=== PATIENT | female | born 1955 | race Caucasian/White ===

== ENCOUNTER 2018-11-18 23:10 | Inpatient (IN) | payer BC, MEDICAID ==
[~2018-11-18] VITALS: Ht 152.4 cm; Wt 92.0 kg
[~2018-11-18 23:10] MED LIST: ACET500C5 PO; AMIT100T2 PO; ASC500 PO; BIOT10TA2 PO; BUTA1CAP35 GTB; CHOL100062 PO; CITRACAL PO; CYAN500T46 PO; DICL100G33 TP; DICL2SOL TP; DOCU50LI11 GTB; ENOX40DI2 SC; ESTRD1 TRANSDERM; FAMO20TA18 PO; FLOV220 INHALATION; HYDR-3609 PO; IBUP-1541 PO; IPRA3AMP29 HHN; LACT1CAP28 PO; MAGN400T27 GTB; MECL12.574 PO; OXYC1TAB6 PO; TRAM50TA2 PO
--- NOTE | 2018-11-19 02:01 | ERD ---
ER Documentation Chief Complaint Chief Complaint [id number],from [facility],low O2 sat on vent at [facility] HPI This is a 27 brought in from [facility] for low O2 sat on maintenance neb. Patient's history is obviously limited given that she is a vent dependent patient. Upon arrival she is satting on her percent. Speaking with the staff, it seems that there having issues with her back to did not try changing the vent settings and was called 911 for the patient. ROS All systems reviewed and are negative except as per history of present illness. Allergies Allergies: Coded Allergies: Penicillins (Verified Allergy, Unknown, 11/18/18) codeine (Verified Allergy, Unknown, 11/18/18) famotidine (Verified Allergy, Unknown, 11/18/18) minocycline (Verified Allergy, Unknown, 11/18/18) morphine (Verified Allergy, Unknown, 11/18/18) PMhx/Soc History of Surgery: Yes (GASTRIC BYPASS) Hx Cardiac Disorders: Yes (HLD) Hx Miscellaneous Medical Probl: Yes (GASTIRITIS,CMP WITH BILATERAL FOOT DROP,PNEUMONIA) Hx Alcohol Use: No Smoking Status: Never smoker Physical Exam Vitals Vital Signs Date Temp Pulse Resp B/P (MAP) Pulse Ox O2 O2 Flow FiO2 Time Delivery Rate 11/18/18 98.9 108 18 155/100 98 23:15 (118) Physical Exam Const: No acute distress Head: Atraumatic Eyes: Normal Conjunctiva ENT: Normal External Ears, Nose and Mouth. Neck: Full range of motion. No meningismus. Resp: Clear to auscultation bilaterally Cardio: Regular rate and rhythm, no murmurs Abd: Soft, non tender, non distended. Normal bowel sounds Skin: No petechiae or rashes Back: No midline or flank tenderness Ext: No cyanosis, or edema Neur: Awake and alert Psych: Normal Mood and Affect Result Diagram: 11/19/18 0027 11/18/18 2326 Results 24 hrs Laboratory Tests Test 11/18/18 23:26 11/19/18 00:01 11/19/18 00:27 11/19/18 00:35 Blood Gas Blood arterial Specimen Source Arterial Blood 11/19/2018 12:30: Date Drawn 28 AM Arterial Blood 7.442 pH (Temp corrected) Arterial Blood 56.0 mmhg pCO2 (Temp correct) Arterial Blood 81.4 mmHG pO2 (Temp corrected) Arterial Blood 37.4 mmol/L HCO3 Arterial Blood 11.5 mmol/L Base Excess Arterial Blood 95.6 mmHG Oxygen Saturatio n Jose D Test ACCEPTAB Arterial Blood Right Radial Gas Puncture Site Arterial 0.3 % Blood Carboxyhem oglobin Arterial Blood 0.4 % Methemoglobin Blood Gas A-a O2 139.4 mmHg Differential Oxyhemoglobin 94.9 % Percent Blood Gas 37.0 C Temperature Blood Gas 16.0 Respiration Rate Blood Gas Actual 19 Respiration Rate Blood Gas VENT - AC Modality FiO2 40.0 % Blood Gas Tidal 500.0 mL Volume Blood Gas Low 5.0 cmH2O PEEP Setting Blood Gas Notified Whom Blood Gas 11/19/2018 12:37: Notified Time 22 AM Sodium Level 141 mmol/L Potassium Level 3.7 mmol/L Chloride Level 95 mmol/L Carbon Dioxide 39 mmol/L Level Anion Gap 7 Blood Urea 14 mg/dl Nitrogen Creatinine 0.49 mg/dl Est Glomerular > 60 mL/min Filtrat Rate mL/min Glucose Level 134 mg/dl Calcium Level 9.4 mg/dl Total Bilirubin 0.3 mg/dl Direct Bilirubin 0.00 mg/dl Indirect 0.3 mg/dl Bilirubin Aspartate Amino 35 IU/L Transf (AST/SGOT ) Alanine 48 IU/L Aminotransferase (ALT/SGPT) Alkaline 88 IU/L Phosphatase Troponin I 0.017 ng/ml B-Type 596 PG/ML Natriuretic Peptide Total Protein 7.4 g/dl Albumin 3.7 g/dl Globulin 3.70 g/dl Albumin/Globulin 1.00 Ratio Prothrombin Time 12.8 Sec Prothrombin Time 1.0 Ratio INR 0.95 International Normalized Ratio Activated 26.3 Sec Partial Thrombop last Time White Blood 13.7 10^3/ul Count Red Blood Count 3.34 10^6/ul Hemoglobin 9.6 g/dl Hematocrit 31.7 % Mean Corpuscular 94.9 fl Volume Mean Corpuscular 28.7 pg Hemoglobin Mean Corpuscular 30.3 g/dl Hemoglobin Kristin nt Red Cell 15.1 % Distribution Width Platelet Count 481 10^3/UL Mean Platelet 9.5 fl Volume Immature 1.000 % Granulocytes % Neutrophils % 77.4 % Lymphocytes % 9.8 % Monocytes % 5.8 % Eosinophils % 5.3 % Basophils % 0.7 % Nucleated Red 0.0 /100WBC Blood Cells % Immature 0.140 10^3/ul Granulocytes # Neutrophils # 10.6 10^3/ul Lymphocytes # 1.4 10^3/ul Monocytes # 0.8 10^3/ul Eosinophils # 0.7 10^3/ul Basophils # 0.1 10^3/ul Nucleated Red 0.0 10^3/ul Blood Cells # POC Venous 0.8 mmol/L Lactate Procedures/MDM EKG: Rate/Rhythm: [Normal Sinus Rhythm] QRS, ST, T-waves: [No changes consistent w/ acute ischemia] Impression: [No evidence of ischemia or arrhythmia] Chest X-ray 1V Interpreted by me: Soft Tissue: No acute abnormalities Bones: No acute abnormalities Mediastinum/Cardiac Silhouette/Lungs: [No acute abnormalities] Medical decision makin-year-old female with vent dependent shortness of breath. Work-up is essentially negative. Satting well here. Will be discha rged back to care home facility with instructions for vent settings. Departure Diagnosis: Primary Impression: Shortness of breath Condition: Stable Patient Instructions: Coping with Shortness of Breath: Controlling Stress ANA LILIA SILVA Nov 19, 2018 02:01
[2018-11-19] MEDS ORDERED: OXYCODONE/ACETAMINOPHEN (5/325) TAB GTB ONE (08:30)
[2018-11-19] MEDS ORDERED: FENTAnyl 50 MCG/ML VIAL ONE (15:38)
[2018-11-19] MEDS ORDERED: FENTAnyl 50 MCG/ML VIAL IV ONE (16:00)
[2018-11-19] MEDS ORDERED: ACETAMINOPHEN 325 MG TAB PO PRN (18:30)
[2018-11-19] MEDS ORDERED: ONDANSETRON 4 MG INJ IV PRN (18:30)
--- NOTE | 2018-11-19 18:44 | HP ---
Date/Time of Note Date/Time of Note DATE: 11/19/18 TIME: 18:32 Assessment/Plan VTE Prophylaxis Pharmacological prophylaxis: LMWH Lines/Catheters IV Catheter Type (from [facility]): Mid Line Assessment/Plan Hospital Course 1. Acute on chronic respiratory failure secondary to history of aspiration pneumonitis with ARDS Patient was recently transferred to a subacute facility but did not tolerate the ventilator at the facility Patient currently saturating well with FiO2 40% Chest x-ray with findings of bilateral pulmonary interstitial disease as well as acute versus chronic left upper lobe opacity Patient with leukocytosis and tachycardia, will treat for HCAP for now Pulmonology consultation Plan has been for continuation of vent support over the next several weeks with plans to gradually wean off the vent 2. Sepsis Patient with leukocytosis and tachycardia, etiology may be secondary to HCAP Vancomycin and Zosyn 3. Recent history of small bowel obstruction status post exploratory laparoscopy with likely lysis of adhesions Patient reportedly had an aspiration event after surgery which resulted in the aspiration pneumonitis Etiology of small bowel obstruction is secondary to history of gastric bypass surgery and revision 4. History of gastric bypass surgery and revision No acute issues 5. History of muscular dystrophy (CMT) No acute issues 6. Normocytic anemia likely secondary to chronic disease Monitor Prophylaxis: Lovenox Result Diagram: 11/19/18 0027 11/18/18 2326 Results 24hrs Laboratory Tests Test 11/18/18 23:26 11/19/18 00:01 11/19/18 00:27 11/19/18 00:35 Blood Gas Blood arterial Specimen Source Arterial Blood 11/19/2018 12:30: Date Drawn 28 AM Arterial Blood pH 7.442 (Temp corrected) Arterial Blood 56.0 H pCO2 (Temp correct) Arterial Blood 81.4 pO2 (Temp corrected) Arterial Blood 37.4 H HCO3 Arterial Blood 11.5 H Base Excess Arterial Blood 95.6 Oxygen Saturation Jose D Test ACCEPTAB Arterial Blood Right Radial Gas Puncture Site Arterial 0.3 Blood Carboxyhemo globin Arterial Blood 0.4 Methemoglobin Blood Gas A-a O2 139.4 H Differential Oxyhemoglobin 94.9 Percent Blood Gas 37.0 Temperature Blood Gas 16.0 Respiration Rate Blood Gas Actual 19 Respiration Rate Blood Gas VENT - AC Modality FiO2 40.0 Blood Gas Tidal 500.0 Volume Blood Gas Low 5.0 PEEP Setting Blood Gas Notified Whom Blood Gas 11/19/2018 12:37: Notified Time 22 AM Sodium Level 141 Potassium Level 3.7 Chloride Level 95 L Carbon Dioxide 39 H Level Anion Gap 7 Blood Urea 14 Nitrogen Creatinine 0.49 Est Glomerular > 60 Filtrat Rate mL/min Glucose Level 134 Calcium Level 9.4 Total Bilirubin 0.3 Direct Bilirubin 0.00 Indirect 0.3 Bilirubin Aspartate Amino 35 Transf (AST/SGOT) Alanine 48 Aminotransferase (ALT/SGPT) Alkaline 88 Phosphatase Troponin I 0.017 B-Type 596 H Natriuretic Peptide Total Protein 7.4 Albumin 3.7 Globulin 3.70 H Albumin/Globulin 1.00 Ratio Prothrombin Time 12.8 Prothrombin Time 1.0 Ratio INR International 0.95 Normalized Ratio Activated 26.3 Partial Thrombopl ast Time White Blood Count 13.7 H Red Blood Count 3.34 L Hemoglobin 9.6 L Hematocrit 31.7 L Mean Corpuscular 94.9 Volume Mean Corpuscular 28.7 L Hemoglobin Mean Corpuscular 30.3 L Hemoglobin Concen t Red Cell 15.1 H Distribution Width Platelet Count 481 H Mean Platelet 9.5 Volume Immature 1.000 H Granulocytes % Neutrophils % 77.4 H Lymphocytes % 9.8 L Monocytes % 5.8 Eosinophils % 5.3 Basophils % 0.7 Nucleated Red 0.0 Blood Cells % Immature 0.140 H Granulocytes # Neutrophils # 10.6 H Lymphocytes # 1.4 Monocytes # 0.8 Eosinophils # 0.7 H Basophils # 0.1 Nucleated Red 0.0 Blood Cells # POC Venous 0.8 Lactate HPI/ROS Admit Date/Time Admit Date/Time November 19, 2018 Hx of Present Illness Patient is a 63-year-old female with a history of muscular dystrophy (CMT), gastric bypass surgery 10 years ago with revision several years ago as well as recent admission for small bowel obstruction with exploratory laparoscopy which detected adhesions, patient subsequently had an episode of aspiration pn eumonitis which resulted in ARDS and respiratory failure, patient was unable to be weaned off the vent and required a tracheostomy and PEG tube placement. Patient was a transfer to [facility] rehab subacute yesterday and apparently the patient did not tolerate the ventilator at the facility and paramedics were called and patient was brought to the ER. In the ER today attempts were made to transition patient back to ventilator at subacute but patient continued to not tolerate the subacute facilities ventilator. Patient is currently saturating well on the hospital ventilator with an FiO2 of 40%, chest x-ray in the ER shows bilateral pulmonary interstitial disease and likely chronic airspace disease in the left upper lobe. Plan according to patient's who is bedside was for approximately 4 weeks of ventilator support with plans to wean off vent. History is obtained from who is bedside. ROS Subjective hx not possible: pt non-verbal PMH/Family/Social Past Medical History As per HPI Medications Current Medications Ondansetron HCl (Zofran Inj) 4 mg ER BRIDGE PRN IV NAUSEA/VOMITING; Start 11/19/18 at 18:30; Stop 11/20/18 at 18:29 Acetaminophen (Tylenol Tab) 650 mg ER BRIDGE PRN PO .MILD PAIN 1-3 OR TEMP; Start 11/19/18 at 18:30; Stop 11/20/18 at 18:29 Coded Allergies: Penicillins (Verified Allergy, Unknown, 11/18/18) codeine (Verified Allergy, Unknown, 11/18/18) famotidine (Verified Allergy, Unknown, 11/18/18) minocycline (Verified Allergy, Unknown, 11/18/18) morphine (Verified Allergy, Unknown, 11/18/18) Past Surgical History History of gastric bypass 10 years ago with revision several years ago, recent exploratory laparoscopy for SBO, hysterectomy Family History Significant Family History: other (Brother with retinitis pigmentosa) Social History Alcohol Use: none Smoking Status: Former smoker Drug Use: none Exam/Review of Systems Vital Signs Vitals Vital Signs Date Temp Pulse Resp B/P (MAP) Pulse Ox O2 O2 Flow FiO2 Time Delivery Rate 11/19/18 101 18 100 40 17:03 11/19/18 97.9 148/78 Mechanical 16:59 (101) Ventilator Exam Constitutional: alert Respiratory: clear to auscultation Cardiovascular: regular rate and rhythm Gastrointestinal: soft; No distended Musculoskeletal: nl extremities to inspection KAI ALBERTO Nov 19, 2018 18:43
[2018-11-19] MEDS ORDERED: morphine 2 MG INJ IV PRN (19:00)
[2018-11-19] MEDS ORDERED: VANCOMYCIN IV PER PHARMACY XX SCH (19:00)
[2018-11-19] MEDS ORDERED: NACL 0.9% 3 ML SYG IV SCH (19:00)
[2018-11-19] MEDS: PIPER-TAZO 3.375 GM IV (PMX) 100 ML IVPB SCH ×2 (19:31→23:55)
[2018-11-19] MEDS ORDERED: VANCOMYCIN HCL 1.75 GM in SOD CHLORIDE 0.9% 500 ML IVPB SCH (20:30)
[2018-11-19 21:01] VITALS: Ht 152.4 cm; Wt 92.0 kg
[2018-11-19 21:03] VITALS: RESP 19
[2018-11-19 21:07] VITALS: BP 135/64; PULSE 101; RESP 22
[2018-11-19] MEDS ORDERED: OXYCODONE/ACETAMINOPHEN (5/325) TAB GTB PRN (22:30)
[2018-11-19] MEDS: OXYCODONE/ACETAMINOPHEN (5/325) TAB GTB PRN (22:38)
[2018-11-19 23:17] VITALS: RESP 24
[2018-11-20] VITALS (18 sets, daily range): BP systolic 128–158; BP diastolic 60–78; PULSE 99–112; RESP 17–25
[2018-11-20] MEDS ORDERED: ZOLPIDEM 5 MG TAB PO ONE (03:30)
[2018-11-20] MEDS: OXYCODONE/ACETAMINOPHEN (5/325) TAB GTB PRN ×3 (04:42→22:35)
[2018-11-20] MEDS: PIPER-TAZO 3.375 GM IV (PMX) 100 ML IVPB SCH ×3 (06:04→18:13)
[2018-11-20] MEDS ORDERED: VANCOMYCIN 1.5 GM/NS 250 ML 250 ML IVPB SCH ×2 (08:00→22:00)
[2018-11-20] MEDS ORDERED: DILTIAZEM 25 MG INJ IV ONE (08:30)
[2018-11-20] MEDS: DILTIAZEM-D5W 125MG/125ML DRIP 125 ML IV SCH (08:50)
[2018-11-20] MEDS: ENOXAPARIN 40 MG/0.4 ML SYG SC SCH (09:55)
[2018-11-20] MEDS ORDERED: MAGNESIUM SULFATE 2 GM/50 ML 50 ML IVPB ONE (10:30)
[2018-11-20] MEDS ORDERED: POTASSIUM CHLORIDE 20 MEQ POWDER FOR ORAL SOLN GTB ONE (10:30)
--- NOTE | 2018-11-20 14:45 | PN ---
Date/Time of Note Date/Time of Note DATE: 11/20/18 TIME: 14:40 Assessment/Plan VTE Prophylaxis Pharmacological prophylaxis: LMWH Lines/Catheters IV Catheter Type (from [facility]): Peripheral IV Urinary Cath still in place: No Assessment/Plan Hospital Course 1. Acute on chronic respiratory failure secondary to history of aspiration p neumonitis with ARDS Patient was recently transferred to a subacute facility but did not tolerate the ventilator at the facility Patient currently saturating well with FiO2 40% Chest x-ray with findings of bilateral pulmonary interstitial disease as well as acute versus chronic left upper lobe opacity Patient with leukocytosis and tachycardia, will treat for HCAP for now Pulmonology consultation obtained Plan has been for continuation of vent support over the next several weeks with plans to gradually wean off the vent 2. Sepsis Patient with leukocytosis and tachycardia, etiology may be secondary to HCAP Vancomycin and Zosyn 3. Recent history of small bowel obstruction status post exploratory laparoscopy with likely lysis of adhesions Patient reportedly had an aspiration event after surgery which resulted in the aspiration pneumonitis Etiology of small bowel obstruction is secondary to history of gastric bypass surgery and revision 4. History of gastric bypass surgery and revision No acute issues 5. History of muscular dystrophy (CMT) Patient with chronic pain issues, start oxycodone continued release 6. Normocytic anemia likely secondary to chronic disease Monitor Prophylaxis: Lovenox DC planning: Follow-up with pulmonology recommendations Result Diagram: 11/20/18 0557 11/20/18 0557 Results 24hrs Laboratory Tests Test 11/20/18 05:57 White Blood Count 12.6 H Red Blood Count 3.35 L Hemoglobin 9.6 L Hematocrit 31.2 L Mean Corpuscular Volume 93.1 Mean Corpuscular Hemoglobin 28.7 L Mean Corpuscular Hemoglobin Concent 30.8 L Red Cell Distribution Width 14.7 H Platelet Count 405 Mean Platelet Volume 9.2 Immature Granulocytes % 1.000 H Neutrophils % 66.0 Lymphocytes % 18.0 Monocytes % 8.0 Eosinophils % 6.4 Basophils % 0.6 Nucleated Red Blood Cells % 0.0 Immature Granulocytes # 0.120 H Neutrophils # 8.3 H Lymphocytes # 2.3 Monocytes # 1.0 H Eosinophils # 0.8 H Basophils # 0.1 Nucleated Red Blood Cells # 0.0 Sodium Level 141 Potassium Level 3.1 L Chloride Level 94 L Carbon Dioxide Level 35 H Anion Gap 12 Blood Urea Nitrogen 14 Creatinine 0.46 Est Glomerular Filtrat Rate mL/min > 60 Glucose Level 82 # Hemoglobin A1c 5.3 Calcium Level 9.0 Phosphorus Level 4.3 Magnesium Level 1.6 L Subjective 24 Hr Interval Summary Musculoskeletal: bone/joint pain Exam/Review of Systems Exam Vitals Vital Signs Date Temp Pulse Resp B/P (MAP) Pulse Ox O2 O2 Flow FiO2 Time Delivery Rate 11/20/18 105 25 96 30 13:45 11/20/18 98.2 158/78 Mechanical 11:22 (104) Ventilator Intake and Output 11/19/18 11/19/18 11/20/18 1515:00 23:00 07:00 IntakeIntake Total 600 ml BalanceBalance 600 ml Constitutional: alert, oriented Respiratory: clear to auscultation Cardiovascular: regular rate and rhythm Gastrointestinal: soft; No distended Musculoskeletal: nl extremities to inspection Results Results 24hrs Laboratory Tests Test 11/20/18 05:57 White Blood Count 12.6 H Red Blood Count 3.35 L Hemoglobin 9.6 L Hematocrit 31.2 L Mean Corpuscular Volume 93.1 Mean Corpuscular Hemoglobin 28.7 L Mean Corpuscular Hemoglobin Concent 30.8 L Red Cell Distribution Width 14.7 H Platelet Count 405 Mean Platelet Volume 9.2 Immature Granulocytes % 1.000 H Neutrophils % 66.0 Lymphocytes % 18.0 Monocytes % 8.0 Eosinophils % 6.4 Basophils % 0.6 Nucleated Red Blood Cells % 0.0 Immature Granulocytes # 0.120 H Neutrophils # 8.3 H Lymphocytes # 2.3 Monocytes # 1.0 H Eosinophils # 0.8 H Basophils # 0.1 Nucleated Red Blood Cells # 0.0 Sodium Level 141 Potassium Level 3.1 L Chloride Level 94 L Carbon Dioxide Level 35 H Anion Gap 12 Blood Urea Nitrogen 14 Creatinine 0.46 Est Glomerular Filtrat Rate mL/min > 60 Glucose Level 82 # Hemoglobin A1c 5.3 Calcium Level 9.0 Phosphorus Level 4.3 Magnesium Level 1.6 L Medications Medication Current Medications IV Flush (NS 3 ml) 3 ml PER PROTOCOL IV ; Start 11/19/18 at 19:00 Ondansetron HCl (Zofran Inj) 4 mg Q6H PRN IV NAUSEA/VOMITING; Start 11/19/18 at 19:00 Morphine Sulfate (morphine) 2 mg Q2 PRN IV SEVERE PAIN LEVEL 7-10; Start 11/19/18 at 19:00 Enoxaparin Sodium (Lovenox) 40 mg DAILY SC Last administered on 11/20/18 09:55; Admin Dose 40 MG; Start 11/20/18 at 09:00 Vancomycin HCl (Vanco Iv Per Pharmacy) VANCOMYCIN PER PHARMACY PER PROTOCOL XX ; Start 11/19/18 at 19:00 Piperacillin Sod/ Tazobactam Sod 100 ml @ 200 mls/hr Q6 IVPB Last administered on 11/20/18 11:31; Admin Dose 200 MLS/HR; Start 11/19/18 at 19:30 Oxycodone/ Acetaminophen (Percocet (5/ 325)) 1 tab Q6 PRN GTB PAIN LEVEL 1-5 Last administered on 11/20/18 08:11; Admin Dose 1 TAB; Start 11/19/18 at 22:30 Oxycodone/ Acetaminophen (Percocet (5/ 325)) 2 tab Q6 PRN GTB PAIN LEVEL 6-10 Last administered on 11/20/18 14:35; Admin Dose 2 TAB; Start 11/19/18 at 22:30 Vancomycin/Sodium Chloride 250 ml @ 83.333 mls/ hr Q24H IVPB Last administered on 11/20/18 10:23; Admin Dose 83.333 MLS/HR; Start 11/20/18 at 08:00 Diltiazem HCl 125 ml @ 5 mls/hr Q24H IV Last administered on 11/20/18 08:50; Admin Dose 5 MLS/HR; Start 11/20/18 at 08:30 KAI ALBERTO Nov 20, 2018 14:45
[2018-11-20] MEDS ORDERED: ESTRADIOL 0.1 MG/24 HR PATCH TRANSDERM SCH (20:00)
--- NOTE | 2018-11-20 20:40 | CONS ---
DATE OF ADMISSION: 11/19/2018 DATE OF CONSULTATION: 11/20/2018 TYPE OF CONSULTATION: Pulmonary REASON FOR CONSULTATION: ____ management and pneumonia. HISTORY OF PRESENT ILLNESS: This is a 63-year-old lady with chronic respiratory failure, secondary t o ARDS, who was admitted from longterm facility for increasing respiratory distress, shortness of breath, found to have a new left upper lobe infiltrate with leukocytosis. The patient also has h istory of muscular dystrophy, dysphagia with G-tube, prior history of gastric bypass surgery and revi jenaro. PAST MEDICAL HISTORY: As above. MEDICATIONS: Per chart. ALLERGIES 1. PENICILLIN. 2. CODEINE. 3. FAMOTIDINE. 4. MINOCYCLINE. 3. MORPHINE. SOCIAL HISTORY: She is a current nonsmoker, no alcohol, no history of drug use. FAMILY HISTORY: Noncontributory. SYSTEMS REVIEW: A 12-point review of systems was negative other than that mentioned above. PHYSICAL EXAMINATION: GENERAL: Elderly-appearing lady, appears comfortable at rest, no acute distress. VITAL SIGNS: Currently afebrile, pulse is 100, blood pressure 134/65, O2 saturation 96% on FIO2 30%. NECK: Trach site clean and intact. CARDIAC: CHEST: Diminished air entry bilaterally. ABDOMEN: Soft, nontender. No guarding or rebound. EXTREMITIES: No cyanosis, clubbing. NEUROLOGIC: Generalized weakness. LABORATORY DATA: White count 12.6, hemoglobin 9.6, platelets 405. Chemistry within normal limits ex cept for low potassium and magnesium. Arterial blood gas: pH 7.42, pCO2 of 56, PaO2 of 81. DIAGNOSTIC DATA: Chest x-ray was reviewed, showed left upper lobe infiltrate, underlying chronic fib rosis. IMPRESSION AND PLAN: 1. Acute on chronic hypoxemic respiratory failure. 2. Possible healthcare-associated pneumonia. 3. History of muscular dystrophy. 4. Dysphagia with G-tube. PLAN: 1. Continue antibiotics. 2. Supplemental O2. 3. Tube feeding. 4. Heredia evaluation. 5. DVT and GI prophylaxis. Dictated By: DILAN DOWNS MD SV/DEV Conf#: [id number] DID#: [id number] CC: KAI ALBERTO MD;*EndCC*
[2018-11-20] MEDS ORDERED: METOPROLOL 25 MG TAB GTB SCH (21:00)
[2018-11-20] MEDS ORDERED: oxyCODONE (CR) 10 MG TAB [oxyCONTIN] PO SCH (21:00)
[2018-11-21] VITALS (18 sets, daily range): BP systolic 125–177; BP diastolic 70–98; PULSE 86–113; RESP 17–24
[2018-11-21] MEDS: PIPER-TAZO 3.375 GM IV (PMX) 100 ML IVPB SCH ×4 (00:43→17:58)
[2018-11-21] MEDS: LEVALBUTEROL (HFA) 15 GM INHALER INH PRN ×2 (04:05→21:23)
[2018-11-21] MEDS: ZOLPIDEM 5 MG TAB PO PRN (05:30)
[2018-11-21] MEDS: METOPROLOL 25 MG TAB GTB SCH ×2 (06:25→21:01)
[2018-11-21] MEDS: DILTIAZEM-D5W 125MG/125ML DRIP 125 ML IV SCH (06:26)
[2018-11-21] MEDS ORDERED: METOPROLOL 25 MG TAB GTB SCH (09:00)
[2018-11-21] MEDS: ENOXAPARIN 40 MG/0.4 ML SYG SC SCH (09:12)
[2018-11-21] MEDS: OXYCODONE/ACETAMINOPHEN (5/325) TAB GTB PRN ×2 (10:34→18:53)
--- NOTE | 2018-11-21 11:48 | CONS ---
Consult Date/Type/Reason Admit Date/Time Nov 19, 2018 at 18:05 Initial Consult Date Type of Consult Pulmonary Date/Time of Note DATE: 11/21/18 TIME: 11:47 Subjective Patient awake alert this morning states her breathing is still somewhat labored. Objective Vital Signs Date Temp Pulse Resp B/P (MAP) Pulse Ox O2 O2 Flow FiO2 Time Delivery Rate 11/21/18 87 18 94 30 11:07 11/21/18 140/72 10:33 (94) 11/21/18 98.0 07:31 11/20/18 Mechanical 15:02 Ventilator Nasal Cannula Intake and Output 11/20/18 11/20/18 11/21/18 1515:00 23:00 07:00 IntakeIntake Total 400 ml 145 ml 1230 ml BalanceBalance 400 ml 145 ml 1230 ml Exam PHYSICAL EXAMINATION: GENERAL: Elderly-appearing lady, appears comfortable at rest, no acute distress. VITAL SIGNS: NECK: Trach site clean and intact. CARDIAC: CHEST: Diminished air entry bilaterally. ABDOMEN: Soft, nontender. No guarding or rebound. EXTREMITIES: No cyanosis, clubbing. NEUROLOGIC: Generalized weakness. Vent Setting Ventilator Support Mode: AC Fraction of Inspired Oxygen pe: 30 Positive End Expiratory Pressu: 5.0 Results/Medications Result Diagram: 11/21/18 0937 11/21/18 0937 Results 24 hrs Laboratory Tests Test 11/21/18 09:37 White Blood Count 14.7 H Red Blood Count 3.47 L Hemoglobin 10.0 L Hematocrit 31.6 L Mean Corpuscular Volume 91.1 Mean Corpuscular Hemoglobin 28.8 L Mean Corpuscular Hemoglobin Concent 31.6 L Red Cell Distribution Width 14.7 H Platelet Count 425 H Mean Platelet Volume 9.2 Immature Granulocytes % 0.700 H Neutrophils % 67.5 Lymphocytes % 18.8 Monocytes % 7.1 Eosinophils % 5.3 Basophils % 0.6 Nucleated Red Blood Cells % 0.0 Immature Granulocytes # 0.110 H Neutrophils # 9.9 H Lymphocytes # 2.8 Monocytes # 1.0 H Eosinophils # 0.8 H Basophils # 0.1 Nucleated Red Blood Cells # 0.0 Sodium Level 138 Potassium Level 3.5 Chloride Level 93 L Carbon Dioxide Level 38 H Anion Gap 7 Blood Urea Nitrogen 12 Creatinine 0.45 Est Glomerular Filtrat Rate mL/min > 60 Glucose Level 133 # Calcium Level 9.2 Magnesium Level 1.9 Vancomycin Level Trough 21.0 *H Medications Current Medications IV Flush (NS 3 ml) 3 ml PER PROTOCOL IV ; Start 11/19/18 at 19:00 Ondansetron HCl (Zofran Inj) 4 mg Q6H PRN IV NAUSEA/VOMITING; Start 11/19/18 at 19:00 Enoxaparin Sodium (Lovenox) 40 mg DAILY SC Last administered on 11/21/18at 09:12; Admin Dose 40 MG; Start 11/20/18 at 09:00 Vancomycin HCl (Vanco Iv Per Pharmacy) VANCOMYCIN PER PHARMACY PER PROTOCOL XX ; Start 11/19/18 at 19:00 Piperacillin Sod/ Tazobactam Sod 100 ml @ 200 mls/hr Q6 IVPB Last administered on 11/21/18 05:31; Admin Dose 200 MLS/HR; Start 11/19/18 at 19:30 Diltiazem HCl 125 ml @ 5 mls/hr Q24H IV Last administered on 11/21/18 06:26; Admin Dose 5 MLS/HR; Start 11/20/18 at 08:30 Oxycodone/ Acetaminophen (Percocet (5/ 325)) 2 tab Q4H PRN GTB PAIN LEVEL 6-10 Last administered on 11/21/18at 10:34; Admin Dose 2 TAB; Start 11/20/18 at 17:30 Estradiol (Estraderm 0.1 Mg/24 Hr Patch) 0.1 patch MoFr@2000 TRANSDERM Last administered on 11/20/18at 21:27; Admin Dose 0.1 PATCH; Start 11/20/18 at 20:00 Levalbuterol (Xopenex Hfa) 4 puff Q3H RESP THERAPY PRN INH SHORTNESS OF BREATH Last administered on 11/21/18 04:05; Admin Dose 4 PUFF; Start 11/21/18 at 03:30 Ipratropium [place] (Atrovent Hfa) 4 puff Q3H RESP THERAPY PRN INH SHORTNESS OF BREATH; Start 11/21/18 at 03:30 Zolpidem Tartrate (Ambien) 5 mg HS MAY REPEAT X 1 PRN PO INSOMNIA Last administered on 11/21/18at 05:30; Admin Dose 5 MG; Start 11/21/18 at 05:30 Metoprolol Tartrate (Lopressor) 50 mg BID GTB Last administered on 11/21/18at 06:25; Admin Dose 50 MG; Start 11/21/18 at 06:20 Oxycodone HCl (Roxicodone) 5 mg QID GTB ; Start 11/21/18 at 13:00 Assessment/Plan Hospital Course (Demo Recall) IMPRESSION AND PLAN: 1. Acute on chronic hypoxemic respiratory failure. 2. Possible healthcare-associated pneumonia. 3. History of muscular dystrophy. 4. Dysphagia with G-tube. PLAN: 1. Continue antibiotics. Continue mechanical ventilation in-line PMV trials. 2. Supplemental O2. 3. Tube feeding. 4. Heredia evaluation. 5. DVT and GI prophylaxis. DILAN DOWNS MD, [facility] Nov 21, 2018 11:48
[2018-11-21] MEDS: oxyCODONE 5 MG TAB GTB SCH ×3 (12:53→20:58)
[2018-11-21] MEDS ORDERED: oxyCODONE (CR) 10 MG TAB [oxyCONTIN] PO SCH (13:00)
--- NOTE | 2018-11-21 13:13 | PN ---
Date/Time of Note Date/Time of Note DATE: 11/21/18 TIME: 13:11 Assessment/Plan VTE Prophylaxis Risk score (from Nsg)>0 risk: 3 Pharmacological prophylaxis: LMWH Lines/Catheters IV Catheter Type (from Nrsg): Peripheral IV Urinary Cath still in place: No Assessment/Plan Hospital Course 1. Acute on chronic respiratory failure secondary to history of aspiration pneumonitis with ARDS Patient was recently transferred to a subacute facility but did not tolerate the ventilator at the facility Patient currently saturating well with FiO2 40% Chest x-ray with findings of bilateral pulmonary interstitial disease as well as acute versus chronic left upper lobe opacity Patient with leukocytosis and tachycardia, will treat for HCAP for now Pulmonology consultation appreciated Plan has been for continuation of vent support over the next several weeks with plans to gradually wean off the vent 2. Sepsis Patient with leukocytosis and tachycardia, etiology may be secondary to HCAP Vancomycin and Zosyn Patient reportedly does have chronic tachycardia according to , started metoprolol 3. Recent history of small bowel obstruction status post exploratory laparoscopy with likely lysis of adhesions Patient reportedly had an aspiration event after surgery which resulted in the aspiration pneumonitis Etiology of small bowel obstruction is secondary to history of gastric bypass surgery and revision 4. History of gastric bypass surgery and revision No acute issues 5. History of muscular dystrophy (CMT) Patient with chronic pain issues, continue oxycodone Patient does have pain in lower extremities which is chronic, venous ultrasound is negative for DVT 6. Normocytic anemia likely secondary to chronic disease Monitor Prophylaxis: Lovenox DC planning: Follow-up with pulmonology recommendations, attempting discharge to [facility] Result Diagram: 11/21/18 0937 11/21/18 0937 Results 24hrs Laboratory Tests Test 11/21/18 09:37 White Blood Count 14.7 H Red Blood Count 3.47 L Hemoglobin 10.0 L Hematocrit 31.6 L Mean Corpuscular Volume 91.1 Mean Corpuscular Hemoglobin 28.8 L Mean Corpuscular Hemoglobin Concent 31.6 L Red Cell Distribution Width 14.7 H Platelet Count 425 H Mean Platelet Volume 9.2 Immature Granulocytes % 0.700 H Neutrophils % 67.5 Lymphocytes % 18.8 Monocytes % 7.1 Eosinophils % 5.3 Basophils % 0.6 Nucleated Red Blood Cells % 0.0 Immature Granulocytes # 0.110 H Neutrophils # 9.9 H Lymphocytes # 2.8 Monocytes # 1.0 H Eosinophils # 0.8 H Basophils # 0.1 Nucleated Red Blood Cells # 0.0 Sodium Level 138 Potassium Level 3.5 Chloride Level 93 L Carbon Dioxide Level 38 H Anion Gap 7 Blood Urea Nitrogen 12 Creatinine 0.45 Est Glomerular Filtrat Rate mL/min > 60 Glucose Level 133 # Calcium Level 9.2 Magnesium Level 1.9 Vancomycin Level Trough 21.0 *H Subjective 24 Hr Interval Summary Constitutional: no complaints Exam/Review of Systems Exam Vitals Vital Signs Date Temp Pulse Resp B/P (MAP) Pulse Ox O2 O2 Flow FiO2 Time Delivery Rate 11/21/18 87 18 94 30 11:07 11/21/18 140/72 10:33 (94) 11/21/18 98.0 07:31 11/20/18 Mechanical 15:02 Ventilator Nasal Cannula Intake and Output 11/20/18 11/20/18 11/21/18 1515:00 23:00 07:00 IntakeIntake Total 400 ml 145 ml 1230 ml BalanceBalance 400 ml 145 ml 1230 ml Constitutional: alert Respiratory: clear to auscultation Cardiovascular: regular rate and rhythm Gastrointestinal: soft; No distended Musculoskeletal: nl extremities to inspection Results Results 24hrs Laboratory Tests Test 11/21/18 09:37 White Blood Count 14.7 H Red Blood Count 3.47 L Hemoglobin 10.0 L Hematocrit 31.6 L Mean Corpuscular Volume 91.1 Mean Corpuscular Hemoglobin 28.8 L Mean Corpuscular Hemoglobin Concent 31.6 L Red Cell Distribution Width 14.7 H Platelet Count 425 H Mean Platelet Volume 9.2 Immature Granulocytes % 0.700 H Neutrophils % 67.5 Lymphocytes % 18.8 Monocytes % 7.1 Eosinophils % 5.3 Basophils % 0.6 Nucleated Red Blood Cells % 0.0 Immature Granulocytes # 0.110 H Neutrophils # 9.9 H Lymphocytes # 2.8 Monocytes # 1.0 H Eosinophils # 0.8 H Basophils # 0.1 Nucleated Red Blood Cells # 0.0 Sodium Level 138 Potassium Level 3.5 Chloride Level 93 L Carbon Dioxide Level 38 H Anion Gap 7 Blood Urea Nitrogen 12 Creatinine 0.45 Est Glomerular Filtrat Rate mL/min > 60 Glucose Level 133 # Calcium Level 9.2 Magnesium Level 1.9 Vancomycin Level Trough 21.0 *H Medications Medication Current Medications IV Flush (NS 3 ml) 3 ml PER PROTOCOL IV ; Start 11/19/18 at 19:00 Ondansetron HCl (Zofran Inj) 4 mg Q6H PRN IV NAUSEA/VOMITING; Start 11/19/18 at 19:00 Enoxaparin Sodium (Lovenox) 40 mg DAILY SC Last administered on 11/21/18 09:12; Admin Dose 40 MG; Start 11/20/18 at 09:00 Vancomycin HCl (Vanco Iv Per Pharmacy) VANCOMYCIN PER PHARMACY PER PROTOCOL XX ; Start 11/19/18 at 19:00 Piperacillin Sod/ Tazobactam Sod 100 ml @ 200 mls/hr Q6 IVPB Last administered on 11/21/18 12:53; Admin Dose 200 MLS/HR; Start 11/19/18 at 19:30 Diltiazem HCl 125 ml @ 5 mls/hr Q24H IV Last administered on 11/21/18 06:26; Admin Dose 5 MLS/HR; Start 11/20/18 at 08:30 Oxycodone/ Acetaminophen (Percocet (5/ 325)) 2 tab Q4H PRN GTB PAIN LEVEL 6-10 Last administered on 11/21/18 10:34; Admin Dose 2 TAB; Start 11/20/18 at 17:30 Estradiol (Estraderm 0.1 Mg/24 Hr Patch) 0.1 patch MoFr@2000 TRANSDERM Last administered on 11/20/18 21:27; Admin Dose 0.1 PATCH; Start 11/20/18 at 20:00 Levalbuterol (Xopenex Hfa) 4 puff Q3H RESP THERAPY PRN INH SHORTNESS OF BREATH Last administered on 11/21/18 04:05; Admin Dose 4 PUFF; Start 11/21/18 at 03:30 Ipratropium [place] (Atrovent Hfa) 4 puff Q3H RESP THERAPY PRN INH SHORTNESS OF BREATH; Start 11/21/18 at 03:30 Zolpidem Tartrate (Ambien) 5 mg HS MAY REPEAT X 1 PRN PO INSOMNIA Last administered on 11/21/18 05:30; Admin Dose 5 MG; Start 11/21/18 at 05:30 Metoprolol Tartrate (Lopressor) 50 mg BID GTB Last administered on 11/21/18 06:25; Admin Dose 50 MG; Start 11/21/18 at 06:20 Oxycodone HCl (Roxicodone) 5 mg QID GTB Last administered on 11/21/18at 12:53; Admin Dose 5 MG; Start 11/21/18 at 13:00 Vancomycin HCl 250 ml @ 125 mls/hr Q12H IVPB ; Start 11/21/18 at 16:00 Miscellaneous Information (*Rx Drug Level Order Reminder*) VANCO TROUGH @ 0,300 ON... 0300 ONCE XX ; Start 11/23/18 at 03:00; Stop 11/23/18 at 03:01 KAI ALBERTO Nov 21, 2018 13:13
[2018-11-21] MEDS: VANCOMYCIN 1 GM 250 ML IVPB SCH (15:53)
[2018-11-21] MEDS: PANTOPRAZOLE 40 MG INJ IV SCH (15:54)
[2018-11-21] MEDS: LORAZEPAM 2 MG INJ IV PRN (15:57)
--- NOTE | 2018-11-21 15:59 | RADRPT ---
Vent Rate: 168 bpm RR Interval: 356 msec OH Interval: 120 msec QRS Duration: 65 msec QT Interval: 296 msec QTC Interval: 496 msec P-R-T Tiro: 254 - 53 - -54 degrees Supraventricular tachycardia...V-rate>(220-age), QRSd<120 Repolarization abnormality, prob rate related...ST dep, T neg, tachycardia Electronically Signed By: Roberto Lindsay
[2018-11-21] MEDS ORDERED: FAMOTIDINE 20 MG INJ IV SCH (21:00)
[2018-11-21] MEDS: IPRATROPIUM (HFA) 12.9 GM INHALER INH PRN (21:22)
[2018-11-22] VITALS (19 sets, daily range): BP systolic 121–149; BP diastolic 53–75; PULSE 75–96; RESP 16–29
[2018-11-22] MEDS: PIPER-TAZO 3.375 GM IV (PMX) 100 ML IVPB SCH ×4 (00:38→18:07)
[2018-11-22] MEDS: ZOLPIDEM 5 MG TAB PO PRN ×2 (00:42→21:20)
[2018-11-22] MEDS: VANCOMYCIN 1 GM 250 ML IVPB SCH ×2 (03:25→16:19)
[2018-11-22] MEDS: PANTOPRAZOLE 40 MG INJ IV SCH (05:40)
[2018-11-22] MEDS: DILTIAZEM-D5W 125MG/125ML DRIP 125 ML IV SCH (05:40)
[2018-11-22] MEDS: LORAZEPAM 2 MG INJ IV PRN (06:23)
[2018-11-22] MEDS: LEVALBUTEROL (HFA) 15 GM INHALER INH PRN (07:59)
[2018-11-22] MEDS: IPRATROPIUM (HFA) 12.9 GM INHALER INH PRN (07:59)
[2018-11-22] MEDS: oxyCODONE 5 MG TAB GTB SCH ×4 (09:09→20:05)
[2018-11-22] MEDS: METOPROLOL 25 MG TAB GTB SCH ×2 (09:09→20:05)
[2018-11-22] MEDS: ENOXAPARIN 40 MG/0.4 ML SYG SC SCH (09:53)
--- NOTE | 2018-11-22 11:58 | CONS ---
Consult Date/Type/Reason Admit Date/Time Nov 19, 2018 at 18:05 Initial Consult Date Type of Consult Pulmonary Date/Time of Note DATE: 11/22/18 TIME: 11:51 Subjective PHYSICAL EXAMINATION: GENERAL: Elderly-appearing lady, appears comfortable at rest, no acute distress. VITAL SIGNS: NECK: Trach site clean and intact. CARDIAC: CHEST: Diminished air entry bilaterally. ABDOMEN: Soft, nontender. No guarding or rebound. EXTREMITIES: No cyanosis, clubbing. NEUROLOGIC: Generalized weakness Objective Vital Signs Date Temp Pulse Resp B/P (MAP) Pulse Ox O2 O2 Flow FiO2 Time Delivery Rate 11/22/18 105 22 97 30 11:24 11/22/18 98.6 133/70 07:51 (91) 11/22/18 Mechanical 03:39 Ventilator Intake and Output 11/21/18 11/21/18 11/22/18 1515:00 23:00 07:00 IntakeIntake Total 100 ml 425 ml 775 ml BalanceBalance 100 ml 425 ml 775 ml Vent Setting Ventilator Support Mode: AC, VC plus Fraction of Inspired Oxygen pe: 30 Positive End Expiratory Pressu: 5.0 Results/Medications Result Diagram: 11/22/18 0850 11/22/18 0850 Results 24 hrs Laboratory Tests Test 11/22/18 08:50 White Blood Count 14.7 H Red Blood Count 3.42 L Hemoglobin 9.7 L Hematocrit 31.2 L Mean Corpuscular Volume 91.2 Mean Corpuscular Hemoglobin 28.4 L Mean Corpuscular Hemoglobin Concent 31.1 L Red Cell Distribution Width 14.6 H Platelet Count 350 Mean Platelet Volume 9.0 Immature Granulocytes % 0.600 H Neutrophils % 69.3 Lymphocytes % 17.8 Monocytes % 6.7 Eosinophils % 5.1 Basophils % 0.5 Nucleated Red Blood Cells % 0.0 Immature Granulocytes # 0.090 H Neutrophils # 10.2 H Lymphocytes # 2.6 Monocytes # 1.0 H Eosinophils # 0.8 H Basophils # 0.1 Nucleated Red Blood Cells # 0.0 Sodium Level 138 Potassium Level 3.2 L Chloride Level 96 L Carbon Dioxide Level 36 H Anion Gap 6 Blood Urea Nitrogen 14 Creatinine 0.44 Est Glomerular Filtrat Rate mL/min > 60 Glucose Level 125 Calcium Level 9.1 Procalcitonin 0.17 H Medications Current Medications IV Flush (NS 3 ml) 3 ml PER PROTOCOL IV ; Start 11/19/18 at 19:00 Ondansetron HCl (Zofran Inj) 4 mg Q6H PRN IV NAUSEA/VOMITING; Start 11/19/18 at 19:00 Enoxaparin Sodium (Lovenox) 40 mg DAILY SC Last administered on 11/22/18 09:53; Admin Dose 40 MG; Start 11/20/18 at 09:00 Vancomycin HCl (Vanco Iv Per Pharmacy) VANCOMYCIN PER PHARMACY PER PROTOCOL XX ; Start 11/19/18 at 19:00 Piperacillin Sod/ Tazobactam Sod 100 ml @ 200 mls/hr Q6 IVPB Last administered on 11/22/18 05:39; Admin Dose 200 MLS/HR; Start 11/19/18 at 19:30 Diltiazem HCl 125 ml @ 5 mls/hr Q24H IV Last administered on 11/22/18 05:40; Admin Dose 5 MLS/HR; Start 11/20/18 at 08:30 Oxycodone/ Acetaminophen (Percocet (5/ 325)) 2 tab Q4H PRN GTB PAIN LEVEL 6-10 Last administered on 11/21/18 18:53; Admin Dose 2 TAB; Start 11/20/18 at 17:30 Estradiol (Estraderm 0.1 Mg/24 Hr Patch) 0.1 patch [id number]@2000 TRANSDERM Last administered on 11/20/18 21:27; Admin Dose 0.1 PATCH; Start 11/20/18 at 20:00 Levalbuterol (Xopenex Hfa) 4 puff Q3H RESP THERAPY PRN INH SHORTNESS OF BREATH Last administered on 11/22/18 07:59; Admin Dose 4 PUFF; Start 11/21/18 at 03:30 Ipratropium [place] (Atrovent Hfa) 4 puff Q3H RESP THERAPY PRN INH SHORTNESS OF BREATH Last administered on 11/22/18 07:59; Admin Dose 4 PUFF; Start 11/21/18 at 03:30 Zolpidem Tartrate (Ambien) 5 mg HS MAY REPEAT X 1 PRN PO INSOMNIA Last administered on 11/22/18 00:42; Admin Dose 5 MG; Start 11/21/18 at 05:30 Metoprolol Tartrate (Lopressor) 50 mg BID GTB Last administered on 11/22/18 09:09; Admin Dose 50 MG; Start 11/21/18 at 06:20 Oxycodone HCl (Roxicodone) 5 mg QID GTB Last administered on 11/22/18at 09:09; Admin Dose 5 MG; Start 11/21/18 at 13:00 Vancomycin HCl 250 ml @ 125 mls/hr Q12H IVPB Last administered on 11/22/18 03:25; Admin Dose 125 MLS/HR; Start 11/21/18 at 16:00 Miscellaneous Information (*Rx Drug Level Order Reminder*) VANCO TROUGH @ 0,300 ON... 0300 ONCE XX ; Start 11/23/18 at 03:00; Stop 11/23/18 at 03:01 Pantoprazole (Protonix Iv) 40 mg DAILY@06 IV Last administered on 11/22/18at 05:40; Admin Dose 40 MG; Start 11/21/18 at 15:30 Lorazepam (Ativan) 0.5 mg Q8H PRN IV AGITATION Last administered on 11/22/18at 06:23; Admin Dose 0.5 MG; Start 11/21/18 at 16:00 Assessment/Plan Hospital Course (Demo Recall) IMPRESSION AND PLAN: 1. Acute on chronic hypoxemic respiratory failure. 2. Possible healthcare-associated pneumonia. 3. History of muscular dystrophy. 4. Dysphagia with G-tube. PLAN: 1. Continue antibiotics. Continue mechanical ventilation in-line PMV trials. 2. Supplemental O2. 3. Tube feeding. 4. [place] evaluation. 5. DVT and GI prophylaxis. DILAN DOWNS MD, [facility] Nov 22, 2018 11:58
[2018-11-22] MEDS: OXYCODONE/ACETAMINOPHEN (5/325) TAB GTB PRN (12:11)
--- NOTE | 2018-11-22 19:12 | PN ---
Date/Time of Note Date/Time of Note DATE: 11/22/18 TIME: 19:11 Assessment/Plan VTE Prophylaxis Risk score (from Ns)>0 risk: 11 SCD applied (from Nsg): Yes Pharmacological prophylaxis: LMWH Lines/Catheters IV Catheter Type (from Nrsg): Peripheral IV Urinary Cath still in place: No Assessment/Plan Hospital Course 1. Acute on chronic respiratory failure secondary to history of aspiration pneumonitis with ARDS Patient was recently transferred to a subacute facility but did not tolerate the ventilator at the facility Patient currently saturating well with FiO2 40% Chest x-ray with findings of bilateral pulmonary interstitial disease as well as acute versus chronic left upper lobe opacity Patient with leukocytosis and tachycardia, will treat for HCAP for now Pulmonology consultation appreciated Plan has been for continuation of vent support over the next several weeks with plans to gradually wean off the vent Phenergan as needed for cough 2. Sepsis Patient with leukocytosis and tachycardia, etiology may be secondary to HCAP Vancomycin and Zosyn Patient reportedly does have chronic tachycardia according to , started metoprolol 3. Recent history of small bowel obstruction status post exploratory laparoscopy with likely lysis of adhesions Patient reportedly had an aspiration event after surgery which resulted in the aspiration pneumonitis Etiology of small bowel obstruction is secondary to history of gastric bypass surgery and revision 4. History of gastric bypass surgery and revision No acute issues 5. History of muscular dystrophy (CMT) Patient with chronic pain issues, continue oxycodone Patient does have pain in lower extremities which is chronic, venous ultrasound is negative for DVT 6. Normocytic anemia likely secondary to chronic disease Monitor Prophylaxis: Lovenox DC planning: Follow-up with pulmonology recommendations, attempting discharge to [facility] Result Diagram: 11/22/18 0850 11/22/18 0850 Results 24hrs Laboratory Tests Test 11/22/18 08:50 White Blood Count 14.7 H Red Blood Count 3.42 L Hemoglobin 9.7 L Hematocrit 31.2 L Mean Corpuscular Volume 91.2 Mean Corpuscular Hemoglobin 28.4 L Mean Corpuscular Hemoglobin Concent 31.1 L Red Cell Distribution Width 14.6 H Platelet Count 350 Mean Platelet Volume 9.0 Immature Granulocytes % 0.600 H Neutrophils % 69.3 Lymphocytes % 17.8 Monocytes % 6.7 Eosinophils % 5.1 Basophils % 0.5 Nucleated Red Blood Cells % 0.0 Immature Granulocytes # 0.090 H Neutrophils # 10.2 H Lymphocytes # 2.6 Monocytes # 1.0 H Eosinophils # 0.8 H Basophils # 0.1 Nucleated Red Blood Cells # 0.0 Sodium Level 138 Potassium Level 3.2 L Chloride Level 96 L Carbon Dioxide Level 36 H Anion Gap 6 Blood Urea Nitrogen 14 Creatinine 0.44 Est Glomerular Filtrat Rate mL/min > 60 Glucose Level 125 Calcium Level 9.1 Procalcitonin 0.17 H Subjective 24 Hr Interval Summary Subjective hx not possible: pt non-verbal Constitutional: no complaints Exam/Review of Systems Exam Vitals Vital Signs Date Temp Pulse Resp B/P (MAP) Pulse Ox O2 O2 Flow FiO2 Time Delivery Rate 11/22/18 78 17 98 30 16:42 11/22/18 98.0 135/73 16:07 (93) 11/22/18 Mechanical 03:39 Ventilator Intake and Output 11/21/18 11/21/18 11/22/18 1515:00 23:00 07:00 IntakeIntake Total 100 ml 425 ml 775 ml BalanceBalance 100 ml 425 ml 775 ml Constitutional: alert Respiratory: clear to auscultation Cardiovascular: regular rate and rhythm Gastrointestinal: soft; No distended Musculoskeletal: nl extremities to inspection Results Results 24hrs Laboratory Tests Test 11/22/18 08:50 White Blood Count 14.7 H Red Blood Count 3.42 L Hemoglobin 9.7 L Hematocrit 31.2 L Mean Corpuscular Volume 91.2 Mean Corpuscular Hemoglobin 28.4 L Mean Corpuscular Hemoglobin Concent 31.1 L Red Cell Distribution Width 14.6 H Platelet Count 350 Mean Platelet Volume 9.0 Immature Granulocytes % 0.600 H Neutrophils % 69.3 Lymphocytes % 17.8 Monocytes % 6.7 Eosinophils % 5.1 Basophils % 0.5 Nucleated Red Blood Cells % 0.0 Immature Granulocytes # 0.090 H Neutrophils # 10.2 H Lymphocytes # 2.6 Monocytes # 1.0 H Eosinophils # 0.8 H Basophils # 0.1 Nucleated Red Blood Cells # 0.0 Sodium Level 138 Potassium Level 3.2 L Chloride Level 96 L Carbon Dioxide Level 36 H Anion Gap 6 Blood Urea Nitrogen 14 Creatinine 0.44 Est Glomerular Filtrat Rate mL/min > 60 Glucose Level 125 Calcium Level 9.1 Procalcitonin 0.17 H Medications Medication Current Medications IV Flush (NS 3 ml) 3 ml PER PROTOCOL IV ; Start 11/19/18 at 19:00 Ondansetron HCl (Zofran Inj) 4 mg Q6H PRN IV NAUSEA/VOMITING; Start 11/19/18 at 19:00 Enoxaparin Sodium (Lovenox) 40 mg DAILY SC Last administered on 11/22/18 09:53; Admin Dose 40 MG; Start 11/20/18 at 09:00 Vancomycin HCl (Vanco Iv Per Pharmacy) VANCOMYCIN PER PHARMACY PER PROTOCOL XX ; Start 11/19/18 at 19:00 Piperacillin Sod/ Tazobactam Sod 100 ml @ 200 mls/hr Q6 IVPB Last administered on 11/22/18 18:07; Admin Dose 200 MLS/HR; Start 11/19/18 at 19:30 Diltiazem HCl 125 ml @ 5 mls/hr Q24H IV Last administered on 11/22/18 05:40; Admin Dose 5 MLS/HR; Start 11/20/18 at 08:30 Oxycodone/ Acetaminophen (Percocet (5/ 325)) 2 tab Q4H PRN GTB PAIN LEVEL 6-10 Last administered on 11/22/18 12:11; Admin Dose 2 TAB; Start 11/20/18 at 17:30 Estradiol (Estraderm 0.1 Mg/24 Hr Patch) 0.1 patch [id number]@2000 TRANSDERM Last administered on 11/20/18 21:27; Admin Dose 0.1 PATCH; Start 11/20/18 at 20:00 Levalbuterol (Xopenex Hfa) 4 puff Q3H RESP THERAPY PRN INH SHORTNESS OF BREATH Last administered on 11/22/18 07:59; Admin Dose 4 PUFF; Start 11/21/18 at 03:30 Ipratropium [place] (Atrovent Hfa) 4 puff Q3H RESP THERAPY PRN INH SHORTNESS OF BREATH Last administered on 11/22/18 07:59; Admin Dose 4 PUFF; Start 11/21/18 at 03:30 Zolpidem Tartrate (Ambien) 5 mg HS MAY REPEAT X 1 PRN PO INSOMNIA Last administered on 11/22/18 00:42; Admin Dose 5 MG; Start 11/21/18 at 05:30 Metoprolol Tartrate (Lopressor) 50 mg BID GTB Last administered on 11/22/18 09:09; Admin Dose 50 MG; Start 11/21/18 at 06:20 Oxycodone HCl (Roxicodone) 5 mg QID GTB Last administered on 11/22/18at 18:06; Admin Dose 5 MG; Start 11/21/18 at 13:00 Vancomycin HCl 250 ml @ 125 mls/hr Q12H IVPB Last administered on 11/22/18at 16:19; Admin Dose 125 MLS/HR; Start 11/21/18 at 16:00 Miscellaneous Information (*Rx Drug Level Order Reminder*) VANCO TROUGH @ 0,300 ON... 0300 ONCE XX ; Start 11/23/18 at 03:00; Stop 11/23/18 at 03:01 Pantoprazole (Protonix Iv) 40 mg DAILY@06 IV Last administered on 11/22/18at 05:40; Admin Dose 40 MG; Start 11/21/18 at 15:30 Lorazepam (Ativan) 0.5 mg Q8H PRN IV AGITATION Last administered on 11/22/18at 06:23; Admin Dose 0.5 MG; Start 11/21/18 at 16:00 KAI ALBERTO Nov 22, 2018 19:12
[2018-11-22] MEDS ORDERED: POTASSIUM CHLORIDE 20 MEQ POWDER FOR ORAL SOLN GTB ONE (19:30)
[2018-11-22] MEDS: ONDANSETRON 4 MG INJ IV PRN (20:27)
[2018-11-23] VITALS (18 sets, daily range): BP systolic 124–140; BP diastolic 60–67; PULSE 83–102; RESP 17–24
[2018-11-23] MEDS: PIPER-TAZO 3.375 GM IV (PMX) 100 ML IVPB SCH ×5 (00:16→22:58)
[2018-11-23] MEDS: VANCOMYCIN 1 GM 250 ML IVPB SCH (04:22)
[2018-11-23] MEDS: DILTIAZEM-D5W 125MG/125ML DRIP 125 ML IV SCH (04:35)
[2018-11-23] MEDS: OXYCODONE/ACETAMINOPHEN (5/325) TAB GTB PRN ×3 (05:53→17:02)
[2018-11-23] MEDS: PANTOPRAZOLE 40 MG INJ IV SCH (05:53)
[2018-11-23] MEDS: IPRATROPIUM (HFA) 12.9 GM INHALER INH PRN (08:13)
[2018-11-23] MEDS: LEVALBUTEROL (HFA) 15 GM INHALER INH PRN (08:13)
[2018-11-23] MEDS: METOPROLOL 25 MG TAB GTB SCH ×2 (08:40→20:38)
[2018-11-23] MEDS: oxyCODONE 5 MG TAB GTB SCH ×4 (08:41→18:56)
[2018-11-23] MEDS: ENOXAPARIN 40 MG/0.4 ML SYG SC SCH (09:57)
[2018-11-23] MEDS ORDERED: IOHEXOL 14.3 MG(I)/ML (ADULT) BTL PO ONE (11:30)
--- NOTE | 2018-11-23 12:10 | PN ---
Date/Time of Note Date/Time of Note DATE: 11/23/18 TIME: 11:58 Assessment/Plan VTE Prophylaxis Risk score (from Ns)>0 risk: 6 SCD applied (from Nsg): Yes Pharmacological prophylaxis: heparin Lines/Catheters IV Catheter Type (from Nrsg): Peripheral IV Urinary Cath still in place: No Assessment/Plan Hospital Course 1. Acute on chronic respiratory failure secondary to history of aspiration pneumonitis with ARDS Patient was recently transferred to a subacute facility but did not tolerate the ventilator at the facility Patient currently saturating well with FiO2 40% Chest x-ray with findings of bilateral pulmonary interstitial disease as well as acute versus chronic left upper lobe opacity Patient with leukocytosis and tachycardia, will treat for HCAP for now Pulmonology consultation appreciated Plan has been for continuation of vent support over the next several weeks with plans to gradually wean off the vent Phenergan as needed for cough 2. Sepsis Patient with leukocytosis and tachycardia, etiology may be secondary to HCAP Vancomycin and Zosyn Patient reportedly does have chronic tachycardia according to , started metoprolol 3. Recent history of small bowel obstruction status post exploratory laparoscopy with likely lysis of adhesions Patient reportedly had an aspiration event after surgery which resulted in the aspiration pneumonitis Etiology of small bowel obstruction is secondary to history of gastric bypass surgery and revision 4. History of gastric bypass surgery and revision No acute issues 5. History of muscular dystrophy (CMT) Patient with chronic pain issues, continue oxycodone Patient does have pain in lower extremities which is chronic, venous ultrasound is negative for DVT 6. Normocytic anemia likely secondary to chronic disease Monitor Prophylaxis: Lovenox DC planning: Follow-up with pulmonology recommendations, attempting discharge to [facility] Result Diagram: 11/23/18 0259 11/23/18 0259 Results 24hrs Laboratory Tests Test 11/23/18 02:59 White Blood Count 12.7 H Red Blood Count 3.25 L Hemoglobin 9.2 L Hematocrit 30.5 L Mean Corpuscular Volume 93.8 Mean Corpuscular Hemoglobin 28.3 L Mean Corpuscular Hemoglobin Concent 30.2 L Red Cell Distribution Width 14.9 H Platelet Count 340 Mean Platelet Volume 10.3 Immature Granulocytes % 0.500 H Neutrophils % 60.8 Lymphocytes % 22.3 Monocytes % 8.3 Eosinophils % 7.5 H Basophils % 0.6 Nucleated Red Blood Cells % 0.0 Immature Granulocytes # 0.070 H Neutrophils # 7.7 H Lymphocytes # 2.8 Monocytes # 1.1 H Eosinophils # 1.0 H Basophils # 0.1 Nucleated Red Blood Cells # 0.0 Sodium Level 137 Potassium Level 3.7 Chloride Level 96 L Carbon Dioxide Level 37 H Anion Gap 4 L Blood Urea Nitrogen 17 Creatinine 0.44 Est Glomerular Filtrat Rate mL/min > 60 Glucose Level 146 Calcium Level 9.0 Vancomycin Level Trough 20.0 Subjective 24 Hr Interval Summary Free Text/Dictation Complians of lower abdominal pain Exam/Review of Systems Exam Vitals Vital Signs Date Temp Pulse Resp B/P (MAP) Pulse Ox O2 O2 Flow FiO2 Time Delivery Rate 11/23/18 82 22 100 30 11:09 11/23/18 98.0 124/61 07:29 (82) 11/23/18 Mechanical 04:00 Ventilator Intake and Output 11/22/18 11/22/18 11/23/18 1414:59 22:59 06:59 IntakeIntake Total 100 ml 793 ml 1080 ml BalanceBalance 100 ml 793 ml 1080 ml Constitutional: alert, oriented, well developed Psych: no complaints, nl mood/affect Head: normocephalic, atraumatic Eyes: nl conjunctiva, EOMI, nl lids, nl sclera, PERRL ENMT: nl external ears & nose, nl lips & teeth, nl nasal mucosa & septum Neck: supple, non-tender Respiratory: clear to auscultation, normal air movement Cardiovascular: regular rate and rhythm, nl pulses Gastrointestinal: soft, nl liver, spleen, non-tender Musculoskeletal: nl extremities to inspection, nl gait and stance Extremities: normal pulses 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, nl mental status, nl speech, nl strength Skin: nl turgor; No rash or lesions Lymph: nl lymph nodes Results Results 24hrs Laboratory Tests Test 11/23/18 02:59 White Blood Count 12.7 H Red Blood Count 3.25 L Hemoglobin 9.2 L Hematocrit 30.5 L Mean Corpuscular Volume 93.8 Mean Corpuscular Hemoglobin 28.3 L Mean Corpuscular Hemoglobin Concent 30.2 L Red Cell Distribution Width 14.9 H Platelet Count 340 Mean Platelet Volume 10.3 Immature Granulocytes % 0.500 H Neutrophils % 60.8 Lymphocytes % 22.3 Monocytes % 8.3 Eosinophils % 7.5 H Basophils % 0.6 Nucleated Red Blood Cells % 0.0 Immature Granulocytes # 0.070 H Neutrophils # 7.7 H Lymphocytes # 2.8 Monocytes # 1.1 H Eosinophils # 1.0 H Basophils # 0.1 Nucleated Red Blood Cells # 0.0 Sodium Level 137 Potassium Level 3.7 Chloride Level 96 L Carbon Dioxide Level 37 H Anion Gap 4 L Blood Urea Nitrogen 17 Creatinine 0.44 Est Glomerular Filtrat Rate mL/min > 60 Glucose Level 146 Calcium Level 9.0 Vancomycin Level Trough 20.0 Medications Medication Current Medications IV Flush (NS 3 ml) 3 ml PER PROTOCOL IV ; Start 11/19/18 at 19:00 Ondansetron HCl (Zofran Inj) 4 mg Q6H PRN IV NAUSEA/VOMITING Last administered on 11/22/18 20:27; Admin Dose 4 MG; Start 11/19/18 at 19:00 Enoxaparin Sodium (Lovenox) 40 mg DAILY SC Last administered on 11/23/18 09:57; Admin Dose 40 MG; Start 11/20/18 at 09:00 Vancomycin HCl (Vanco Iv Per Pharmacy) VANCOMYCIN PER PHARMACY PER PROTOCOL XX ; Start 11/19/18 at 19:00 Piperacillin Sod/ Tazobactam Sod 100 ml @ 200 mls/hr Q6 IVPB Last administered on 11/23/18 06:47; Admin Dose 200 MLS/HR; Start 11/19/18 at 19:30 Diltiazem HCl 125 ml @ 5 mls/hr Q24H IV Last administered on 11/22/18 05:40; Admin Dose 5 MLS/HR; Start 11/20/18 at 08:30 Oxycodone/ Acetaminophen (Percocet (5/ 325)) 2 tab Q4H PRN GTB PAIN LEVEL 6-10 Last administered on 11/23/18 10:13; Admin Dose 2 TAB; Start 11/20/18 at 17:30 Estradiol (Estraderm 0.1 Mg/24 Hr Patch) 0.1 patch [id number]@2000 TRANSDERM Last ad ministered on 11/20/18 21:27; Admin Dose 0.1 PATCH; Start 11/20/18 at 20:00 Levalbuterol (Xopenex Hfa) 4 puff Q3H RESP THERAPY PRN INH SHORTNESS OF BREATH Last administered on 11/23/18 08:13; Admin Dose 4 PUFF; Start 11/21/18 at 03:30 Ipratropium [place] (Atrovent Hfa) 4 puff Q3H RESP THERAPY PRN INH SHORTNESS OF BREATH Last administered on 11/23/18 08:13; Admin Dose 4 PUFF; Start 11/21/18 at 03:30 Zolpidem Tartrate (Ambien) 5 mg HS MAY REPEAT X 1 PRN PO INSOMNIA Last administered on 11/22/18 21:20; Admin Dose 5 MG; Start 11/21/18 at 05:30 Metoprolol Tartrate (Lopressor) 50 mg BID GTB Last administered on 11/23/18 08:40; Admin Dose 50 MG; Start 11/21/18 at 06:20 Oxycodone HCl (Roxicodone) 5 mg QID GTB Last administered on 11/23/18 08:41; Admin Dose 5 MG; Start 11/21/18 at 13:00 Pantoprazole (Protonix Iv) 40 mg DAILY@06 IV Last administered on 11/23/18 05:53; Admin Dose 40 MG; Start 11/21/18 at 15:30 Lorazepam (Ativan) 0.5 mg Q8H PRN IV AGITATION Last administered on 11/22/18 06:23; Admin Dose 0.5 MG; Start 11/21/18 at 16:00 Vancomycin/Sodium Chloride 250 ml @ 125 mls/hr Q12H IVPB ; Start 11/23/18 at 21:00 LC ENAMORADO MD Nov 23, 2018 12:08
[2018-11-23] MEDS: LORAZEPAM 2 MG INJ IV PRN (12:56)
--- NOTE | 2018-11-23 13:51 | CONS ---
Consult Date/Type/Reason Admit Date/Time Nov 19, 2018 at 18:05 Initial Consult Date Type of Consult Pulmonary Date/Time of Note DATE: 11/23/18 TIME: 13:51 Subjective No significant changes. Patient remains stable Objective Vital Signs Date Temp Pulse Resp B/P (MAP) Pulse Ox O2 O2 Flow FiO2 Time Delivery Rate 11/23/18 82 22 100 30 11:09 11/23/18 98.0 124/61 07:29 (82) 11/23/18 Mechanical 04:00 Ventilator Intake and Output 11/22/18 11/22/18 11/23/18 1515:00 23:00 07:00 IntakeIntake Total 100 ml 793 ml 1080 ml BalanceBalance 100 ml 793 ml 1080 ml Exam PHYSICAL EXAMINATION: GENERAL: Elderly-appearing lady, appears comfortable at rest, no acute distress. VITAL SIGNS: NECK: Trach site clean and intact. CARDIAC: CHEST: Diminished air entry bilaterally. ABDOMEN: Soft, nontender. No guarding or rebound. EXTREMITIES: No cyanosis, clubbing. NEUROLOGIC: Generalized weakness Vent Setting Ventilator Support Mode: AC, VC plus Fraction of Inspired Oxygen pe: 30 Positive End Expiratory Pressu: 5.0 Results/Medications Result Diagram: 11/23/18 0259 11/23/18 0259 Results 24 hrs Laboratory Tests Test 11/23/18 02:59 White Blood Count 12.7 H Red Blood Count 3.25 L Hemoglobin 9.2 L Hematocrit 30.5 L Mean Corpuscular Volume 93.8 Mean Corpuscular Hemoglobin 28.3 L Mean Corpuscular Hemoglobin Concent 30.2 L Red Cell Distribution Width 14.9 H Platelet Count 340 Mean Platelet Volume 10.3 Immature Granulocytes % 0.500 H Neutrophils % 60.8 Lymphocytes % 22.3 Monocytes % 8.3 Eosinophils % 7.5 H Basophils % 0.6 Nucleated Red Blood Cells % 0.0 Immature Granulocytes # 0.070 H Neutrophils # 7.7 H Lymphocytes # 2.8 Monocytes # 1.1 H Eosinophils # 1.0 H Basophils # 0.1 Nucleated Red Blood Cells # 0.0 Sodium Level 137 Potassium Level 3.7 Chloride Level 96 L Carbon Dioxide Level 37 H Anion Gap 4 L Blood Urea Nitrogen 17 Creatinine 0.44 Est Glomerular Filtrat Rate mL/min > 60 Glucose Level 146 Calcium Level 9.0 Vancomycin Level Trough 20.0 Medications Current Medications IV Flush (NS 3 ml) 3 ml PER PROTOCOL IV ; Start 11/19/18 at 19:00 Ondansetron HCl (Zofran Inj) 4 mg Q6H PRN IV NAUSEA/VOMITING Last administered on 11/22/18 20:27; Admin Dose 4 MG; Start 11/19/18 at 19:00 Enoxaparin Sodium (Lovenox) 40 mg DAILY SC Last administered on 11/23/18 09:57; Admin Dose 40 MG; Start 11/20/18 at 09:00 Piperacillin Sod/ Tazobactam Sod 100 ml @ 200 mls/hr Q6 IVPB Last administered on 11/23/18 12:51; Admin Dose 200 MLS/HR; Start 11/19/18 at 19:30 Oxycodone/ Acetaminophen (Percocet (5/ 325)) 2 tab Q4H PRN GTB PAIN LEVEL 6-10 Last administered on 11/23/18 10:13; Admin Dose 2 TAB; Start 11/20/18 at 17:30 Levalbuterol (Xopenex Hfa) 4 puff Q3H RESP THERAPY PRN INH SHORTNESS OF BREATH Last administered on 11/23/18 08:13; Admin Dose 4 PUFF; Start 11/21/18 at 03:30 Ipratropium [place] (Atrovent Hfa) 4 puff Q3H RESP THERAPY PRN INH SHORTNESS OF BREATH Last administered on 11/23/18 08:13; Admin Dose 4 PUFF; Start 11/21/18 at 03:30 Zolpidem Tartrate (Ambien) 5 mg HS MAY REPEAT X 1 PRN PO INSOMNIA Last administered on 11/22/18 21:20; Admin Dose 5 MG; Start 11/21/18 at 05:30 Metoprolol Tartrate (Lopressor) 50 mg BID GTB Last administered on 11/23/18 08:40; Admin Dose 50 MG; Start 11/21/18 at 06:20 Oxycodone HCl (Roxicodone) 5 mg QID GTB Last administered on 11/23/18 08:41; Admin Dose 5 MG; Start 11/21/18 at 13:00 Pantoprazole (Protonix Iv) 40 mg DAILY@06 IV Last administered on 11/23/18 05:53; Admin Dose 40 MG; Start 11/21/18 at 15:30 Lorazepam (Ativan) 0.5 mg Q8H PRN IV AGITATION Last administered on 11/23/18at 12:56; Admin Dose 0.5 MG; Start 11/21/18 at 16:00 Assessment/Plan Hospital Course (Demo Recall) IMPRESSION AND PLAN: 1. Acute on chronic hypoxemic respiratory failure. 2. Possible healthcare-associated pneumonia. 3. History of muscular dystrophy. 4. Dysphagia with G-tube. PLAN: 1. Continue antibiotics. Continue mechanical ventilation in-line PMV trials. 2. Supplemental O2. 3. Tube feeding. 4. [place] evaluation. 5. DVT and GI prophylaxis. DC to shelter facility if patient not candidate for follow-up. DILAN DOWNS MD, [facility] Nov 23, 2018 13:51
[2018-11-23] MEDS: ZOLPIDEM 5 MG TAB PO PRN (20:41)
[2018-11-23] MEDS ORDERED: VANCOMYCIN 750 MG (PMX) 250 ML IVPB SCH (21:00)
[2018-11-23] MEDS ORDERED: ESTRADIOL 0.1 MG/24 HR PATCH TRANSDERM ONE (22:00)
[2018-11-24] VITALS (18 sets, daily range): BP systolic 115–163; BP diastolic 55–92; PULSE 92–110; RESP 18–35
[2018-11-24] MEDS: ONDANSETRON 4 MG INJ IV PRN ×3 (02:33→09:27)
[2018-11-24] MEDS: OXYCODONE/ACETAMINOPHEN (5/325) TAB GTB PRN ×2 (03:41→21:33)
[2018-11-24] MEDS: PIPER-TAZO 3.375 GM IV (PMX) 100 ML IVPB SCH (05:50)
[2018-11-24] MEDS: LANSOPRAZOLE 30 MG CAP GTB SCH (05:50)
[2018-11-24] MEDS: IPRATROPIUM (HFA) 12.9 GM INHALER INH PRN ×3 (09:22→18:30)
[2018-11-24] MEDS: LEVALBUTEROL (HFA) 15 GM INHALER INH PRN ×3 (09:22→18:30)
[2018-11-24] MEDS: METOPROLOL 25 MG TAB GTB SCH (09:27)
[2018-11-24] MEDS: ENOXAPARIN 40 MG/0.4 ML SYG SC SCH (09:28)
[2018-11-24] MEDS: oxyCODONE 5 MG TAB GTB SCH (09:39)
[2018-11-24] MEDS: LACTULOSE 30ML CUP PO SCH ×3 (10:22→21:21)
--- NOTE | 2018-11-24 11:51 | PN ---
Date/Time of Note Date/Time of Note DATE: 11/24/18 TIME: 11:48 Assessment/Plan VTE Prophylaxis Risk score (from Ns)>0 risk: 10 SCD applied (from Nsg): Yes Pharmacological prophylaxis: heparin Lines/Catheters IV Catheter Type (from Nrsg): Saline Lock Urinary Cath still in place: No Assessment/Plan Hospital Course 1. Acute on chronic respiratory failure secondary to history of aspiration pneumonitis with ARDS Patient was recently transferred to a subacute facility but did not tolerate the ventilator at the facility Patient currently saturating well with FiO2 40% Chest x-ray with findings of bilateral pulmonary interstitial disease as well as acute versus chronic left upper lobe opacity Patient with leukocytosis and tachycardia, will treat for HCAP for noPulmonology consultation appreciated Plan has been for continuation of vent support over the next several weeks with plans to gradually wean off the vent Phenergan as needed for cough Recent history of small bowel obstruction status post exploratory laparoscopy with likely lysis of adhesions - Patient reportedly had an aspiration event after surgery which resulted in the aspiration pneumonitis - Etiology of small bowel obstruction is secondary to history of gastric bypass surgery and revision Consiptation: - Limit opiates. Start bowel regimen History of gastric bypass surgery and revision No acute issues 5. History of muscular dystrophy (CMT) Patient with chronic pain issues, continue oxycodone Patient does have pain in lower extremities which is chronic, venous ultrasound is negative for DVT 6. Normocytic anemia likely secondary to chronic disease Monitor Prophylaxis: Lovenox DC planning: Follow-up with pulmonology recommendations, attempting discharge to [place] Result Diagram: 11/23/18 0259 11/23/18 0259 Subjective 24 Hr Interval Summary Free Text/Dictation CT abdomen and pelvis was performed showing constipation. No other acute abdominal pathology. Discussed with her the constipation is probably causing her symptoms we agreed to limit pain medications and make them as needed only and add laxatives. Still waiting [place] evaluation Exam/Review of Systems Exam Vitals Vital Signs Date Temp Pulse Resp B/P (MAP) Pulse Ox O2 O2 Flow FiO2 Time Delivery Rate 11/24/18 98.0 104 20 128/58 97 07:31 (81) 11/24/18 30 05:22 11/23/18 Mechanical 04:00 Ventilator Intake and Output 11/23/18 11/23/18 11/24/18 1515:00 23:00 07:00 IntakeIntake Total 989 ml 900 ml BalanceBalance 989 ml 900 ml Medications Medication Current Medications IV Flush (NS 3 ml) 3 ml PER PROTOCOL IV ; Start 11/19/18 at 19:00 Enoxaparin Sodium (Lovenox) 40 mg DAILY SC Last administered on 11/24/18 09:28; Admin Dose 40 MG; Start 11/20/18 at 09:00 Oxycodone/ Acetaminophen (Percocet (5/ 325)) 2 tab Q4H PRN GTB PAIN LEVEL 6-10 Last administered on 11/24/18 03:41; Admin Dose 2 TAB; Start 11/20/18 at 17:30 Levalbuterol (Xopenex Hfa) 4 puff Q3H RESP THERAPY PRN INH SHORTNESS OF BREATH Last administered on 11/24/18 09:22; Admin Dose 4 PUFF; Start 11/21/18 at 03:30 Ipratropium [place] (Atrovent Hfa) 4 puff Q3H RESP THERAPY PRN INH SHORTNESS OF BREATH Last administered on 11/24/18 09:22; Admin Dose 4 PUFF; Start 11/21/18 at 03:30 Zolpidem Tartrate (Ambien) 5 mg HS MAY REPEAT X 1 PRN PO INSOMNIA Last administered on 11/23/18 20:41; Admin Dose 5 MG; Start 11/21/18 at 05:30 Metoprolol Tartrate (Lopressor) 50 mg BID GTB Last administered on 11/24/18 09:27; Admin Dose 50 MG; Start 11/21/18 at 06:20 Oxycodone HCl (Roxicodone) 5 mg QID GTB Last administered on 11/24/18 09:39; Admin Dose 5 MG; Start 11/21/18 at 13:00 Lorazepam (Ativan) 0.5 mg Q8H PRN IV AGITATION Last administered on 11/23/18 12:56; Admin Dose 0.5 MG; Start 11/21/18 at 16:00 Lansoprazole (Prevacid) 30 mg DAILY@06 GTB Last administered on 11/24/18 05:50; Admin Dose 30 MG; Start 11/24/18 at 06:00 Ondansetron HCl (Zofran Inj) 4 mg Q4 PRN IV NAUSEA/VOMITING Last administered on 7/23/19at 09:27; Admin Dose 4 MG; Start 11/24/18 at 06:00 Lactulose (Enulose) 20 gm Q8 PO Last administered on 11/24/18at 10:22; Admin Dose 20 GM; Start 11/24/18 at 10:00 LC ENAMORADO MD Nov 24, 2018 11:51
--- NOTE | 2018-11-24 14:16 | CONS ---
Consult Date/Type/Reason Admit Date/Time Nov 19, 2018 at 18:05 Initial Consult Date Type of Consult Pulmonary Date/Time of Note DATE: 11/24/18 TIME: 14:15 Subjective Patient comfortable no respiratory distress continues mechanical ventilation. Objective Vital Signs Date Temp Pulse Resp B/P (MAP) Pulse Ox O2 O2 Flow FiO2 Time Delivery Rate 11/24/18 86 19 98 30 13:38 11/24/18 98.4 115/57 12:01 (76) 11/23/18 Mechanical 04:00 Ventilator Intake and Output 11/23/18 11/23/18 11/24/18 1515:00 23:00 07:00 IntakeIntake Total 989 ml 900 ml BalanceBalance 989 ml 900 ml Exam PHYSICAL EXAMINATION: GENERAL: Elderly-appearing lady, appears comfortable at rest, no acute distress. VITAL SIGNS: NECK: Trach site clean and intact. CARDIAC: CHEST: Diminished air entry bilaterally. ABDOMEN: Soft, nontender. No guarding or rebound. EXTREMITIES: No cyanosis, clubbing. NEUROLOGIC: Generalized weakness Vent Setting Ventilator Support Mode: AC, VC plus Fraction of Inspired Oxygen pe: 30 Positive End Expiratory Pressu: 5.0 Results/Medications Result Diagram: 11/23/18 0259 11/23/18 0259 Medications Current Medications IV Flush (NS 3 ml) 3 ml PER PROTOCOL IV ; Start 11/19/18 at 19:00 Enoxaparin Sodium (Lovenox) 40 mg DAILY SC Last administered on 11/24/18at 09:28; Admin Dose 40 MG; Start 11/20/18 at 09:00 Oxycodone/ Acetaminophen (Percocet (5/ 325)) 2 tab Q4H PRN GTB PAIN LEVEL 6-10 Last administered on 11/24/18at 03:41; Admin Dose 2 TAB; Start 11/20/18 at 17:30 Levalbuterol (Xopenex Hfa) 4 puff Q3H RESP THERAPY PRN INH SHORTNESS OF BREATH Last administered on 11/24/18at 13:37; Admin Dose 4 PUFF; Start 11/21/18 at 03:30 Ipratropium [place] (Atrovent Hfa) 4 puff Q3H RESP THERAPY PRN INH SHORTNESS OF BREATH Last administered on 11/24/18at 13:37; Admin Dose 4 PUFF; Start 11/21/18 at 03:30 Zolpidem Tartrate (Ambien) 5 mg HS MAY REPEAT X 1 PRN PO INSOMNIA Last administered on 11/23/18at 20:41; Admin Dose 5 MG; Start 11/21/18 at 05:30 Lorazepam (Ativan) 0.5 mg Q8H PRN IV AGITATION Last administered on 11/23/18at 12:56; Admin Dose 0.5 MG; Start 11/21/18 at 16:00 Lansoprazole (Prevacid) 30 mg DAILY@06 GTB Last administered on 11/24/18 05:50; Admin Dose 30 MG; Start 11/24/18 at 06:00 Ondansetron HCl (Zofran Inj) 4 mg Q4 PRN IV NAUSEA/VOMITING Last administered on 11/24/18at 09:27; Admin Dose 4 MG; Start 11/24/18 at 06:00 Lactulose (Enulose) 20 gm Q8 PO Last administered on 11/24/18at 10:22; Admin Dose 20 GM; Start 11/24/18 at 10:00 Assessment/Plan Hospital Course (Demo Recall) IMPRESSION AND PLAN: 1. Acute on chronic hypoxemic respiratory failure. 2. Possible healthcare-associated pneumonia. 3. History of muscular dystrophy. 4. Dysphagia with G-tube. PLAN: 1. Continue antibiotics. Continue mechanical ventilation in-line PMV trials. 2. Supplemental O2. 3. Tube feeding. 4. [place] evaluation. 5. DVT and GI prophylaxis. DC to custodial facility if patient not candidate for [place] DILAN DOWNS MD, [facility] Nov 24, 2018 14:16
[2018-11-24] MEDS: LORAZEPAM 2 MG INJ IV PRN (15:35)
[2018-11-24] MEDS: ZOLPIDEM 5 MG TAB PO PRN (23:46)
[2018-11-25] VITALS (18 sets, daily range): BP systolic 134–176; BP diastolic 71–86; PULSE 101–111; RESP 17–27
[2018-11-25] MEDS: OXYCODONE/ACETAMINOPHEN (5/325) TAB GTB PRN (04:49)
[2018-11-25] MEDS: LACTULOSE 30ML CUP PO SCH (05:04)
[2018-11-25] MEDS: LANSOPRAZOLE 30 MG CAP GTB SCH (05:04)
[2018-11-25] MEDS: ENOXAPARIN 40 MG/0.4 ML SYG SC SCH (08:39)
[2018-11-25] MEDS: LORAZEPAM 2 MG INJ IV PRN ×2 (08:43→15:56)
[2018-11-25] MEDS: HYDROmorphONE 0.5 MG/0.5 ML SYG IV PRN ×3 (11:42→22:13)
--- NOTE | 2018-11-25 13:38 | PN ---
Date/Time of Note Date/Time of Note DATE: 11/25/18 TIME: 13:37 Assessment/Plan VTE Prophylaxis Risk score (from Nsg)>0 risk: 9 SCD applied (from Nsg): Yes Pharmacological prophylaxis: heparin Lines/Catheters IV Catheter Type (from Nrsg): Saline Lock Urinary Cath still in place: No Assessment/Plan Hospital Course 1. Acute on chronic respiratory failure secondary to history of aspiration pneumonitis with ARDS - Add sedation for comfort Patient was recently transferred to a subacute facility but did not tolerate the ventilator at the facility Patient currently saturating well with FiO2 40% Chest x-ray with findings of bilateral pulmonary interstitial disease as well as acute versus chronic left upper lobe opacity Patient with leukocytosis and tachycardia, will treat for HCAP for noPulmonology consultation appreciated Plan has been for continuation of vent support over the next several weeks with plans to gradually wean off the vent Phenergan as needed for cough Recent history of small bowel obstruction status post exploratory laparoscopy with likely lysis of adhesions - Patient reportedly had an aspiration event after surgery which resulted in the aspiration pneumonitis - Etiology of small bowel obstruction is secondary to history of gastric bypass surgery and revision Consiptation: - Limit opiates. Started on bowel regimen History of gastric bypass surgery and revision No acute issues 5. History of muscular dystrophy (CMT) Patient with chronic pain issues, continue oxycodone Patient does have pain in lower extremities which is chronic, venous ultrasound is negative for DVT 6. Normocytic anemia likely secondary to chronic disease Monitor Prophylaxis: Lovenox DC planning: Follow-up with pulmonology recommendations, attempting discharge to [facility] Result Diagram: 11/23/18 0259 11/23/18 0259 Subjective 24 Hr Interval Summary Free Text/Dictation Very frequent coughing fits on ventilator, uncomfortable Exam/Review of Systems Exam Vitals Vital Signs Date Temp Pulse Resp B/P (MAP) Pulse Ox O2 O2 Flow FiO2 Time Delivery Rate 11/25/18 98.7 101 19 136/78 96 Trach 11:27 (97) Collar 11/25/18 30 05:28 Medications Medication Current Medications IV Flush (NS 3 ml) 3 ml PER PROTOCOL IV ; Start 11/19/18 at 19:00 Enoxaparin Sodium (Lovenox) 40 mg DAILY SC Last administered on 11/25/18at 08:39; Admin Dose 40 MG; Start 11/20/18 at 09:00 Oxycodone/ Acetaminophen (Percocet (5/ 325)) 2 tab Q4H PRN GTB PAIN LEVEL 6-10 Last administered on 11/25/18 04:49; Admin Dose 2 TAB; Start 11/20/18 at 17:30 Levalbuterol (Xopenex Hfa) 4 puff Q3H RESP THERAPY PRN INH SHORTNESS OF BREATH Last administered on 11/24/18 18:30; Admin Dose 4 PUFF; Start 11/21/18 at 03:30 Ipratropium [place] (Atrovent Hfa) 4 puff Q3H RESP THERAPY PRN INH SHORTNESS OF BREATH Last administered on 11/24/18 18:30; Admin Dose 4 PUFF; Start 11/21/18 at 03:30 Zolpidem Tartrate (Ambien) 5 mg HS MAY REPEAT X 1 PRN PO INSOMNIA Last administered on 11/24/18 23:46; Admin Dose 5 MG; Start 11/21/18 at 05:30 Lorazepam (Ativan) 0.5 mg Q8H PRN IV AGITATION Last administered on 11/25/18 08:43; Admin Dose 0.5 MG; Start 11/21/18 at 16:00 Lansoprazole (Prevacid) 30 mg DAILY@06 GTB Last administered on 11/25/18 05:04; Admin Dose 30 MG; Start 11/24/18 at 06:00 Ondansetron HCl (Zofran Inj) 4 mg Q4 PRN IV NAUSEA/VOMITING Last administered on 11/24/18 09:27; Admin Dose 4 MG; Start 11/24/18 at 06:00 Hydromorphone HCl (Dilaudid) 0.5 mg Q4H PRN IV SEVERE PAIN LEVEL 7-10 Last administered on 11/25/18 11:42; Admin Dose 0.5 MG; Start 11/25/18 at 12:00 Lactulose (Enulose) 20 gm DAILY PO ; Start 11/26/18 at 09:00 LC ENAMORADO MD Nov 25, 2018 13:38
[2018-11-25] MEDS: LEVALBUTEROL (HFA) 15 GM INHALER INH PRN (15:32)
[2018-11-25] MEDS: IPRATROPIUM (HFA) 12.9 GM INHALER INH PRN (15:32)
[2018-11-25] MEDS: ZOLPIDEM 5 MG TAB PO PRN (21:16)
[2018-11-26] VITALS (20 sets, daily range): BP systolic 123–171; BP diastolic 62–89; PULSE 89–111; RESP 16–22
[2018-11-26] MEDS: LORAZEPAM 2 MG INJ IV PRN ×3 (01:14→20:27)
[2018-11-26] MEDS: GUAIFENESIN/DM 5ML CUP PO PRN ×3 (02:04→19:10)
[2018-11-26] MEDS: HYDROmorphONE 0.5 MG/0.5 ML SYG IV PRN ×3 (04:45→16:15)
[2018-11-26] MEDS: LANSOPRAZOLE 30 MG CAP GTB SCH (05:54)
[2018-11-26] MEDS ORDERED: LACTULOSE 30ML CUP PO SCH (09:00)
[2018-11-26] MEDS: ENOXAPARIN 40 MG/0.4 ML SYG SC SCH (09:35)
--- NOTE | 2018-11-26 09:50 | CONS ---
Consult Date/Type/Reason Admit Date/Time Nov 19, 2018 at 18:05 Initial Consult Date Type of Consult Pulmonary Date/Time of Note DATE: 11/26/18 TIME: 09:50 Subjective No significant changes. Continues mechanical ventilation. Objective Vital Signs Date Temp Pulse Resp B/P (MAP) Pulse Ox O2 O2 Flow FiO2 Time Delivery Rate 11/26/18 98.4 105 18 139/62 96 07:34 (87) 11/26/18 30 07:26 11/25/18 Trach 15:03 Collar Intake and Output 11/25/18 11/25/18 11/26/18 1414:59 22:59 06:59 IntakeIntake Total 860 ml BalanceBalance 860 ml Exam PHYSICAL EXAMINATION: GENERAL: Elderly-appearing lady, appears comfortable at rest, no acute distress. VITAL SIGNS: NECK: Trach site clean and intact. CARDIAC: CHEST: Diminished air entry bilaterally. ABDOMEN: Soft, nontender. No guarding or rebound. EXTREMITIES: No cyanosis, clubbing. NEUROLOGIC: Generalized weakness Vent Setting Ventilator Support Mode: AC, VC plus Fraction of Inspired Oxygen pe: 30 Positive End Expiratory Pressu: 5.0 Results/Medications Result Diagram: 11/26/1861211/26/1813 Results 24 hrs Laboratory Tests Test 11/26/18 06:13 White Blood Count 12.8 H Red Blood Count 3.12 L Hemoglobin 8.8 L Hematocrit 28.8 L Mean Corpuscular Volume 92.3 Mean Corpuscular Hemoglobin 28.2 L Mean Corpuscular Hemoglobin Concent 30.6 L Red Cell Distribution Width 14.8 H Platelet Count 245 # Mean Platelet Volume 10.4 Immature Granulocytes % 0.500 H Neutrophils % 67.5 Lymphocytes % 19.5 Monocytes % 8.0 Eosinophils % 3.9 Basophils % 0.6 Nucleated Red Blood Cells % 0.0 Immature Granulocytes # 0.070 H Neutrophils # 8.6 H Lymphocytes # 2.5 Monocytes # 1.0 H Eosinophils # 0.5 Basophils # 0.1 Nucleated Red Blood Cells # 0.0 Sodium Level 136 Potassium Level 3.2 L Chloride Level 95 L Carbon Dioxide Level 37 H Anion Gap 4 L Blood Urea Nitrogen 14 Creatinine 0.41 L Est Glomerular Filtrat Rate mL/min > 60 Glucose Level 144 Calcium Level 9.3 Medications Current Medications IV Flush (NS 3 ml) 3 ml PER PROTOCOL IV ; Start 11/19/18 at 19:00 Enoxaparin Sodium (Lovenox) 40 mg DAILY SC Last administered on 11/26/18 09:35; Admin Dose 40 MG; Start 11/20/18 at 09:00 Oxycodone/ Acetaminophen (Percocet (5/ 325)) 2 tab Q4H PRN GTB PAIN LEVEL 6-10 Last administered on 11/25/18 04:49; Admin Dose 2 TAB; Start 11/20/18 at 17:30 Levalbuterol (Xopenex Hfa) 4 puff Q3H RESP THERAPY PRN INH SHORTNESS OF BREATH Last administered on 11/25/18 15:32; Admin Dose 4 PUFF; Start 11/21/18 at 03:30 Ipratropium [place] (Atrovent Hfa) 4 puff Q3H RESP THERAPY PRN INH SHORTNESS OF BREATH Last administered on 11/25/18 15:32; Admin Dose 4 PUFF; Start 11/21/18 at 03:30 Zolpidem Tartrate (Ambien) 5 mg HS MAY REPEAT X 1 PRN PO INSOMNIA Last administered on 11/25/18 21:16; Admin Dose 5 MG; Start 11/21/18 at 05:30 Lansoprazole (Prevacid) 30 mg DAILY@06 GTB Last administered on 11/26/18 05:54; Admin Dose 30 MG; Start 11/24/18 at 06:00 Ondansetron HCl (Zofran Inj) 4 mg Q4 PRN IV NAUSEA/VOMITING Last administered on 11/24/18 09:27; Admin Dose 4 MG; Start 11/24/18 at 06:00 Hydromorphone HCl (Dilaudid) 0.5 mg Q4H PRN IV SEVERE PAIN LEVEL 7-10 Last administered on 11/26/18 08:51; Admin Dose 0.5 MG; Start 11/25/18 at 12:00 Lactulose (Enulose) 20 gm DAILY PO ; Start 11/26/18 at 09:00 Lorazepam (Ativan) 1 mg Q8H PRN IV AGITATION Last administered on 11/26/18 01:14; Admin Dose 1 MG; Start 11/25/18 at 16:00 Guaifenesin/ Dextromethorphan (Robitussin Dm Liquid Cup) 5 ml Q4H PRN PO COUGH Last administered on 11/26/18at 02:04; Admin Dose 5 ML; Start 11/26/18 at 02:00 Assessment/Plan Hospital Course (Demo Recall) IMPRESSION AND PLAN: 1. Acute on chronic hypoxemic respiratory failure. 2. Possible healthcare-associated pneumonia. 3. History of muscular dystrophy. 4. Dysphagia with G-tube. PLAN: 1. Continue antibiotics. Continue mechanical ventilation in-line PMV trials. 2. Supplemental O2. 3. Tube feeding. 4. [place] evaluation. 5. DVT and GI prophylaxis. [facility] if patient not candidate for [facility] DILAN DOWNS MD, [facility] Nov 26, 2018 09:50
[2018-11-26] MEDS: OXYCODONE/ACETAMINOPHEN (5/325) TAB GTB PRN ×2 (12:26→17:46)
--- NOTE | 2018-11-26 12:43 | PN ---
Date/Time of Note Date/Time of Note DATE: 11/26/18 TIME: 12:40 Assessment/Plan VTE Prophylaxis Risk score (from Nsg)>0 risk: 8 SCD applied (from Nsg): Yes Pharmacological prophylaxis: heparin Lines/Catheters IV Catheter Type (from Nrsg): Saline Lock Urinary Cath still in place: No Assessment/Plan Hospital Course Alert oriented Intubated via tracheostomy Regular rate and rhythm Clear bilaterally Soft nontender Extremities weak throughout 4 out of 5 Assessment and plan: This is a 63-year-old female with a history of CMT, she underwent a bariatric surgery and subsequently developed pneumonia and ARDS leading to respiratory failure requiring tracheostomy and mechanical ventilation. She was discharged very briefly to nursing facility were found to be hypoxic and immediately [facility] sferred here. Now awaiting placement Dysuria: - Check UA/UC. Will hold abx for now until results given her clinical stability Acute on chronic respiratory failure secondary to history of aspiration pneumonitis with ARDS - Add sedation for comfort Patient was recently transferred to a subacute facility but did not tolerate the ventilator at the facility Patient currently saturating well with FiO2 40% Chest x-ray with findings of bilateral pulmonary interstitial disease as well as acute versus chronic left upper lobe opacity Patient with leukocytosis and tachycardia, will treat for HCAP for noPulmonology consultation appreciated Plan has been for continuation of vent support over the next several weeks with plans to gradually wean off the vent Phenergan as needed for cough Recent history of small bowel obstruction status post exploratory laparoscopy with likely lysis of adhesions - Patient reportedly had an aspiration event after surgery which resulted in the aspiration pneumonitis - Etiology of small bowel obstruction is secondary to history of gastric bypass surgery and revision Consiptation: - Limit opiates. Started on bowel regimen History of gastric bypass surgery and revision No acute issues 5. History of muscular dystrophy (CMT) Patient with chronic pain issues, continue oxycodone Patient does have pain in lower extremities which is chronic, venous ultrasound is negative for DVT 6. Normocytic anemia likely secondary to chronic disease Monitor Prophylaxis: Lovenox DC planning: Follow-up with pulmonology recommendations, attempting discharge to [place] Result Diagram: 11/26/18 0613 11/26/18 0613 Results 24hrs Laboratory Tests Test 11/26/18 06:13 11/26/18 10:30 White Blood Count 12.8 H Red Blood Count 3.12 L Hemoglobin 8.8 L Hematocrit 28.8 L Mean Corpuscular Volume 92.3 Mean Corpuscular Hemoglobin 28.2 L Mean Corpuscular Hemoglobin Concent 30.6 L Red Cell Distribution Width 14.8 H Platelet Count 245 # Mean Platelet Volume 10.4 Immature Granulocytes % 0.500 H Neutrophils % 67.5 Lymphocytes % 19.5 Monocytes % 8.0 Eosinophils % 3.9 Basophils % 0.6 Nucleated Red Blood Cells % 0.0 Immature Granulocytes # 0.070 H Neutrophils # 8.6 H Lymphocytes # 2.5 Monocytes # 1.0 H Eosinophils # 0.5 Basophils # 0.1 Nucleated Red Blood Cells # 0.0 Sodium Level 136 Potassium Level 3.2 L Chloride Level 95 L Carbon Dioxide Level 37 H Anion Gap 4 L Blood Urea Nitrogen 14 Creatinine 0.41 L Est Glomerular Filtrat Rate mL/min > 60 Glucose Level 144 Calcium Level 9.3 Urine Color YELLOW Urine Clarity SLIGHTLY CLOUDY A Urine pH 9.0 Urine Specific [place] 1.011 Urine Ketones NEGATIVE Urine Nitrite NEGATIVE Urine Bilirubin NEGATIVE Urine Urobilinogen NEGATIVE Urine Leukocyte Esterase 3+ H Urine Microscopic RBC 2 Urine Microscopic WBC 28 H Urine Squamous Epithelial Cells FEW Urine Bacteria FEW A Urine Hemoglobin NEGATIVE Urine Glucose NEGATIVE Urine Total Protein NEGATIVE Subjective 24 Hr Interval Summary Free Text/Dictation Patient more comfortable on the ventilator today. Continues to complain of pain in her bladder feels she may have a UTI Exam/Review of Systems Exam Vitals Vital Signs Date Temp Pulse Resp B/P (MAP) Pulse Ox O2 O2 Flow FiO2 Time Delivery Rate 11/26/18 98.0 105 19 139/68 98 11:27 (91) 11/26/18 30 07:26 11/25/18 Trach 15:03 Collar Intake and Output 11/25/18 11/25/18 11/26/18 1515:00 23:00 07:00 IntakeIntake Total 860 ml BalanceBalance 860 ml Results Results 24hrs Laboratory Tests Test 11/26/18 06:13 11/26/18 10:30 White Blood Count 12.8 H Red Blood Count 3.12 L Hemoglobin 8.8 L Hematocrit 28.8 L Mean Corpuscular Volume 92.3 Mean Corpuscular Hemoglobin 28.2 L Mean Corpuscular Hemoglobin Concent 30.6 L Red Cell Distribution Width 14.8 H Platelet Count 245 # Mean Platelet Volume 10.4 Immature Granulocytes % 0.500 H Neutrophils % 67.5 Lymphocytes % 19.5 Monocytes % 8.0 Eosinophils % 3.9 Basophils % 0.6 Nucleated Red Blood Cells % 0.0 Immature Granulocytes # 0.070 H Neutrophils # 8.6 H Lymphocytes # 2.5 Monocytes # 1.0 H Eosinophils # 0.5 Basophils # 0.1 Nucleated Red Blood Cells # 0.0 Sodium Level 136 Potassium Level 3.2 L Chloride Level 95 L Carbon Dioxide Level 37 H Anion Gap 4 L Blood Urea Nitrogen 14 Creatinine 0.41 L Est Glomerular Filtrat Rate mL/min > 60 Glucose Level 144 Calcium Level 9.3 Urine Color YELLOW Urine Clarity SLIGHTLY CLOUDY A Urine pH 9.0 Urine Specific [place] 1.011 Urine Ketones NEGATIVE Urine Nitrite NEGATIVE Urine Bilirubin NEGATIVE Urine Urobilinogen NEGATIVE Urine Leukocyte Esterase 3+ H Urine Microscopic RBC 2 Urine Microscopic WBC 28 H Urine Squamous Epithelial Cells FEW Urine Bacteria FEW A Urine Hemoglobin NEGATIVE Urine Glucose NEGATIVE Urine Total Protein NEGATIVE Medications Medication Current Medications IV Flush (NS 3 ml) 3 ml PER PROTOCOL IV ; Start 11/19/18 at 19:00 Enoxaparin Sodium (Lovenox) 40 mg DAILY SC Last administered on 11/26/18at 09:35; Admin Dose 40 MG; Start 11/20/18 at 09:00 Oxycodone/ Acetaminophen (Percocet (5/ 325)) 2 tab Q4H PRN GTB PAIN LEVEL 6-10 Last administered on 11/26/18at 12:26; Admin Dose 2 TAB; Start 11/20/18 at 17:30 Levalbuterol (Xopenex Hfa) 4 puff Q3H RESP THERAPY PRN INH SHORTNESS OF BREATH Last administered on 11/25/18at 15:32; Admin Dose 4 PUFF; Start 11/21/18 at 03:30 Ipratropium [place] (Atrovent Hfa) 4 puff Q3H RESP THERAPY PRN INH SHORTNESS OF BREATH Last administered on 11/25/18at 15:32; Admin Dose 4 PUFF; Start 11/21/18 a t 03:30 Zolpidem Tartrate (Ambien) 5 mg HS MAY REPEAT X 1 PRN PO INSOMNIA Last administered on 11/25/18at 21:16; Admin Dose 5 MG; Start 11/21/18 at 05:30 Lansoprazole (Prevacid) 30 mg DAILY@06 GTB Last administered on 11/26/18 05:54; Admin Dose 30 MG; Start 11/24/18 at 06:00 Ondansetron HCl (Zofran Inj) 4 mg Q4 PRN IV NAUSEA/VOMITING Last administered on 11/24/18 09:27; Admin Dose 4 MG; Start 11/24/18 at 06:00 Hydromorphone HCl (Dilaudid) 0.5 mg Q4H PRN IV SEVERE PAIN LEVEL 7-10 Last administered on 11/26/18 08:51; Admin Dose 0.5 MG; Start 11/25/18 at 12:00 Lactulose (Enulose) 20 gm DAILY PO ; Start 11/26/18 at 09:00 Lorazepam (Ativan) 1 mg Q8H PRN IV AGITATION Last administered on 11/26/18 11:30; Admin Dose 1 MG; Start 11/25/18 at 16:00 Guaifenesin/ Dextromethorphan (Robitussin Dm Liquid Cup) 5 ml Q4H PRN PO COUGH Last administered on 11/26/18 10:15; Admin Dose 5 ML; Start 11/26/18 at 02:00 LC ENAMORADO MD Nov 26, 2018 12:43
[2018-11-27] VITALS (17 sets, daily range): BP systolic 126–141; BP diastolic 60–94; PULSE 108–115; RESP 18–26
[2018-11-27] MEDS: GUAIFENESIN/DM 5ML CUP PO PRN ×4 (01:47→17:05)
[2018-11-27] MEDS: LORAZEPAM 2 MG INJ IV PRN ×2 (04:51→14:02)
[2018-11-27] MEDS: LANSOPRAZOLE 30 MG CAP GTB SCH (04:52)
[2018-11-27] MEDS: DOCUSATE SODIUM 10 MG/ML (10ML CUP) GTB PRN ×2 (04:52→17:06)
[2018-11-27] MEDS: HYDROmorphONE 0.5 MG/0.5 ML SYG IV PRN ×4 (08:32→23:49)
[2018-11-27] MEDS: ENOXAPARIN 40 MG/0.4 ML SYG SC SCH (08:42)
[2018-11-27] MEDS: OXYCODONE/ACETAMINOPHEN (5/325) TAB GTB PRN ×2 (09:44→18:54)
--- NOTE | 2018-11-27 11:10 | CONS ---
Consult Date/Type/Reason Admit Date/Time Nov 19, 2018 at 18:05 Initial Consult Date Type of Consult Pulmonary Date/Time of Note DATE: 11/27/18 TIME: 11:09 Subjective Patient comfortable no new events Objective Vital Signs Date Temp Pulse Resp B/P (MAP) Pulse Ox O2 O2 Flow FiO2 Time Delivery Rate 11/27/18 98.1 109 20 128/60 96 Mechanical 08:06 (82) Ventilator Trach Collar 11/27/18 30 05:18 Intake and Output 11/26/18 11/26/18 11/27/18 1515:00 23:00 07:00 IntakeIntake Total 860 ml BalanceBalance 860 ml Exam PHYSICAL EXAMINATION: GENERAL: Elderly-appearing lady, appears comfortable at rest, no acute distress. VITAL SIGNS: NECK: Trach site clean and intact. CARDIAC: CHEST: Diminished air entry bilaterally. ABDOMEN: Soft, nontender. No guarding or rebound. EXTREMITIES: No cyanosis, clubbing. NEUROLOGIC: Generalized weakness Vent Setting Ventilator Support Mode: AC, VC plus Fraction of Inspired Oxygen pe: 30 Positive End Expiratory Pressu: 5.0 Results/Medications Result Diagram: 11/26/1813 11/26/18612 Results 24 hrs Laboratory Tests Test 11/27/18 07:22 Lab Scanned Report REFERENCE LAB Medications Current Medications IV Flush (NS 3 ml) 3 ml PER PROTOCOL IV ; Start 11/19/18 at 19:00 Enoxaparin Sodium (Lovenox) 40 mg DAILY SC Last administered on 11/27/18at 08:42; Admin Dose 40 MG; Start 11/20/18 at 09:00 Oxycodone/ Acetaminophen (Percocet (5/ 325)) 2 tab Q4H PRN GTB PAIN LEVEL 6-10 Last administered on 11/27/18at 09:44; Admin Dose 2 TAB; Start 11/20/18 at 17:30 Levalbuterol (Xopenex Hfa) 4 puff Q3H RESP THERAPY PRN INH SHORTNESS OF BREATH Last administered on 11/25/18at 15:32; Admin Dose 4 PUFF; Start 11/21/18 at 03:30 Ipratropium [place] (Atrovent Hfa) 4 puff Q3H RESP THERAPY PRN INH SHORTNESS OF BREATH Last administered on 11/25/18at 15:32; Admin Dose 4 PUFF; Start 11/21/18 at 03:30 Zolpidem Tartrate (Ambien) 5 mg HS MAY REPEAT X 1 PRN PO INSOMNIA Last administered on 11/25/18 21:16; Admin Dose 5 MG; Start 11/21/18 at 05:30 Lansoprazole (Prevacid) 30 mg DAILY@06 GTB Last administered on 11/27/18 04:52; Admin Dose 30 MG; Start 11/24/18 at 06:00 Ondansetron HCl (Zofran Inj) 4 mg Q4 PRN IV NAUSEA/VOMITING Last administered on 11/24/18 09:27; Admin Dose 4 MG; Start 11/24/18 at 06:00 Hydromorphone HCl (Dilaudid) 0.5 mg Q4H PRN IV SEVERE PAIN LEVEL 7-10 Last administered on 11/27/18 08:32; Admin Dose 0.5 MG; Start 11/25/18 at 12:00 Lorazepam (Ativan) 1 mg Q8H PRN IV AGITATION Last administered on 11/27/18 04:51; Admin Dose 1 MG; Start 11/25/18 at 16:00 Guaifenesin/ Dextromethorphan (Robitussin Dm Liquid Cup) 5 ml Q4H PRN PO COUGH Last administered on 11/27/18 06:59; Admin Dose 5 ML; Start 11/26/18 at 02:00 Docusate Sodium (Colace Liquid Cup) 100 mg BID PRN GTB CONSTIPATION Last administered on 11/27/18 04:52; Admin Dose 100 MG; Start 11/26/18 at 20:30 Assessment/Plan Hospital Course (Demo Recall) IMPRESSION AND PLAN: 1. Acute on chronic hypoxemic respiratory failure. 2. Possible healthcare-associated pneumonia. 3. History of muscular dystrophy. 4. Dysphagia with G-tube. PLAN: 1. Continue antibiotics. Continue mechanical ventilation in-line PMV trials. 2. Supplemental O2. 3. Tube feeding. 4. [place] evaluation. 5. DVT and GI prophylaxis. Long discussion with physician advisor for insurance. Patient will not be transferred to [facility] they requested her to be transferred to subacute close by to be followed by my group. DILAN DOWNS MD, [facility] Nov 27, 2018 11:10
[2018-11-27] MEDS: ONDANSETRON 4 MG INJ IV PRN (12:35)
--- NOTE | 2018-11-27 17:42 | PN ---
Date/Time of Note Date/Time of Note DATE: 11/27/18 TIME: 17:37 Assessment/Plan VTE Prophylaxis Risk score (from Nsg)>0 risk: 8 SCD applied (from Nsg): Yes SCD contraindicated: low risk/ambulating Pharmacological prophylaxis: LMWH Lines/Catheters IV Catheter Type (from Nrsg): Saline Lock Urinary Cath still in place: No Assessment/Plan Hospital Course Assessment and plan 1. Acute on chronic respiratory failure, stable continue vent 3. VDRF, transfer to subacute when bed available and tolerating vent 3. Recent bowel obstruction sp ex lap surgery [place] of adhesions, follow-up with surgeon 4. Morbid obesity sp surgery twice 5. Malnutrition cont PEG tube feeds 6. Debility, continue restorative PT OT 7. Sinus tachycardia 8. Leukocytosis/Sirs, no fever observe, watch for BAP 9. Anemia 10. Past tobacco 11. COPD? 12. Recent bowel obstruction associated aspiration pneumonia/ARDS, appears to be resolving 13. Chronic muscular dystrophy/CMT, continue supportive care Subjective: Tolerating feeds no fever. Left leg tender Objective: Vital signs stable sinus tach sinus rhythm PE No pallor JVD trach clear Regular no mrg Diminished mechanical Bowel sounds positive nontender nondistended no rrg; PEG CDI No edema. Left thigh without any erythema cellulitis. Result Diagram: 11/26/1861211/26/1813 Results 24hrs Laboratory Tests Test 11/27/18 07:22 Lab Scanned Report REFERENCE LAB Exam/Review of Systems Exam Vitals Vital Signs Date Temp Pulse Resp B/P (MAP) Pulse Ox O2 O2 Flow FiO2 Time Delivery Rate 11/27/18 98.7 115 20 141/82 99 Mechanical 15:40 (101) Ventilator Trach Collar 11/27/18 30 13:38 Intake and Output 11/26/18 11/26/18 11/27/18 1515:00 23:00 07:00 IntakeIntake Total 860 ml BalanceBalance 860 ml Results Results 24hrs Laboratory Tests Test 11/27/18 07:22 Lab Scanned Report REFERENCE LAB Medications Medication Current Medications IV Flush (NS 3 ml) 3 ml PER PROTOCOL IV ; Start 11/19/18 at 19:00 Enoxaparin Sodium (Lovenox) 40 mg DAILY SC Last administered on 11/27/18at 08:42; Admin Dose 40 MG; Start 11/20/18 at 09:00 Oxycodone/ Acetaminophen (Percocet (5/ 325)) 2 tab Q4H PRN GTB PAIN LEVEL 6-10 Last administered on 11/27/18 09:44; Admin Dose 2 TAB; Start 11/20/18 at 17:30 Levalbuterol (Xopenex Hfa) 4 puff Q3H RESP THERAPY PRN INH SHORTNESS OF BREATH Last administered on 11/25/18 15:32; Admin Dose 4 PUFF; Start 11/21/18 at 03:30 Ipratropium [place] (Atrovent Hfa) 4 puff Q3H RESP THERAPY PRN INH SHORTNESS OF BREATH Last administered on 11/25/18 15:32; Admin Dose 4 PUFF; Start 11/21/18 at 03:30 Zolpidem Tartrate (Ambien) 5 mg HS MAY REPEAT X 1 PRN PO INSOMNIA Last administered on 11/25/18 21:16; Admin Dose 5 MG; Start 11/21/18 at 05:30 Lansoprazole (Prevacid) 30 mg DAILY@06 GTB Last administered on 11/27/18 04:52; Admin Dose 30 MG; Start 11/24/18 at 06:00 Ondansetron HCl (Zofran Inj) 4 mg Q4 PRN IV NAUSEA/VOMITING Last administered on 11/27/18 12:35; Admin Dose 4 MG; Start 11/24/18 at 06:00 Hydromorphone HCl (Dilaudid) 0.5 mg Q4H PRN IV SEVERE PAIN LEVEL 7-10 Last administered on 11/27/18 17:06; Admin Dose 0.5 MG; Start 11/25/18 at 12:00 Lorazepam (Ativan) 1 mg Q8H PRN IV AGITATION Last administered on 11/27/18 14:02; Admin Dose 1 MG; Start 11/25/18 at 16:00 Guaifenesin/ Dextromethorphan (Robitussin Dm Liquid Cup) 5 ml Q4H PRN PO COUGH Last administered on 11/27/18 17:05; Admin Dose 5 ML; Start 11/26/18 at 02:00 Docusate Sodium (Colace Liquid Cup) 100 mg BID PRN GTB CONSTIPATION Last a dministered on 11/27/18 17:06; Admin Dose 100 MG; Start 11/26/18 at 20:30 LLOYD VELAQSUEZ MD Nov 27, 2018 17:42
[2018-11-27] MEDS ORDERED: BISACODYL 10 MG SUPP PR PRN (18:00)
[2018-11-27] MEDS: IBUPROFEN LIQUID (PED) 20 MG/ML CUP GTB PRN (18:54)
[2018-11-27] MEDS: ZOLPIDEM 5 MG TAB PO PRN (21:07)
[2018-11-27] MEDS: ESTRADIOL 0.1 MG/24 HR PATCH TRANSDERM SCH (21:17)
[2018-11-28] VITALS (18 sets, daily range): BP systolic 122–156; BP diastolic 63–78; PULSE 99–113; RESP 18–28
[2018-11-28] MEDS: LORAZEPAM 2 MG INJ IV PRN ×3 (00:39→18:02)
[2018-11-28] MEDS: LEVALBUTEROL (HFA) 15 GM INHALER INH PRN ×2 (00:51→13:57)
[2018-11-28] MEDS: IPRATROPIUM (HFA) 12.9 GM INHALER INH PRN ×2 (00:51→13:58)
[2018-11-28] MEDS: IBUPROFEN LIQUID (PED) 20 MG/ML CUP GTB PRN (06:04)
[2018-11-28] MEDS: LANSOPRAZOLE 30 MG CAP GTB SCH (06:04)
[2018-11-28] MEDS: IPRATROPIUM (NEB) 0.5 MG/2.5 ML AMP HHN SCH ×3 (08:45→16:53)
[2018-11-28] MEDS: DOCUSATE SODIUM 10 MG/ML (10ML CUP) GTB SCH (09:00)
[2018-11-28] MEDS: POTASSIUM CHLORIDE 20 MEQ POWDER FOR ORAL SOLN GTB SCH (09:00)
[2018-11-28] MEDS: ENOXAPARIN 40 MG/0.4 ML SYG SC SCH (09:26)
[2018-11-28] MEDS: HYDROmorphONE 0.5 MG/0.5 ML SYG IV PRN (12:17)
[2018-11-28] MEDS: ONDANSETRON 4 MG INJ IV PRN (12:39)
[2018-11-28] MEDS: HYDROmorphONE 1 MG/ML SYG IV PRN (14:33)
[2018-11-28] MEDS: METOCLOPRAMIDE 10 MG INJ IV PRN (14:47)
[2018-11-28] MEDS ORDERED: IOHEXOL 300MG/ML 30 ML BTL ONE (16:36)
--- NOTE | 2018-11-28 16:59 | PN ---
Date/Time of Note Date/Time of Note DATE: 11/28/18 TIME: 16:57 Assessment/Plan VTE Prophylaxis Risk score (from Ns)>0 risk: 9 SCD applied (from Ns): Yes SCD contraindicated: low risk/ambulating Pharmacological prophylaxis: LMWH Lines/Catheters IV Catheter Type (from Nrs): [place] Urinary Cath still in place: No Assessment/Plan Hospital Course Assessment and plan 1. Acute on chronic respiratory failure, stable continue vent 3. VDRF, transfer to subacute when bed available and tolerating vent 3. Recent bowel obstruction sp ex lap surgery, [place] of adhesions. follow-up with surgeon 4. Morbid obesity sp surgery twice 5. Malnutrition cont PEG tube feeds 6. Debility, continue restorative PT OT 7. Sinus tachycardia 8. Leukocytosis/Sirs, no fever observe, watch for HCAP 9. Anemia 10. Past tobacco 11. COPD? 12. Recent bowel obstruction associated aspiration pneumonia/ARDS, appears to be resolving 13. Chr muscular dystrophy/CMT, continue supportive care 14. PEG malfunction? check kub, consult GI 15. Ac cystitis; change rizoz Subjective: 11/27 Tolerating feeds no fever. Left leg tender 11/28 peg clogged? tolerating vent O: Vss; sinus rhythm PE No pallor/ JVD trach clear Regular no mrg Diminished mechanical Bs+ nt nd no rrg; PEG CDI No edema. Lt thigh without any erythema cellulitis. Result Diagram: 11/28/1862011/28/1821 Results 24hrs Laboratory Tests Test 11/28/18 06:21 White Blood Count 13.8 H Red Blood Count 3.17 L Hemoglobin 9.2 L Hematocrit 28.7 L Mean Corpuscular Volume 90.5 Mean Corpuscular Hemoglobin 29.0 Mean Corpuscular Hemoglobin Concent 32.1 Red Cell Distribution Width 14.5 Platelet Count 270 Mean Platelet Volume 9.8 Immature Granulocytes % 0.900 H Neutrophils % 64.3 Lymphocytes % 19.8 Monocytes % 8.6 Eosinophils % 5.7 Basophils % 0.7 Nucleated Red Blood Cells % 0.0 Immature Granulocytes # 0.120 H Neutrophils # 8.9 H Lymphocytes # 2.7 Monocytes # 1.2 H Eosinophils # 0.8 H Basophils # 0.1 Nucleated Red Blood Cells # 0.0 Sodium Level 140 Potassium Level 3.8 Chloride Level 95 L Carbon Dioxide Level 38 H Anion Gap 7 Blood Urea Nitrogen 15 Creatinine 0.43 L Est Glomerular Filtrat Rate mL/min > 60 Glucose Level 136 Calcium Level 9.5 Phosphorus Level 5.2 H Magnesium Level 1.7 Total Bilirubin 0.3 Direct Bilirubin 0.00 Indirect Bilirubin 0.3 Aspartate Amino Transf (AST/SGOT) 25 Alanine Aminotransferase (ALT/SGPT) 22 Alkaline Phosphatase 94 Total Protein 7.1 Albumin 3.5 Globulin 3.60 H Albumin/Globulin Ratio 0.97 Thyroid Stimulating Hormone (TSH) 2.870 Exam/Review of Systems Exam Vitals Vital Signs Date Temp Pulse Resp B/P (MAP) Pulse Ox O2 O2 Flow FiO2 Time Delivery Rate 11/28/18 98.0 106 20 137/63 99 Mechanical 15:42 (87) Ventilator Trach Collar 11/28/18 30 15:20 Results Results 24hrs Laboratory Tests Test 11/28/18 06:21 White Blood Count 13.8 H Red Blood Count 3.17 L Hemoglobin 9.2 L Hematocrit 28.7 L Mean Corpuscular Volume 90.5 Mean Corpuscular Hemoglobin 29.0 Mean Corpuscular Hemoglobin Concent 32.1 Red Cell Distribution Width 14.5 Platelet Count 270 Mean Platelet Volume 9.8 Immature Granulocytes % 0.900 H Neutrophils % 64.3 Lymphocytes % 19.8 Monocytes % 8.6 Eosinophils % 5.7 Basophils % 0.7 Nucleated Red Blood Cells % 0.0 Immature Granulocytes # 0.120 H Neutrophils # 8.9 H Lymphocytes # 2.7 Monocytes # 1.2 H Eosinophils # 0.8 H Basophils # 0.1 Nucleated Red Blood Cells # 0.0 Sodium Level 140 Potassium Level 3.8 Chloride Level 95 L Carbon Dioxide Level 38 H Anion Gap 7 Blood Urea Nitrogen 15 Creatinine 0.43 L Est Glomerular Filtrat Rate mL/min > 60 Glucose Level 136 Calcium Level 9.5 Phosphorus Level 5.2 H Magnesium Level 1.7 Total Bilirubin 0.3 Direct Bilirubin 0.00 Indirect Bilirubin 0.3 Aspartate Amino Transf (AST/SGOT) 25 Alanine Aminotransferase (ALT/SGPT) 22 Alkaline Phosphatase 94 Total Protein 7.1 Albumin 3.5 Globulin 3.60 H Albumin/Globulin Ratio 0.97 Thyroid Stimulating Hormone (TSH) 2.870 Medications Medication Current Medications IV Flush (NS 3 ml) 3 ml PER PROTOCOL IV ; Start 11/19/18 at 19:00 Enoxaparin Sodium (Lovenox) 40 mg DAILY SC Last administered on 11/28/18 09:26; Admin Dose 40 MG; Start 11/20/18 at 09:00 Oxycodone/ Acetaminophen (Percocet (5/ 325)) 2 tab Q4H PRN GTB PAIN LEVEL 6-10 Last administered on 11/27/18 18:54; Admin Dose 2 TAB; Start 11/20/18 at 17:30 Levalbuterol (Xopenex Hfa) 4 puff Q3H RESP THERAPY PRN INH SHORTNESS OF BREATH Last administered on 11/28/18 13:57; Admin Dose 4 PUFF; Start 11/21/18 at 03:30 Ipratropium [place] (Atrovent Hfa) 4 puff Q3H RESP THERAPY PRN INH SHORTNESS OF BREATH Last administered on 11/28/18 13:58; Admin Dose 4 PUFF; Start 11/21/18 at 03:30 Zolpidem Tartrate (Ambien) 5 mg HS MAY REPEAT X 1 PRN PO INSOMNIA Last administered on 11/27/18 21:07; Admin Dose 5 MG; Start 11/21/18 at 05:30 Lansoprazole (Prevacid) 30 mg DAILY@06 GTB Last administered on 11/28/18 06:04; Admin Dose 30 MG; Start 11/24/18 at 06:00 Ondansetron HCl (Zofran Inj) 4 mg Q4 PRN IV NAUSEA/VOMITING Last administered on 11/28/18 12:39; Admin Dose 4 MG; Start 11/24/18 at 06:00 Lorazepam (Ativan) 1 mg Q8H PRN IV AGITATION Last administered on 11/28/18 08:51; Admin Dose 1 MG; Start 11/25/18 at 16:00 Guaifenesin/ Dextromethorphan (Robitussin Dm Liquid Cup) 5 ml Q4H PRN PO COUGH Last administered on 11/27/18 17:05; Admin Dose 5 ML; Start 11/26/18 at 02:00 Estradiol (Estraderm 0.1 Mg/24 Hr Patch) 1 patch MoFr@2000 TRANSDERM Last administered on 11/27/18 21:17; Admin Dose 1 PATCH; Start 11/27/18 at 20:00 Docusate Sodium (Colace Liquid Cup) 200 mg DAILY GTB ; Start 11/28/18 at 09:00 Ibuprofen (Motrin Liquid (Ped)) 200 mg Q6 PRN GTB MILD PAIN LEVEL 1-3 Last administered on 11/28/18at 06:04; Admin Dose 200 MG; Start 11/27/18 at 18:00 Bisacodyl (Dulcolax Supp) 10 mg Q48H PRN [place] CONSTIPATION; Start 11/27/18 at 18:00 Potassium Chloride (Potassium Chloride Pwd/Soln) 40 meq DAILY GTB ; Start 11/28/18 at 09:00 Ipratropium [place] (Atrovent 0.02% (Neb)) 0.5 mg Q8H RESP THERAPY HHN Last administered on 11/28/18at 16:53; Admin Dose 0.5 MG; Start 11/28/18 at 00:00 Hydromorphone HCl (Dilaudid) 1 mg Q3H PRN IV SEVERE PAIN LEVEL 7-10 Last administered on 11/28/18at 14:33; Admin Dose 1 MG; Start 11/28/18 at 14:30 Metoclopramide HCl (Reglan) 5 mg Q6H PRN IV nausea and vomitting Last adm inistered on 11/28/18at 14:47; Admin Dose 5 MG; Start 11/28/18 at 15:00 LLOYD VELASQUEZ MD Nov 28, 2018 16:59
--- NOTE | 2018-11-28 17:47 | CONS ---
Consult Date/Type/Reason Admit Date/Time Nov 19, 2018 at 18:05 Initial Consult Date Type of Consultation: Pulm Date/Time of Note DATE: 11/28/18 TIME: 17:46 Subjective No events overnight. On MV Objective Vitals Vital Signs Date Temp Pulse Resp B/P (MAP) Pulse Ox O2 O2 Flow FiO2 Time Delivery Rate 11/28/18 101 20 99 30 17:24 11/28/18 98.0 137/63 Mechanical 15:42 (87) Ventilator Trach Collar Exam GENERAL: Elderly-appearing lady, appears comfortable at rest, no acute distre ss. VITAL SIGNS: NECK: Trach site clean and intact. CARDIAC: CHEST: Diminished air entry bilaterally. ABDOMEN: Soft, nontender. No guarding or rebound. EXTREMITIES: No cyanosis, clubbing. NEUROLOGIC: Generalized weakness Results/Medications Result Diagram: 11/28/1862011/28/1821 Results 24 hrs Laboratory Tests Test 11/28/18 06:21 White Blood Count 13.8 H Red Blood Count 3.17 L Hemoglobin 9.2 L Hematocrit 28.7 L Mean Corpuscular Volume 90.5 Mean Corpuscular Hemoglobin 29.0 Mean Corpuscular Hemoglobin Concent 32.1 Red Cell Distribution Width 14.5 Platelet Count 270 Mean Platelet Volume 9.8 Immature Granulocytes % 0.900 H Neutrophils % 64.3 Lymphocytes % 19.8 Monocytes % 8.6 Eosinophils % 5.7 Basophils % 0.7 Nucleated Red Blood Cells % 0.0 Immature Granulocytes # 0.120 H Neutrophils # 8.9 H Lymphocytes # 2.7 Monocytes # 1.2 H Eosinophils # 0.8 H Basophils # 0.1 Nucleated Red Blood Cells # 0.0 Sodium Level 140 Potassium Level 3.8 Chloride Level 95 L Carbon Dioxide Level 38 H Anion Gap 7 Blood Urea Nitrogen 15 Creatinine 0.43 L Est Glomerular Filtrat Rate mL/min > 60 Glucose Level 136 Calcium Level 9.5 Phosphorus Level 5.2 H Magnesium Level 1.7 Total Bilirubin 0.3 Direct Bilirubin 0.00 Indirect Bilirubin 0.3 Aspartate Amino Transf (AST/SGOT) 25 Alanine Aminotransferase (ALT/SGPT) 22 Alkaline Phosphatase 94 Total Protein 7.1 Albumin 3.5 Globulin 3.60 H Albumin/Globulin Ratio 0.97 Thyroid Stimulating Hormone (TSH) 2.870 Home Meds Reported Medications Acetaminophen* (Tylophen*) 500 Mg Capsule, 500 MG PO Q6H PRN for MILD PAIN LEVEL 1-3, TAB 11/20/18 Tramadol HCl (Tramadol HCl) 50 Mg Tablet, 50 MG PO Q6H PRN for PAIN, #120 TAB 11/20/18 Diclofenac Sodium ([place]) 2 Gm Soln.pk.g., 2 GM TP TID 11/20/18 Oxycodone Hcl-Acetaminophen* (Oxycodone Hcl-Acetaminophen*) 2.5-325 Mg Tablet, 1 TAB PO Q6, TAB 11/20/18 Fluticasone Propionate* (Flovent* HFA 220) 12 Gm Inha, 2 PUFF INHALATION BID, #1 INHALER 11/20/18 Cyanocobalamin* (Vitamin B12*) 500 Mcg Tab, 5000 MCG PO DAILY, TAB 11/20/18 Cholecalciferol* (Vitamin D3*) 1,000 Unit Tablet, 1000 UNIT PO DAILY, TAB 11/20/18 Calcium Citrate* (Citracal*) 950 Mg Tab, 250 MG PO DAILY, TAB 11/20/18 Biotin (Biotin) 10 Mg Tablet, 10 MG PO DAILY, TAB 11/20/18 Ascorbic Acid (Vitamin C) 500 Mg Tab, 500 MG PO BID, TAB 11/20/18 Amitriptyline Hcl* (Amitriptyline Hcl*) 100 Mg Tablet, 100 MG PO QHS, #30 TAB 11/20/18 Medications Current Medications IV Flush (NS 3 ml) 3 ml PER PROTOCOL IV ; Start 11/19/18 at 19:00 Enoxaparin Sodium (Lovenox) 40 mg DAILY SC Last administered on 11/28/18at 09:26; Admin Dose 40 MG; Start 11/20/18 at 09:00 Oxycodone/ Acetaminophen (Percocet (5/ 325)) 2 tab Q4H PRN GTB PAIN LEVEL 6-10 Last administered on 11/27/18at 18:54; Admin Dose 2 TAB; Start 11/20/18 at 17:30 Levalbuterol (Xopenex Hfa) 4 puff Q3H RESP THERAPY PRN INH SHORTNESS OF BREATH Last administered on 11/28/18at 13:57; Admin Dose 4 PUFF; Start 11/21/18 at 03:30 Ipratropium [place] (Atrovent Hfa) 4 puff Q3H RESP THERAPY PRN INH SHORTNESS OF BREATH Last administered on 11/28/18 13:58; Admin Dose 4 PUFF; Start 11/21/18 at 03:30 Zolpidem Tartrate (Ambien) 5 mg HS MAY REPEAT X 1 PRN PO INSOMNIA Last administered on 11/27/18 21:07; Admin Dose 5 MG; Start 11/21/18 at 05:30 Lansoprazole (Prevacid) 30 mg DAILY@06 GTB Last administered on 11/28/18 06:04; Admin Dose 30 MG; Start 11/24/18 at 06:00 Ondansetron HCl (Zofran Inj) 4 mg Q4 PRN IV NAUSEA/VOMITING Last administered on 11/28/18 12:39; Admin Dose 4 MG; Start 11/24/18 at 06:00 Lorazepam (Ativan) 1 mg Q8H PRN IV AGITATION Last administered on 11/28/18 08:51; Admin Dose 1 MG; Start 11/25/18 at 16:00 Guaifenesin/ Dextromethorphan (Robitussin Dm Liquid Cup) 5 ml Q4H PRN PO COUGH Last administered on 11/27/18 17:05; Admin Dose 5 ML; Start 11/26/18 at 02:00 Estradiol (Estraderm 0.1 Mg/24 Hr Patch) 1 patch MoFr@2000 TRANSDERM Last administered on 11/27/18 21:17; Admin Dose 1 PATCH; Start 11/27/18 at 20:00 Docusate Sodium (Colace Liquid Cup) 200 mg DAILY GTB ; Start 11/28/18 at 09:00 Ibuprofen (Motrin Liquid (Ped)) 200 mg Q6 PRN GTB MILD PAIN LEVEL 1-3 Last administered on 11/28/18 06:04; Admin Dose 200 MG; Start 11/27/18 at 18:00 Bisacodyl (Dulcolax Supp) 10 mg Q48H PRN [place] CONSTIPATION; Start 11/27/18 at 18:00 Potassium Chloride (Potassium Chloride Pwd/Soln) 40 meq DAILY GTB ; Start 11/28/18 at 09:00 Ipratropium [place] (Atrovent 0.02% (Neb)) 0.5 mg Q8H RESP THERAPY HHN Last administered on 7/27/19at 16:53; Admin Dose 0.5 MG; Start 11/28/18 at 00:00 Hydromorphone HCl (Dilaudid) 1 mg Q3H PRN IV SEVERE PAIN LEVEL 7-10 Last administered on 11/28/18at 14:33; Admin Dose 1 MG; Start 11/28/18 at 14:30 Metoclopramide HCl (Reglan) 5 mg Q6H PRN IV nausea and vomitting Last administered on 11/28/18at 14:47; Admin Dose 5 MG; Start 11/28/18 at 15:00 Assessment/Plan Assessment/Plan (Daily) IMP 1. Acute on chronic hypoxemic/hypercapnic respiratory failure 2. Possible healthcare-associated pneumonia. 3. History of muscular dystrophy. 4. Dysphagia with G-tube. RECS: 1. Continue antibiotics. Continue mechanical ventilation in-line PMV trials. 2. TF/Free H20 3. Am labs CHANDRIKA SANTANA MD Nov 28, 2018 17:47
[2018-11-28] MEDS: DEXTROSE 5%-0.45% NACL 1,000 ML IV SCH (20:38)
[2018-11-29] VITALS (18 sets, daily range): BP systolic 114–137; BP diastolic 58–64; PULSE 88–111; RESP 16–27
[2018-11-29] MEDS: HYDROmorphONE 1 MG/ML SYG IV PRN ×7 (00:10→23:50)
[2018-11-29] MEDS: IPRATROPIUM (NEB) 0.5 MG/2.5 ML AMP HHN SCH (00:41)
[2018-11-29] MEDS: IPRATROPIUM (HFA) 12.9 GM INHALER INH PRN (00:55)
[2018-11-29] MEDS: LORAZEPAM 2 MG INJ IV PRN ×3 (02:24→19:25)
[2018-11-29] MEDS: LANSOPRAZOLE 30 MG CAP GTB SCH (05:31)
[2018-11-29] MEDS: ONDANSETRON 4 MG INJ IV PRN ×3 (06:41→20:36)
[2018-11-29] MEDS: LEVALBUTEROL (HFA) 15 GM INHALER INH PRN (08:50)
[2018-11-29] MEDS: IPRATROPIUM (HFA) 12.9 GM INHALER INH SCH ×2 (08:50→16:50)
[2018-11-29] MEDS: POTASSIUM CHLORIDE 20 MEQ POWDER FOR ORAL SOLN GTB SCH (09:00)
[2018-11-29] MEDS: DOCUSATE SODIUM 10 MG/ML (10ML CUP) GTB SCH (09:00)
[2018-11-29] MEDS: DEXTROSE 5%-0.45% NACL 1,000 ML IV SCH (09:52)
[2018-11-29] MEDS: CIPROFLOXACIN 400MG/D5W 200 ML IVPB SCH ×2 (09:52→20:36)
[2018-11-29] MEDS: ENOXAPARIN 40 MG/0.4 ML SYG SC SCH (10:02)
--- NOTE | 2018-11-29 13:52 | PN ---
Date/Time of Note Date/Time of Note DATE: 11/29/18 TIME: 13:48 Assessment/Plan VTE Prophylaxis Risk score (from Nsg)>0 risk: 3 SCD applied (from Ns): Yes SCD contraindicated: low risk/ambulating Pharmacological prophylaxis: LMWH Lines/Catheters IV Catheter Type (from Nrsg): Mid Line Urinary Cath still in place: No Assessment/Plan Hospital Course Assessment and plan 1. Acute on chr respiratory failure, stable cont vent 3. VDRF, transfer to subacute when bed available and tolerating vent 3. Recent bowel obstruction sp ex lap surgery, [place] of adhesions. follow-up with surgeon 4. Morbid obesity sp surgery twice 5. Malnutrition cont PEG tube feeds 6. Debility, continue restorative PT/ OT 7. Sinus tachycardia 8. Leukocytosis/Sirs, no fever observe, watch for HCAP. Now treating UTI for 3 days. consider line infection prn 9. Anemia 10. Past tobacco 11. COPD? 12. Recent bowel obstruction associated aspiration pneumonia/ARDS, appears to be resolving 13. Chr muscular dystrophy/CMT, continue supportive care 14. PEG malfunction? check kub, consult GI 15. Ac cystitis; 3-day treatment. Avoid [place]. 16. Enterobacter c sputum, colonized? Subjective: 11/27 Tolerating feeds no fever. Left leg tender 11/28 peg clogged? tolerating vent 11/29: Positive flatus no dyspnea fever. Recommended she try to avoid [place] and spouse agrees; Discomfort with turning. O: Vss; sinus rhythm PE No pallor/ JVD trach intact Regular no mrg Diminished mechanical Bs+ nt nd no rrg; PEG c/d/i No edema. rt picc c/d/i Result Diagram: 11/28/1862011/28/18620 Exam/Review of Systems Exam Vitals Vital Signs Date Temp Pulse Resp B/P (MAP) Pulse Ox O2 O2 Flow FiO2 Time Delivery Rate 11/29/18 108 25 98 30 13:11 11/29/18 98.0 129/63 11:55 (85) 11/28/18 Mechanical 15:42 Ventilator Trach Collar Intake and Output 11/28/18 11/28/18 11/29/18 1515:00 23:00 07:00 IntakeIntake Total 630 ml BalanceBalance 630 ml Medications Medication Current Medications IV Flush (NS 3 ml) 3 ml PER PROTOCOL IV ; Start 11/19/18 at 19:00 Enoxaparin Sodium (Lovenox) 40 mg DAILY SC Last administered on 11/29/18 10:02; Admin Dose 40 MG; Start 11/20/18 at 09:00 Oxycodone/ Acetaminophen (Percocet (5/ 325)) 2 tab Q4H PRN GTB PAIN LEVEL 6-10 Last administered on 11/27/18 18:54; Admin Dose 2 TAB; Start 11/20/18 at 17:30 Levalbuterol (Xopenex Hfa) 4 puff Q3H RESP THERAPY PRN INH SHORTNESS OF BREATH Last administered on 11/29/18 08:50; Admin Dose 4 PUFF; Start 11/21/18 at 03:30 Ipratropium [place] (Atrovent Hfa) 4 puff Q3H RESP THERAPY PRN INH SHORTNESS OF BREATH Last administered on 11/29/18 00:55; Admin Dose 4 PUFF; Start 11/21/18 at 03:30 Zolpidem Tartrate (Ambien) 5 mg HS MAY REPEAT X 1 PRN PO INSOMNIA Last administered on 11/27/18 21:07; Admin Dose 5 MG; Start 11/21/18 at 05:30 Lansoprazole (Prevacid) 30 mg DAILY@06 GTB Last administered on 11/28/18 06 :04; Admin Dose 30 MG; Start 11/24/18 at 06:00 Ondansetron HCl (Zofran Inj) 4 mg Q4 PRN IV NAUSEA/VOMITING Last administered on 11/29/18 12:34; Admin Dose 4 MG; Start 11/24/18 at 06:00 Lorazepam (Ativan) 1 mg Q8H PRN IV AGITATION Last administered on 11/29/18 09:52; Admin Dose 1 MG; Start 11/25/18 at 16:00 Guaifenesin/ Dextromethorphan (Robitussin Dm Liquid Cup) 5 ml Q4H PRN PO COUGH Last administered on 11/27/18 17:05; Admin Dose 5 ML; Start 11/26/18 at 02:00 Estradiol (Estraderm 0.1 Mg/24 Hr Patch) 1 patch MoFr@2000 TRANSDERM Last administered on 11/27/18 21:17; Admin Dose 1 PATCH; Start 11/27/18 at 20:00 Docusate Sodium (Colace Liquid Cup) 200 mg DAILY GTB ; Start 11/28/18 at 09:00 Ibuprofen (Motrin Liquid (Ped)) 200 mg Q6 PRN GTB MILD PAIN LEVEL 1-3 Last administered on 11/28/18 06:04; Admin Dose 200 MG; Start 11/27/18 at 18:00 Bisacodyl (Dulcolax Supp) 10 mg Q48H PRN [place] CONSTIPATION; Start 11/27/18 at 18:00 Potassium Chloride (Potassium Chloride Pwd/Soln) 40 meq DAILY GTB ; Start 11/28/18 at 09:00 Hydromorphone HCl (Dilaudid) 1 mg Q3H PRN IV SEVERE PAIN LEVEL 7-10 Last administered on 11/29/18 13:10; Admin Dose 1 MG; Start 11/28/18 at 14:30 Metoclopramide HCl (Reglan) 5 mg Q6H PRN IV nausea and vomitting Last administered on 11/28/18 14:47; Admin Dose 5 MG; Start 11/28/18 at 15:00 Dextrose/Sodium Chloride 1,000 ml @ 70 mls/hr [id number] IV Last administered on 11/29/18 09:52; Admin Dose 70 MLS/HR; Start 11/28/18 at 20:30 Ipratropium [place] (Atrovent Hfa) 4 puff Q8H RESP THERAPY INH Last administered on 11/29/18 08:50; Admin Dose 4 PUFF; Start 11/29/18 at 08:00 Ciprofloxacin/ Dextrose 200 ml @ 200 mls/hr Q12 IVPB Last administered on 11/29/18 09:52; Admin Dose 200 MLS/HR; Start 11/29/18 at 09:00 LLOYD VELASQUEZ MD Nov 29, 2018 13:52
--- NOTE | 2018-11-29 13:52 | CONS ---
Assessment/Plan Assessment/Plan Assessment/Plan (Daily) Assessment: Malfunctioning G-tube History of gastric bypass status post revision Status post small bowel obstruction status post lysis of adhesions Chronic respiratory failure -status post tracheostomy Normocytic anemia Obesity Muscle dystrophy Plan: G-tube replacement on Friday Patient is currently n.p.o. Mineral oil enema for constipation Check INR with a.m. labs Patient seen in collaboration with Dr. Norton Consultation Date/Type/Reason Admit Date/Time Nov 19, 2018 at 18:05 Date of Consultation: Nov 29, 2018 Type of Consult GI Reason for Consultation Malfunctioning G-tube Date/Time of Note DATE: 11/29/18 TIME: 13:31 Hx of Present Illness This is a 63-year-old female with a history of gastric bypass status post revision, chronic respiratory failure and status G-tube. GI was consulted for malfunctioning(clogged) G-tube. Patient originally had gastric bypass done 12 years ago with a recent small bowel obstruction status post revision of gastric bypass and lysis of adhesions. Shortly after the surgery patient aspirated and developed aspiration pneumonia requiring intubation and consequent tracheostomy. Patient had tracheostomy and G-tube placement done 3 weeks ago. Patient had Randle placed in gastrostomy site with sutures in place. Patient is currently n.p.o. there is no evidence of nausea, vomiting, hematemesis or hematochezia. Patient reports history of colonoscopy 3 or 5 years ago. Patient is complaining of constipation with no bowel movement in the past 5 days. Discussed the plan for endoscopic G-tube replacement. Risks and benefits have been reviewed. Patient is agreeable to the procedure. Gastrointestinal: no complaints (See HPI) Past Medical History Home Meds Reported Medications Acetaminophen* (Tylophen*) 500 Mg Capsule, 500 MG PO Q6H PRN for MILD PAIN LEVEL 1-3, TAB 11/20/18 Tramadol HCl (Tramadol HCl) 50 Mg Tablet, 50 MG PO Q6H PRN for PAIN, #120 TAB 11/20/18 Diclofenac Sodium (Pennsaid) 2 Gm Soln.pk.g., 2 GM TP TID 11/20/18 Oxycodone Hcl-Acetaminophen* (Oxycodone Hcl-Acetaminophen*) 2.5-325 Mg Tablet, 1 TAB PO Q6, TAB 11/20/18 Fluticasone Propionate* (Flovent* HFA 220) 12 Gm Inha, 2 PUFF INHALATION BID, #1 INHALER 11/20/18 Cyanocobalamin* (Vitamin B12*) 500 Mcg Tab, 5000 MCG PO DAILY, TAB 11/20/18 Cholecalciferol* (Vitamin D3*) 1,000 Unit Tablet, 1000 UNIT PO DAILY, TAB 11/20/18 Calcium Citrate* (Citracal*) 950 Mg Tab, 250 MG PO DAILY, TAB 11/20/18 Biotin (Biotin) 10 Mg Tablet, 10 MG PO DAILY, TAB 11/20/18 Ascorbic Acid (Vitamin C) 500 Mg Tab, 500 MG PO BID, TAB 11/20/18 Amitriptyline Hcl* (Amitriptyline Hcl*) 100 Mg Tablet, 100 MG PO QHS, #30 TAB 11/20/18 Medications Current Medications IV Flush (NS 3 ml) 3 ml PER PROTOCOL IV ; Start 11/19/18 at 19:00 Enoxaparin Sodium (Lovenox) 40 mg DAILY SC Last administered on 11/29/18at 10:02; Admin Dose 40 MG; Start 11/20/18 at 09:00 Oxycodone/ Acetaminophen (Percocet (5/ 325)) 2 tab Q4H PRN GTB PAIN LEVEL 6-10 Last administered on 11/27/18at 18:54; Admin Dose 2 TAB; Start 11/20/18 at 17:30 Levalbuterol (Xopenex Hfa) 4 puff Q3H RESP THERAPY PRN INH SHORTNESS OF BREATH Last administered on 11/29/18at 08:50; Admin Dose 4 PUFF; Start 11/21/18 at 03:30 Ipratropium [place] (Atrovent Hfa) 4 puff Q3H RESP THERAPY PRN INH SHORTNESS OF BREATH Last administered on 11/29/18at 00:55; Admin Dose 4 PUFF; Start 11/21/18 at 03:30 Zolpidem Tartrate (Ambien) 5 mg HS MAY REPEAT X 1 PRN PO INSOMNIA Last administered on 11/27/18at 21:07; Admin Dose 5 MG; Start 11/21/18 at 05:30 Lansoprazole (Prevacid) 30 mg DAILY@06 GTB Last administered on 11/28/18at 06:04; Admin Dose 30 MG; Start 11/24/18 at 06:00 Ondansetron HCl (Zofran Inj) 4 mg Q4 PRN IV NAUSEA/VOMITING Last administered on 11/29/18 12:34; Admin Dose 4 MG; Start 11/24/18 at 06:00 Lorazepam (Ativan) 1 mg Q8H PRN IV AGITATION Last administered on 11/29/18 09:52; Admin Dose 1 MG; Start 11/25/18 at 16:00 Guaifenesin/ Dextromethorphan (Robitussin Dm Liquid Cup) 5 ml Q4H PRN PO COUGH Last administered on 11/27/18 17:05; Admin Dose 5 ML; Start 11/26/18 at 02:00 Estradiol (Estraderm 0.1 Mg/24 Hr Patch) 1 patch MoFr@2000 TRANSDERM Last administered on 11/27/18 21:17; Admin Dose 1 PATCH; Start 11/27/18 at 20:00 Docusate Sodium (Colace Liquid Cup) 200 mg DAILY GTB ; Start 11/28/18 at 09:00 Ibuprofen (Motrin Liquid (Ped)) 200 mg Q6 PRN GTB MILD PAIN LEVEL 1-3 Last administered on 11/28/18 06:04; Admin Dose 200 MG; Start 11/27/18 at 18:00 Bisacodyl (Dulcolax Supp) 10 mg Q48H PRN [place] CONSTIPATION; Start 11/27/18 at 18:00 Potassium Chloride (Potassium Chloride Pwd/Soln) 40 meq DAILY GTB ; Start 11/28/18 at 09:00 Hydromorphone HCl (Dilaudid) 1 mg Q3H PRN IV SEVERE PAIN LEVEL 7-10 Last administered on 11/29/18 13:10; Admin Dose 1 MG; Start 11/28/18 at 14:30 Metoclopramide HCl (Reglan) 5 mg Q6H PRN IV nausea and vomitting Last administered on 11/28/18 14:47; Admin Dose 5 MG; Start 11/28/18 at 15:00 Dextrose/Sodium Chloride 1,000 ml @ 70 mls/hr [id number] IV Last administered on 11/29/18 09:52; Admin Dose 70 MLS/HR; Start 11/28/18 at 20:30 Ipratropium [place] (Atrovent Hfa) 4 puff Q8H RESP THERAPY INH Last administered on 11/29/18at 08:50; Admin Dose 4 PUFF; Start 11/29/18 at 08:00 Ciprofloxacin/ Dextrose 200 ml @ 200 mls/hr Q12 IVPB Last administered on at 09:52; Admin Dose 200 MLS/HR; Start 11/29/18 at 09:00 Allergies: Coded Allergies: codeine (Verified Allergy, Unknown, 11/18/18) famotidine (Verified Allergy, Unknown, 11/18/18) minocycline (Verified Allergy, Unknown, 11/18/18) morphine (Verified Allergy, Unknown, 11/18/18) Social History Alcohol Use: none Smoking Status: Former smoker Drug Use: none Exam/Review of Systems Exam Vitals Vital Signs Date Temp Pulse Resp B/P (MAP) Pulse Ox O2 O2 Flow FiO2 Time Delivery Rate 11/29/18 108 25 98 30 13:11 11/29/18 98.0 129/63 11:55 (85) 11/28/18 Mechanical 15:42 Ventilator Trach Collar Intake and Output 11/28/18 11/28/18 11/29/18 1515:00 23:00 07:00 IntakeIntake Total 630 ml BalanceBalance 630 ml Exam PHYSICAL EXAMINATION: GENERAL: Well developed, obese, well nourished, alert & oriented, nonverbal, in no acute distress SKIN: No lesions, no stigmata chronic liver disease, no evidence of bleeding diathesis LYMPHATIC: No palpable lymphadenopathy. HEAD: Normocephalic, atraumatic, no tenderness. EYES: Pupils equal reactive to light and accommodation, full extraocular movements, sclera clear, non-icteric, no discharge. EARS/NOSE AND THROAT: Ears normal, nose normal, oropharynx normal, oral membranes well hydrated without lesions. Tracheostomy in place NECK: Supple, no masses, thyroid normal, JVP within normal limits, carotids normal without bruits. CHEST: Inspection within normal limits. CARDIOVASCULAR: Heart: Regular rate and rhythm, no murmurs, gallops or rubs. Peripheral pulses present within normal limits, no cyanosis, clubbing or edemas. No pulsatile abdominal mass RESPIRATORY: Lungs clear to auscultation and percussion, no wheezing, no rubs GASTROINTESTINAL AND LIVER: Abdomen: Soft, non tenderness, Randle catheter and gastrostomy site, non-distended, no hernias, no masses, no organomegaly, no ascites, no guarding, no rebound tenderness, normoactive bowel sounds. Rectal: Deferred. GENITOURINARY: Female genitalia within normal limits. EXTREMITIES: No cyanosis, clubbing or edema. Results Result Diagram: 11/28/1862011/28/18620 Medications Medication Current Medications IV Flush (NS 3 ml) 3 ml PER PROTOCOL IV ; Start 11/19/18 at 19:00 Enoxaparin Sodium (Lovenox) 40 mg DAILY SC Last administered on 11/29/18 10:02; Admin Dose 40 MG; Start 11/20/18 at 09:00 Oxycodone/ Acetaminophen (Percocet (5/ 325)) 2 tab Q4H PRN GTB PAIN LEVEL 6-10 Last administered on 11/27/18 18:54; Admin Dose 2 TAB; Start 11/20/18 at 17:30 Levalbuterol (Xopenex Hfa) 4 puff Q3H RESP THERAPY PRN INH SHORTNESS OF BREATH Last administered on 11/29/18 08:50; Admin Dose 4 PUFF; Start 11/21/18 at 03:30 Ipratropium [place] (Atrovent Hfa) 4 puff Q3H RESP THERAPY PRN INH SHORTNESS OF BREATH Last administered on 11/29/18 00:55; Admin Dose 4 PUFF; Start 11/21/18 at 03:30 Zolpidem Tartrate (Ambien) 5 mg HS MAY REPEAT X 1 PRN PO INSOMNIA Last administered on 11/27/18 21:07; Admin Dose 5 MG; Start 11/21/18 at 05:30 Lansoprazole (Prevacid) 30 mg DAILY@06 GTB Last administered on 11/28/18 06:04; Admin Dose 30 MG; Start 11/24/18 at 06:00 Ondansetron HCl (Zofran Inj) 4 mg Q4 PRN IV NAUSEA/VOMITING Last administered on 11/29/18 12:34; Admin Dose 4 MG; Start 11/24/18 at 06:00 Lorazepam (Ativan) 1 mg Q8H PRN IV AGITATION Last administered on 11/29/18 09:52; Admin Dose 1 MG; Start 11/25/18 at 16:00 Guaifenesin/ Dextromethorphan (Robitussin Dm Liquid Cup) 5 ml Q4H PRN PO COUGH Last administered on 11/27/18 17:05; Admin Dose 5 ML; Start 11/26/18 at 02:00 Estradiol (Estraderm 0.1 Mg/24 Hr Patch) 1 patch MoFr@2000 TRANSDERM Last administered on 11/27/18 21:17; Admin Dose 1 PATCH; Start 11/27/18 at 20:00 Docusate Sodium (Colace Liquid Cup) 200 mg DAILY GTB ; Start 11/28/18 at 09:00 Ibuprofen (Motrin Liquid (Ped)) 200 mg Q6 PRN GTB MILD PAIN LEVEL 1-3 Last administered on 11/28/18 06:04; Admin Dose 200 MG; Start 11/27/18 at 18:00 Bisacodyl (Dulcolax Supp) 10 mg Q48H PRN [place] CONSTIPATION; Start 11/27/18 at 18:00 Potassium Chloride (Potassium Chloride Pwd/Soln) 40 meq DAILY GTB ; Start 11/28/18 at 09:00 Hydromorphone HCl (Dilaudid) 1 mg Q3H PRN IV SEVERE PAIN LEVEL 7-10 Last administered on 11/29/18 13:10; Admin Dose 1 MG; Start 11/28/18 at 14:30 Metoclopramide HCl (Reglan) 5 mg Q6H PRN IV nausea and vomitting Last administered on 11/28/18 14:47; Admin Dose 5 MG; Start 11/28/18 at 15:00 Dextrose/Sodium Chloride 1,000 ml @ 70 mls/hr [id number] IV Last administered on 11/29/18 09:52; Admin Dose 70 MLS/HR; Start 11/28/18 at 20:30 Ipratropium [place] (Atrovent Hfa) 4 puff Q8H RESP THERAPY INH Last administe red on 11/29/18 08:50; Admin Dose 4 PUFF; Start 11/29/18 at 08:00 Ciprofloxacin/ Dextrose 200 ml @ 200 mls/hr Q12 IVPB Last administered on 11/29/18 09:52; Admin Dose 200 MLS/HR; Start 11/29/18 at 09:00 THIAGO DIANA NP Nov 29, 2018 13:42
[2018-11-29] MEDS ORDERED: MINERAL OIL 133 ML ENEMA PR ONE (14:00)
--- NOTE | 2018-11-29 16:32 | CONS ---
Consult Date/Type/Reason Admit Date/Time Nov 19, 2018 at 18:05 Initial Consult Date Type of Consultation: Pulm Date/Time of Note DATE: 11/29/18 TIME: 16:31 Subjective Stable on the vent. No events. Objective Vitals Vital Signs Date Temp Pulse Resp B/P (MAP) Pulse Ox O2 O2 Flow FiO2 Time Delivery Rate 11/29/18 98.0 95 18 126/58 98 16:20 (80) 11/29/18 30 13:11 11/28/18 Mechanical 15:42 Ventilator Trach Collar Intake and Output 11/28/18 11/28/18 11/29/18 1515:00 23:00 07:00 IntakeIntake Total 630 ml BalanceBalance 630 ml Exam NECK: Trach site clean and intact. CARDIAC: CHEST: Diminished air entry bilaterally. ABDOMEN: Soft, nontender. No guarding or rebound. EXTREMITIES: No cyanosis, clubbing. NEUROLOGIC: Generalized weakness Results/Medications Result Diagram: 11/28/1862011/28/18620 Home Meds Reported Medications Acetaminophen* (Tylophen*) 500 Mg Capsule, 500 MG PO Q6H PRN for MILD PAIN LEVEL 1-3, TAB 11/20/18 Tramadol HCl (Tramadol HCl) 50 Mg Tablet, 50 MG PO Q6H PRN for PAIN, #120 TAB 11/20/18 Diclofenac Sodium (Pennsaid) 2 Gm Soln.pk.g., 2 GM TP TID 11/20/18 Oxycodone Hcl-Acetaminophen* (Oxycodone Hcl-Acetaminophen*) 2.5-325 Mg Tablet, 1 TAB PO Q6, TAB 11/20/18 Fluticasone Propionate* (Flovent* HFA 220) 12 Gm Inha, 2 PUFF INHALATION BID, #1 INHALER 11/20/18 Cyanocobalamin* (Vitamin B12*) 500 Mcg Tab, 5000 MCG PO DAILY, TAB 11/20/18 Cholecalciferol* (Vitamin D3*) 1,000 Unit Tablet, 1000 UNIT PO DAILY, TAB 11/20/18 Calcium Citrate* (Citracal*) 950 Mg Tab, 250 MG PO DAILY, TAB 11/20/18 Biotin (Biotin) 10 Mg Tablet, 10 MG PO DAILY, TAB 11/20/18 Ascorbic Acid (Vitamin C) 500 Mg Tab, 500 MG PO BID, TAB 11/20/18 Amitriptyline Hcl* (Amitriptyline Hcl*) 100 Mg Tablet, 100 MG PO QHS, #30 TAB 11/20/18 Medications Current Medications IV Flush (NS 3 ml) 3 ml PER PROTOCOL IV ; Start 11/19/18 at 19:00 Enoxaparin Sodium (Lovenox) 40 mg DAILY SC Last administered on 11/29/18 10:02; Admin Dose 40 MG; Start 11/20/18 at 09:00 Levalbuterol (Xopenex Hfa) 4 puff Q3H RESP THERAPY PRN INH SHORTNESS OF BREATH Last administered on 11/29/18 08:50; Admin Dose 4 PUFF; Start 11/21/18 at 03:30 Ipratropium [place] (Atrovent Hfa) 4 puff Q3H RESP THERAPY PRN INH SHORTNESS OF BREATH Last administered on 11/29/18 00:55; Admin Dose 4 PUFF; Start 11/21/18 at 03:30 Zolpidem Tartrate (Ambien) 5 mg HS MAY REPEAT X 1 PRN PO INSOMNIA Last administered on 11/27/18 21:07; Admin Dose 5 MG; Start 11/21/18 at 05:30 Lansoprazole (Prevacid) 30 mg DAILY@06 GTB Last administered on 11/28/18 06:04; Admin Dose 30 MG; Start 11/24/18 at 06:00 Ondansetron HCl (Zofran Inj) 4 mg Q4 PRN IV NAUSEA/VOMITING Last administered on 11/29/18 12:34; Admin Dose 4 MG; Start 11/24/18 at 06:00 Lorazepam (Ativan) 1 mg Q8H PRN IV AGITATION Last administered on 11/29/18 09:52; Admin Dose 1 MG; Start 11/25/18 at 16:00 Guaifenesin/ Dextromethorphan (Robitussin Dm Liquid Cup) 5 ml Q4H PRN PO COUGH Last administered on 11/27/18 17:05; Admin Dose 5 ML; Start 11/26/18 at 02:00 Estradiol (Estraderm 0.1 Mg/24 Hr Patch) 1 patch MoFr@2000 TRANSDERM Last administered on 11/27/18 21:17; Admin Dose 1 PATCH; Start 11/27/18 at 20:00 Docusate Sodium (Colace Liquid Cup) 200 mg DAILY GTB ; Start 11/28/18 at 09:00 Ibuprofen (Motrin Liquid (Ped)) 200 mg Q6 PRN GTB MILD PAIN LEVEL 1-3 Last administered on 11/28/18 06:04; Admin Dose 200 MG; Start 11/27/18 at 18:00 Bisacodyl (Dulcolax Supp) 10 mg Q48H PRN [place] CONSTIPATION; Start 11/27/18 at 18:00 Hydromorphone HCl (Dilaudid) 1 mg Q3H PRN IV SEVERE PAIN LEVEL 7-10 Last administered on 11/29/18 13:10; Admin Dose 1 MG; Start 11/28/18 at 14:30 Metoclopramide HCl (Reglan) 5 mg Q6H PRN IV nausea and vomitting Last administered on 11/28/18 14:47; Admin Dose 5 MG; Start 11/28/18 at 15:00 Dextrose/Sodium Chloride 1,000 ml @ 100 mls/hr Q10H IV Last administered on 11/29/18 09:52; Admin Dose 70 MLS/HR; Start 11/28/18 at 20:30 Ipratropium [place] (Atrovent Hfa) 4 puff Q8H RESP THERAPY INH Last administered on 11/29/18 08:50; Admin Dose 4 PUFF; Start 11/29/18 at 08:00 Ciprofloxacin/ Dextrose 200 ml @ 200 mls/hr Q12 IVPB Last administered on 11/29/18 09:52; Admin Dose 200 MLS/HR; Start 11/29/18 at 09:00 Oxycodone/ Acetaminophen (Endocet (10/ 325)) 1 tab Q4H PRN PO MODERATE PAIN LEVEL 4-6; Start 12/02/18 at 09:00 Assessment/Plan Assessment/Plan (Daily) IMP 1. Acute on chronic hypoxemic/hypercapnic respiratory failure 2. Possible healthcare-associated pneumonia 3. History of muscular dystrophy 4. Dysphagia with G-tube RECS: 1. Continue antibiotics. Continue mechanical ventilation in-line PMV trials. 2. TF/Free H20 3. Am labs CHANDRIKA SANTANA MD Nov 29, 2018 16:32
[2018-11-30] VITALS (19 sets, daily range): BP systolic 127–145; BP diastolic 60–69; PULSE 90–104; RESP 15–30
[2018-11-30] MEDS: IPRATROPIUM (HFA) 12.9 GM INHALER INH SCH ×3 (00:05→16:00)
[2018-11-30] MEDS: DEXTROSE 5%-0.45% NACL 1,000 ML IV SCH ×3 (00:41→17:44)
[2018-11-30] MEDS: LANSOPRAZOLE 30 MG CAP GTB SCH (06:00)
[2018-11-30] MEDS: HYDROmorphONE 1 MG/ML SYG IV PRN ×5 (06:34→20:56)
[2018-11-30] MEDS: CIPROFLOXACIN 400MG/D5W 200 ML IVPB SCH ×2 (08:08→20:56)
[2018-11-30] MEDS: ONDANSETRON 4 MG INJ IV PRN (08:08)
[2018-11-30] MEDS: DOCUSATE SODIUM 10 MG/ML (10ML CUP) GTB SCH (09:00)
[2018-11-30] MEDS: METOCLOPRAMIDE 10 MG INJ IV PRN (11:22)
--- NOTE | 2018-11-30 11:58 | PREAC ---
Date/Time of Note Date/Time of Note DATE: 11/30/18 TIME: 11:53 Anesthesia Eval and Record Evaluation Time Pre-Procedure Interview DATE: 11/30/18 TIME: 11:53 Age 63 Sex female NPO: 8 hrs Preoperative diagnosis malfunctioning Peg tube Planned procedure gastrostomy tube replacement Past Medical History Past Medical History: Includes (aspiration w/ ARDS post exLap surgery for SBO) Pulm: Other (acute respiratory failure on Vent/Trach in place) Neuro: Other (Muscular dystrophy) GI: Obesity Heme: Anemia Surgery & Anesthesia Issues No known issue (Explor Lap for SBO; gastric bypass) Meds Anticoagulation: No Beta Abhinav within 24 hr: No Reason Beta Abhinav not given: Pt. not on B-Abhinav Reported Medications Acetaminophen* (Tylophen*) 500 Mg Capsule, 500 MG PO Q6H PRN for MILD PAIN LEVEL 1-3, TAB 11/20/18 Tramadol HCl (Tramadol HCl) 50 Mg Tablet, 50 MG PO Q6H PRN for PAIN, #120 TAB 11/20/18 Diclofenac Sodium (Pennsaid) 2 Gm Soln.pk.g., 2 GM TP TID 11/20/18 Oxycodone Hcl-Acetaminophen* (Oxycodone Hcl-Acetaminophen*) 2.5-325 Mg Tablet, 1 TAB PO Q6, TAB 11/20/18 Fluticasone Propionate* (Flovent* HFA 220) 12 Gm Inha, 2 PUFF INHALATION BID, #1 INHALER 11/20/18 Cyanocobalamin* (Vitamin B12*) 500 Mcg Tab, 5000 MCG PO DAILY, TAB 11/20/18 Cholecalciferol* (Vitamin D3*) 1,000 Unit Tablet, 1000 UNIT PO DAILY, TAB 11/20/18 Calcium Citrate* (Citracal*) 950 Mg Tab, 250 MG PO DAILY, TAB 11/20/18 Biotin (Biotin) 10 Mg Tablet, 10 MG PO DAILY, TAB 11/20/18 Ascorbic Acid (Vitamin C) 500 Mg Tab, 500 MG PO BID, TAB 11/20/18 Amitriptyline Hcl* (Amitriptyline Hcl*) 100 Mg Tablet, 100 MG PO QHS, #30 TAB 11/20/18 Current Medications IV Flush (NS 3 ml) 3 ml PER PROTOCOL IV ; Start 11/19/18 at 19:00 Enoxaparin Sodium (Lovenox) 40 mg DAILY SC Last administered on 11/29/18 10:02; Admin Dose 40 MG; Start 11/20/18 at 09:00 Levalbuterol (Xopenex Hfa) 4 puff Q3H RESP THERAPY PRN INH SHORTNESS OF BREATH Last administered on 11/29/18 08:50; Admin Dose 4 PUFF; Start 11/21/18 at 03:30 Ipratropium [place] (Atrovent Hfa) 4 puff Q3H RESP THERAPY PRN INH SHORTNESS OF BREATH Last administered on 11/29/18 00:55; Admin Dose 4 PUFF; Start 11/21/18 at 03:30 Zolpidem Tartrate (Ambien) 5 mg HS MAY REPEAT X 1 PRN PO INSOMNIA Last administered on 11/27/18 21:07; Admin Dose 5 MG; Start 11/21/18 at 05:30 Lansoprazole (Prevacid) 30 mg DAILY@06 GTB Last administered on 11/28/18 06:04; Admin Dose 30 MG; Start 11/24/18 at 06:00 Ondansetron HCl (Zofran Inj) 4 mg Q4 PRN IV NAUSEA/VOMITING Last administered on 11/30/18 08:08; Admin Dose 4 MG; Start 11/24/18 at 06:00 Lorazepam (Ativan) 1 mg Q8H PRN IV AGITATION Last administered on 11/29/18 19 :25; Admin Dose 1 MG; Start 11/25/18 at 16:00 Guaifenesin/ Dextromethorphan (Robitussin Dm Liquid Cup) 5 ml Q4H PRN PO COUGH Last administered on 11/27/18 17:05; Admin Dose 5 ML; Start 11/26/18 at 02:00 Estradiol (Estraderm 0.1 Mg/24 Hr Patch) 1 patch [id number]@2000 TRANSDERM Last administered on 11/27/18 21:17; Admin Dose 1 PATCH; Start 11/27/18 at 20:00 Docusate Sodium (Colace Liquid Cup) 200 mg DAILY GTB ; Start 11/28/18 at 09:00 Ibuprofen (Motrin Liquid (Ped)) 200 mg Q6 PRN GTB MILD PAIN LEVEL 1-3 Last administered on 11/28/18 06:04; Admin Dose 200 MG; Start 11/27/18 at 18:00 Bisacodyl (Dulcolax Supp) 10 mg Q48H PRN [place] CONSTIPATION; Start 11/27/18 at 18:00 Hydromorphone HCl (Dilaudid) 1 mg Q3H PRN IV SEVERE PAIN LEVEL 7-10 Last administered on 11/30/18at 11:19; Admin Dose 1 MG; Start 11/28/18 at 14:30 Metoclopramide HCl (Reglan) 5 mg Q6H PRN IV nausea and vomitting Last administered on 11/30/18at 11:22; Admin Dose 5 MG; Start 11/28/18 at 15:00 Dextrose/Sodium Chloride 1,000 ml @ 100 mls/hr Q10H IV Last administered on 11/30/18at 00:41; Admin Dose 100 MLS/HR; Start 11/28/18 at 20:30 Ipratropium [place] (Atrovent Hfa) 4 puff Q8H RESP THERAPY INH Last administered on 11/30/18at 08:06; Admin Dose 4 PUFF; Start 11/29/18 at 08:00 Ciprofloxacin/ Dextrose 200 ml @ 200 mls/hr Q12 IVPB Last administered on 11/30/18at 08:08; Admin Dose 200 MLS/HR; Start 11/29/18 at 09:00 Oxycodone/ Acetaminophen (Endocet (10/ 325)) 1 tab Q4H PRN PO MODERATE PAIN LEVEL 4-6; Start 12/02/18 at 09:00 Meds reviewed: Yes Allergies Coded Allergies: codeine (Verified Allergy, Unknown, 11/18/18) famotidine (Verified Allergy, Unknown, 11/18/18) minocycline (Verified Allergy, Unknown, 11/18/18) morphine (Verified Allergy, Unknown, 11/18/18) Allergies Reviewed: Yes Labs/Studies Labs Reviewed: Reviewed by anesthesiologist Result Diagram: 11/30/1818 11/30/1818 Laboratory Tests 11/30/18 06:18 test: N/A Studies: ECG, CXR (1. Low lung volumes and bilateral pulmonary interstitial disease consistent with probable chronic pulmonary fibrosis. Clinical correlation advised;Air space disease in the left upper lobe medially which may be acute or chronic.; Cardiomegaly and atherosclerosis.;Right arm PICC line tip in the right axillary region. ) Pre-procedure Exam Last vitals Vital Signs Date Temp Pulse Resp B/P (MAP) Pulse Ox O2 O2 Flow FiO2 Time Delivery Rate 11/30/18 99.3 100 134/60 100 11:11 (84) 11/30/18 18 07:23 11/30/18 30 05:10 11/28/18 Mechanical 15:42 Ventilator Trach Collar Airway: Adequate mouth opening, Adequate thyromental dist Mallampati: Mallampati II Teeth: Normal Lung: Normal Heart: Normal ASA Physical Status ASA physical status: 3 Emergency: E Planned Anesthetic General/MAC: MAC Pre-operative Attestations Prior to commencing anesthesia and surgery, the patient was re-evaluated, there was verification of: *The patient's identity *The results of appropriate recent lab work and preoperative vital signs *The above evaluation not changing prior to induction *Anesthetic plan, risk benefits, alternative and complications discussed with patient/family; questions answered; patient/family understands, accepts and wishes to proceed. MATT PARNELL Nov 30, 2018 11:58
--- NOTE | 2018-11-30 12:28 | PN ---
Date/Time of Note Date/Time of Note DATE: 11/30/18 TIME: 12:23 Assessment/Plan VTE Prophylaxis Risk score (from Ns)>0 risk: 3 SCD applied (from Ns): No SCD contraindicated: other Pharmacological prophylaxis: LMWH Lines/Catheters [facility]from [facility] Mid Line Urinary Cath still in place: No Assessment/Plan Hospital Course Subjective: Patient had no acute events overnight, awaiting PEG procedure for later today. O: Vs - see below PE: No pallor/ JVD trach intact Regular no mrg Diminished mechanical Bs+ nt nd no rrg; PEG c/d/i No edema. rt picc c/d/i Assessment and plan: 63-year-old female who presented with: 1. Acute on chr respiratory failure: Patient oxygen levels are stable -Monitor, follow-up pulmonary recommendations, cont vent -Plan for possible transfer to subacute when bed available 2. Recent bowel obstruction- sp ex lap surgery, [place] of adhesions. -Monitor, follow-up with surgeon 4. Morbid obesity: sp surgery twice -Monitor, counseled on weight cessation 5. Malnutrition: cont PEG tube feeds when PEG revised by GI team, which is scheduled for later today 6. Debility -Monitor, continue restorative PT/ OT 8. Leukocytosis/Sirs-likely secondary to both Enterobacter upper respiratory infection and Enterobacter urine infection, both slowly improving; no fever -Continue ciprofloxacin based on sensitivities, follow CBC daily 9. Anemia: Hemoglobin stable, monitor 10. Past tobacco: Counseled on cessation 11. COPD?: Monitor, duo nebs as needed 13. Chr muscular dystrophy/CMT: Patient is apparently bedbound for this - Monitor, continue supportive care 14. PEG malfunction? Again, follow-up GI recommendations as they are likely going to perform likely PEG revision or replacement later today Result Diagram: 11/30/18 0618 11/30/18 0618 Results 24hrs Laboratory Tests Test 11/30/18 06:18 White Blood Count 13.7 H Red Blood Count 3.24 L Hemoglobin 9.1 L Hematocrit 29.1 L Mean Corpuscular Volume 89.8 Mean Corpuscular Hemoglobin 28.1 L Mean Corpuscular Hemoglobin Concent 31.3 L Red Cell Distribution Width 14.2 Platelet Count 346 # Mean Platelet Volume 10.1 Immature Granulocytes % 1.000 H Neutrophils % 64.3 Lymphocytes % 20.0 Monocytes % 8.6 Eosinophils % 5.4 Basophils % 0.7 Nucleated Red Blood Cells % 0.0 Immature Granulocytes # 0.130 H Neutrophils # 8.8 H Lymphocytes # 2.7 Monocytes # 1.2 H Eosinophils # 0.7 H Basophils # 0.1 Nucleated Red Blood Cells # 0.0 Sodium Level 138 Potassium Level 3.4 L Chloride Level 99 Carbon Dioxide Level 32 H Anion Gap 7 Blood Urea Nitrogen 7 Creatinine 0.45 Est Glomerular Filtrat Rate mL/min > 60 Glucose Level 132 Calcium Level 9.6 Phosphorus Level 4.9 Total Bilirubin 0.4 Direct Bilirubin 0.00 Indirect Bilirubin 0.4 Aspartate Amino Transf (AST/SGOT) 27 Alanine Aminotransferase (ALT/SGPT) 23 Alkaline Phosphatase 78 Total Protein 7.0 Albumin 3.5 Globulin 3.50 H Albumin/Globulin Ratio 1.00 Exam/Review of Systems Exam Vitals Vital Signs Date Temp Pulse Resp B/P (MAP) Pulse Ox O2 O2 Flow FiO2 Time Delivery Rate 11/30/18 99.3 100 134/60 100 11:11 (84) 11/30/18 18 07:23 11/30/18 30 05:10 11/28/18 Mechanical 15:42 Ventilator Trach Collar Intake and Output 11/29/18 11/29/18 11/30/18 1515:00 23:00 07:00 IntakeIntake Total 900 ml BalanceBalance 900 ml Results Results 24hrs Laboratory Tests Test 11/30/18 06:18 White Blood Count 13.7 H Red Blood Count 3.24 L Hemoglobin 9.1 L Hematocrit 29.1 L Mean Corpuscular Volume 89.8 Mean Corpuscular Hemoglobin 28.1 L Mean Corpuscular Hemoglobin Concent 31.3 L Red Cell Distribution Width 14.2 Platelet Count 346 # Mean Platelet Volume 10.1 Immature Granulocytes % 1.000 H Neutrophils % 64.3 Lymphocytes % 20.0 Monocytes % 8.6 Eosinophils % 5.4 Basophils % 0.7 Nucleated Red Blood Cells % 0.0 Immature Granulocytes # 0.130 H Neutrophils # 8.8 H Lymphocytes # 2.7 Monocytes # 1.2 H Eosinophils # 0.7 H Basophils # 0.1 Nucleated Red Blood Cells # 0.0 Sodium Level 138 Potassium Level 3.4 L Chloride Level 99 Carbon Dioxide Level 32 H Anion Gap 7 Blood Urea Nitrogen 7 Creatinine 0.45 Est Glomerular Filtrat Rate mL/min > 60 Glucose Level 132 Calcium Level 9.6 Phosphorus Level 4.9 Total Bilirubin 0.4 Direct Bilirubin 0.00 Indirect Bilirubin 0.4 Aspartate Amino Transf (AST/SGOT) 27 Alanine Aminotransferase (ALT/SGPT) 23 Alkaline Phosphatase 78 Total Protein 7.0 Albumin 3.5 Globulin 3.50 H Albumin/Globulin Ratio 1.00 Medications Medication Current Medications IV Flush (NS 3 ml) 3 ml PER PROTOCOL IV ; Start 11/19/18 at 19:00 Enoxaparin Sodium (Lovenox) 40 mg DAILY SC Last administered on 11/29/18 10:02; Admin Dose 40 MG; Start 11/20/18 at 09:00 Levalbuterol (Xopenex Hfa) 4 puff Q3H RESP THERAPY PRN INH SHORTNESS OF BREATH Last administered on 11/29/18 08:50; Admin Dose 4 PUFF; Start 11/21/18 at 03:30 Ipratropium [place] (Atrovent Hfa) 4 puff Q3H RESP THERAPY PRN INH SHORTNESS OF BREATH Last administered on 11/29/18 00:55; Admin Dose 4 PUFF; Start 11/21/18 at 03:30 Zolpidem Tartrate (Ambien) 5 mg HS MAY REPEAT X 1 PRN PO INSOMNIA Last administered on 11/27/18 21:07; Admin Dose 5 MG; Start 11/21/18 at 05:30 Lansoprazole (Prevacid) 30 mg DAILY@06 GTB Last administered on 11/28/18 06:04; Admin Dose 30 MG; Start 11/24/18 at 06:00 Ondansetron HCl (Zofran Inj) 4 mg Q4 PRN IV NAUSEA/VOMITING Last administered on 11/30/18 08:08; Admin Dose 4 MG; Start 11/24/18 at 06:00 Lorazepam (Ativan) 1 mg Q8H PRN IV AGITATION Last administered on 11/29/18 19:25; Admin Dose 1 MG; Start 11/25/18 at 16:00 Guaifenesin/ Dextromethorphan (Robitussin Dm Liquid Cup) 5 ml Q4H PRN PO COUGH Last administered on 11/27/18 17:05; Admin Dose 5 ML; Start 11/26/18 at 02:00 Estradiol (Estraderm 0.1 Mg/24 Hr Patch) 1 patch [id number]@2000 TRANSDERM Last administered on 11/27/18 21:17; Admin Dose 1 PATCH; Start 11/27/18 at 20:00 Docusate Sodium (Colace Liquid Cup) 200 mg DAILY GTB ; Start 11/28/18 at 09:00 Ibuprofen (Motrin Liquid (Ped)) 200 mg Q6 PRN GTB MILD PAIN LEVEL 1-3 Last a dministered on 11/28/18 06:04; Admin Dose 200 MG; Start 11/27/18 at 18:00 Bisacodyl (Dulcolax Supp) 10 mg Q48H PRN [place] CONSTIPATION; Start 11/27/18 at 18:00 Hydromorphone HCl (Dilaudid) 1 mg Q3H PRN IV SEVERE PAIN LEVEL 7-10 Last administered on 11/30/18 11:19; Admin Dose 1 MG; Start 11/28/18 at 14:30 Metoclopramide HCl (Reglan) 5 mg Q6H PRN IV nausea and vomitting Last administered on 11/30/18 11:22; Admin Dose 5 MG; Start 11/28/18 at 15:00 Dextrose/Sodium Chloride 1,000 ml @ 100 mls/hr Q10H IV Last administered on 11/30/18 12:20; Admin Dose 100 MLS/HR; Start 11/28/18 at 20:30 Ipratropium [place] (Atrovent Hfa) 4 puff Q8H RESP THERAPY INH Last administered on 11/30/18 08:06; Admin Dose 4 PUFF; Start 11/29/18 at 08:00 Ciprofloxacin/ Dextrose 200 ml @ 200 mls/hr Q12 IVPB Last administered on 11/30/18 08:08; Admin Dose 200 MLS/HR; Start 11/29/18 at 09:00 Oxycodone/ Acetaminophen (Endocet (10/ 325)) 1 tab Q4H PRN PO MODERATE PAIN LEVEL 4-6; Start 12/02/18 at 09:00 FARTUN CHIU Nov 30, 2018 12:28
[2018-11-30] MEDS ORDERED: POTASSIUM CHLORIDE 100 ML IVPB ONE (12:30)
--- NOTE | 2018-11-30 12:45 | CONS ---
Consult Date/Type/Reason Admit Date/Time Nov 19, 2018 at 18:05 Initial Consult Date Type of Consult Pulmonary Date/Time of Note DATE: 11/30/18 TIME: 12:43 Subjective Remains comfortable. Objective Vital Signs Date Temp Pulse Resp B/P (MAP) Pulse Ox O2 O2 Flow FiO2 Time Delivery Rate 11/30/18 99.3 100 134/60 100 11:11 (84) 11/30/18 18 07:23 11/30/18 30 05:10 11/28/18 Mechanical 15:42 Ventilator Trach Collar Intake and Output 11/29/18 11/29/18 11/30/18 1515:00 23:00 07:00 IntakeIntake Total 900 ml BalanceBalance 900 ml Exam GENERAL: Elderly appearing lady comfortable at rest no acute distress VITAL SIGNS: per chart NECK: Supple. No JVD or lymphadenopathy. CARDIAC EXAM: S1, S2. No added sounds or murmurs. CHEST: clear bilaterally, No added sounds, rales or wheezes ABDOMEN: Soft, nontender. No guarding or rebound. EXTREMITIES: No cyanosis, clubbing or edema. NEUROLOGIC: Generalized weakness. No focal deficits. Vent Setting Ventilator Support Mode: AC, VC plus Fraction of Inspired Oxygen pe: 30 Positive End Expiratory Pressu: 5.0 Results/Medications Result Diagram: 11/30/1818 11/30/1818 Results 24 hrs Laboratory Tests Test 11/30/18 06:18 White Blood Count 13.7 H Red Blood Count 3.24 L Hemoglobin 9.1 L Hematocrit 29.1 L Mean Corpuscular Volume 89.8 Mean Corpuscular Hemoglobin 28.1 L Mean Corpuscular Hemoglobin Concent 31.3 L Red Cell Distribution Width 14.2 Platelet Count 346 # Mean Platelet Volume 10.1 Immature Granulocytes % 1.000 H Neutrophils % 64.3 Lymphocytes % 20.0 Monocytes % 8.6 Eosinophils % 5.4 Basophils % 0.7 Nucleated Red Blood Cells % 0.0 Immature Granulocytes # 0.130 H Neutrophils # 8.8 H Lymphocytes # 2.7 Monocytes # 1.2 H Eosinophils # 0.7 H Basophils # 0.1 Nucleated Red Blood Cells # 0.0 Sodium Level 138 Potassium Level 3.4 L Chloride Level 99 Carbon Dioxide Level 32 H Anion Gap 7 Blood Urea Nitrogen 7 Creatinine 0.45 Est Glomerular Filtrat Rate mL/min > 60 Glucose Level 132 Calcium Level 9.6 Phosphorus Level 4.9 Total Bilirubin 0.4 Direct Bilirubin 0.00 Indirect Bilirubin 0.4 Aspartate Amino Transf (AST/SGOT) 27 Alanine Aminotransferase (ALT/SGPT) 23 Alkaline Phosphatase 78 Total Protein 7.0 Albumin 3.5 Globulin 3.50 H Albumin/Globulin Ratio 1.00 Medications Current Medications IV Flush (NS 3 ml) 3 ml PER PROTOCOL IV ; Start 11/19/18 at 19:00 Enoxaparin Sodium (Lovenox) 40 mg DAILY SC Last administered on 11/29/18 10 :02; Admin Dose 40 MG; Start 11/20/18 at 09:00 Levalbuterol (Xopenex Hfa) 4 puff Q3H RESP THERAPY PRN INH SHORTNESS OF BREATH Last administered on 11/29/18 08:50; Admin Dose 4 PUFF; Start 11/21/18 at 03:30 Ipratropium [place] (Atrovent Hfa) 4 puff Q3H RESP THERAPY PRN INH SHORTNESS OF BREATH Last administered on 11/29/18 00:55; Admin Dose 4 PUFF; Start 11/21/18 at 03:30 Zolpidem Tartrate (Ambien) 5 mg HS MAY REPEAT X 1 PRN PO INSOMNIA Last administered on 11/27/18 21:07; Admin Dose 5 MG; Start 11/21/18 at 05:30 Lansoprazole (Prevacid) 30 mg DAILY@06 GTB Last administered on 11/28/18 06 :04; Admin Dose 30 MG; Start 11/24/18 at 06:00 Ondansetron HCl (Zofran Inj) 4 mg Q4 PRN IV NAUSEA/VOMITING Last administered on 11/30/18 08:08; Admin Dose 4 MG; Start 11/24/18 at 06:00 Lorazepam (Ativan) 1 mg Q8H PRN IV AGITATION Last administered on 11/29/18 19:25; Admin Dose 1 MG; Start 11/25/18 at 16:00 Guaifenesin/ Dextromethorphan (Robitussin Dm Liquid Cup) 5 ml Q4H PRN PO COUGH Last administered on 11/27/18 17:05; Admin Dose 5 ML; Start 11/26/18 at 02:00 Estradiol (Estraderm 0.1 Mg/24 Hr Patch) 1 patch [id number] TRANSDERM Last administered on 11/27/18 21:17; Admin Dose 1 PATCH; Start 11/27/18 at 20:00 Docusate Sodium (Colace Liquid Cup) 200 mg DAILY GTB ; Start 11/28/18 at 09:00 Ibuprofen (Motrin Liquid (Ped)) 200 mg Q6 PRN GTB MILD PAIN LEVEL 1-3 Last administered on 11/28/18at 06:04; Admin Dose 200 MG; Start 11/27/18 at 18:00 Bisacodyl (Dulcolax Supp) 10 mg Q48H PRN [place] CONSTIPATION; Start 11/27/18 at 18:00 Hydromorphone HCl (Dilaudid) 1 mg Q3H PRN IV SEVERE PAIN LEVEL 7-10 Last administered on 11/30/18 11:19; Admin Dose 1 MG; Start 11/28/18 at 14:30 Metoclopramide HCl (Reglan) 5 mg Q6H PRN IV nausea and vomitting Last administered on 11/30/18at 11:22; Admin Dose 5 MG; Start 11/28/18 at 15:00 Dextrose/Sodium Chloride 1,000 ml @ 100 mls/hr Q10H IV Last administered on 11/30/18 12:20; Admin Dose 100 MLS/HR; Start 11/28/18 at 20:30 Ipratropium [place] (Atrovent Hfa) 4 puff Q8H RESP THERAPY INH Last administered on 11/30/18 08:06; Admin Dose 4 PUFF; Start 11/29/18 at 08:00 Ciprofloxacin/ Dextrose 200 ml @ 200 mls/hr Q12 IVPB Last administered on 11/30/18at 08:08; Admin Dose 200 MLS/HR; Start 11/29/18 at 09:00 Oxycodone/ Acetaminophen (Endocet (10/ 325)) 1 tab Q4H PRN PO MODERATE PAIN LEVEL 4-6; Start 12/02/18 at 09:00 Potassium Chloride 100 ml @ 50 mls/hr ONCE ONCE IVPB ; Start 11/30/18 at 12:30; Stop 11/30/18 at 14:29 Assessment/Plan Hospital Course (Demo Recall) IMP 1. Acute on chronic hypoxemic/hypercapnic respiratory failure 2. Possible healthcare-associated pneumonia 3. History of muscular dystrophy 4. Dysphagia with G-tube RECS: 1. Continue antibiotics. Continue mechanical ventilation in-line PMV trials. 2. TF/Free H20 3. Am labs 4. Percussion vest DILAN DOWNS MD, [facility] Nov 30, 2018 12:45
[2018-11-30] MEDS ORDERED: FENTAnyl 50 MCG/ML VIAL ONE (14:10)
[2018-11-30] MEDS ORDERED: MIDAZOLAM 1 MG/ML 2 ML INJ ONE (14:10)
[2018-11-30] MEDS ORDERED: LIDOCAINE 2% (SDV) 5 ML INJ ONE (14:10)
--- NOTE | 2018-11-30 14:39 | QN ---
Documentation Comment Case reviewed with patients who is knowledgeable about her care She had direct jejunostomy which has been exchanged once by interventional radiologist elsewhere Currently JT clogged Unfortunately NO endoscopic options to exchange mj Spoke to radiologist who is concerned regrading the fact that JT was placed 3 weeks ago and may not have a mature track Radiologist therefore not willing to attempt exchange until 6 weeks from insertion I recommend surgical evaluation and to explore options. BEATRIZ HUGHES MD Nov 30, 2018 14:39
[2018-11-30] MEDS: LORAZEPAM 2 MG INJ IV PRN ×2 (16:20→21:59)
[2018-11-30] MEDS: ENOXAPARIN 40 MG/0.4 ML SYG SC SCH (16:31)
[2018-11-30] MEDS: LEVALBUTEROL (HFA) 15 GM INHALER INH PRN ×2 (18:12→19:36)
[2018-11-30] MEDS: IPRATROPIUM (HFA) 12.9 GM INHALER INH PRN (19:36)
[2018-11-30] MEDS: ESTRADIOL 0.1 MG/24 HR PATCH TRANSDERM SCH (20:00)
[2018-12-01] VITALS (18 sets, daily range): BP systolic 114–138; BP diastolic 56–64; PULSE 84–100; RESP 15–24
[2018-12-01] MEDS: IPRATROPIUM (HFA) 12.9 GM INHALER INH SCH ×4 (01:01→23:28)
[2018-12-01] MEDS: LEVALBUTEROL (HFA) 15 GM INHALER INH PRN (01:01)
[2018-12-01] MEDS: DEXTROSE 5%-0.45% NACL 1,000 ML IV SCH ×3 (02:02→13:36)
[2018-12-01] MEDS: LANSOPRAZOLE 30 MG CAP GTB SCH (05:26)
[2018-12-01] MEDS: CIPROFLOXACIN 400MG/D5W 200 ML IVPB SCH ×2 (08:33→20:49)
[2018-12-01] MEDS: ENOXAPARIN 40 MG/0.4 ML SYG SC SCH (08:53)
[2018-12-01] MEDS: DOCUSATE SODIUM 10 MG/ML (10ML CUP) GTB SCH (09:00)
[2018-12-01] MEDS: HYDROmorphONE 1 MG/ML SYG IV PRN ×4 (09:18→21:16)
[2018-12-01] MEDS: LORAZEPAM 2 MG INJ IV PRN ×2 (11:50→19:30)
--- NOTE | 2018-12-01 12:42 | PN ---
Date/Time of Note Date/Time of Note DATE: 12/01/18 TIME: 12:32 Assessment/Plan VTE Prophylaxis Risk score (from Ns)>0 risk: 6 SCD applied (from Nsg): Yes Pharmacological prophylaxis: LMWH Lines/Catheters IV Catheter Type (from Nrsg): Mid Line Urinary Cath still in place: No Assessment/Plan Hospital Course Assessment: Malfunctioning J-tube? -Unfortunately NO endoscopic options to exchange tube -Dr. Norton spoke to radiologist who is concerned regrading the fact that JT was placed 3 weeks ago and may not have a mature track History of gastric bypass status post revision Status post small bowel obstruction status post lysis of adhesions Chronic respiratory failure -status post tracheostomy Normocytic anemia Obesity Muscle dystrophy Plan: Surgical consult pending Patient seen in collaboration with Dr. Norton Subjective: Course reviewed with nursing staff Patient interviewed and examined All labs, imaging and other results reviewed The patient resting in bed, no over night events family at bedside Exam PHYSICAL EXAMINATION: GENERAL: Alert & oriented, nonverbal, in no acute distress SKIN: No lesions HEAD: Normocephalic, atraumatic, no tenderness. EYES: Pupils equal reactive to light and accommodation, full extraocular movements, sclera clear, non-icteric, no discharge. EARS/NOSE AND THROAT: Ears normal, nose normal. Tracheostomy in place NECK: Supple, no masses, CHEST: Inspection within normal limits. CARDIOVASCULAR: Heart: Regular rate and rhythm RESPIRATORY: Lungs clear to auscultation GASTROINTESTINAL AND LIVER: Abdomen: Soft, non tenderness, Randle catheter and j- tube in place, non-distended, no hernias, no masses, no organomegaly, no ascites, no guarding, no rebound tenderness, normoactive bowel sounds. Rectal: Deferred. GENITOURINARY: Female genitalia within normal limits. EXTREMITIES: No cyanosis, clubbing or edema. Result Diagram: 12/01/18 0602 12/01/18 0602 Results 24hrs Laboratory Tests Test 12/01/18 06:02 White Blood Count 14.1 H Red Blood Count 3.29 L Hemoglobin 9.2 L Hematocrit 29.6 L Mean Corpuscular Volume 90.0 Mean Corpuscular Hemoglobin 28.0 L Mean Corpuscular Hemoglobin Concent 31.1 L Red Cell Distribution Width 14.3 Platelet Count 412 Mean Platelet Volume 10.5 H Immature Granulocytes % 1.100 H Neutrophils % 63.5 Lymphocytes % 21.3 Monocytes % 8.7 Eosinophils % 4.8 Basophils % 0.6 Nucleated Red Blood Cells % 0.0 Immature Granulocytes # 0.150 H Neutrophils # 8.9 H Lymphocytes # 3.0 H Monocytes # 1.2 H Eosinophils # 0.7 H Basophils # 0.1 Nucleated Red Blood Cells # 0.0 Prothrombin Time 14.2 Prothrombin Time Ratio 1.1 INR International Normalized Ratio 1.09 Activated Partial Thromboplast Time 29.1 Sodium Level 139 Potassium Level 3.6 Chloride Level 100 Carbon Dioxide Level 31 Anion Gap 8 Blood Urea Nitrogen 4 L Creatinine 0.41 L Est Glomerular Filtrat Rate mL/min > 60 Glucose Level 130 Calcium Level 9.8 Phosphorus Level 5.0 H Magnesium Level 1.4 L Exam/Review of Systems Exam Vitals Vital Signs Date Temp Pulse Resp B/P (MAP) Pulse Ox O2 O2 Flow FiO2 Time Delivery Rate 12/01/18 99.2 84 17 130/58 97 11:28 (82) 12/01/18 30 10:14 11/28/18 Mechanical 15:42 Ventilator Trach Collar Intake and Output 11/30/18 11/30/18 12/01/18 1515:00 23:00 07:00 IntakeIntake Total 900 ml 500 ml BalanceBalance 900 ml 500 ml Results Results 24hrs Laboratory Tests Test 12/01/18 06:02 White Blood Count 14.1 H Red Blood Count 3.29 L Hemoglobin 9.2 L Hematocrit 29.6 L Mean Corpuscular Volume 90.0 Mean Corpuscular Hemoglobin 28.0 L Mean Corpuscular Hemoglobin Concent 31.1 L Red Cell Distribution Width 14.3 Platelet Count 412 Mean Platelet Volume 10.5 H Immature Granulocytes % 1.100 H Neutrophils % 63.5 Lymphocytes % 21.3 Monocytes % 8.7 Eosinophils % 4.8 Basophils % 0.6 Nucleated Red Blood Cells % 0.0 Immature Granulocytes # 0.150 H Neutrophils # 8.9 H Lymphocytes # 3.0 H Monocytes # 1.2 H Eosinophils # 0.7 H Basophils # 0.1 Nucleated Red Blood Cells # 0.0 Prothrombin Time 14.2 Prothrombin Time Ratio 1.1 INR International Normalized Ratio 1.09 Activated Partial Thromboplast Time 29.1 Sodium Level 139 Potassium Level 3.6 Chloride Level 100 Carbon Dioxide Level 31 Anion Gap 8 Blood Urea Nitrogen 4 L Creatinine 0.41 L Est Glomerular Filtrat Rate mL/min > 60 Glucose Level 130 Calcium Level 9.8 Phosphorus Level 5.0 H Magnesium Level 1.4 L Medications Medication Current Medications IV Flush (NS 3 ml) 3 ml PER PROTOCOL IV ; Start 11/19/18 at 19:00 Enoxaparin Sodium (Lovenox) 40 mg DAILY SC Last administered on 12/01/18 08:53; Admin Dose 40 MG; Start 11/20/18 at 09:00 Levalbuterol (Xopenex Hfa) 4 puff Q3H RESP THERAPY PRN INH SHORTNESS OF BREATH Last administered on 12/01/18 01:01; Admin Dose 4 PUFF; Start 11/21/18 at 03:30 Ipratropium [place] (Atrovent Hfa) 4 puff Q3H RESP THERAPY PRN INH SHORTNESS OF BREATH Last administered on 11/30/18 19:36; Admin Dose 4 PUFF; Start 11/21/18 at 03:30 Zolpidem Tartrate (Ambien) 5 mg HS MAY REPEAT X 1 PRN PO INSOMNIA Last administered on 11/27/18 21:07; Admin Dose 5 MG; Start 11/21/18 at 05:30 Lansoprazole (Prevacid) 30 mg DAILY@06 GTB Last administered on 11/28/18 06:04; Admin Dose 30 MG; Start 11/24/18 at 06:00 Ondansetron HCl (Zofran Inj) 4 mg Q4 PRN IV NAUSEA/VOMITING Last administered on 11/30/18 08:08; Admin Dose 4 MG; Start 11/24/18 at 06:00 Guaifenesin/ Dextromethorphan (Robitussin Dm Liquid Cup) 5 ml Q4H PRN PO COUGH Last administered on 11/27/18 17:05; Admin Dose 5 ML; Start 11/26/18 at 02:00 Estradiol (Estraderm 0.1 Mg/24 Hr Patch) 1 patch [id number]@2000 TRANSDERM Last administered on 11/30/18 20:00; Admin Dose 1 PATCH; Start 11/27/18 at 20:00 Docusate Sodium (Colace Liquid Cup) 200 mg DAILY GTB ; Start 11/28/18 at 09:00 Ibuprofen (Motrin Liquid (Ped)) 200 mg Q6 PRN GTB MILD PAIN LEVEL 1-3 Last administered on 11/28/18 06:04; Admin Dose 200 MG; Start 11/27/18 at 18:00 Bisacodyl (Dulcolax Supp) 10 mg Q48H PRN [place] CONSTIPATION; Start 11/27/18 at 18:00 Hydromorphone HCl (Dilaudid) 1 mg Q3H PRN IV SEVERE PAIN LEVEL 7-10 Last admi nistered on 12/01/18 09:18; Admin Dose 1 MG; Start 11/28/18 at 14:30 Metoclopramide HCl (Reglan) 5 mg Q6H PRN IV nausea and vomitting Last administered on 11/30/18 11:22; Admin Dose 5 MG; Start 11/28/18 at 15:00 Dextrose/Sodium Chloride 1,000 ml @ 100 mls/hr Q10H IV Last administered on 12/01/18 12:04; Admin Dose 100 MLS/HR; Start 11/28/18 at 20:30 Ipratropium [place] (Atrovent Hfa) 4 puff Q8H RESP THERAPY INH Last administered on 12/01/18 08:00; Admin Dose 4 PUFF; Start 11/29/18 at 08:00 Ciprofloxacin/ Dextrose 200 ml @ 200 mls/hr Q12 IVPB Last administered on 12/01/18 08:33; Admin Dose 200 MLS/HR; Start 11/29/18 at 09:00 Oxycodone/ Acetaminophen (Endocet (10/ 325)) 1 tab Q4H PRN PO MODERATE PAIN LEVEL 4-6; Start 12/02/18 at 09:00 Lorazepam (Ativan) 1 mg Q6 PRN IV AGITATION Last administered on 12/01/18 11:50; Admin Dose 1 MG; Start 11/30/18 at 18:00 ADY ANGEL Dec 01, 2018 12:42
--- NOTE | 2018-12-01 12:55 | PN ---
Date/Time of Note Date/Time of Note DATE: 12/01/18 TIME: 12:53 Assessment/Plan VTE Prophylaxis Risk score (from Nsg)>0 risk: 6 SCD applied (from Ns): No SCD contraindicated: other Pharmacological prophylaxis: LMWH Lines/Catheters IV Catheter Type (from Nrs): Mid Line Urinary Cath still in place: No Assessment/Plan Hospital Course Subjective: Patient had an attempt at PEG exchange yesterday, however this was not able to be performed because in fact patient found with possible malfunctioning J-tube, and per GI team unfortunately there are at the present time NO endoscopic options to exchange tube. Otherwise no other acute events overnight. O: Vs - see below PE: No pallor/ JVD trach intact Regular no mrg Diminished mechanical Bs+ nt nd no rrg; PEG c/d/i No edema. rt picc c/d/i Assessment and plan: 63-year-old female who presented with: 1. Acute on chr respiratory failure: Patient oxygen levels are stable -Monitor, follow-up pulmonary recommendations, cont vent -Plan for possible transfer to subacute when bed available 2. Recent bowel obstruction- sp ex lap surgery, [place] of adhesions. -Monitor, follow-up with surgeon 4. Morbid obesity: sp surgery twice -Monitor, counseled on weight cessation 5. Malnutrition: cont PEG tube feeds when PEG revised by GI team, which is scheduled for later today 6. Debility -Monitor, continue restorative PT/ OT 7. PEG malfunction? this was not able to be performed yesterday because in fact patient found with possible malfunctioning J-tube, and per GI team unfortunately there are at the present time NO endoscopic options to exchange tube. -Per discussed with GI team, will obtain surgery consult to see if there are any options for exchange via that route. 8. Leukocytosis/Sirs-likely secondary to both Enterobacter upper respiratory infection and Enterobacter urine infection, both slowly improving; no fever -Continue ciprofloxacin based on sensitivities, follow CBC daily 9. Anemia: Hemoglobin stable, monitor 10. Past tobacco: Counseled on cessation 11. COPD?: Monitor, duo nebs as needed 12. 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 - Monitor, continue supportive care Result Diagram: 12/01/18 0602 12/01/18 0602 Results 24hrs Laboratory Tests Test 12/01/18 06:02 White Blood Count 14.1 H Red Blood Count 3.29 L Hemoglobin 9.2 L Hematocrit 29.6 L Mean Corpuscular Volume 90.0 Mean Corpuscular Hemoglobin 28.0 L Mean Corpuscular Hemoglobin Concent 31.1 L Red Cell Distribution Width 14.3 Platelet Count 412 Mean Platelet Volume 10.5 H Immature Granulocytes % 1.100 H Neutrophils % 63.5 Lymphocytes % 21.3 Monocytes % 8.7 Eosinophils % 4.8 Basophils % 0.6 Nucleated Red Blood Cells % 0.0 Immature Granulocytes # 0.150 H Neutrophils # 8.9 H Lymphocytes # 3.0 H Monocytes # 1.2 H Eosinophils # 0.7 H Basophils # 0.1 Nucleated Red Blood Cells # 0.0 Prothrombin Time 14.2 Prothrombin Time Ratio 1.1 INR International Normalized Ratio 1.09 Activated Partial Thromboplast Time 29.1 Sodium Level 139 Potassium Level 3.6 Chloride Level 100 Carbon Dioxide Level 31 Anion Gap 8 Blood Urea Nitrogen 4 L Creatinine 0.41 L Est Glomerular Filtrat Rate mL/min > 60 Glucose Level 130 Calcium Level 9.8 Phosphorus Level 5.0 H Magnesium Level 1.4 L Exam/Review of Systems Exam Vitals Vital Signs Date Temp Pulse Resp B/P (MAP) Pulse Ox O2 O2 Flow FiO2 Time Delivery Rate 12/01/18 99.2 84 17 130/58 97 11:28 (82) 12/01/18 30 10:14 11/28/18 Mechanical 15:42 Ventilator Trach Collar Intake and Output 11/30/18 11/30/18 12/01/18 1515:00 23:00 07:00 IntakeIntake Total 900 ml 500 ml BalanceBalance 900 ml 500 ml Results Results 24hrs Laboratory Tests Test 12/01/18 06:02 White Blood Count 14.1 H Red Blood Count 3.29 L Hemoglobin 9.2 L Hematocrit 29.6 L Mean Corpuscular Volume 90.0 Mean Corpuscular Hemoglobin 28.0 L Mean Corpuscular Hemoglobin Concent 31.1 L Red Cell Distribution Width 14.3 Platelet Count 412 Mean Platelet Volume 10.5 H Immature Granulocytes % 1.100 H Neutrophils % 63.5 Lymphocytes % 21.3 Monocytes % 8.7 Eosinophils % 4.8 Basophils % 0.6 Nucleated Red Blood Cells % 0.0 Immature Granulocytes # 0.150 H Neutrophils # 8.9 H Lymphocytes # 3.0 H Monocytes # 1.2 H Eosinophils # 0.7 H Basophils # 0.1 Nucleated Red Blood Cells # 0.0 Prothrombin Time 14.2 Prothrombin Time Ratio 1.1 INR International Normalized Ratio 1.09 Activated Partial Thromboplast Time 29.1 Sodium Level 139 Potassium Level 3.6 Chloride Level 100 Carbon Dioxide Level 31 Anion Gap 8 Blood Urea Nitrogen 4 L Creatinine 0.41 L Est Glomerular Filtrat Rate mL/min > 60 Glucose Level 130 Calcium Level 9.8 Phosphorus Level 5.0 H Magnesium Level 1.4 L Medications Medication Current Medications IV Flush (NS 3 ml) 3 ml PER PROTOCOL IV ; Start 11/19/18 at 19:00 Enoxaparin Sodium (Lovenox) 40 mg DAILY SC Last administered on 12/01/18 08:53; Admin Dose 40 MG; Start 11/20/18 at 09:00 Levalbuterol (Xopenex Hfa) 4 puff Q3H RESP THERAPY PRN INH SHORTNESS OF BREATH Last administered on 12/01/18 01:01; Admin Dose 4 PUFF; Start 11/21/18 at 03:30 Ipratropium [place] (Atrovent Hfa) 4 puff Q3H RESP THERAPY PRN INH SHORTNESS OF BREATH Last administered on 11/30/18 19:36; Admin Dose 4 PUFF; Start 11/21/18 at 03:30 Zolpidem Tartrate (Ambien) 5 mg HS MAY REPEAT X 1 PRN PO INSOMNIA Last administered on 11/27/18 21:07; Admin Dose 5 MG; Start 11/21/18 at 05:30 Lansoprazole (Prevacid) 30 mg DAILY@06 GTB Last administered on 11/28/18 06:04; Admin Dose 30 MG; Start 11/24/18 at 06:00 Ondansetron HCl (Zofran Inj) 4 mg Q4 PRN IV NAUSEA/VOMITING Last administered on 11/30/18 08:08; Admin Dose 4 MG; Start 11/24/18 at 06:00 Guaifenesin/ Dextromethorphan (Robitussin Dm Liquid Cup) 5 ml Q4H PRN PO COUGH Last administered on 11/27/18 17:05; Admin Dose 5 ML; Start 11/26/18 at 02:00 Estradiol (Estraderm 0.1 Mg/24 Hr Patch) 1 patch [id number] TRANSDERM Last administered on 11/30/18 20:00; Admin Dose 1 PATCH; Start 11/27/18 at 20:00 Docusate Sodium (Colace Liquid Cup) 200 mg DAILY GTB ; Start 11/28/18 at 09:00 Ibuprofen (Motrin Liquid (Ped)) 200 mg Q6 PRN GTB MILD PAIN LEVEL 1-3 Last administered on 11/28/18 06:04; Admin Dose 200 MG; Start 11/27/18 at 18:00 Bisacodyl (Dulcolax Supp) 10 mg Q48H PRN [place] CONSTIPATION; Start 11/27/18 at 18:00 Hydromorphone HCl (Dilaudid) 1 mg Q3H PRN IV SEVERE PAIN LEVEL 7-10 Last administered on 12/01/18 09:18; Admin Dose 1 MG; Start 11/28/18 at 14:30 Metoclopramide HCl (Reglan) 5 mg Q6H PRN IV nausea and vomitting Last administered on 11/30/18 11:22; Admin Dose 5 MG; Start 11/28/18 at 15:00 Ipratropium [place] (Atrovent Hfa) 4 puff Q8H RESP THERAPY INH Last adm inistered on 12/01/18 08:00; Admin Dose 4 PUFF; Start 11/29/18 at 08:00 Ciprofloxacin/ Dextrose 200 ml @ 200 mls/hr Q12 IVPB Last administered on 12/01/18 08:33; Admin Dose 200 MLS/HR; Start 11/29/18 at 09:00 Oxycodone/ Acetaminophen (Endocet (10/ 325)) 1 tab Q4H PRN PO MODERATE PAIN LEVEL 4-6; Start 12/02/18 at 09:00 Lorazepam (Ativan) 1 mg Q6 PRN IV AGITATION Last administered on 12/01/18 11:50; Admin Dose 1 MG; Start 11/30/18 at 18:00 Dextrose/Sodium Chloride 1,000 ml @ 60 mls/hr [id number] IV ; Start 12/01/18 at 13:00 FARTUN CHIU Dec 01, 2018 12:55
--- NOTE | 2018-12-01 13:03 | CONS ---
Consult Date/Type/Reason Admit Date/Time Nov 19, 2018 at 18:05 Initial Consult Date Type of Consult Pulmonary Date/Time of Note DATE: 12/01/18 TIME: 13:02 Subjective Patient comfortable no respiratory distress Objective Vital Signs Date Temp Pulse Resp B/P (MAP) Pulse Ox O2 O2 Flow FiO2 Time Delivery Rate 12/01/18 99.2 84 17 130/58 97 11:28 (82) 12/01/18 30 10:14 11/28/18 Mechanical 15:42 Ventilator Trach Collar Intake and Output 11/30/18 11/30/18 12/01/18 1515:00 23:00 07:00 IntakeIntake Total 900 ml 500 ml BalanceBalance 900 ml 500 ml Exam GENERAL: Elderly appearing lady comfortable at rest no acute distress VITAL SIGNS: per chart NECK: Supple. No JVD or lymphadenopathy. CARDIAC EXAM: S1, S2. No added sounds or murmurs. CHEST: clear bilaterally, No added sounds, rales or wheezes ABDOMEN: Soft, nontender. No guarding or rebound. EXTREMITIES: No cyanosis, clubbing or edema. NEUROLOGIC: Generalized weakness. No focal deficits. Vent Setting Ventilator Support Mode: AC Fraction of Inspired Oxygen pe: 30 Positive End Expiratory Pressu: 5.0 Results/Medications Result Diagram: 12/01/18 0602 12/01/18 0602 Results 24 hrs Laboratory Tests Test 12/01/18 06:02 White Blood Count 14.1 H Red Blood Count 3.29 L Hemoglobin 9.2 L Hematocrit 29.6 L Mean Corpuscular Volume 90.0 Mean Corpuscular Hemoglobin 28.0 L Mean Corpuscular Hemoglobin Concent 31.1 L Red Cell Distribution Width 14.3 Platelet Count 412 Mean Platelet Volume 10.5 H Immature Granulocytes % 1.100 H Neutrophils % 63.5 Lymphocytes % 21.3 Monocytes % 8.7 Eosinophils % 4.8 Basophils % 0.6 Nucleated Red Blood Cells % 0.0 Immature Granulocytes # 0.150 H Neutrophils # 8.9 H Lymphocytes # 3.0 H Monocytes # 1.2 H Eosinophils # 0.7 H Basophils # 0.1 Nucleated Red Blood Cells # 0.0 Prothrombin Time 14.2 Prothrombin Time Ratio 1.1 INR International Normalized Ratio 1.09 Activated Partial Thromboplast Time 29.1 Sodium Level 139 Potassium Level 3.6 Chloride Level 100 Carbon Dioxide Level 31 Anion Gap 8 Blood Urea Nitrogen 4 L Creatinine 0.41 L Est Glomerular Filtrat Rate mL/min > 60 Glucose Level 130 Calcium Level 9.8 Phosphorus Level 5.0 H Magnesium Level 1.4 L Medications Current Medications IV Flush (NS 3 ml) 3 ml PER PROTOCOL IV ; Start 11/19/18 at 19:00 Enoxaparin Sodium (Lovenox) 40 mg DAILY SC Last administered on 12/01/18 08:53; Admin Dose 40 MG; Start 11/20/18 at 09:00 Levalbuterol (Xopenex Hfa) 4 puff Q3H RESP THERAPY PRN INH SHORTNESS OF BREATH Last administered on 12/01/18 01:01; Admin Dose 4 PUFF; Start 11/21/18 at 03:30 Ipratropium [place] (Atrovent Hfa) 4 puff Q3H RESP THERAPY PRN INH SHORTNESS OF BREATH Last administered on 11/30/18 19:36; Admin Dose 4 PUFF; Start 11/21/18 at 03:30 Zolpidem Tartrate (Ambien) 5 mg HS MAY REPEAT X 1 PRN PO INSOMNIA Last administered on 11/27/18 21:07; Admin Dose 5 MG; Start 11/21/18 at 05:30 Lansoprazole (Prevacid) 30 mg DAILY@06 GTB Last administered on 11/28/18 06:04; Admin Dose 30 MG; Start 11/24/18 at 06:00 Ondansetron HCl (Zofran Inj) 4 mg Q4 PRN IV NAUSEA/VOMITING Last administered on 11/30/18 08:08; Admin Dose 4 MG; Start 11/24/18 at 06:00 Guaifenesin/ Dextromethorphan (Robitussin Dm Liquid Cup) 5 ml Q4H PRN PO COUGH Last administered on 11/27/18 17:05; Admin Dose 5 ML; Start 11/26/18 at 02:00 Estradiol (Estraderm 0.1 Mg/24 Hr Patch) 1 patch [id number]@2000 TRANSDERM Last administered on 11/30/18 20:00; Admin Dose 1 PATCH; Start 11/27/18 at 20:00 Docusate Sodium (Colace Liquid Cup) 200 mg DAILY GTB ; Start 11/28/18 at 09:00 Ibuprofen (Motrin Liquid (Ped)) 200 mg Q6 PRN GTB MILD PAIN LEVEL 1-3 Last administered on 11/28/18 06:04; Admin Dose 200 MG; Start 11/27/18 at 18:00 Bisacodyl (Dulcolax Supp) 10 mg Q48H PRN [place] CONSTIPATION; Start 11/27/18 at 18:00 Hydromorphone HCl (Dilaudid) 1 mg Q3H PRN IV SEVERE PAIN LEVEL 7-10 Last administered on 12/01/18at 09:18; Admin Dose 1 MG; Start 11/28/18 at 14:30 Metoclopramide HCl (Reglan) 5 mg Q6H PRN IV nausea and vomitting Last administered on 11/30/18 11:22; Admin Dose 5 MG; Start 11/28/18 at 15:00 Ipratropium [place] (Atrovent Hfa) 4 puff Q8H RESP THERAPY INH Last administered on 12/01/18 08:00; Admin Dose 4 PUFF; Start 11/29/18 at 08:00 Ciprofloxacin/ Dextrose 200 ml @ 200 mls/hr Q12 IVPB Last administered on 12/01/18at 08:33; Admin Dose 200 MLS/HR; Start 11/29/18 at 09:00 Oxycodone/ Acetaminophen (Endocet (10/ 325)) 1 tab Q4H PRN PO MODERATE PAIN LEVEL 4-6; Start 12/02/18 at 09:00 Lorazepam (Ativan) 1 mg Q6 PRN IV AGITATION Last administered on 12/01/18at 11:50; Admin Dose 1 MG; Start 11/30/18 at 18:00 Dextrose/Sodium Chloride 1,000 ml @ 60 mls/hr [id number] IV ; Start 12/01/18 at 13:00 Assessment/Plan Hospital Course (Demo Recall) IMP 1. Acute on chronic hypoxemic/hypercapnic respiratory failure 2. Possible healthcare-associated pneumonia 3. History of muscular dystrophy 4. Dysphagia with G-tube RECS: 1. Continue antibiotics. Continue mechanical ventilation in-line PMV trials. 2. TF/Free H20 3. Am labs 4. Percussion vest DC planning. DILAN DOWNS MD, [facility] Dec 01, 2018 13:03
[2018-12-01] MEDS: ONDANSETRON 4 MG INJ IV PRN ×2 (15:01→20:45)
[2018-12-02] VITALS (17 sets, daily range): BP systolic 111–139; BP diastolic 56–89; PULSE 86–102; RESP 15–38
[2018-12-02] MEDS: DEXTROSE 5%-0.45% NACL 1,000 ML IV SCH ×2 (05:04→22:20)
[2018-12-02] MEDS: LANSOPRAZOLE 30 MG CAP GTB SCH (05:12)
[2018-12-02] MEDS: LEVALBUTEROL (HFA) 15 GM INHALER INH PRN ×4 (06:42→23:14)
[2018-12-02] MEDS: LORAZEPAM 2 MG INJ IV PRN ×3 (06:55→20:19)
[2018-12-02] MEDS: IPRATROPIUM (HFA) 12.9 GM INHALER INH SCH ×3 (07:49→23:14)
[2018-12-02] MEDS: CIPROFLOXACIN 400MG/D5W 200 ML IVPB SCH ×2 (08:40→20:30)
[2018-12-02] MEDS: ENOXAPARIN 40 MG/0.4 ML SYG SC SCH (08:58)
[2018-12-02] MEDS: DOCUSATE SODIUM 10 MG/ML (10ML CUP) GTB SCH (09:00)
[2018-12-02] MEDS: HYDROmorphONE 1 MG/ML SYG IV PRN ×4 (10:55→22:12)
--- NOTE | 2018-12-02 12:21 | CONS ---
Consult Date/Type/Reason Admit Date/Time Nov 19, 2018 at 18:05 Initial Consult Date Type of Consult Pulmonary Date/Time of Note DATE: 12/02/18 TIME: 12:16 Subjective Patient stable no respiratory distress Objective Vital Signs Date Temp Pulse Resp B/P (MAP) Pulse Ox O2 O2 Flow FiO2 Time Delivery Rate 12/02/18 98.6 94 15 111/56 98 11:13 (74) 12/02/18 30 06:11 11/28/18 Mechanical 15:42 Ventilator Trach Collar Exam GENERAL: Elderly appearing lady comfortable at rest no acute distress VITAL SIGNS: per chart NECK: Supple. No JVD or lymphadenopathy. CARDIAC EXAM: S1, S2. No added sounds or murmurs. CHEST: clear bilaterally, No added sounds, rales or wheezes ABDOMEN: Soft, nontender. No guarding or rebound. EXTREMITIES: No cyanosis, clubbing or edema. NEUROLOGIC: Generalized weakness. No focal deficits. Vent Setting Ventilator Support Mode: AC Fraction of Inspired Oxygen pe: 30 Positive End Expiratory Pressu: 5.0 Results/Medications Result Diagram: 12/02/18 0706 12/02/18 0706 Results 24 hrs Laboratory Tests Test 12/02/18 07:06 White Blood Count 11.6 H Red Blood Count 3.08 L Hemoglobin 8.7 L Hematocrit 27.4 L Mean Corpuscular Volume 89.0 Mean Corpuscular Hemoglobin 28.2 L Mean Corpuscular Hemoglobin Concent 31.8 L Red Cell Distribution Width 14.2 Platelet Count 390 Mean Platelet Volume 10.1 Immature Granulocytes % 1.000 H Neutrophils % 59.2 Lymphocytes % 24.7 Monocytes % 9.3 Eosinophils % 4.9 Basophils % 0.9 Nucleated Red Blood Cells % 0.0 Immature Granulocytes # 0.110 H Neutrophils # 6.8 Lymphocytes # 2.9 Monocytes # 1.1 H Eosinophils # 0.6 H Basophils # 0.1 Nucleated Red Blood Cells # 0.0 Sodium Level 140 Potassium Level 3.0 L Chloride Level 102 Carbon Dioxide Level 29 Anion Gap 9 Blood Urea Nitrogen 3 L Creatinine 0.47 Est Glomerular Filtrat Rate mL/min > 60 Glucose Level 116 Calcium Level 9.6 Phosphorus Level 4.7 Magnesium Level 1.4 L Medications Current Medications IV Flush (NS 3 ml) 3 ml PER PROTOCOL IV ; Start 11/19/18 at 19:00 Enoxaparin Sodium (Lovenox) 40 mg DAILY SC Last administered on 12/02/18 08:58; Admin Dose 40 MG; Start 11/20/18 at 09:00 Levalbuterol (Xopenex Hfa) 4 puff Q3H RESP THERAPY PRN INH SHORTNESS OF BREATH Last administered on 12/02/18 07:49; Admin Dose 4 PUFF; Start 11/21/18 at 03:30 Ipratropium [place] (Atrovent Hfa) 4 puff Q3H RESP THERAPY PRN INH SHORTNESS OF BREATH Last administered on 11/30/18 19:36; Admin Dose 4 PUFF; Start 11/21/18 at 03:30 Zolpidem Tartrate (Ambien) 5 mg HS MAY REPEAT X 1 PRN PO INSOMNIA Last administered on 11/27/18 21:07; Admin Dose 5 MG; Start 11/21/18 at 05:30 Lansoprazole (Prevacid) 30 mg DAILY@06 GTB Last administered on 11/28/18 06:04; Admin Dose 30 MG; Start 11/24/18 at 06:00 Ondansetron HCl (Zofran Inj) 4 mg Q4 PRN IV NAUSEA/VOMITING Last administered on 12/01/18 20:45; Admin Dose 4 MG; Start 11/24/18 at 06:00 Guaifenesin/ Dextromethorphan (Robitussin Dm Liquid Cup) 5 ml Q4H PRN PO COUGH Last administered on 11/27/18 17:05; Admin Dose 5 ML; Start 11/26/18 at 02:00 Estradiol (Estraderm 0.1 Mg/24 Hr Patch) 1 patch [id number]@2000 TRANSDERM Last administered on 11/30/18 20:00; Admin Dose 1 PATCH; Start 11/27/18 at 20:00 Docusate Sodium (Colace Liquid Cup) 200 mg DAILY GTB ; Start 11/28/18 at 09:00 Ibuprofen (Motrin Liquid (Ped)) 200 mg Q6 PRN GTB MILD PAIN LEVEL 1-3 Last administered on 11/28/18 06:04; Admin Dose 200 MG; Start 11/27/18 at 18:00 Bisacodyl (Dulcolax Supp) 10 mg Q48H PRN [place] CONSTIPATION; Start 11/27/18 at 18:00 Hydromorphone HCl (Dilaudid) 1 mg Q3H PRN IV SEVERE PAIN LEVEL 7-10 Last administered on 12/02/18 10:55; Admin Dose 1 MG; Start 11/28/18 at 14:30 Metoclopramide HCl (Reglan) 5 mg Q6H PRN IV nausea and vomitting Last administered on 11/30/18 11:22; Admin Dose 5 MG; Start 11/28/18 at 15:00 Ipratropium [place] (Atrovent Hfa) 4 puff Q8H RESP THERAPY INH Last administered on 12/02/18 07:49; Admin Dose 4 PUFF; Start 11/29/18 at 08:00 Ciprofloxacin/ Dextrose 200 ml @ 200 mls/hr Q12 IVPB Last administered on 12/02/18 08:40; Admin Dose 200 MLS/HR; Start 11/29/18 at 09:00 Oxycodone/ Acetaminophen (Endocet (10/ 325)) 1 tab Q4H PRN PO MODERATE PAIN LEVEL 4-6; Start 12/02/18 at 09:00 Lorazepam (Ativan) 1 mg Q6 PRN IV AGITATION Last administered on 12/02/18 06:55; Admin Dose 1 MG; Start 11/30/18 at 18:00 Dextrose/Sodium Chloride 1,000 ml @ 60 mls/hr [id number] IV Last administered on 12/02/18at 05:04; Admin Dose 60 MLS/HR; Start 12/01/18 at 13:00 Assessment/Plan Hospital Course (Demo Recall) IMP 1. Acute on chronic hypoxemic/hypercapnic respiratory failure 2. Possible healthcare-associated pneumonia 3. History of muscular dystrophy 4. Dysphagia with G-tube RECS: 1. Continue antibiotics. Continue mechanical ventilation in-line PMV trials. Trial of SIMV. 2. TF/Free H20 3. Am labs 4. Percussion vest DC planning once feeding tube issues resolved. Long discussion with patient's at bedside today.. DIALN DOWNS MD, [facility] Dec 02, 2018 12:21
--- NOTE | 2018-12-02 14:35 | PN ---
Date/Time of Note Date/Time of Note DATE: 12/02/18 TIME: 14:27 Assessment/Plan VTE Prophylaxis Risk score (from Nsg)>0 risk: 5 SCD applied (from Ns): No SCD contraindicated: other Pharmacological prophylaxis: LMWH Lines/Catheters IV Catheter Type (from Nrs): Mid Line Urinary Cath still in place: No Assessment/Plan Hospital Course Subjective: Patient had no acute events overnight. O: Vs - see below PE: No pallor/ JVD trach intact Regular no mrg Diminished mechanical Bs+ nt nd no rrg; PEG c/d/i No edema. rt picc c/d/i Assessment and plan: 63-year-old female who presented with: 1. Acute on chr respiratory failure: Patient oxygen levels are stable -Monitor, follow-up pulmonary recommendations, cont vent -Plan for possible transfer to subacute when bed available, and when the GI tube issues have been taking care of first. 2. Recent bowel obstruction- sp ex lap surgery, [place] of adhesions prior to this admission. -Monitor, follow-up with surgeon 4. Morbid obesity: sp surgery twice -Monitor, counseled on weight cessation 5. Malnutrition: cont PEG tube feeds when PEG revised by GI team, which is scheduled for later today 6. Debility -Monitor, continue restorative PT/ OT 7. PEG malfunction? this was not able to be performed yesterday because in fact patient found with possible malfunctioning J-tube, and per GI team unfortunately there are at the present time NO endoscopic options to exchange tube. -Per discussed with GI team, will obtain surgery consult to see if there are any options for exchange via that route. 8. Leukocytosis/Sirs-likely secondary to both Enterobacter upper respiratory infection and Enterobacter urine infection, both slowly improving; no fever -Continue ciprofloxacin based on sensitivities, follow CBC daily 9. Anemia: Hemoglobin stable, monitor 10. Past tobacco: Counseled on cessation 11. COPD?: Monitor, duo nebs as needed 12. 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 - Monitor, continue supportive care Result Diagram: 12/02/18 0706 12/02/18 0706 Results 24hrs Laboratory Tests Test 12/02/18 07:06 White Blood Count 11.6 H Red Blood Count 3.08 L Hemoglobin 8.7 L Hematocrit 27.4 L Mean Corpuscular Volume 89.0 Mean Corpuscular Hemoglobin 28.2 L Mean Corpuscular Hemoglobin Concent 31.8 L Red Cell Distribution Width 14.2 Platelet Count 390 Mean Platelet Volume 10.1 Immature Granulocytes % 1.000 H Neutrophils % 59.2 Lymphocytes % 24.7 Monocytes % 9.3 Eosinophils % 4.9 Basophils % 0.9 Nucleated Red Blood Cells % 0.0 Immature Granulocytes # 0.110 H Neutrophils # 6.8 Lymphocytes # 2.9 Monocytes # 1.1 H Eosinophils # 0.6 H Basophils # 0.1 Nucleated Red Blood Cells # 0.0 Sodium Level 140 Potassium Level 3.0 L Chloride Level 102 Carbon Dioxide Level 29 Anion Gap 9 Blood Urea Nitrogen 3 L Creatinine 0.47 Est Glomerular Filtrat Rate mL/min > 60 Glucose Level 116 Calcium Level 9.6 Phosphorus Level 4.7 Magnesium Level 1.4 L Exam/Review of Systems Exam Vitals Vital Signs Date Temp Pulse Resp B/P (MAP) Pulse Ox O2 O2 Flow FiO2 Time Delivery Rate 12/02/18 92 25 100 30 12:50 12/02/18 98.6 111/56 11:13 (74) 11/28/18 Mechanical 15:42 Ventilator Trach Collar Results Results 24hrs Laboratory Tests Test 12/02/18 07:06 White Blood Count 11.6 H Red Blood Count 3.08 L Hemoglobin 8.7 L Hematocrit 27.4 L Mean Corpuscular Volume 89.0 Mean Corpuscular Hemoglobin 28.2 L Mean Corpuscular Hemoglobin Concent 31.8 L Red Cell Distribution Width 14.2 Platelet Count 390 Mean Platelet Volume 10.1 Immature Granulocytes % 1.000 H Neutrophils % 59.2 Lymphocytes % 24.7 Monocytes % 9.3 Eosinophils % 4.9 Basophils % 0.9 Nucleated Red Blood Cells % 0.0 Immature Granulocytes # 0.110 H Neutrophils # 6.8 Lymphocytes # 2.9 Monocytes # 1.1 H Eosinophils # 0.6 H Basophils # 0.1 Nucleated Red Blood Cells # 0.0 Sodium Level 140 Potassium Level 3.0 L Chloride Level 102 Carbon Dioxide Level 29 Anion Gap 9 Blood Urea Nitrogen 3 L Creatinine 0.47 Est Glomerular Filtrat Rate mL/min > 60 Glucose Level 116 Calcium Level 9.6 Phosphorus Level 4.7 Magnesium Level 1.4 L Medications Medication Current Medications IV Flush (NS 3 ml) 3 ml PER PROTOCOL IV ; Start 11/19/18 at 19:00 Enoxaparin Sodium (Lovenox) 40 mg DAILY SC Last administered on 12/02/18 08:58; Admin Dose 40 MG; Start 11/20/18 at 09:00 Levalbuterol (Xopenex Hfa) 4 puff Q3H RESP THERAPY PRN INH SHORTNESS OF BREATH Last administered on 12/02/18 07:49; Admin Dose 4 PUFF; Start 11/21/18 at 03:30 Ipratropium [place] (Atrovent Hfa) 4 puff Q3H RESP THERAPY PRN INH SHORTNESS OF BREATH Last administered on 11/30/18 19:36; Admin Dose 4 PUFF; Start 11/21/18 at 03:30 Zolpidem Tartrate (Ambien) 5 mg HS MAY REPEAT X 1 PRN PO INSOMNIA Last administered on 11/27/18 21:07; Admin Dose 5 MG; Start 11/21/18 at 05:30 Lansoprazole (Prevacid) 30 mg DAILY@06 GTB Last administered on 11/28/18 06:04; Admin Dose 30 MG; Start 11/24/18 at 06:00 Ondansetron HCl (Zofran Inj) 4 mg Q4 PRN IV NAUSEA/VOMITING Last administered on 12/01/18 20:45; Admin Dose 4 MG; Start 11/24/18 at 06:00 Guaifenesin/ Dextromethorphan (Robitussin Dm Liquid Cup) 5 ml Q4H PRN PO COUGH Last administered on 11/27/18 17:05; Admin Dose 5 ML; Start 11/26/18 at 02:00 Estradiol (Estraderm 0.1 Mg/24 Hr Patch) 1 patch [id number]@2000 TRANSDERM Last administered on 11/30/18 20:00; Admin Dose 1 PATCH; Start 11/27/18 at 20:00 Docusate Sodium (Colace Liquid Cup) 200 mg DAILY GTB ; Start 11/28/18 at 09:00 Ibuprofen (Motrin Liquid (Ped)) 200 mg Q6 PRN GTB MILD PAIN LEVEL 1-3 Last administered on 11/28/18 06:04; Admin Dose 200 MG; Start 11/27/18 at 18:00 Bisacodyl (Dulcolax Supp) 10 mg Q48H PRN [place] CONSTIPATION; Start 11/27/18 at 18:00 Hydromorphone HCl (Dilaudid) 1 mg Q3H PRN IV SEVERE PAIN LEVEL 7-10 Last administered on 12/02/18 10:55; Admin Dose 1 MG; Start 11/28/18 at 14:30 Metoclopramide HCl (Reglan) 5 mg Q6H PRN IV nausea and vomitting Last administered on 11/30/18 11:22; Admin Dose 5 MG; Start 11/28/18 at 15:00 Ipratropium [place] (Atrovent Hfa) 4 puff Q8H RESP THERAPY INH Last administered on 12/02/18 07:49; Admin Dose 4 PUFF; Start 11/29/18 at 08:00 Ciprofloxacin/ Dextrose 200 ml @ 200 mls/hr Q12 IVPB Last administered on 12/02/18 08:40; Admin Dose 200 MLS/HR; Start 11/29/18 at 09:00 Oxycodone/ Acetaminophen (Endocet (10/ 325)) 1 tab Q4H PRN PO MODERATE PAIN LEVEL 4-6; Start 12/02/18 at 09:00 Lorazepam (Ativan) 1 mg Q6 PRN IV AGITATION Last administered on 12/02/18at 13:02; Admin Dose 1 MG; Start 11/30/18 at 18:00 Dextrose/Sodium Chloride 1,000 ml @ 60 mls/hr [id number] IV Last administered on 12/02/18at 05:04; Admin Dose 60 MLS/HR; Start 12/01/18 at 13:00 Magnesium Sulfate 3 gm/Dextrose 106 ml @ 35.333 mls/ hr ONCE ONCE IVPB ; Start 12/02/18 at 15:30; Stop 12/02/18 at 18:29 FARTUN CHIU Dec 02, 2018 14:35
[2018-12-02] MEDS ORDERED: MAGNESIUM SULFATE 3 GM in DEXTROSE 5% 100 ML IVPB ONE (15:30)
--- NOTE | 2018-12-02 17:22 | PN ---
Date/Time of Note Date/Time of Note DATE: 12/02/18 TIME: 17:16 Assessment/Plan VTE Prophylaxis Risk score (from Ns)>0 risk: 5 SCD applied (from Nsg): Yes Pharmacological prophylaxis: LMWH Lines/Catheters IV Catheter Type (from Nrsg): Mid Line Urinary Cath still in place: No Assessment/Plan Hospital Course Assessment: Malfunctioning J-tube? -Unfortunately NO endoscopic options to exchange tube -Dr. Norton spoke to radiologist who is concerned regrading the fact that JT was placed 3 weeks ago and may not have a mature track History of gastric bypass status post revision Status post small bowel obstruction status post lysis of adhesions Chronic respiratory failure -status post tracheostomy Normocytic anemia Obesity Muscle dystrophy Plan: S/p de-clogging - now flushing Will start TF with plan to flush with 30 ml every 3-4 hours recommend to have tube re-evaluated at 6 weeks to assess need to change Patient seen in collaboration with Dr. Norton Subjective: Course reviewed with nursing staff Patient interviewed and examined All labs, imaging and other results reviewed The patient resting in bed, no over night events I was able to flush enteral feeding tube with coca-cola - and then free water flushes Currently no c/o nausea/vomiting or abdominal pain. Exam PHYSICAL EXAMINATION: GENERAL: Alert & oriented, nonverbal, in no acute distress SKIN: No lesions HEAD: Normocephalic, atraumatic, no tenderness. EYES: Pupils equal reactive to light and accommodation, full extraocular movements, sclera clear, non-icteric, no discharge. EARS/NOSE AND THROAT: Ears normal, nose normal. Tracheostomy in place NECK: Supple, no masses, CHEST: Inspection within normal limits. CARDIOVASCULAR: Heart: Regular rate and rhythm RESPIRATORY: Lungs clear to auscultation GASTROINTESTINAL AND LIVER: Abdomen: Soft, non tenderness, Randle catheter and j- tube in place, non-distended, no hernias, no masses, no organomegaly, no ascites, no guarding, no rebound tenderness, normoactive bowel sounds. Rectal: Deferred. GENITOURINARY: Female genitalia within normal limits. EXTREMITIES: No cyanosis, clubbing or edema. Result Diagram: 12/02/18 0706 12/02/18 0706 Results 24hrs Laboratory Tests Test 12/02/18 07:06 White Blood Count 11.6 H Red Blood Count 3.08 L Hemoglobin 8.7 L Hematocrit 27.4 L Mean Corpuscular Volume 89.0 Mean Corpuscular Hemoglobin 28.2 L Mean Corpuscular Hemoglobin Concent 31.8 L Red Cell Distribution Width 14.2 Platelet Count 390 Mean Platelet Volume 10.1 Immature Granulocytes % 1.000 H Neutrophils % 59.2 Lymphocytes % 24.7 Monocytes % 9.3 Eosinophils % 4.9 Basophils % 0.9 Nucleated Red Blood Cells % 0.0 Immature Granulocytes # 0.110 H Neutrophils # 6.8 Lymphocytes # 2.9 Monocytes # 1.1 H Eosinophils # 0.6 H Basophils # 0.1 Nucleated Red Blood Cells # 0.0 Sodium Level 140 Potassium Level 3.0 L Chloride Level 102 Carbon Dioxide Level 29 Anion Gap 9 Blood Urea Nitrogen 3 L Creatinine 0.47 Est Glomerular Filtrat Rate mL/min > 60 Glucose Level 116 Calcium Level 9.6 Phosphorus Level 4.7 Magnesium Level 1.4 L Exam/Review of Systems Exam Vitals Vital Signs Date Temp Pulse Resp B/P (MAP) Pulse Ox O2 O2 Flow FiO2 Time Delivery Rate 12/02/18 98.3 102 16 132/62 95 15:10 (85) 12/02/18 30 12:50 11/28/18 Mechanical 15:42 Ventilator Trach Collar Results Results 24hrs Laboratory Tests Test 12/02/18 07:06 White Blood Count 11.6 H Red Blood Count 3.08 L Hemoglobin 8.7 L Hematocrit 27.4 L Mean Corpuscular Volume 89.0 Mean Corpuscular Hemoglobin 28.2 L Mean Corpuscular Hemoglobin Concent 31.8 L Red Cell Distribution Width 14.2 Platelet Count 390 Mean Platelet Volume 10.1 Immature Granulocytes % 1.000 H Neutrophils % 59.2 Lymphocytes % 24.7 Monocytes % 9.3 Eosinophils % 4.9 Basophils % 0.9 Nucleated Red Blood Cells % 0.0 Immature Granulocytes # 0.110 H Neutrophils # 6.8 Lymphocytes # 2.9 Monocytes # 1.1 H Eosinophils # 0.6 H Basophils # 0.1 Nucleated Red Blood Cells # 0.0 Sodium Level 140 Potassium Level 3.0 L Chloride Level 102 Carbon Dioxide Level 29 Anion Gap 9 Blood Urea Nitrogen 3 L Creatinine 0.47 Est Glomerular Filtrat Rate mL/min > 60 Glucose Level 116 Calcium Level 9.6 Phosphorus Level 4.7 Magnesium Level 1.4 L Medications Medication Current Medications IV Flush (NS 3 ml) 3 ml PER PROTOCOL IV ; Start 11/19/18 at 19:00 Enoxaparin Sodium (Lovenox) 40 mg DAILY SC Last administered on 12/02/18 08:58; Admin Dose 40 MG; Start 11/20/18 at 09:00 Levalbuterol (Xopenex Hfa) 4 puff Q3H RESP THERAPY PRN INH SHORTNESS OF BREATH Last administered on 12/02/18 07:49; Admin Dose 4 PUFF; Start 11/21/18 at 03:30 Ipratropium [place] (Atrovent Hfa) 4 puff Q3H RESP THERAPY PRN INH SHORTNESS OF BREATH Last administered on 11/30/18 19:36; Admin Dose 4 PUFF; Start 11/21/18 at 03:30 Zolpidem Tartrate (Ambien) 5 mg HS MAY REPEAT X 1 PRN PO INSOMNIA Last administered on 11/27/18 21:07; Admin Dose 5 MG; Start 11/21/18 at 05:30 Lansoprazole (Prevacid) 30 mg DAILY@06 GTB Last administered on 11/28/18 06:04; Admin Dose 30 MG; Start 11/24/18 at 06:00 Ondansetron HCl (Zofran Inj) 4 mg Q4 PRN IV NAUSEA/VOMITING Last administered on 12/01/18 20:45; Admin Dose 4 MG; Start 11/24/18 at 06:00 Guaifenesin/ Dextromethorphan (Robitussin Dm Liquid Cup) 5 ml Q4H PRN PO COUGH Last administered on 11/27/18 17:05; Admin Dose 5 ML; Start 11/26/18 at 02:00 Estradiol (Estraderm 0.1 Mg/24 Hr Patch) 1 patch MoFr@2000 TRANSDERM Last administered on 11/30/18 20:00; Admin Dose 1 PATCH; Start 11/27/18 at 20:00 Docusate Sodium (Colace Liquid Cup) 200 mg DAILY GTB ; Start 11/28/18 at 09:00 Ibuprofen (Motrin Liquid (Ped)) 200 mg Q6 PRN GTB MILD PAIN LEVEL 1-3 Last administered on 11/28/18 06:04; Admin Dose 200 MG; Start 11/27/18 at 18:00 Bisacodyl (Dulcolax Supp) 10 mg Q48H PRN [place] CONSTIPATION; Start 11/27/18 at 18:00 Hydromorphone HCl (Dilaudid) 1 mg Q3H PRN IV SEVERE PAIN LEVEL 7-10 Last admi nistered on 12/02/18 15:22; Admin Dose 1 MG; Start 11/28/18 at 14:30 Metoclopramide HCl (Reglan) 5 mg Q6H PRN IV nausea and vomitting Last administered on 11/30/18 11:22; Admin Dose 5 MG; Start 11/28/18 at 15:00 Ipratropium [place] (Atrovent Hfa) 4 puff Q8H RESP THERAPY INH Last administered on 12/02/18 07:49; Admin Dose 4 PUFF; Start 11/29/18 at 08:00 Ciprofloxacin/ Dextrose 200 ml @ 200 mls/hr Q12 IVPB Last administered on 12/02/18 08:40; Admin Dose 200 MLS/HR; Start 11/29/18 at 09:00 Oxycodone/ Acetaminophen (Endocet (10/ 325)) 1 tab Q4H PRN PO MODERATE PAIN LEVEL 4-6; Start 12/02/18 at 09:00 Lorazepam (Ativan) 1 mg Q6 PRN IV AGITATION Last administered on 12/02/18 13:02; Admin Dose 1 MG; Start 11/30/18 at 18:00 Dextrose/Sodium Chloride 1,000 ml @ 60 mls/hr [id number] IV Last administered on 12/02/18 05:04; Admin Dose 60 MLS/HR; Start 12/01/18 at 13:00 Magnesium Sulfate 3 gm/Dextrose 106 ml @ 35.333 mls/ hr ONCE ONCE IVPB Last administered on 12/02/18 15:39; Admin Dose 35.333 MLS/HR; Start 12/02/18 at 15:30; Stop 12/02/18 at 18:29 ADY ANGEL Dec 02, 2018 17:22
[2018-12-03] VITALS (18 sets, daily range): BP systolic 122–138; BP diastolic 60–87; PULSE 98–103; RESP 17–30
[2018-12-03] MEDS: LANSOPRAZOLE 30 MG CAP GTB SCH (05:42)
[2018-12-03] MEDS: HYDROmorphONE 1 MG/ML SYG IV PRN ×2 (06:13→09:35)
[2018-12-03] MEDS: IPRATROPIUM (HFA) 12.9 GM INHALER INH SCH ×3 (07:57→23:20)
[2018-12-03] MEDS: DOCUSATE SODIUM 10 MG/ML (10ML CUP) GTB SCH (09:00)
[2018-12-03] MEDS ORDERED: POTASSIUM CHLORIDE 20 MEQ POWDER FOR ORAL SOLN GTB ONE ×2 (09:00→12:30)
[2018-12-03] MEDS: BALSAM PERU/CASTOR OIL 60 GM TUBE TOP SCH (09:34)
[2018-12-03] MEDS: CIPROFLOXACIN 400MG/D5W 200 ML IVPB SCH ×2 (09:38→20:58)
[2018-12-03] MEDS: ENOXAPARIN 40 MG/0.4 ML SYG SC SCH (09:57)
--- NOTE | 2018-12-03 11:35 | PN ---
Date/Time of Note Date/Time of Note DATE: 12/03/18 TIME: 11:30 Assessment/Plan VTE Prophylaxis Risk score (from Ns)>0 risk: 2 SCD applied (from Ns): No SCD contraindicated: other Pharmacological prophylaxis: LMWH Lines/Catheters IV Catheter Type (from Nrs): Mid Line Urinary Cath still in place: No Assessment/Plan Hospital Course Subjective: Per discussed with GI team, patient had the J-tube partially declogged yesterday. Patient restarted on J-tube feeds yesterday, but stopped secondary to anxiety, now restarted this morning. O: Vs - see below PE: No pallor/ JVD trach intact Regular no mrg Diminished mechanical Bs+ nt nd no rrg; jtube c/d/i No edema. rt picc c/d/i Assessment and plan: 63-year-old female who presented with: 1. Acute on chr respiratory failure: Patient oxygen levels are stable -Monitor, follow-up pulmonary recommendations, cont vent -Plan for possible transfer to subacute when bed available, and when the GI tube issues have been taking care of first. 2. Recent bowel obstruction- sp ex lap surgery, [place] of adhesions prior to this admission. -Monitor, follow-up with surgeon 4. Morbid obesity: sp surgery twice -Monitor, counseled on weight cessation 5. Malnutrition: cont J tube feeds for now through partially declogged tube, monitor for residuals 6. Debility -Monitor, continue restorative PT/ OT 7. PEG malfunction? this was not able to be performed because in fact patient found with possible malfunctioning J-tube, and per GI team unfortunately there are at the present time NO endoscopic options to exchange tube. However stated above it was partially declogged yesterday. -Per discussed with GI team, cautiously continue feeding via partially declog J-tube now, monitor for residuals 8. Leukocytosis/Sirs-likely secondary to both Enterobacter upper respiratory infection and Enterobacter urine infection, both slowly improving; no fever -Continue ciprofloxacin based on sensitivities, follow CBC daily 9. Anemia: Hemoglobin stable, monitor 10. Past tobacco: Counseled on cessation 11. COPD?: Monitor, duo nebs as needed 12. 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 - Monitor, continue supportive care Result Diagram: 12/03/18 0628 12/03/18 0628 Results 24hrs Laboratory Tests Test 12/03/18 06:28 White Blood Count 13.7 H Red Blood Count 3.44 L Hemoglobin 9.7 L Hematocrit 30.6 L Mean Corpuscular Volume 89.0 Mean Corpuscular Hemoglobin 28.2 L Mean Corpuscular Hemoglobin Concent 31.7 L Red Cell Distribution Width 14.2 Platelet Count 443 H Mean Platelet Volume 9.7 Immature Granulocytes % 0.800 H Neutrophils % 64.7 Lymphocytes % 21.6 Monocytes % 8.4 Eosinophils % 3.8 Basophils % 0.7 Nucleated Red Blood Cells % 0.0 Immature Granulocytes # 0.110 H Neutrophils # 8.9 H Lymphocytes # 3.0 H Monocytes # 1.2 H Eosinophils # 0.5 Basophils # 0.1 Nucleated Red Blood Cells # 0.0 Sodium Level 137 Potassium Level 2.9 *L Chloride Level 100 Carbon Dioxide Level 31 Anion Gap 6 Blood Urea Nitrogen 4 L Creatinine 0.45 Est Glomerular Filtrat Rate mL/min > 60 Glucose Level 131 Calcium Level 9.4 Phosphorus Level 4.5 Magnesium Level 1.9 Exam/Review of Systems Exam Vitals Vital Signs Date Temp Pulse Resp B/P (MAP) Pulse Ox O2 O2 Flow FiO2 Time Delivery Rate 12/03/18 98.0 102 20 135/66 99 Mechanical 07:39 (89) Ventilator 12/03/18 30 04:55 Intake and Output 12/02/18 12/02/18 12/03/18 1515:00 23:00 07:00 IntakeIntake Total 40 ml BalanceBalance 40 ml Results Results 24hrs Laboratory Tests Test 12/03/18 06:28 White Blood Count 13.7 H Red Blood Count 3.44 L Hemoglobin 9.7 L Hematocrit 30.6 L Mean Corpuscular Volume 89.0 Mean Corpuscular Hemoglobin 28.2 L Mean Corpuscular Hemoglobin Concent 31.7 L Red Cell Distribution Width 14.2 Platelet Count 443 H Mean Platelet Volume 9.7 Immature Granulocytes % 0.800 H Neutrophils % 64.7 Lymphocytes % 21.6 Monocytes % 8.4 Eosinophils % 3.8 Basophils % 0.7 Nucleated Red Blood Cells % 0.0 Immature Granulocytes # 0.110 H Neutrophils # 8.9 H Lymphocytes # 3.0 H Monocytes # 1.2 H Eosinophils # 0.5 Basophils # 0.1 Nucleated Red Blood Cells # 0.0 Sodium Level 137 Potassium Level 2.9 *L Chloride Level 100 Carbon Dioxide Level 31 Anion Gap 6 Blood Urea Nitrogen 4 L Creatinine 0.45 Est Glomerular Filtrat Rate mL/min > 60 Glucose Level 131 Calcium Level 9.4 Phosphorus Level 4.5 Magnesium Level 1.9 Medications Medication Current Medications IV Flush (NS 3 ml) 3 ml PER PROTOCOL IV ; Start 11/19/18 at 19:00 Enoxaparin Sodium (Lovenox) 40 mg DAILY SC Last administered on 12/03/18 09:57; Admin Dose 40 MG; Start 11/20/18 at 09:00 Levalbuterol (Xopenex Hfa) 4 puff Q3H RESP THERAPY PRN INH SHORTNESS OF BREATH Last administered on 12/02/18 23:14; Admin Dose 4 PUFF; Start 11/21/18 at 03:30 Ipratropium [place] (Atrovent Hfa) 4 puff Q3H RESP THERAPY PRN INH SHORTNESS OF BREATH Last administered on 11/30/18 19:36; Admin Dose 4 PUFF; Start 11/21/18 at 03:30 Zolpidem Tartrate (Ambien) 5 mg HS MAY REPEAT X 1 PRN PO INSOMNIA Last administered on 11/27/18 21:07; Admin Dose 5 MG; Start 11/21/18 at 05:30 Lansoprazole (Prevacid) 30 mg DAILY@06 GTB Last administered on 12/03/18 05:42; Admin Dose 30 MG; Start 11/24/18 at 06:00 Ondansetron HCl (Zofran Inj) 4 mg Q4 PRN IV NAUSEA/VOMITING Last administered on 12/01/18 20:45; Admin Dose 4 MG; Start 11/24/18 at 06:00 Guaifenesin/ Dextromethorphan (Robitussin Dm Liquid Cup) 5 ml Q4H PRN PO COUGH Last administered on 11/27/18 17:05; Admin Dose 5 ML; Start 11/26/18 at 02:00 Estradiol (Estraderm 0.1 Mg/24 Hr Patch) 1 patch MoFr@2000 TRANSDERM Last administered on 11/30/18 20:00; Admin Dose 1 PATCH; Start 11/27/18 at 20:00 Docusate Sodium (Colace Liquid Cup) 200 mg DAILY GTB ; Start 11/28/18 at 09:00 Ibuprofen (Motrin Liquid (Ped)) 200 mg Q6 PRN GTB MILD PAIN LEVEL 1-3 Last administered on 11/28/18 06:04; Admin Dose 200 MG; Start 11/27/18 at 18:00 Bisacodyl (Dulcolax Supp) 10 mg Q48H PRN [place] CONSTIPATION; Start 11/27/18 at 18:00 Hydromorphone HCl (Dilaudid) 1 mg Q3H PRN IV SEVERE PAIN LEVEL 7-10 Last administered on 12/03/18 09:35; Admin Dose 1 MG; Start 11/28/18 at 14:30 Metoclopramide HCl (Reglan) 5 mg Q6H PRN IV nausea and vomitting Last admin istered on 11/30/18 11:22; Admin Dose 5 MG; Start 11/28/18 at 15:00 Ipratropium [place] (Atrovent Hfa) 4 puff Q8H RESP THERAPY INH Last administered on 12/03/18 07:57; Admin Dose 4 PUFF; Start 11/29/18 at 08:00 Ciprofloxacin/ Dextrose 200 ml @ 200 mls/hr Q12 IVPB Last administered on 12/03/18 09:38; Admin Dose 200 MLS/HR; Start 11/29/18 at 09:00 Oxycodone/ Acetaminophen (Endocet (10/ 325)) 1 tab Q4H PRN PO MODERATE PAIN LEVEL 4-6; Start 12/02/18 at 09:00 Lorazepam (Ativan) 1 mg Q6 PRN IV AGITATION Last administered on 12/02/18 20:19; Admin Dose 1 MG; Start 11/30/18 at 18:00 Dextrose/Sodium Chloride 1,000 ml @ 60 mls/hr [id number] IV Last administered on 12/02/18 22:20; Admin Dose 60 MLS/HR; Start 12/01/18 at 13:00 FARTUN CHIU Dec 03, 2018 11:35
--- NOTE | 2018-12-03 11:55 | CONS ---
Consult Date/Type/Reason Admit Date/Time Nov 19, 2018 at 18:05 Initial Consult Date Type of Consult Pulmonary Date/Time of Note DATE: 12/03/18 TIME: 11:54 Subjective Appreciate GI recommendations Worsening shortness of breath today on SIMV Objective Vital Signs Date Temp Pulse Resp B/P (MAP) Pulse Ox O2 O2 Flow FiO2 Time Delivery Rate 12/03/18 98.0 102 20 135/66 99 Mechanical 07:39 (89) Ventilator 12/03/18 30 04:55 Intake and Output 12/02/18 12/02/18 12/03/18 1515:00 23:00 07:00 IntakeIntake Total 40 ml BalanceBalance 40 ml Exam GENERAL: Elderly appearing lady comfortable at rest no acute distress VITAL SIGNS: per chart NECK: Supple. No JVD or lymphadenopathy. CARDIAC EXAM: S1, S2. No added sounds or murmurs. CHEST: clear bilaterally, No added sounds, rales or wheezes ABDOMEN: Soft, nontender. No guarding or rebound. EXTREMITIES: No cyanosis, clubbing or edema. NEUROLOGIC: Generalized weakness. No focal deficits. Vent Setting Ventilator Support Mode: SIMV Fraction of Inspired Oxygen pe: 30 Positive End Expiratory Pressu: 5.0 Results/Medications Result Diagram: 12/03/1828 12/03/1828 Results 24 hrs Laboratory Tests Test 12/03/18 06:28 White Blood Count 13.7 H Red Blood Count 3.44 L Hemoglobin 9.7 L Hematocrit 30.6 L Mean Corpuscular Volume 89.0 Mean Corpuscular Hemoglobin 28.2 L Mean Corpuscular Hemoglobin Concent 31.7 L Red Cell Distribution Width 14.2 Platelet Count 443 H Mean Platelet Volume 9.7 Immature Granulocytes % 0.800 H Neutrophils % 64.7 Lymphocytes % 21.6 Monocytes % 8.4 Eosinophils % 3.8 Basophils % 0.7 Nucleated Red Blood Cells % 0.0 Immature Granulocytes # 0.110 H Neutrophils # 8.9 H Lymphocytes # 3.0 H Monocytes # 1.2 H Eosinophils # 0.5 Basophils # 0.1 Nucleated Red Blood Cells # 0.0 Sodium Level 137 Potassium Level 2.9 *L Chloride Level 100 Carbon Dioxide Level 31 Anion Gap 6 Blood Urea Nitrogen 4 L Creatinine 0.45 Est Glomerular Filtrat Rate mL/min > 60 Glucose Level 131 Calcium Level 9.4 Phosphorus Level 4.5 Magnesium Level 1.9 Medications Current Medications IV Flush (NS 3 ml) 3 ml PER PROTOCOL IV ; Start 11/19/18 at 19:00 Enoxaparin Sodium (Lovenox) 40 mg DAILY SC Last administered on 12/03/18 09:57; Admin Dose 40 MG; Start 11/20/18 at 09:00 Levalbuterol (Xopenex Hfa) 4 puff Q3H RESP THERAPY PRN INH SHORTNESS OF BREATH Last administered on 12/02/18 23:14; Admin Dose 4 PUFF; Start 11/21/18 at 03:30 Ipratropium [place] (Atrovent Hfa) 4 puff Q3H RESP THERAPY PRN INH SHORTNESS OF BREATH Last administered on 11/30/18 19:36; Admin Dose 4 PUFF; Start 11/21/18 at 03:30 Zolpidem Tartrate (Ambien) 5 mg HS MAY REPEAT X 1 PRN PO INSOMNIA Last administered on 11/27/18 21:07; Admin Dose 5 MG; Start 11/21/18 at 05:30 Lansoprazole (Prevacid) 30 mg DAILY@06 GTB Last administered on 12/03/18 05:42; Admin Dose 30 MG; Start 11/24/18 at 06:00 Ondansetron HCl (Zofran Inj) 4 mg Q4 PRN IV NAUSEA/VOMITING Last administered on 12/01/18 20:45; Admin Dose 4 MG; Start 11/24/18 at 06:00 Guaifenesin/ Dextromethorphan (Robitussin Dm Liquid Cup) 5 ml Q4H PRN PO COUGH Last administered on 11/27/18 17:05; Admin Dose 5 ML; Start 11/26/18 at 02:00 Estradiol (Estraderm 0.1 Mg/24 Hr Patch) 1 patch [id number]@2000 TRANSDERM Last administered on 11/30/18 20:00; Admin Dose 1 PATCH; Start 11/27/18 at 20:00 Docusate Sodium (Colace Liquid Cup) 200 mg DAILY GTB ; Start 11/28/18 at 09:00 Ibuprofen (Motrin Liquid (Ped)) 200 mg Q6 PRN GTB MILD PAIN LEVEL 1-3 Last administered on 11/28/18 06:04; Admin Dose 200 MG; Start 11/27/18 at 18:00 Bisacodyl (Dulcolax Supp) 10 mg Q48H PRN [place] CONSTIPATION; Start 11/27/18 at 18:00 Hydromorphone HCl (Dilaudid) 1 mg Q3H PRN IV SEVERE PAIN LEVEL 7-10 Last admin istered on 12/03/18 09:35; Admin Dose 1 MG; Start 11/28/18 at 14:30 Metoclopramide HCl (Reglan) 5 mg Q6H PRN IV nausea and vomitting Last administered on 11/30/18at 11:22; Admin Dose 5 MG; Start 11/28/18 at 15:00 Ipratropium [place] (Atrovent Hfa) 4 puff Q8H RESP THERAPY INH Last administered on 12/03/18 07:57; Admin Dose 4 PUFF; Start 11/29/18 at 08:00 Ciprofloxacin/ Dextrose 200 ml @ 200 mls/hr Q12 IVPB Last administered on 12/03/18 09:38; Admin Dose 200 MLS/HR; Start 11/29/18 at 09:00 Oxycodone/ Acetaminophen (Endocet (10/ 325)) 1 tab Q4H PRN PO MODERATE PAIN LEVEL 4-6; Start 12/02/18 at 09:00 Lorazepam (Ativan) 1 mg Q6 PRN IV AGITATION Last administered on 12/02/18at 20:19; Admin Dose 1 MG; Start 11/30/18 at 18:00 Dextrose/Sodium Chloride 1,000 ml @ 60 mls/hr [id number] IV Last administered on 12/02/18at 22:20; Admin Dose 60 MLS/HR; Start 12/01/18 at 13:00 Lactulose (Enulose) 20 gm BID PO ; Start 12/03/18 at 12:00; Status UNV Assessment/Plan Hospital Course (Demo Recall) IMP 1. Acute on chronic hypoxemic/hypercapnic respiratory failure 2. Possible healthcare-associated pneumonia 3. History of muscular dystrophy 4. Dysphagia with G-tube occluded feeding tube RECS: 1. Continue antibiotics. 2. TF/Free H20 3. Not tolerating SIMV will place back on AC ventilation 4. Percussion vest 5. GI recommendations regarding occluded feeding tube Long discussion with patient's at bedside today.. DILAN DOWNS MD, [facility] Dec 03, 2018 11:55
--- NOTE | 2018-12-03 11:56 | PN ---
Date/Time of Note Date/Time of Note DATE: 12/03/18 TIME: 11:53 Assessment/Plan VTE Prophylaxis Risk score (from Nsg)>0 risk: 7 SCD applied (from Nsg): Yes Pharmacological prophylaxis: other (scds) Lines/Catheters IV Catheter Type (from Nrsg): Mid Line Central line still needed: Yes (meds) Urinary Cath still in place: No Assessment/Plan Hospital Course Assessment: Malfunctioning J-tube? -Unfortunately NO endoscopic options to exchange tube -Dr. Norton spoke to radiologist who is concerned regrading the fact that JT was placed 3 weeks ago and may not have a mature track History of gastric bypass status post revision Status post small bowel obstruction status post lysis of adhesions Chronic respiratory failure -status post tracheostomy Normocytic anemia Obesity Muscle dystrophy Plan: TF with plan to flush with warm water flush q3-4 hr Start lactulose 20 gram via tube BID- until patient has a BM- then change to PRN Recommend to have tube re-evaluated at 6 weeks to assess need to change Patient seen in collaboration with Dr. Norton Subjective: Course reviewed with nursing staff Patient interviewed and examined All labs, imaging and other results reviewed TF appears to be working at this time. Patient had a nursing and stopped sleeping last night for anxiety. Have her tube feeding was restarted no apparent plans. Patient has not had a bowel movement for 4 days will start lactulose twice daily until bowel movement is achieved and will change medication to PRN. No complaints of nausea vomiting or abdominal pain Exam PHYSICAL EXAMINATION: GENERAL: Alert & oriented, in no acute distress SKIN: No lesions HEAD: Normocephalic, atraumatic, no tenderness. EYES: Pupils equal reactive to light and accommodation, full extraocular movements, sclera clear, non-icteric, no discharge. EARS/NOSE AND THROAT: Ears normal, nose normal. Tracheostomy in place NECK: Supple, no masses, CHEST: Inspection within normal limits. CARDIOVASCULAR: Heart: Regular rate and rhythm RESPIRATORY: Lungs clear to auscultation GASTROINTESTINAL AND LIVER: Abdomen: Soft, non tenderness, Randle catheter and j- tube in place, non-distended, no hernias, no masses, no organomegaly, no ascites, no guarding, no rebound tenderness, normoactive bowel sounds. Rectal: Deferred. GENITOURINARY: Female genitalia within normal limits. EXTREMITIES: No cyanosis, clubbing or edema. Result Diagram: 12/03/18 0628 12/03/1828 Results 24hrs Laboratory Tests Test 12/03/18 06:28 White Blood Count 13.7 H Red Blood Count 3.44 L Hemoglobin 9.7 L Hematocrit 30.6 L Mean Corpuscular Volume 89.0 Mean Corpuscular Hemoglobin 28.2 L Mean Corpuscular Hemoglobin Concent 31.7 L Red Cell Distribution Width 14.2 Platelet Count 443 H Mean Platelet Volume 9.7 Immature Granulocytes % 0.800 H Neutrophils % 64.7 Lymphocytes % 21.6 Monocytes % 8.4 Eosinophils % 3.8 Basophils % 0.7 Nucleated Red Blood Cells % 0.0 Immature Granulocytes # 0.110 H Neutrophils # 8.9 H Lymphocytes # 3.0 H Monocytes # 1.2 H Eosinophils # 0.5 Basophils # 0.1 Nucleated Red Blood Cells # 0.0 Sodium Level 137 Potassium Level 2.9 *L Chloride Level 100 Carbon Dioxide Level 31 Anion Gap 6 Blood Urea Nitrogen 4 L Creatinine 0.45 Est Glomerular Filtrat Rate mL/min > 60 Glucose Level 131 Calcium Level 9.4 Phosphorus Level 4.5 Magnesium Level 1.9 Exam/Review of Systems Exam Vitals Vital Signs Date Temp Pulse Resp B/P (MAP) Pulse Ox O2 O2 Flow FiO2 Time Delivery Rate 12/03/18 98.0 102 20 135/66 99 Mechanical 07:39 (89) Ventilator 12/03/18 30 04:55 Intake and Output 12/02/18 12/02/18 12/03/18 1515:00 23:00 07:00 IntakeIntake Total 40 ml BalanceBalance 40 ml Results Results 24hrs Laboratory Tests Test 12/03/18 06:28 White Blood Count 13.7 H Red Blood Count 3.44 L Hemoglobin 9.7 L Hematocrit 30.6 L Mean Corpuscular Volume 89.0 Mean Corpuscular Hemoglobin 28.2 L Mean Corpuscular Hemoglobin Concent 31.7 L Red Cell Distribution Width 14.2 Platelet Count 443 H Mean Platelet Volume 9.7 Immature Granulocytes % 0.800 H Neutrophils % 64.7 Lymphocytes % 21.6 Monocytes % 8.4 Eosinophils % 3.8 Basophils % 0.7 Nucleated Red Blood Cells % 0.0 Immature Granulocytes # 0.110 H Neutrophils # 8.9 H Lymphocytes # 3.0 H Monocytes # 1.2 H Eosinophils # 0.5 Basophils # 0.1 Nucleated Red Blood Cells # 0.0 Sodium Level 137 Potassium Level 2.9 *L Chloride Level 100 Carbon Dioxide Level 31 Anion Gap 6 Blood Urea Nitrogen 4 L Creatinine 0.45 Est Glomerular Filtrat Rate mL/min > 60 Glucose Level 131 Calcium Level 9.4 Phosphorus Level 4.5 Magnesium Level 1.9 Medications Medication Current Medications IV Flush (NS 3 ml) 3 ml PER PROTOCOL IV ; Start 11/19/18 at 19:00 Enoxaparin Sodium (Lovenox) 40 mg DAILY SC Last administered on 12/03/18 09:57; Admin Dose 40 MG; Start 11/20/18 at 09:00 Levalbuterol (Xopenex Hfa) 4 puff Q3H RESP THERAPY PRN INH SHORTNESS OF BREATH Last administered on 12/02/18 23:14; Admin Dose 4 PUFF; Start 11/21/18 at 03:30 Ipratropium [place] (Atrovent Hfa) 4 puff Q3H RESP THERAPY PRN INH SHORTNESS OF BREATH Last administered on 11/30/18 19:36; Admin Dose 4 PUFF; Start 11/21/18 at 03:30 Zolpidem Tartrate (Ambien) 5 mg HS MAY REPEAT X 1 PRN PO INSOMNIA Last administered on 11/27/18 21:07; Admin Dose 5 MG; Start 11/21/18 at 05:30 Lansoprazole (Prevacid) 30 mg DAILY@06 GTB Last administered on 12/03/18 05:42; Admin Dose 30 MG; Start 11/24/18 at 06:00 Ondansetron HCl (Zofran Inj) 4 mg Q4 PRN IV NAUSEA/VOMITING Last administered o n 12/01/18 20:45; Admin Dose 4 MG; Start 11/24/18 at 06:00 Guaifenesin/ Dextromethorphan (Robitussin Dm Liquid Cup) 5 ml Q4H PRN PO COUGH Last administered on 11/27/18 17:05; Admin Dose 5 ML; Start 11/26/18 at 02:00 Estradiol (Estraderm 0.1 Mg/24 Hr Patch) 1 patch [id number]@2000 TRANSDERM Last administered on 11/30/18 20:00; Admin Dose 1 PATCH; Start 11/27/18 at 20:00 Docusate Sodium (Colace Liquid Cup) 200 mg DAILY GTB ; Start 11/28/18 at 09:00 Ibuprofen (Motrin Liquid (Ped)) 200 mg Q6 PRN GTB MILD PAIN LEVEL 1-3 Last administered on 11/28/18at 06:04; Admin Dose 200 MG; Start 11/27/18 at 18:00 Bisacodyl (Dulcolax Supp) 10 mg Q48H PRN [place] CONSTIPATION; Start 11/27/18 at 18:00 Hydromorphone HCl (Dilaudid) 1 mg Q3H PRN IV SEVERE PAIN LEVEL 7-10 Last administered on 12/03/18 09:35; Admin Dose 1 MG; Start 11/28/18 at 14:30 Metoclopramide HCl (Reglan) 5 mg Q6H PRN IV nausea and vomitting Last administered on 11/30/18 11:22; Admin Dose 5 MG; Start 11/28/18 at 15:00 Ipratropium [place] (Atrovent Hfa) 4 puff Q8H RESP THERAPY INH Last administered on 12/03/18 07:57; Admin Dose 4 PUFF; Start 11/29/18 at 08:00 Ciprofloxacin/ Dextrose 200 ml @ 200 mls/hr Q12 IVPB Last administered on 09:38; Admin Dose 200 MLS/HR; Start 11/29/18 at 09:00 Oxycodone/ Acetaminophen (Endocet (10/ 325)) 1 tab Q4H PRN PO MODERATE PAIN LEVEL 4-6; Start 12/02/18 at 09:00 Lorazepam (Ativan) 1 mg Q6 PRN IV AGITATION Last administered on 12/02/18 20:19; Admin Dose 1 MG; Start 11/30/18 at 18:00 Dextrose/Sodium Chloride 1,000 ml @ 60 mls/hr [id number] IV Last administered on 12/02/18 22:20; Admin Dose 60 MLS/HR; Start 12/01/18 at 13:00 ADY ANGEL Dec 03, 2018 11:55
[2018-12-03] MEDS ORDERED: LACTULOSE 30ML CUP PO SCH (12:00)
[2018-12-03] MEDS: IBUPROFEN LIQUID (PED) 20 MG/ML CUP GTB PRN (12:12)
[2018-12-03] MEDS: GUAIFENESIN/DM 5ML CUP PO PRN ×2 (12:12→20:58)
[2018-12-03] MEDS: LACTULOSE 30ML CUP JT SCH ×2 (12:13→20:59)
[2018-12-03] MEDS: LORAZEPAM 2 MG INJ IV PRN ×2 (12:47→18:51)
[2018-12-03] MEDS: DEXTROSE 5%-0.45% NACL 1,000 ML IV SCH (15:30)
[2018-12-03] MEDS: OXYCODONE/ACETAMINOPHEN (10/325) TAB PO PRN (18:03)
[2018-12-03] MEDS: AL HYDROX/MG HYDROX/SIMETH 30 ML CUP PO PRN (21:50)
[2018-12-04] VITALS (17 sets, daily range): BP systolic 115–161; BP diastolic 55–81; PULSE 91–120; RESP 16–27
[2018-12-04] MEDS: OXYCODONE/ACETAMINOPHEN (10/325) TAB PO PRN ×2 (04:12→13:02)
[2018-12-04] MEDS: GUAIFENESIN/DM 5ML CUP PO PRN (04:31)
[2018-12-04] MEDS: LANSOPRAZOLE 30 MG CAP GTB SCH ×2 (06:00→18:00)
[2018-12-04] MEDS: AL HYDROX/MG HYDROX/SIMETH 30 ML CUP PO PRN ×2 (06:54→16:47)
[2018-12-04] MEDS: IPRATROPIUM (HFA) 12.9 GM INHALER INH SCH ×3 (07:32→23:24)
[2018-12-04] MEDS: LACTULOSE 30ML CUP JT SCH (09:00)
[2018-12-04] MEDS: DOCUSATE SODIUM 10 MG/ML (10ML CUP) GTB SCH (09:00)
[2018-12-04] MEDS: BALSAM PERU/CASTOR OIL 60 GM TUBE TOP SCH (09:13)
[2018-12-04] MEDS: DEXTROSE 5%-0.45% NACL 1,000 ML IV SCH (09:13)
[2018-12-04] MEDS: CIPROFLOXACIN 400MG/D5W 200 ML IVPB SCH ×2 (09:13→20:08)
[2018-12-04] MEDS: ENOXAPARIN 40 MG/0.4 ML SYG SC SCH (09:33)
[2018-12-04] MEDS: LORAZEPAM 2 MG INJ IV PRN ×2 (09:55→17:14)
--- NOTE | 2018-12-04 12:07 | CONS ---
Consultation Date/Type/Reason Admit Date/Time Nov 19, 2018 at 18:05 Initial Consult Date 11/29/18 Type of Consult Pulmonary Patient's condition is stable. Remains completely awake and alert. Denies any chest pain, shortness of breath any coughing. General exam; elderly female, on ventilator via tracheostomy, awake and alert. Currently in no distress. Able to talk. HEENT exam; supple neck, no JVD. No lymphadenopathy. Midline trachea. No thyromegaly. Patient has good dentition. Tracheostomy in place. Chest exam; diminished but clear breath sounds. S1-S2 audible, no murmurs. Regular rhythm. Abdomen exam; soft, nontender. No organomegaly. G-tube in place. Bowel sounds are audible. Extremity exam; no peripheral edema clubbing. Pulses 2+. STOPPING BUILDER exam; patient is awake alert able to talk. Exhibiting generalized weakness. Ventilator setting; AC of 16, tidal volume 500, PEEP of 5, 30% FiO2. Assessment and recommendations; 1. Patient with history of muscular dystrophy and VDRF admitted for pneumonia. 2. Mild increase in leukocytosis. 3. Anemia and UTI. Continue current supportive care. Patient to undergo weaning trials from ventilator. Because of increasing leukocytosis chest x-ray has been ordered. Further recommendations after chest x-ray is performed. I did have a detailed discussion with the patient's at bedside and answered all his questions. Date/Time of Note DATE: 12/04/18 TIME: 12:05 Exam/Review of Systems Exam Vitals Vital Signs Date Temp Pulse Resp B/P (MAP) Pulse Ox O2 O2 Flow FiO2 Time Delivery Rate 12/04/18 98.3 102 16 140/73 98 Mechanical 11:24 (95) Ventilator 12/04/18 30 05:20 Intake and Output 12/03/18 12/03/18 12/04/18 1515:00 23:00 07:00 IntakeIntake Total 1080 ml 1510 ml BalanceBalance 1080 ml 1510 ml Results Result Diagram: 12/04/18 0625 12/04/18 0625 Results 24hrs Laboratory Tests Test 12/04/18 06:25 White Blood Count 16.3 H Red Blood Count 3.25 L Hemoglobin 9.0 L Hematocrit 29.6 L Mean Corpuscular Volume 91.1 Mean Corpuscular Hemoglobin 27.7 L Mean Corpuscular Hemoglobin Concent 30.4 L Red Cell Distribution Width 14.2 Platelet Count 454 H Mean Platelet Volume 10.2 Immature Granulocytes % 0.900 H Neutrophils % 68.7 Lymphocytes % 18.1 Monocytes % 7.5 Eosinophils % 4.2 Basophils % 0.6 Nucleated Red Blood Cells % 0.0 Immature Granulocytes # 0.150 H Neutrophils # 11.2 H Lymphocytes # 2.9 Monocytes # 1.2 H Eosinophils # 0.7 H Basophils # 0.1 Nucleated Red Blood Cells # 0.0 Sodium Level 137 Potassium Level 3.7 Chloride Level 100 Carbon Dioxide Level 31 Anion Gap 6 Blood Urea Nitrogen 5 L Creatinine 0.45 Est Glomerular Filtrat Rate mL/min > 60 Glucose Level 129 Calcium Level 9.2 Phosphorus Level 4.1 Magnesium Level 1.7 Medications Medication Current Medications IV Flush (NS 3 ml) 3 ml PER PROTOCOL IV ; Start 11/19/18 at 19:00 Enoxaparin Sodium (Lovenox) 40 mg DAILY SC Last administered on 12/04/18 09:33; Admin Dose 40 MG; Start 11/20/18 at 09:00 Levalbuterol (Xopenex Hfa) 4 puff Q3H RESP THERAPY PRN INH SHORTNESS OF BREATH Last administered on 12/02/18 23:14; Admin Dose 4 PUFF; Start 11/21/18 at 03:30 Ipratropium [place] (Atrovent Hfa) 4 puff Q3H RESP THERAPY PRN INH SHORTNESS OF BREATH Last administered on 11/30/18 19:36; Admin Dose 4 PUFF; Start 11/21/18 at 03:30 Zolpidem Tartrate (Ambien) 5 mg HS MAY REPEAT X 1 PRN PO INSOMNIA Last administered on 11/27/18at 21:07; Admin Dose 5 MG; Start 11/21/18 at 05:30 Lansoprazole (Prevacid) 30 mg DAILY@06 GTB Last administered on 12/03/18 05:42; Admin Dose 30 MG; Start 11/24/18 at 06:00 Ondansetron HCl (Zofran Inj) 4 mg Q4 PRN IV NAUSEA/VOMITING Last administered on 12/01/18at 20:45; Admin Dose 4 MG; Start 11/24/18 at 06:00 Guaifenesin/ Dextromethorphan (Robitussin Dm Liquid Cup) 5 ml Q4H PRN PO COUGH Last administered on 12/04/18 04:31; Admin Dose 5 ML; Start 11/26/18 at 02:00 Estradiol (Estraderm 0.1 Mg/24 Hr Patch) 1 patch [id number]@2000 TRANSDERM Last administered on 11/30/18 20:00; Admin Dose 1 PATCH; Start 11/27/18 at 20:00 Docusate Sodium (Colace Liquid Cup) 200 mg DAILY GTB ; Start 11/28/18 at 09:00 Ibuprofen (Motrin Liquid (Ped)) 200 mg Q6 PRN GTB MILD PAIN LEVEL 1-3 Last administered on 12/03/18 12:12; Admin Dose 200 MG; Start 11/27/18 at 18:00 Bisacodyl (Dulcolax Supp) 10 mg Q48H PRN [place] CONSTIPATION; Start 11/27/18 at 18:00 Hydromorphone HCl (Dilaudid) 1 mg Q3H PRN IV SEVERE PAIN LEVEL 7-10 Last administered on 12/03/18 09:35; Admin Dose 1 MG; Start 11/28/18 at 14:30 Metoclopramide HCl (Reglan) 5 mg Q6H PRN IV nausea and vomitting Last administered on 11/30/18 11:22; Admin Dose 5 MG; Start 11/28/18 at 15:00 Ipratropium [place] (Atrovent Hfa) 4 puff Q8H RESP THERAPY INH Last administered on 12/04/18 07:32; Admin Dose 4 PUFF; Start 11/29/18 at 08:00 Ciprofloxacin/ Dextrose 200 ml @ 200 mls/hr Q12 IVPB Last administered on 12/04/18 09:13; Admin Dose 200 MLS/HR; Start 11/29/18 at 09:00 Oxycodone/ Acetaminophen (Endocet (10/ 325)) 1 tab Q4H PRN PO MODERATE PAIN LEVEL 4-6 Last administered on 12/04/18 04:12; Admin Dose 1 TAB; Start 12/02/18 at 09:00 Lorazepam (Ativan) 1 mg Q6 PRN IV AGITATION Last administered on 12/04/18 09:55; Admin Dose 1 MG; Start 11/30/18 at 18:00 Dextrose/Sodium Chloride 1,000 ml @ 60 mls/hr [id number] IV Last administered on 12/04/18at 09:13; Admin Dose 60 MLS/HR; Start 12/01/18 at 13:00 Lactulose (Enulose) 20 gm BID JT Last administered on 12/03/18at 12:13; Admin Dose 20 GM; Start 12/03/18 at 12:00 Calcium Carbonate (Tums) 500 mg Q4 PRN PO HEARTBURN; Start 12/03/18 at 21:30 Al Hydrox/Mg Hydrox/Simethicone (Mag-Al Plus) 30 ml Q6H PRN PO GASTROINTESTINAL UPSET Last administered on 12/04/18at 06:54; Admin Dose 30 ML; Start 12/03/18 at 21:30 CONNOR NEVAREZ Dec 04, 2018 12:07
--- NOTE | 2018-12-04 12:26 | PN ---
Date/Time of Note Date/Time of Note DATE: 12/04/18 TIME: 12:23 Assessment/Plan VTE Prophylaxis Risk score (from Ns)>0 risk: 8 SCD applied (from Ns): No SCD contraindicated: other Pharmacological prophylaxis: LMWH Lines/Catheters IV Catheter Type (from Nrs): Mid Line Urinary Cath still in place: No Assessment/Plan Hospital Course Subjective: Per nursing staff, patient has been tolerating G-tube feeds at 20 to 30 cc an hour since yesterday. No fevers overnight. Seen by pulmonary speech therapy teams this morning. Patient having some mild abdominal pain. O: Vs - see below PE: No pallor/ JVD trach intact Regular no mrg Diminished mechanical Bs+ nt nd no rrg; jtube c/d/i No edema. rt picc c/d/i Assessment and plan: 63-year-old female who presented with: 1. Acute on chr respiratory failure: Patient oxygen levels are stable -Monitor, follow-up pulmonary recommendations, cont vent for now -Plan for possible transfer to subacute when bed available, and when the GI tube issues have been taking care of first. 2. Recent bowel obstruction- sp ex lap surgery, [place] of adhesions prior to this admission. -Monitor, follow-up with surgeon 4. Morbid obesity: sp surgery twice -Monitor, counseled on weight cessation 5. Malnutrition: cont J tube feeds for now through partially declogged tube, as it appears to be functioning fairly well for the last 24 hours. 6. Debility: -Monitor, continue restorative PT/ OT 7. PEG malfunction? this was not able to be performed because in fact patient found with possible malfunctioning J-tube, and per GI team unfortunately there are at the present time NO endoscopic options to exchange tube. However stated above it was partially declogged 2 days ago, and since that time patient has appeared to have been tolerating minimal feeding through it now -Per discussed with GI team, cautiously continue feeding via partially declog J-tube now, monitor for residuals 8. Leukocytosis/Sirs-likely secondary to both Enterobacter upper respiratory infection and Enterobacter urine infection, both slowly improving; no fever -Continue ciprofloxacin based on sensitivities, follow CBC daily 9. Anemia: Hemoglobin stable, monitor 10. Past tobacco: Counseled on cessation 11. COPD?: Monitor, duo nebs as needed 12. 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 - Monitor, continue supportive care Dispo: Likely to subacute facility or respiratory center when upper respiratory infection has improved, and the final decision on how to continue feeding through the J-tube has been made by the financial operations consultant teams. And when patient and 's questions have been answered about what kind of mechanical ventilation machine patient will be getting the ambulance and at the new facility, as the patient has had prior problems with hypoxia when placed on certain machines. Hopefully in 1 to 2 days. Result Diagram: 12/04/1825 12/04/1825 Results 24hrs Laboratory Tests Test 12/04/18 06:25 White Blood Count 16.3 H Red Blood Count 3.25 L Hemoglobin 9.0 L Hematocrit 29.6 L Mean Corpuscular Volume 91.1 Mean Corpuscular Hemoglobin 27.7 L Mean Corpuscular Hemoglobin Concent 30.4 L Red Cell Distribution Width 14.2 Platelet Count 454 H Mean Platelet Volume 10.2 Immature Granulocytes % 0.900 H Neutrophils % 68.7 Lymphocytes % 18.1 Monocytes % 7.5 Eosinophils % 4.2 Basophils % 0.6 Nucleated Red Blood Cells % 0.0 Immature Granulocytes # 0.150 H Neutrophils # 11.2 H Lymphocytes # 2.9 Monocytes # 1.2 H Eosinophils # 0.7 H Basophils # 0.1 Nucleated Red Blood Cells # 0.0 Sodium Level 137 Potassium Level 3.7 Chloride Level 100 Carbon Dioxide Level 31 Anion Gap 6 Blood Urea Nitrogen 5 L Creatinine 0.45 Est Glomerular Filtrat Rate mL/min > 60 Glucose Level 129 Calcium Level 9.2 Phosphorus Level 4.1 Magnesium Level 1.7 Exam/Review of Systems Exam Vitals Vital Signs Date Temp Pulse Resp B/P (MAP) Pulse Ox O2 O2 Flow FiO2 Time Delivery Rate 12/04/18 98.3 102 16 140/73 98 Mechanical 11:24 (95) Ventilator 12/04/18 30 05:20 Intake and Output 12/03/18 12/03/18 12/04/18 1515:00 23:00 07:00 IntakeIntake Total 1080 ml 1510 ml BalanceBalance 1080 ml 1510 ml Results Results 24hrs Laboratory Tests Test 12/04/18 06:25 White Blood Count 16.3 H Red Blood Count 3.25 L Hemoglobin 9.0 L Hematocrit 29.6 L Mean Corpuscular Volume 91.1 Mean Corpuscular Hemoglobin 27.7 L Mean Corpuscular Hemoglobin Concent 30.4 L Red Cell Distribution Width 14.2 Platelet Count 454 H Mean Platelet Volume 10.2 Immature Granulocytes % 0.900 H Neutrophils % 68.7 Lymphocytes % 18.1 Monocytes % 7.5 Eosinophils % 4.2 Basophils % 0.6 Nucleated Red Blood Cells % 0.0 Immature Granulocytes # 0.150 H Neutrophils # 11.2 H Lymphocytes # 2.9 Monocytes # 1.2 H Eosinophils # 0.7 H Basophils # 0.1 Nucleated Red Blood Cells # 0.0 Sodium Level 137 Potassium Level 3.7 Chloride Level 100 Carbon Dioxide Level 31 Anion Gap 6 Blood Urea Nitrogen 5 L Creatinine 0.45 Est Glomerular Filtrat Rate mL/min > 60 Glucose Level 129 Calcium Level 9.2 Phosphorus Level 4.1 Magnesium Level 1.7 Medications Medication Current Medications IV Flush (NS 3 ml) 3 ml PER PROTOCOL IV ; Start 11/19/18 at 19:00 Enoxaparin Sodium (Lovenox) 40 mg DAILY SC Last administered on 12/04/18 09:33; Admin Dose 40 MG; Start 11/20/18 at 09:00 Levalbuterol (Xopenex Hfa) 4 puff Q3H RESP THERAPY PRN INH SHORTNESS OF BREATH Last administered on 12/02/18 23:14; Admin Dose 4 PUFF; Start 11/21/18 at 03:30 Ipratropium [place] (Atrovent Hfa) 4 puff Q3H RESP THERAPY PRN INH SHORTNESS OF BREATH Last administered on 11/30/18 19:36; Admin Dose 4 PUFF; Start 11/21/18 at 03:30 Zolpidem Tartrate (Ambien) 5 mg HS MAY REPEAT X 1 PRN PO INSOMNIA Last administered on 11/27/18 21:07; Admin Dose 5 MG; Start 11/21/18 at 05:30 Lansoprazole (Prevacid) 30 mg DAILY@06 GTB Last administered on 12/03/18 05:42; Admin Dose 30 MG; Start 11/24/18 at 06:00 Ondansetron HCl (Zofran Inj) 4 mg Q4 PRN IV NAUSEA/VOMITING Last administered on 12/01/18 20:45; Admin Dose 4 MG; Start 11/24/18 at 06:00 Guaifenesin/ Dextromethorphan (Robitussin Dm Liquid Cup) 5 ml Q4H PRN PO COUGH Last administered on 12/04/18 04:31; Admin Dose 5 ML; Start 11/26/18 at 02:00 Estradiol (Estraderm 0.1 Mg/24 Hr Patch) 1 patch [id number]@2000 TRANSDERM Last administered on 11/30/18 20:00; Admin Dose 1 PATCH; Start 11/27/18 at 20:00 Docusate Sodium (Colace Liquid Cup) 200 mg DAILY GTB ; Start 11/28/18 at 09:00 Ibuprofen (Motrin Liquid (Ped)) 200 mg Q6 PRN GTB MILD PAIN LEVEL 1-3 Last administered on 12/03/18 12:12; Admin Dose 200 MG; Start 11/27/18 at 18:00 Bisacodyl (Dulcolax Supp) 10 mg Q48H PRN [place] CONSTIPATION; Start 11/27/18 at 18:00 Hydromorphone HCl (Dilaudid) 1 mg Q3H PRN IV SEVERE PAIN LEVEL 7-10 Last administered on 12/03/18 09:35; Admin Dose 1 MG; Start 11/28/18 at 14:30 Metoclopramide HCl (Reglan) 5 mg Q6H PRN IV nausea and vomitting Last administered on 11/30/18 11:22; Admin Dose 5 MG; Start 11/28/18 at 15:00 Ipratropium [place] (Atrovent Hfa) 4 puff Q8H RESP THERAPY INH Last administered on 12/04/18 07:32; Admin Dose 4 PUFF; Start 11/29/18 at 08:00 Ciprofloxacin/ Dextrose 200 ml @ 200 mls/hr Q12 IVPB Last administered on 12/04/18 09:13; Admin Dose 200 MLS/HR; Start 11/29/18 at 09:00 Oxycodone/ Acetaminophen (Endocet (10/ 325)) 1 tab Q4H PRN PO MODERATE PAIN LEVEL 4-6 Last administered on 12/04/18 04:12; Admin Dose 1 TAB; Start 12/02/18 at 09:00 Lorazepam (Ativan) 1 mg Q6 PRN IV AGITATION Last administered on 12/04/18 09:55; Admin Dose 1 MG; Start 11/30/18 at 18:00 Dextrose/Sodium Chloride 1,000 ml @ 60 mls/hr [id number] IV Last administered on 12/04/18at 09:13; Admin Dose 60 MLS/HR; Start 12/01/18 at 13:00 Lactulose (Enulose) 20 gm BID JT Last administered on 12/03/18at 12:13; Admin Dose 20 GM; Start 12/03/18 at 12:00 Calcium Carbonate (Tums) 500 mg Q4 PRN PO HEARTBURN; Start 12/03/18 at 21:30 Al Hydrox/Mg Hydrox/Simethicone (Mag-Al Plus) 30 ml Q6H PRN PO GASTROINTESTINAL UPSET Last administered on 12/04/18at 06:54; Admin Dose 30 ML; Start 12/03/18 at 21:30 FARTUN CHIU Dec 04, 2018 12:26
[2018-12-04] MEDS: IPRATROPIUM (HFA) 12.9 GM INHALER INH PRN (13:20)
[2018-12-04] MEDS: LEVALBUTEROL (HFA) 15 GM INHALER INH PRN ×2 (13:20→23:24)
[2018-12-04] MEDS: ONDANSETRON 4 MG INJ IV PRN ×2 (13:54→20:14)
[2018-12-04] MEDS ORDERED: LACTULOSE 30ML CUP JT PRN (15:00)
--- NOTE | 2018-12-04 15:00 | PN ---
Date/Time of Note Date/Time of Note DATE: 12/04/18 TIME: 14:54 Assessment/Plan VTE Prophylaxis Risk score (from Ns)>0 risk: 8 SCD applied (from Ns): Yes Pharmacological prophylaxis: heparin Lines/Catheters IV Catheter Type (from [facility]): Mid Line Urinary Cath still in place: No Assessment/Plan Assessment/Plan Assessment: Malfunctioning J-tube -declogged History of gastric bypass status post revision Status post small bowel obstruction status post lysis of adhesions Chronic respiratory failure -status post tracheostomy Normocytic anemia Obesity Muscle dystrophy Plan: Continue tube feeding TF with plan to flush with warm water flush q3-4 hr Change lactulose to PRN Recommend to have tube re-evaluated at 6 weeks to assess the need for replacement GI will sign off at this time and will be available to reconsult upon request Patient seen in collaboration with Dr. Norton Subjective: Course reviewed with nursing staff Patient interviewed and examined All labs, imaging and other results reviewed Patient is doing well. She is tolerating the tube feeding. G-tube is functioning well. Patient had 5 bowel movements on lactulose today. We will switch lactulose to as needed and with no further recommendations will sign off at this time. No complaints of nausea vomiting or abdominal pain Exam PHYSICAL EXAMINATION: GENERAL: Alert & oriented, in no acute distress SKIN: No lesions HEAD: Normocephalic, atraumatic, no tenderness. EYES: Pupils equal reactive to light and accommodation, full extraocular movements, sclera clear, non-icteric, no discharge. EARS/NOSE AND THROAT: Ears normal, nose normal. Tracheostomy in place NECK: Supple, no masses, CHEST: Inspection within normal limits. CARDIOVASCULAR: Heart: Regular rate and rhythm RESPIRATORY: Lungs clear to auscultation GASTROINTESTINAL AND LIVER: Abdomen: Soft, non tenderness, Randle catheter and j- tube in place, non-distended, no hernias, no masses, no organomegaly, no ascites, no guarding, no rebound tenderness, normoactive bowel sounds. Rectal: Deferred. GENITOURINARY: Female genitalia within normal limits. EXTREMITIES: No cyanosis, clubbing or edema. Result Diagram: 12/04/18 0625 12/04/18 0625 Results 24hrs Laboratory Tests Test 12/04/18 06:25 White Blood Count 16.3 H Red Blood Count 3.25 L Hemoglobin 9.0 L Hematocrit 29.6 L Mean Corpuscular Volume 91.1 Mean Corpuscular Hemoglobin 27.7 L Mean Corpuscular Hemoglobin Concent 30.4 L Red Cell Distribution Width 14.2 Platelet Count 454 H Mean Platelet Volume 10.2 Immature Granulocytes % 0.900 H Neutrophils % 68.7 Lymphocytes % 18.1 Monocytes % 7.5 Eosinophils % 4.2 Basophils % 0.6 Nucleated Red Blood Cells % 0.0 Immature Granulocytes # 0.150 H Neutrophils # 11.2 H Lymphocytes # 2.9 Monocytes # 1.2 H Eosinophils # 0.7 H Basophils # 0.1 Nucleated Red Blood Cells # 0.0 Sodium Level 137 Potassium Level 3.7 Chloride Level 100 Carbon Dioxide Level 31 Anion Gap 6 Blood Urea Nitrogen 5 L Creatinine 0.45 Est Glomerular Filtrat Rate mL/min > 60 Glucose Level 129 Calcium Level 9.2 Phosphorus Level 4.1 Magnesium Level 1.7 CC: BEATRIZ NORTON MD ; Exam/Review of Systems Exam Vitals Vital Signs Date Temp Pulse Resp B/P (MAP) Pulse Ox O2 O2 Flow FiO2 Time Delivery Rate 12/04/18 98.3 102 16 140/73 98 Mechanical 11:24 (95) Ventilator 12/04/18 30 05:20 Intake and Output 12/03/18 12/03/18 12/04/18 1515:00 23:00 07:00 IntakeIntake Total 1080 ml 1510 ml BalanceBalance 1080 ml 1510 ml Results Results 24hrs Laboratory Tests Test 12/04/18 06:25 White Blood Count 16.3 H Red Blood Count 3.25 L Hemoglobin 9.0 L Hematocrit 29.6 L Mean Corpuscular Volume 91.1 Mean Corpuscular Hemoglobin 27.7 L Mean Corpuscular Hemoglobin Concent 30.4 L Red Cell Distribution Width 14.2 Platelet Count 454 H Mean Platelet Volume 10.2 Immature Granulocytes % 0.900 H Neutrophils % 68.7 Lymphocytes % 18.1 Monocytes % 7.5 Eosinophils % 4.2 Basophils % 0.6 Nucleated Red Blood Cells % 0.0 Immature Granulocytes # 0.150 H Neutrophils # 11.2 H Lymphocytes # 2.9 Monocytes # 1.2 H Eosinophils # 0.7 H Basophils # 0.1 Nucleated Red Blood Cells # 0.0 Sodium Level 137 Potassium Level 3.7 Chloride Level 100 Carbon Dioxide Level 31 Anion Gap 6 Blood Urea Nitrogen 5 L Creatinine 0.45 Est Glomerular Filtrat Rate mL/min > 60 Glucose Level 129 Calcium Level 9.2 Phosphorus Level 4.1 Magnesium Level 1.7 Medications Medication Current Medications IV Flush (NS 3 ml) 3 ml PER PROTOCOL IV ; Start 11/19/18 at 19:00 Enoxaparin Sodium (Lovenox) 40 mg DAILY SC Last administered on 12/04/18 09:33; Admin Dose 40 MG; Start 11/20/18 at 09:00 Levalbuterol (Xopenex Hfa) 4 puff Q3H RESP THERAPY PRN INH SHORTNESS OF BREATH Last administered on 12/04/18 13:20; Admin Dose 4 PUFF; Start 11/21/18 at 03:30 Ipratropium [place] (Atrovent Hfa) 4 puff Q3H RESP THERAPY PRN INH SHORTNESS OF BREATH Last administered on 12/04/18 13:20; Admin Dose 4 PUFF; Start 11/21/18 at 03:30 Zolpidem Tartrate (Ambien) 5 mg HS MAY REPEAT X 1 PRN PO INSOMNIA Last administered on 11/27/18 21:07; Admin Dose 5 MG; Start 11/21/18 at 05:30 Lansoprazole (Prevacid) 30 mg DAILY@06 GTB Last administered on 12/03/18 05:42; Admin Dose 30 MG; Start 11/24/18 at 06:00 Ondansetron HCl (Zofran Inj) 4 mg Q4 PRN IV NAUSEA/VOMITING Last administered on 12/04/18 13:54; Admin Dose 4 MG; Start 11/24/18 at 06:00 Guaifenesin/ Dextromethorphan (Robitussin Dm Liquid Cup) 5 ml Q4H PRN PO COUGH Last administered on 12/04/18 04:31; Admin Dose 5 ML; Start 11/26/18 at 02:00 Estradiol (Estraderm 0.1 Mg/24 Hr Patch) 1 patch MoFr@2000 TRANSDERM Last administered on 11/30/18at 20:00; Admin Dose 1 PATCH; Start 11/27/18 at 20:00 Docusate Sodium (Colace Liquid Cup) 200 mg DAILY GTB ; Start 11/28/18 at 09:00 Ibuprofen (Motrin Liquid (Ped)) 200 mg Q6 PRN GTB MILD PAIN LEVEL 1-3 Last administered on 12/03/18 12:12; Admin Dose 200 MG; Start 11/27/18 at 18:00 Bisacodyl (Dulcolax Supp) 10 mg Q48H PRN [place] CONSTIPATION; Start 11/27/18 at 18:00 Hydromorphone HCl (Dilaudid) 1 mg Q3H PRN IV SEVERE PAIN LEVEL 7-10 Last administered on 12/03/18 09:35; Admin Dose 1 MG; Start 11/28/18 at 14:30 Metoclopramide HCl (Reglan) 5 mg Q6H PRN IV nausea and vomitting Last ad ministered on 11/30/18 11:22; Admin Dose 5 MG; Start 11/28/18 at 15:00 Ipratropium [place] (Atrovent Hfa) 4 puff Q8H RESP THERAPY INH Last administered on 12/04/18 07:32; Admin Dose 4 PUFF; Start 11/29/18 at 08:00 Ciprofloxacin/ Dextrose 200 ml @ 200 mls/hr Q12 IVPB Last administered on 12/04/18 09:13; Admin Dose 200 MLS/HR; Start 11/29/18 at 09:00 Oxycodone/ Acetaminophen (Endocet (10/ 325)) 1 tab Q4H PRN PO MODERATE PAIN LEVEL 4-6 Last administered on 12/04/18 13:02; Admin Dose 1 TAB; Start 12/02/18 at 09:00 Lorazepam (Ativan) 1 mg Q6 PRN IV AGITATION Last administered on 12/04/18 09: 55; Admin Dose 1 MG; Start 11/30/18 at 18:00 Lactulose (Enulose) 20 gm BID JT Last administered on 12/03/18 12:13; Admin Dose 20 GM; Start 12/03/18 at 12:00 Calcium Carbonate (Tums) 500 mg Q4 PRN PO HEARTBURN; Start 12/03/18 at 21:30 Al Hydrox/Mg Hydrox/Simethicone (Mag-Al Plus) 30 ml Q6H PRN PO GASTROINTESTINAL UPSET Last administered on 12/04/18 06:54; Admin Dose 30 ML; Start 12/03/18 at 21:30 THIAGO DIANA FREIGHT ELEVATOR OPERATOR Dec 04, 2018 15:00
[2018-12-04] MEDS ORDERED: LORAZEPAM 2 MG INJ IV ONE (16:30)
[2018-12-04] MEDS: ESTRADIOL 0.1 MG/24 HR PATCH TRANSDERM SCH (20:07)
[2018-12-04] MEDS: HYDROmorphONE 1 MG/ML SYG IV PRN (20:08)
[2018-12-04] MEDS: METOCLOPRAMIDE 10 MG INJ IV PRN (20:13)
[2018-12-05] VITALS (18 sets, daily range): BP systolic 122–146; BP diastolic 62–78; PULSE 98–114; RESP 16–34
[2018-12-05] MEDS: AL HYDROX/MG HYDROX/SIMETH 30 ML CUP PO PRN ×2 (03:28→19:43)
[2018-12-05] MEDS: OXYCODONE/ACETAMINOPHEN (10/325) TAB PO PRN ×3 (03:28→18:47)
[2018-12-05] MEDS: LANSOPRAZOLE 30 MG CAP GTB SCH ×2 (06:00→17:49)
[2018-12-05] MEDS: METOCLOPRAMIDE 10 MG INJ IV PRN (06:21)
[2018-12-05] MEDS: ONDANSETRON 4 MG INJ IV PRN (06:21)
[2018-12-05] MEDS: DOCUSATE SODIUM 10 MG/ML (10ML CUP) GTB SCH (08:07)
[2018-12-05] MEDS: CALCIUM CARBONATE 500 MG CHEW TAB PO PRN ×2 (08:07→17:48)
[2018-12-05] MEDS: ENOXAPARIN 40 MG/0.4 ML SYG SC SCH (08:22)
[2018-12-05] MEDS: IPRATROPIUM (HFA) 12.9 GM INHALER INH SCH ×3 (08:23→23:31)
[2018-12-05] MEDS: LORAZEPAM 2 MG INJ IV PRN ×2 (11:04→19:43)
[2018-12-05] MEDS: BALSAM PERU/CASTOR OIL 60 GM TUBE TOP SCH (11:04)
--- NOTE | 2018-12-05 11:07 | PN ---
Date/Time of Note Date/Time of Note DATE: 12/05/18 TIME: 11:04 Assessment/Plan VTE Prophylaxis Risk score (from Ns)>0 risk: 7 SCD applied (from Ns): No SCD contraindicated: other Pharmacological prophylaxis: LMWH Lines/Catheters [facility]from [facility] Mid Line Urinary Cath still in place: No Assessment/Plan Hospital Course Subjective: Patient still agitated at times, tolerating J-tube feeds at 40 cc an hour. O: Vs - see below PE: No pallor/ JVD trach intact Regular no mrg Diminished mechanical Bs+ nt nd no rrg; jtube c/d/i No edema. rt picc c/d/i Assessment and plan: 63-year-old female who presented with: 1. Acute on chr respiratory failure: Patient oxygen levels are stable -Monitor, follow-up pulmonary recommendations, cont vent for now -Plan for possible transfer to subacute when bed available, likely in the next 24 hours 2. Recent bowel obstruction- sp ex lap surgery, [place] of adhesions prior to this admission. -Monitor, follow-up with surgeon 4. Morbid obesity: sp surgery twice -Monitor, counseled on weight cessation 5. Malnutrition: cont J tube feeds for now through partially declogged tube, as it appears to be functioning fairly well for the last 2 to 3 days now 6. Debility: -Monitor, continue restorative PT/ OT 7. PEG malfunction? this was not able to be performed because in fact patient found with possible malfunctioning J-tube, and per GI team unfortunately there are at the present time NO endoscopic options to exchange tube. However stated above it was partially declogged 2 days ago, and since that time patient has appeared to have been tolerating minimal feeding through it now -Per discussed with GI team, cautiously continue feeding via partially declog J-tube now, monitor for residuals 8. Leukocytosis/Sirs-likely secondary to both Enterobacter upper respiratory infection and Enterobacter urine infection no fevers, white blood cell count still in the high range. -Continue ciprofloxacin based on sensitivities, follow CBC daily 9. Anemia: Hemoglobin stable, monitor 10. Past tobacco: Counseled on cessation 11. COPD?: Monitor, duo nebs as needed 12. 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 This will likely happen in 24 hours. Result Diagram: 12/05/1859 12/05/18 0559 Results 24hrs Laboratory Tests Test 12/05/18 05:59 White Blood Count 14.1 H Red Blood Count 3.16 L Hemoglobin 8.7 L Hematocrit 28.7 L Mean Corpuscular Volume 90.8 Mean Corpuscular Hemoglobin 27.5 L Mean Corpuscular Hemoglobin Concent 30.3 L Red Cell Distribution Width 14.1 Platelet Count 469 H Mean Platelet Volume 9.9 Immature Granulocytes % 0.800 H Neutrophils % 62.8 Lymphocytes % 23.3 Monocytes % 8.1 Eosinophils % 4.4 Basophils % 0.6 Nucleated Red Blood Cells % 0.0 Immature Granulocytes # 0.110 H Neutrophils # 8.8 H Lymphocytes # 3.3 H Monocytes # 1.1 H Eosinophils # 0.6 H Basophils # 0.1 Nucleated Red Blood Cells # 0.0 Sodium Level 138 Potassium Level 3.5 Chloride Level 99 Carbon Dioxide Level 32 H Anion Gap 7 Blood Urea Nitrogen 9 Creatinine 0.45 Est Glomerular Filtrat Rate mL/min > 60 Glucose Level 122 Calcium Level 9.3 Exam/Review of Systems Exam Vitals Vital Signs Date Temp Pulse Resp B/P (MAP) Pulse Ox O2 O2 Flow FiO2 Time Delivery Rate 12/05/18 86 18 100 30 08:23 12/05/18 97.8 122/78 Mechanical 07:52 (93) Ventilator Intake and Output 12/04/18 12/04/18 12/05/18 1515:00 23:00 07:00 IntakeIntake Total 780 ml BalanceBalance 780 ml Results Results 24hrs Laboratory Tests Test 12/05/18 05:59 White Blood Count 14.1 H Red Blood Count 3.16 L Hemoglobin 8.7 L Hematocrit 28.7 L Mean Corpuscular Volume 90.8 Mean Corpuscular Hemoglobin 27.5 L Mean Corpuscular Hemoglobin Concent 30.3 L Red Cell Distribution Width 14.1 Platelet Count 469 H Mean Platelet Volume 9.9 Immature Granulocytes % 0.800 H Neutrophils % 62.8 Lymphocytes % 23.3 Monocytes % 8.1 Eosinophils % 4.4 Basophils % 0.6 Nucleated Red Blood Cells % 0.0 Immature Granulocytes # 0.110 H Neutrophils # 8.8 H Lymphocytes # 3.3 H Monocytes # 1.1 H Eosinophils # 0.6 H Basophils # 0.1 Nucleated Red Blood Cells # 0.0 Sodium Level 138 Potassium Level 3.5 Chloride Level 99 Carbon Dioxide Level 32 H Anion Gap 7 Blood Urea Nitrogen 9 Creatinine 0.45 Est Glomerular Filtrat Rate mL/min > 60 Glucose Level 122 Calcium Level 9.3 Medications Medication Current Medications IV Flush (NS 3 ml) 3 ml PER PROTOCOL IV ; Start 11/19/18 at 19:00 Enoxaparin Sodium (Lovenox) 40 mg DAILY SC Last administered on 12/05/18 08:22; Admin Dose 40 MG; Start 11/20/18 at 09:00 Levalbuterol (Xopenex Hfa) 4 puff Q3H RESP THERAPY PRN INH SHORTNESS OF BREATH Last administered on 12/04/18 23:24; Admin Dose 4 PUFF; Start 11/21/18 at 03:30 Ipratropium [place] (Atrovent Hfa) 4 puff Q3H RESP THERAPY PRN INH SHORTNESS OF BREATH Last administered on 12/04/18 13:20; Admin Dose 4 PUFF; Start 11/21/18 at 03:30 Zolpidem Tartrate (Ambien) 5 mg HS MAY REPEAT X 1 PRN PO INSOMNIA Last administered on 11/27/18 21:07; Admin Dose 5 MG; Start 11/21/18 at 05:30 Ondansetron HCl (Zofran Inj) 4 mg Q4 PRN IV NAUSEA/VOMITING Last administered on 12/05/18 06:21; Admin Dose 4 MG; Start 11/24/18 at 06:00 Guaifenesin/ Dextromethorphan (Robitussin Dm Liquid Cup) 5 ml Q4H PRN PO COUGH Last administered on 12/04/18 04:31; Admin Dose 5 ML; Start 11/26/18 at 02:00 Estradiol (Estraderm 0.1 Mg/24 Hr Patch) 1 patch MoFr@2000 TRANSDERM Last administered on 12/04/18 20:07; Admin Dose 1 PATCH; Start 11/27/18 at 20:00 Docusate Sodium (Colace Liquid Cup) 200 mg DAILY GTB Last administered on 12/05/18 08:07; Admin Dose 200 MG; Start 11/28/18 at 09:00 Ibuprofen (Motrin Liquid (Ped)) 200 mg Q6 PRN GTB MILD PAIN LEVEL 1-3 Last administered on 12/03/18 12:12; Admin Dose 200 MG; Start 11/27/18 at 18:00 Bisacodyl (Dulcolax Supp) 10 mg Q48H PRN DE CONSTIPATION; Start 11/27/18 at 18:00 Hydromorphone HCl (Dilaudid) 1 mg Q3H PRN IV SEVERE PAIN LEVEL 7-10 Last administered on 12/04/18 20:08; Admin Dose 1 MG; Start 11/28/18 at 14:30 Metoclopramide HCl (Reglan) 5 mg Q6H PRN IV nausea and vomitting Last administered on 12/05/18 06:21; Admin Dose 5 MG; Start 11/28/18 at 15:00 Ipratropium [place] (Atrovent Hfa) 4 puff Q8H RESP THERAPY INH Last administered on 12/05/18 08:23; Admin Dose 4 PUFF; Start 11/29/18 at 08:00 Ciprofloxacin/ Dextrose 200 ml @ 200 mls/hr Q12 IVPB Last administered on 12/04/18 09:13; Admin Dose 200 MLS/HR; Start 11/29/18 at 09:00 Oxycodone/ Acetaminophen (Endocet (10/ 325)) 1 tab Q4H PRN PO MODERATE PAIN LEVEL 4-6 Last administered on 12/05/18 03:28; Admin Dose 1 TAB; Start 12/02/18 at 09:00 Lorazepam (Ativan) 1 mg Q6 PRN IV AGITATION Last administered on 12/04/18 17:14; Admin Dose 1 MG; Start 11/30/18 at 18:00 Calcium Carbonate (Tums) 500 mg Q4 PRN PO HEARTBURN Last administered on 12/05/18 08:07; Admin Dose 500 MG; Start 12/03/18 at 21:30 Al Hydrox/Mg Hydrox/Simethicone (Mag-Al Plus) 30 ml Q6H PRN PO GASTROINTESTINAL UPSET Last administered on 12/05/18 03:28; Admin Dose 30 ML; Start 12/03/18 at 21:30 Lactulose (Enulose) 20 gm BID PRN JT CONSTIPATION; Start 12/04/18 at 15:00 Lansoprazole (Prevacid) 30 mg BID@0600,1800 GTB ; Start 12/04/18 at 18:00 FARTUN CHIU Dec 05, 2018 11:07
--- NOTE | 2018-12-05 11:09 | CONS ---
Consultation Date/Type/Reason Admit Date/Time Nov 19, 2018 at 18:05 Initial Consult Date 11/29/18 Type of Consult Pulmonary Patient's condition is stable. Remains completely awake and alert. Denies any chest pain, shortness of breath any coughing. General exam; elderly female, on ventilator via tracheostomy, awake and alert. Currently in no distress. Able to talk. HEENT exam; supple neck, no JVD. No lymphadenopathy. Midline trachea. No thyromegaly. Patient has good dentition. Tracheostomy in place. Chest exam; diminished but clear breath sounds. S1-S2 audible, no murmurs. Regular rhythm. Abdomen exam; soft, nontender. No organomegaly. G-tube in place. Bowel sounds are audible. Extremity exam; no peripheral edema clubbing. Pulses 2+. MUTUAL FUND ACCOUNTANT exam; patient is awake alert able to talk. Exhibiting generalized weakness. Ventilator setting; AC of 16, tidal volume 500, PEEP of 5, 30% FiO2. Assessment and recommendations; 1. Patient with history of muscular dystrophy and VDRF admitted for pneumonia. 2. Mild increase in leukocytosis. 3. Anemia and UTI. Continue current supportive care. Patient to undergo weaning trials from ventilator. Because of increasing leukocytosis chest x-ray has been ordered. Further recommendations after chest x-ray is performed. I did have a detailed discussion with the patient's at bedside and answered all his questions. Date/Time of Note DATE: 12/05/18 TIME: 11:07 24 HR Interval Summary Free Text/Dictation Patient's condition is stable. Remains awake and alert. Has remained hemodynamically stable. General exam; elderly female, on ventilator via tracheostomy, currently no distress. H ENT exam; supple neck, no JVD. No lymphadenopathy. Midline trachea. No thyromegaly. Patient has good dentition. Chest exam; diminished but clear breath sounds. S1-S2 audible, no murmurs. Regular rhythm. Abdomen exam; soft, nondistended. No organomegaly. Bowel sounds audible. Extremity exam; no peripheral edema clubbing. MUTUAL FUND ACCOUNTANT exam; patient awake able to talk exhibiting generalized weakness. Chest x-ray was reviewed from yesterday which is showing patchy bilateral infiltrative changes. ventilator setting; Assist control of 16, tidal volume 500, PEEP of 5, 30% FiO2. Assessment and recommendations; 1. Patient with history of muscular dystrophy and VDRF admitted with bilateral pneumonia, currently on appropriate antimicrobial regimen. 2. Likely chronic interstitial changes on chest x-ray. Continue current supportive care. Continue current antimicrobial regimen. Exam/Review of Systems Exam Vitals Vital Signs Date Temp Pulse Resp B/P (MAP) Pulse Ox O2 O2 Flow FiO2 Time Delivery Rate 12/05/18 86 18 100 30 08:23 12/05/18 97.8 122/78 Mechanical 07:52 (93) Ventilator Intake and Output 12/04/18 12/04/18 12/05/18 1515:00 23:00 07:00 IntakeIntake Total 780 ml BalanceBalance 780 ml Results Result Diagram: 12/05/18 0559 12/05/18 0559 Results 24hrs Laboratory Tests Test 12/05/18 05:59 White Blood Count 14.1 H Red Blood Count 3.16 L Hemoglobin 8.7 L Hematocrit 28.7 L Mean Corpuscular Volume 90.8 Mean Corpuscular Hemoglobin 27.5 L Mean Corpuscular Hemoglobin Concent 30.3 L Red Cell Distribution Width 14.1 Platelet Count 469 H Mean Platelet Volume 9.9 Immature Granulocytes % 0.800 H Neutrophils % 62.8 Lymphocytes % 23.3 Monocytes % 8.1 Eosinophils % 4.4 Basophils % 0.6 Nucleated Red Blood Cells % 0.0 Immature Granulocytes # 0.110 H Neutrophils # 8.8 H Lymphocytes # 3.3 H Monocytes # 1.1 H Eosinophils # 0.6 H Basophils # 0.1 Nucleated Red Blood Cells # 0.0 Sodium Level 138 Potassium Level 3.5 Chloride Level 99 Carbon Dioxide Level 32 H Anion Gap 7 Blood Urea Nitrogen 9 Creatinine 0.45 Est Glomerular Filtrat Rate mL/min > 60 Glucose Level 122 Calcium Level 9.3 Medications Medication Current Medications IV Flush (NS 3 ml) 3 ml PER PROTOCOL IV ; Start 11/19/18 at 19:00 Enoxaparin Sodium (Lovenox) 40 mg DAILY SC Last administered on 12/05/18at 08:22; Admin Dose 40 MG; Start 11/20/18 at 09:00 Levalbuterol (Xopenex Hfa) 4 puff Q3H RESP THERAPY PRN INH SHORTNESS OF BREATH Last administered on 12/04/18at 23:24; Admin Dose 4 PUFF; Start 11/21/18 at 03:30 Ipratropium [place] (Atrovent Hfa) 4 puff Q3H RESP THERAPY PRN INH SHORTNESS OF BREATH Last administered on 12/04/18 13:20; Admin Dose 4 PUFF; Start 11/21/18 at 03:30 Zolpidem Tartrate (Ambien) 5 mg HS MAY REPEAT X 1 PRN PO INSOMNIA Last administered on 11/27/18 21:07; Admin Dose 5 MG; Start 11/21/18 at 05:30 Ondansetron HCl (Zofran Inj) 4 mg Q4 PRN IV NAUSEA/VOMITING Last administered on 12/05/18 06:21; Admin Dose 4 MG; Start 11/24/18 at 06:00 Guaifenesin/ Dextromethorphan (Robitussin Dm Liquid Cup) 5 ml Q4H PRN PO COUGH Last administered on 12/04/18 04:31; Admin Dose 5 ML; Start 11/26/18 at 02:00 Estradiol (Estraderm 0.1 Mg/24 Hr Patch) 1 patch MoFr@2000 TRANSDERM Last administered on 12/04/18 20:07; Admin Dose 1 PATCH; Start 11/27/18 at 20:00 Docusate Sodium (Colace Liquid Cup) 200 mg DAILY GTB Last administered on 12/05/18 08:07; Admin Dose 200 MG; Start 11/28/18 at 09:00 Ibuprofen (Motrin Liquid (Ped)) 200 mg Q6 PRN GTB MILD PAIN LEVEL 1-3 Last administered on 12/03/18 12:12; Admin Dose 200 MG; Start 11/27/18 at 18:00 Bisacodyl (Dulcolax Supp) 10 mg Q48H PRN [place] CONSTIPATION; Start 11/27/18 at 18:00 Hydromorphone HCl (Dilaudid) 1 mg Q3H PRN IV SEVERE PAIN LEVEL 7-10 Last administered on 12/04/18 20:08; Admin Dose 1 MG; Start 11/28/18 at 14:30 Metoclopramide HCl (Reglan) 5 mg Q6H PRN IV nausea and vomitting Last administered on 12/05/18 06:21; Admin Dose 5 MG; Start 11/28/18 at 15:00 Ipratropium [place] (Atrovent Hfa) 4 puff Q8H RESP THERAPY INH Last administered on 12/05/18 08:23; Admin Dose 4 PUFF; Start 11/29/18 at 08:00 Ciprofloxacin/ Dextrose 200 ml @ 200 mls/hr Q12 IVPB Last administered on 12/04/18 09:13; Admin Dose 200 MLS/HR; Start 11/29/18 at 09:00 Oxycodone/ Acetaminophen (Endocet (10/ 325)) 1 tab Q4H PRN PO MODERATE PAIN LEVEL 4-6 Last administered on 12/05/18 03:28; Admin Dose 1 TAB; Start 12/02/18 at 09:00 Lorazepam (Ativan) 1 mg Q6 PRN IV AGITATION Last administered on 12/04/18 17:14; Admin Dose 1 MG; Start 11/30/18 at 18:00 Calcium Carbonate (Tums) 500 mg Q4 PRN PO HEARTBURN Last administered on 12/05/18 08:07; Admin Dose 500 MG; Start 12/03/18 at 21:30 Al Hydrox/Mg Hydrox/Simethicone (Mag-Al Plus) 30 ml Q6H PRN PO GASTROINTESTINAL UPSET Last administered on 12/05/18 03:28; Admin Dose 30 ML; Start 12/03/18 at 21:30 Lactulose (Enulose) 20 gm BID PRN JT CONSTIPATION; Start 12/04/18 at 15:00 Lansoprazole (Prevacid) 30 mg BID@0600,1800 GTB ; Start 12/04/18 at 18:00 CONNOR NEVAREZ Dec 05, 2018 11:09
[2018-12-05] MEDS: CIPROFLOXACIN 400MG/D5W 200 ML IVPB SCH ×2 (11:12→20:37)
[2018-12-05] MEDS: HYDROmorphONE 1 MG/ML SYG IV PRN ×2 (16:17→20:39)
[2018-12-05] MEDS: LEVALBUTEROL (HFA) 15 GM INHALER INH PRN (23:30)
[2018-12-06] VITALS (17 sets, daily range): BP systolic 115–153; BP diastolic 44–70; PULSE 82–117; RESP 16–41
[2018-12-06] MEDS: AL HYDROX/MG HYDROX/SIMETH 30 ML CUP PO PRN ×2 (03:24→12:36)
[2018-12-06] MEDS: OXYCODONE/ACETAMINOPHEN (10/325) TAB PO PRN (03:29)
[2018-12-06] MEDS: LORAZEPAM 2 MG INJ IV PRN ×3 (05:08→18:04)
[2018-12-06] MEDS: LANSOPRAZOLE 30 MG CAP GTB SCH ×2 (05:27→18:00)
[2018-12-06] MEDS: IPRATROPIUM (HFA) 12.9 GM INHALER INH SCH ×3 (07:56→23:15)
[2018-12-06] MEDS: CIPROFLOXACIN 400MG/D5W 200 ML IVPB SCH ×2 (08:00→20:28)
[2018-12-06] MEDS: DOCUSATE SODIUM 10 MG/ML (10ML CUP) GTB SCH (08:00)
[2018-12-06] MEDS: BALSAM PERU/CASTOR OIL 60 GM TUBE TOP SCH (08:00)
[2018-12-06] MEDS: HYDROmorphONE 1 MG/ML SYG IV PRN ×3 (08:01→19:31)
[2018-12-06] MEDS: ONDANSETRON 4 MG INJ IV PRN ×2 (08:19→19:31)
[2018-12-06] MEDS: ENOXAPARIN 40 MG/0.4 ML SYG SC SCH (08:35)
--- NOTE | 2018-12-06 11:46 | PN ---
Date/Time of Note Date/Time of Note DATE: 12/06/18 TIME: 11:45 Assessment/Plan VTE Prophylaxis Risk score (from Ns)>0 risk: 4 SCD applied (from Ns): No SCD contraindicated: other Pharmacological prophylaxis: LMWH Lines/Catheters IV C[facility]ter Type (from [facility]): Mid Line Urinary Cath still in place: No Assessment/Plan Hospital Course Subjective: Patient still tolerating J-tube feeds at 40 cc an hour for the last 2 days. Seen by speech therapy and pulmonary teams yesterday. O: Vs - see below PE: No pallor/ JVD trach intact Regular no mrg Diminished mechanical Bs+ nt nd no rrg; jtube c/d/i No edema. rt picc c/d/i Assessment and plan: 63-year-old female who presented with: 1. Acute on chr respiratory failure: Patient oxygen levels are stable -Monitor, follow-up pulmonary recommendations, cont vent for now -Plan for possible transfer to subacute when bed available, likely in the next 24 hours when cleared by retail sales vitamin consultant teams. 2. Recent bowel obstruction- sp ex lap surgery, [place] of adhesions prior to this admission. -Monitor, follow-up with surgeon 4. Morbid obesity: sp surgery twice -Monitor, counseled on weight cessation 5. Malnutrition: cont J tube feeds for now through partially declogged tube, as it appears to be functioning fairly well for the last 3 days now 6. Debility: -Monitor, continue restorative PT/ OT 7. PEG malfunction? this was not able to be performed because in fact patient found with possible malfunctioning J-tube, and per GI team unfortunately there are at the present time NO endoscopic options to exchange tube. However stated above it was partially declogged 2 days ago, and since that time patient has appeared to have been tolerating minimal feeding through it now -Per discussed with GI team, cautiously continue feeding via partially declog J-tube now, monitor for residuals 8. Leukocytosis/Sirs-likely secondary to both Enterobacter upper respiratory infection and Enterobacter urine infection, but no fevers, white blood cell count still in the high range. -Continue ciprofloxacin based on sensitivities, follow CBC daily 9. Anemia: Hemoglobin stable, monitor 10. Past tobacco: Counseled on cessation 11. COPD?: Monitor, duo nebs as needed 12. 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 - Monitor, continue supportive care Dispo: Likely to subacute facility or respiratory center when upper respiratory infection has improved, and white blood cell count improves, and when cleared by retail sales vitamin consultant teams, hopefully in the next 24 hours. Result Diagram: 12/06/18 0534 12/06/18 0534 Results 24hrs Laboratory Tests Test 12/06/18 05:34 White Blood Count 15.6 H Red Blood Count 3.32 L Hemoglobin 9.2 L Hematocrit 30.1 L Mean Corpuscular Volume 90.7 Mean Corpuscular Hemoglobin 27.7 L Mean Corpuscular Hemoglobin Concent 30.6 L Red Cell Distribution Width 14.0 Platelet Count 503 H Mean Platelet Volume 9.6 Immature Granulocytes % 1.000 H Neutrophils % 66.0 Lymphocytes % 19.2 Monocytes % 8.5 Eosinophils % 4.7 Basophils % 0.6 Nucleated Red Blood Cells % 0.0 Immature Granulocytes # 0.150 H Neutrophils # 10.3 H Lymphocytes # 3.0 H Monocytes # 1.3 H Eosinophils # 0.7 H Basophils # 0.1 Nucleated Red Blood Cells # 0.0 Sodium Level 138 Potassium Level 3.6 Chloride Level 98 Carbon Dioxide Level 33 H Anion Gap 7 Blood Urea Nitrogen 10 Creatinine 0.48 Est Glomerular Filtrat Rate mL/min > 60 Glucose Level 122 Calcium Level 9.5 Phosphorus Level 4.4 Magnesium Level 1.9 Exam/Review of Systems Exam Vitals Vital Signs Date Temp Pulse Resp B/P (MAP) Pulse Ox O2 O2 Flow FiO2 Time Delivery Rate 12/06/18 86 22 100 30 11:11 12/06/18 98.4 128/63 11:09 (84) 12/06/18 Mechanical 00:14 Ventilator Intake and Output 12/05/18 12/05/18 12/06/18 1515:00 23:00 07:00 IntakeIntake Total 200 ml BalanceBalance 200 ml Results Results 24hrs Laboratory Tests Test 12/06/18 05:34 White Blood Count 15.6 H Red Blood Count 3.32 L Hemoglobin 9.2 L Hematocrit 30.1 L Mean Corpuscular Volume 90.7 Mean Corpuscular Hemoglobin 27.7 L Mean Corpuscular Hemoglobin Concent 30.6 L Red Cell Distribution Width 14.0 Platelet Count 503 H Mean Platelet Volume 9.6 Immature Granulocytes % 1.000 H Neutrophils % 66.0 Lymphocytes % 19.2 Monocytes % 8.5 Eosinophils % 4.7 Basophils % 0.6 Nucleated Red Blood Cells % 0.0 Immature Granulocytes # 0.150 H Neutrophils # 10.3 H Lymphocytes # 3.0 H Monocytes # 1.3 H Eosinophils # 0.7 H Basophils # 0.1 Nucleated Red Blood Cells # 0.0 Sodium Level 138 Potassium Level 3.6 Chloride Level 98 Carbon Dioxide Level 33 H Anion Gap 7 Blood Urea Nitrogen 10 Creatinine 0.48 Est Glomerular Filtrat Rate mL/min > 60 Glucose Level 122 Calcium Level 9.5 Phosphorus Level 4.4 Magnesium Level 1.9 Medications Medication Current Medications IV Flush (NS 3 ml) 3 ml PER PROTOCOL IV ; Start 11/19/18 at 19:00 Enoxaparin Sodium (Lovenox) 40 mg DAILY SC Last administered on 12/06/18 08:35; Admin Dose 40 MG; Start 11/20/18 at 09:00 Levalbuterol (Xopenex Hfa) 4 puff Q3H RESP THERAPY PRN INH SHORTNESS OF BREATH Last administered on 12/05/18 23:30; Admin Dose 4 PUFF; Start 11/21/18 at 03:30 Ipratropium [place] (Atrovent Hfa) 4 puff Q3H RESP THERAPY PRN INH SHORTNESS OF BREATH Last administered on 12/04/18 13:20; Admin Dose 4 PUFF; Start 11/21/18 at 03:30 Zolpidem Tartrate (Ambien) 5 mg HS MAY REPEAT X 1 PRN PO INSOMNIA Last administered on 11/27/18 21:07; Admin Dose 5 MG; Start 11/21/18 at 05:30 Ondansetron HCl (Zofran Inj) 4 mg Q4 PRN IV NAUSEA/VOMITING Last administered on 12/06/18 08:19; Admin Dose 4 MG; Start 11/24/18 at 06:00 Guaifenesin/ Dextromethorphan (Robitussin Dm Liquid Cup) 5 ml Q4H PRN PO COUGH Last administered on 12/04/18 04:31; Admin Dose 5 ML; Start 11/26/18 at 02:00 Estradiol (Estraderm 0.1 Mg/24 Hr Patch) 1 patch MoFr@2000 TRANSDERM Last administered on 12/04/18 20:07; Admin Dose 1 PATCH; Start 11/27/18 at 20:00 Docusate Sodium (Colace Liquid Cup) 200 mg DAILY GTB Last administered on 12/06/18 08:00; Admin Dose 200 MG; Start 11/28/18 at 09:00 Ibuprofen (Motrin Liquid (Ped)) 200 mg Q6 PRN GTB MILD PAIN LEVEL 1-3 Last administered on 12/03/18 12:12; Admin Dose 200 MG; Start 11/27/18 at 18:00 Bisacodyl (Dulcolax Supp) 10 mg Q48H PRN [place] CONSTIPATION; Start 11/27/18 at 18:00 Hydromorphone HCl (Dilaudid) 1 mg Q3H PRN IV SEVERE PAIN LEVEL 7-10 Last administered on 12/06/18 08:01; Admin Dose 1 MG; Start 11/28/18 at 14:30 Metoclopramide HCl (Reglan) 5 mg Q6H PRN IV nausea and vomitting Last administered on 12/05/18 06:21; Admin Dose 5 MG; Start 11/28/18 at 15:00 Ipratropium [place] (Atrovent Hfa) 4 puff Q8H RESP THERAPY INH Last administered on 12/06/18 07:56; Admin Dose 4 PUFF; Start 11/29/18 at 08:00 Ciprofloxacin/ Dextrose 200 ml @ 200 mls/hr Q12 IVPB Last administered on 12/06/18 08:00; Admin Dose 200 MLS/HR; Start 11/29/18 at 09:00 Oxycodone/ Acetaminophen (Endocet (10/ 325)) 1 tab Q4H PRN PO MODERATE PAIN LEVEL 4-6 Last administered on 12/06/18 03:29; Admin Dose 1 TAB; Start 12/02/18 at 09:00 Lorazepam (Ativan) 1 mg Q6 PRN IV AGITATION Last administered on 12/06/18 05:08; Admin Dose 1 MG; Start 11/30/18 at 18:00 Calcium Carbonate (Tums) 500 mg Q4 PRN PO HEARTBURN Last administered on 12/05/18 17:48; Admin Dose 500 MG; Start 12/03/18 at 21:30 Al Hydrox/Mg Hydrox/Simethicone (Mag-Al Plus) 30 ml Q6H PRN PO GASTROINTESTINAL UPSET Last administered on 8/4/19at 03:24; Admin Dose 30 ML; Start 12/03/18 at 21:30 Lactulose (Enulose) 20 gm BID PRN JT CONSTIPATION; Start 12/04/18 at 15:00 Lansoprazole (Prevacid) 30 mg BID@0600,1800 GTB ; Start 12/04/18 at 18:00 FARTUN CHIU Dec 06, 2018 11:46
--- NOTE | 2018-12-06 16:06 | CONS ---
Consult Date/Type/Reason Admit Date/Time Nov 19, 2018 at 18:05 Initial Consult Date Type of Consultation: Pulm Date/Time of Note DATE: 12/06/18 TIME: 16:03 Subjective No overnight events noted. Objective Vitals Vital Signs Date Temp Pulse Resp B/P (MAP) Pulse Ox O2 O2 Flow FiO2 Time Delivery Rate 12/06/18 98.8 110 18 124/44 100 15:52 (70) 12/06/18 30 15:13 12/06/18 Mechanical 00:14 Ventilator Intake and Output 12/05/18 12/05/18 12/06/18 1515:00 23:00 07:00 IntakeIntake Total 200 ml BalanceBalance 200 ml Exam NECK: Trach site clean and intact. CARDIAC: CHEST: Diminished air entry bilaterally. ABDOMEN: Soft, nontender. No guarding or rebound. EXTREMITIES: No cyanosis, clubbing. NEUROLOGIC: Generalized weakness Results/Medications Result Diagram: 12/06/18 0534 12/06/18 0534 Results 24 hrs Laboratory Tests Test 12/06/18 05:34 White Blood Count 15.6 H Red Blood Count 3.32 L Hemoglobin 9.2 L Hematocrit 30.1 L Mean Corpuscular Volume 90.7 Mean Corpuscular Hemoglobin 27.7 L Mean Corpuscular Hemoglobin Concent 30.6 L Red Cell Distribution Width 14.0 Platelet Count 503 H Mean Platelet Volume 9.6 Immature Granulocytes % 1.000 H Neutrophils % 66.0 Lymphocytes % 19.2 Monocytes % 8.5 Eosinophils % 4.7 Basophils % 0.6 Nucleated Red Blood Cells % 0.0 Immature Granulocytes # 0.150 H Neutrophils # 10.3 H Lymphocytes # 3.0 H Monocytes # 1.3 H Eosinophils # 0.7 H Basophils # 0.1 Nucleated Red Blood Cells # 0.0 Sodium Level 138 Potassium Level 3.6 Chloride Level 98 Carbon Dioxide Level 33 H Anion Gap 7 Blood Urea Nitrogen 10 Creatinine 0.48 Est Glomerular Filtrat Rate mL/min > 60 Glucose Level 122 Calcium Level 9.5 Phosphorus Level 4.4 Magnesium Level 1.9 Home Meds Reported Medications Acetaminophen* (Tylophen*) 500 Mg Capsule, 500 MG PO Q6H PRN for MILD PAIN LEVEL 1-3, TAB 11/20/18 Tramadol HCl (Tramadol HCl) 50 Mg Tablet, 50 MG PO Q6H PRN for PAIN, #120 TAB 11/20/18 Diclofenac Sodium (Pennsaid) 2 Gm Soln.pk.g., 2 GM TP TID 11/20/18 Oxycodone Hcl-Acetaminophen* (Oxycodone Hcl-Acetaminophen*) 2.5-325 Mg Tablet, 1 TAB PO Q6, TAB 11/20/18 Fluticasone Propionate* (Flovent* HFA 220) 12 Gm Inha, 2 PUFF INHALATION BID, #1 INHALER 11/20/18 Cyanocobalamin* (Vitamin B12*) 500 Mcg Tab, 5000 MCG PO DAILY, TAB 11/20/18 Cholecalciferol* (Vitamin D3*) 1,000 Unit Tablet, 1000 UNIT PO DAILY, TAB 11/20/18 Calcium Citrate* (Citracal*) 950 Mg Tab, 250 MG PO DAILY, TAB 11/20/18 Biotin (Biotin) 10 Mg Tablet, 10 MG PO DAILY, TAB 11/20/18 Ascorbic Acid (Vitamin C) 500 Mg Tab, 500 MG PO BID, TAB 11/20/18 Amitriptyline Hcl* (Amitriptyline Hcl*) 100 Mg Tablet, 100 MG PO QHS, #30 TAB 11/20/18 Medications Current Medications IV Flush (NS 3 ml) 3 ml PER PROTOCOL IV ; Start 11/19/18 at 19:00 Enoxaparin Sodium (Lovenox) 40 mg DAILY SC Last administered on 12/06/18 08:35; Admin Dose 40 MG; Start 11/20/18 at 09:00 Levalbuterol (Xopenex Hfa) 4 puff Q3H RESP THERAPY PRN INH SHORTNESS OF BREATH Last administered on 12/05/18 23:30; Admin Dose 4 PUFF; Start 11/21/18 at 03:30 Ipratropium [place] (Atrovent Hfa) 4 puff Q3H RESP THERAPY PRN INH SHORTNESS OF BREATH Last administered on 12/04/18 13:20; Admin Dose 4 PUFF; Start 11/21/18 at 03:30 Zolpidem Tartrate (Ambien) 5 mg HS MAY REPEAT X 1 PRN PO INSOMNIA Last administered on 11/27/18 21:07; Admin Dose 5 MG; Start 11/21/18 at 05:30 Ondansetron HCl (Zofran Inj) 4 mg Q4 PRN IV NAUSEA/VOMITING Last administered on 12/06/18 08:19; Admin Dose 4 MG; Start 11/24/18 at 06:00 Guaifenesin/ Dextromethorphan (Robitussin Dm Liquid Cup) 5 ml Q4H PRN PO COUGH Last administered on 12/04/18 04:31; Admin Dose 5 ML; Start 11/26/18 at 02:00 Estradiol (Estraderm 0.1 Mg/24 Hr Patch) 1 patch [id number]@2000 TRANSDERM Last administered on 12/04/18 20:07; Admin Dose 1 PATCH; Start 11/27/18 at 20:00 Docusate Sodium (Colace Liquid Cup) 200 mg DAILY GTB Last administered on 12/06/18 08:00; Admin Dose 200 MG; Start 11/28/18 at 09:00 Ibuprofen (Motrin Liquid (Ped)) 200 mg Q6 PRN GTB MILD PAIN LEVEL 1-3 Last administered on 12/03/18 12:12; Admin Dose 200 MG; Start 11/27/18 at 18:00 Bisacodyl (Dulcolax Supp) 10 mg Q48H PRN [place] CONSTIPATION; Start 11/27/18 at 18:00 Hydromorphone HCl (Dilaudid) 1 mg Q3H PRN IV SEVERE PAIN LEVEL 7-10 Last admin istered on 12/06/18 14:55; Admin Dose 1 MG; Start 11/28/18 at 14:30 Metoclopramide HCl (Reglan) 5 mg Q6H PRN IV nausea and vomitting Last administered on 12/05/18 06:21; Admin Dose 5 MG; Start 11/28/18 at 15:00 Ipratropium [place] (Atrovent Hfa) 4 puff Q8H RESP THERAPY INH Last administered on 12/06/18 07:56; Admin Dose 4 PUFF; Start 11/29/18 at 08:00 Ciprofloxacin/ Dextrose 200 ml @ 200 mls/hr Q12 IVPB Last administered on 12/06/18 08:00; Admin Dose 200 MLS/HR; Start 11/29/18 at 09:00 Oxycodone/ Acetaminophen (Endocet (10/ 325)) 1 tab Q4H PRN PO MODERATE PAIN LEVEL 4-6 Last administered on 8/4/19at 03:29; Admin Dose 1 TAB; Start 12/02/18 at 09:00 Lorazepam (Ativan) 1 mg Q6 PRN IV AGITATION Last administered on 12/06/18 12:30; Admin Dose 1 MG; Start 11/30/18 at 18:00 Calcium Carbonate (Tums) 500 mg Q4 PRN PO HEARTBURN Last administered on 12/05/18at 17:48; Admin Dose 500 MG; Start 12/03/18 at 21:30 Al Hydrox/Mg Hydrox/Simethicone (Mag-Al Plus) 30 ml Q6H PRN PO GASTROINTESTINAL UPSET Last administered on 12/06/18at 12:36; Admin Dose 30 ML; Start 12/03/18 at 21:30 Lactulose (Enulose) 20 gm BID PRN JT CONSTIPATION; Start 12/04/18 at 15:00 Lansoprazole (Prevacid) 30 mg BID@0600,1800 GTB ; Start 12/04/18 at 18:00 Assessment/Plan Assessment/Plan (Daily) IMP: 1. Acute on chronic hypoxemic/hypercapnic respiratory failure 2. Possible healthcare-associated pneumonia 3. History of muscular dystrophy 4. Dysphagia with G-tube RECS: 1. ST recs appreciated 2. BDs/CPT 3. Am labs CHANDRIKA SANTANA MD Dec 06, 2018 16:06
[2018-12-06] MEDS: ZOLPIDEM 5 MG TAB PO PRN (21:37)
[2018-12-06] MEDS: LEVALBUTEROL (HFA) 15 GM INHALER INH PRN (23:15)
[2018-12-07] VITALS (18 sets, daily range): BP systolic 131–151; BP diastolic 58–85; PULSE 102–109; RESP 16–27
[2018-12-07] MEDS: LORAZEPAM 2 MG INJ IV PRN ×3 (00:09→20:01)
[2018-12-07] MEDS: LANSOPRAZOLE 30 MG CAP GTB SCH (06:00)
[2018-12-07] MEDS: IPRATROPIUM (HFA) 12.9 GM INHALER INH SCH ×3 (08:35→23:18)
[2018-12-07] MEDS: LEVALBUTEROL (HFA) 15 GM INHALER INH PRN ×3 (08:35→19:58)
[2018-12-07] MEDS: DOCUSATE SODIUM 10 MG/ML (10ML CUP) GTB SCH (09:13)
[2018-12-07] MEDS: CIPROFLOXACIN 400MG/D5W 200 ML IVPB SCH ×2 (09:13→20:57)
[2018-12-07] MEDS: BALSAM PERU/CASTOR OIL 60 GM TUBE TOP SCH (09:13)
[2018-12-07] MEDS: HYDROmorphONE 1 MG/ML SYG IV PRN ×3 (09:14→16:55)
[2018-12-07] MEDS: ENOXAPARIN 40 MG/0.4 ML SYG SC SCH (09:50)
--- NOTE | 2018-12-07 11:44 | CONS ---
Consultation Date/Type/Reason Admit Date/Time Nov 19, 2018 at 18:05 Initial Consult Date 11/29/18 Type of Consult Pulmonary Patient's condition is stable. Remains completely awake and alert. Denies any chest pain, shortness of breath any coughing. General exam; elderly female, on ventilator via tracheostomy, awake and alert. Currently in no distress. Able to talk. HEENT exam; supple neck, no JVD. No lymphadenopathy. Midline trachea. No thyromegaly. Patient has good dentition. Tracheostomy in place. Chest exam; diminished but clear breath sounds. S1-S2 audible, no murmurs. Regular rhythm. Abdomen exam; soft, nontender. No organomegaly. G-tube in place. Bowel sounds are audible. Extremity exam; no peripheral edema clubbing. Pulses 2+. TONGER exam; patient is awake alert able to talk. Exhibiting generalized weakness. Ventilator setting; AC of 16, tidal volume 500, PEEP of 5, 30% FiO2. Assessment and recommendations; 1. Patient with history of muscular dystrophy and VDRF admitted for pneumonia. 2. Mild increase in leukocytosis. 3. Anemia and UTI. Continue current supportive care. Patient to undergo weaning trials from ventilator. Because of increasing leukocytosis chest x-ray has been ordered. Further recommendations after chest x-ray is performed. I did have a detailed discussion with the patient's at bedside and answered all his questions. Date/Time of Note DATE: 12/07/18 TIME: 11:43 24 HR Interval Summary Free Text/Dictation Patient's condition is stable. Remains awake and alert. Has remained hemodynamically stable. General exam; elderly woman, on ventilator via tracheostomy, currently in no distress. HEENT exam; supple neck, no JVD. No lymphadenopathy. Midline trachea. No thyromegaly. Tracheostomy in place. Patient has fair dentition. No neck masses. Chest exam; diminished but clear breath sounds. S1-S2 audible, no murmurs. Regular rhythm. Abdomen exam; soft, nontender. No organomegaly. Bowel sounds audible. Extremity exam; no peripheral edema clubbing. TONGER exam; no focal motor deficit. Patient exhibiting generalized weakness though. Ventilator setting; AC of 16, tidal volume 500, PEEP of 5, 30% FiO2. Assessment and recommendations; 1. Patient with history of muscular dystrophy and VDRF admitted with bilateral pneumonia with interval clinical improvement. 2. UTI. 3. Likely interstitial lung disease as well. 4. Mild anemia. Continue current supportive care. Patient responding well to current treatment regimen. Exam/Review of Systems Exam Vitals Vital Signs Date Temp Pulse Resp B/P (MAP) Pulse Ox O2 O2 Flow FiO2 Time Delivery Rate 12/07/18 94 18 96 30 09:30 12/07/18 97.5 134/60 Mechanical 07:51 (84) Ventilator Trach Collar Intake and Output 12/06/18 12/06/18 12/07/18 1515:00 23:00 07:00 IntakeIntake Total 200 ml BalanceBalance 200 ml Results Result Diagram: 12/07/18 1015 12/07/18 1015 Results 24hrs Laboratory Tests Test 12/07/18 10:15 White Blood Count 14.3 H Red Blood Count 3.33 L Hemoglobin 9.3 L Hematocrit 29.6 L Mean Corpuscular Volume 88.9 Mean Corpuscular Hemoglobin 27.9 L Mean Corpuscular Hemoglobin Concent 31.4 L Red Cell Distribution Width 13.7 Platelet Count 566 H Mean Platelet Volume 9.7 Immature Granulocytes % 0.800 H Neutrophils % 68.2 Lymphocytes % 20.5 Monocytes % 5.8 Eosinophils % 3.9 Basophils % 0.8 Nucleated Red Blood Cells % 0.0 Immature Granulocytes # 0.120 H Neutrophils # 9.7 H Lymphocytes # 2.9 Monocytes # 0.8 Eosinophils # 0.6 H Basophils # 0.1 Nucleated Red Blood Cells # 0.0 Sodium Level 136 Potassium Level 4.0 Chloride Level 97 Carbon Dioxide Level 34 H Anion Gap 5 Blood Urea Nitrogen 9 Creatinine 0.51 Est Glomerular Filtrat Rate mL/min > 60 Glucose Level 140 Calcium Level 9.8 Medications Medication Current Medications IV Flush (NS 3 ml) 3 ml PER PROTOCOL IV ; Start 11/19/18 at 19:00 Enoxaparin Sodium (Lovenox) 40 mg DAILY SC Last administered on 12/07/18at 09:50; Admin Dose 40 MG; Start 11/20/18 at 09:00 Levalbuterol (Xopenex Hfa) 4 puff Q3H RESP THERAPY PRN INH SHORTNESS OF BREATH Last administered on 12/07/18at 08:35; Admin Dose 4 PUFF; Start 11/21/18 at 03:30 Ipratropium [place] (Atrovent Hfa) 4 puff Q3H RESP THERAPY PRN INH SHORTNESS OF BREATH Last administered on 12/04/18 13:20; Admin Dose 4 PUFF; Start 11/21/18 at 03:30 Zolpidem Tartrate (Ambien) 5 mg HS MAY REPEAT X 1 PRN PO INSOMNIA Last administered on 12/06/18 21:37; Admin Dose 5 MG; Start 11/21/18 at 05:30 Ondansetron HCl (Zofran Inj) 4 mg Q4 PRN IV NAUSEA/VOMITING Last administered on 12/06/18 19:31; Admin Dose 4 MG; Start 11/24/18 at 06:00 Guaifenesin/ Dextromethorphan (Robitussin Dm Liquid Cup) 5 ml Q4H PRN PO COUGH Last administered on 12/04/18 04:31; Admin Dose 5 ML; Start 11/26/18 at 02:00 Estradiol (Estraderm 0.1 Mg/24 Hr Patch) 1 patch [id number]@2000 TRANSDERM Last administered on 12/04/18 20:07; Admin Dose 1 PATCH; Start 11/27/18 at 20:00 Docusate Sodium (Colace Liquid Cup) 200 mg DAILY GTB Last administered on 12/07/18 09:13; Admin Dose 200 MG; Start 11/28/18 at 09:00 Ibuprofen (Motrin Liquid (Ped)) 200 mg Q6 PRN GTB MILD PAIN LEVEL 1-3 Last administered on 12/03/18 12:12; Admin Dose 200 MG; Start 11/27/18 at 18:00 Bisacodyl (Dulcolax Supp) 10 mg Q48H PRN [place] CONSTIPATION; Start 11/27/18 at 18:00 Hydromorphone HCl (Dilaudid) 1 mg Q3H PRN IV SEVERE PAIN LEVEL 7-10 Last administered on 12/07/18 09:14; Admin Dose 1 MG; Start 11/28/18 at 14:30 Metoclopramide HCl (Reglan) 5 mg Q6H PRN IV nausea and vomitting Last administered on 12/05/18 06:21; Admin Dose 5 MG; Start 11/28/18 at 15:00 Ipratropium [place] (Atrovent Hfa) 4 puff Q8H RESP THERAPY INH Last administe red on 12/07/18 08:35; Admin Dose 4 PUFF; Start 11/29/18 at 08:00 Ciprofloxacin/ Dextrose 200 ml @ 200 mls/hr Q12 IVPB Last administered on 12/07/18 09:13; Admin Dose 200 MLS/HR; Start 11/29/18 at 09:00 Oxycodone/ Acetaminophen (Endocet (10/ 325)) 1 tab Q4H PRN PO MODERATE PAIN LEVEL 4-6 Last administered on 12/06/18 03:29; Admin Dose 1 TAB; Start 12/02/18 at 09:00 Lorazepam (Ativan) 1 mg Q6 PRN IV AGITATION Last administered on 12/07/18 00:09; Admin Dose 1 MG; Start 11/30/18 at 18:00 Calcium Carbonate (Tums) 500 mg Q4 PRN PO HEARTBURN Last administered on 12/05/18 17:48; Admin Dose 500 MG; Start 12/03/18 at 21:30 Al Hydrox/Mg Hydrox/Simethicone (Mag-Al Plus) 30 ml Q6H PRN PO GASTROINTESTINAL UPSET Last administered on 12/06/18at 12:36; Admin Dose 30 ML; Start 12/03/18 at 21:30 Lactulose (Enulose) 20 gm BID PRN JT CONSTIPATION; Start 12/04/18 at 15:00 Lansoprazole (Prevacid) 30 mg BID@0600,1800 GTB ; Start 12/04/18 at 18:00 CONNOR NEVAREZ Dec 07, 2018 11:44
[2018-12-07] MEDS: ONDANSETRON 4 MG INJ IV PRN (13:20)
--- NOTE | 2018-12-07 15:40 | PN ---
Date/Time of Note Date/Time of Note DATE: 12/07/18 TIME: 15:35 Assessment/Plan VTE Prophylaxis Risk score (from Ns)>0 risk: 6 SCD applied (from Ns): No SCD contraindicated: low risk/ambulating Pharmacological prophylaxis: LMWH Lines/Catheters IV Catheter Type (from Nrs): Mid Line Urinary Cath still in place: No Assessment/Plan Hospital Course A/P 1. Ac on chr respiratory failure, stable cont vent. started Weaning trials 3. VDRF, transfer to subacute when bed available 3. Recent bowel obstruction sp ex lap surgery, [place] of adhesions. follow-up with surgeon 4. Morbid obesity sp surgery twice 5. Malnutrition cont PEG tube feeds; reconsulted GI. 6. Debility, continue restorative PT/ OT 7. Sinus tachycardia 8. Leukocytosis/Sirs, no fever observe, watch for HCAP. Treated UTI for 3 days. consider line infection prn 9. Anemia 10. Past tobacco 11. COPD? 12. Recent bowel obstruction associated aspiration pneumonia/ARDS, appears to be resolving 13. Chr muscular dystrophy/CMT, continue supportive care 14. PEG malfunction? reconsulted GI; old records from [facility] requested. 15. Ac cystitis; sp 3-day treatment. avoiding Randle. 16. Enterobacter c sputum, colonized? 17. Dysphagia; Video when stable Subjective: 11/27 Tolerating feeds no fever. Left leg tender 11/28 peg clogged? tolerating vent 11/29: Positive flatus no dyspnea fever. Recommended she try to avoid Randle and spouse agrees; Discomfort with turning. 12/07: started weaning from vent. tolerated slow ng feeds for 3 days, now clogged again. O: Vss; sr PE No pallor/ JVD. trach cdi Regular no mrg Diminished mechanical Bs+ nt nd no rrg; PEG c/d/i No edema. rt picc c/d/i Result Diagram: 12/07/18 1015 12/07/18 1015 Results 24hrs Laboratory Tests Test 12/07/18 10:15 White Blood Count 14.3 H Red Blood Count 3.33 L Hemoglobin 9.3 L Hematocrit 29.6 L Mean Corpuscular Volume 88.9 Mean Corpuscular Hemoglobin 27.9 L Mean Corpuscular Hemoglobin Concent 31.4 L Red Cell Distribution Width 13.7 Platelet Count 566 H Mean Platelet Volume 9.7 Immature Granulocytes % 0.800 H Neutrophils % 68.2 Lymphocytes % 20.5 Monocytes % 5.8 Eosinophils % 3.9 Basophils % 0.8 Nucleated Red Blood Cells % 0.0 Immature Granulocytes # 0.120 H Neutrophils # 9.7 H Lymphocytes # 2.9 Monocytes # 0.8 Eosinophils # 0.6 H Basophils # 0.1 Nucleated Red Blood Cells # 0.0 Sodium Level 136 Potassium Level 4.0 Chloride Level 97 Carbon Dioxide Level 34 H Anion Gap 5 Blood Urea Nitrogen 9 Creatinine 0.51 Est Glomerular Filtrat Rate mL/min > 60 Glucose Level 140 Calcium Level 9.8 Exam/Review of Systems Exam Vitals Vital Signs Date Temp Pulse Resp B/P (MAP) Pulse Ox O2 O2 Flow FiO2 Time Delivery Rate 12/07/18 98.5 108 20 135/61 100 Mechanical 15:24 (85) Ventilator Trach Collar 12/07/18 30 13:30 Intake and Output 12/06/18 12/06/18 12/07/18 1515:00 23:00 07:00 IntakeIntake Total 200 ml BalanceBalance 200 ml Results Results 24hrs Laboratory Tests Test 12/07/18 10:15 White Blood Count 14.3 H Red Blood Count 3.33 L Hemoglobin 9.3 L Hematocrit 29.6 L Mean Corpuscular Volume 88.9 Mean Corpuscular Hemoglobin 27.9 L Mean Corpuscular Hemoglobin Concent 31.4 L Red Cell Distribution Width 13.7 Platelet Count 566 H Mean Platelet Volume 9.7 Immature Granulocytes % 0.800 H Neutrophils % 68.2 Lymphocytes % 20.5 Monocytes % 5.8 Eosinophils % 3.9 Basophils % 0.8 Nucleated Red Blood Cells % 0.0 Immature Granulocytes # 0.120 H Neutrophils # 9.7 H Lymphocytes # 2.9 Monocytes # 0.8 Eosinophils # 0.6 H Basophils # 0.1 Nucleated Red Blood Cells # 0.0 Sodium Level 136 Potassium Level 4.0 Chloride Level 97 Carbon Dioxide Level 34 H Anion Gap 5 Blood Urea Nitrogen 9 Creatinine 0.51 Est Glomerular Filtrat Rate mL/min > 60 Glucose Level 140 Calcium Level 9.8 Medications Medication Current Medications IV Flush (NS 3 ml) 3 ml PER PROTOCOL IV ; Start 11/19/18 at 19:00 Enoxaparin Sodium (Lovenox) 40 mg DAILY SC Last administered on 8/5/19at 09:50; Admin Dose 40 MG; Start 11/20/18 at 09:00 Levalbuterol (Xopenex Hfa) 4 puff Q3H RESP THERAPY PRN INH SHORTNESS OF BREATH Last administered on 12/07/18 08:35; Admin Dose 4 PUFF; Start 11/21/18 at 03:30 Ipratropium Arnold (Atrovent Hfa) 4 puff Q3H RESP THERAPY PRN INH SHORTNESS OF BREATH Last administered on 12/04/18 13:20; Admin Dose 4 PUFF; Start 11/21/18 at 03:30 Zolpidem Tartrate (Ambien) 5 mg HS MAY REPEAT X 1 PRN PO INSOMNIA Last administered on 12/06/18 21:37; Admin Dose 5 MG; Start 11/21/18 at 05:30 Ondansetron HCl (Zofran Inj) 4 mg Q4 PRN IV NAUSEA/VOMITING Last administered on 12/07/18 13:20; Admin Dose 4 MG; Start 11/24/18 at 06:00 Guaifenesin/ Dextromethorphan (Robitussin Dm Liquid Cup) 5 ml Q4H PRN PO COUGH Last administered on 12/04/18 04:31; Admin Dose 5 ML; Start 11/26/18 at 02:00 Estradiol (Estraderm 0.1 Mg/24 Hr Patch) 1 patch [id number]@2000 TRANSDERM Last administered on 12/04/18 20:07; Admin Dose 1 PATCH; Start 11/27/18 at 20:00 Docusate Sodium (Colace Liquid Cup) 200 mg DAILY GTB Last administered on 12/07/18 09:13; Admin Dose 200 MG; Start 11/28/18 at 09:00 Ibuprofen (Motrin Liquid (Ped)) 200 mg Q6 PRN GTB MILD PAIN LEVEL 1-3 Last administered on 12/03/18 12:12; Admin Dose 200 MG; Start 11/27/18 at 18:00 Bisacodyl (Dulcolax Supp) 10 mg Q48H PRN [place] CONSTIPATION; Start 11/27/18 at 18:00 Hydromorphone HCl (Dilaudid) 1 mg Q3H PRN IV SEVERE PAIN LEVEL 7-10 Last administered on 12/07/18 13:17; Admin Dose 1 MG; Start 11/28/18 at 14:30 Metoclopramide HCl (Reglan) 5 mg Q6H PRN IV nausea and vomitting Last administered on 12/05/18 06:21; Admin Dose 5 MG; Start 11/28/18 at 15:00 Ipratropium Arnold (Atrovent Hfa) 4 puff Q8H RESP THERAPY INH Last administered on 12/07/18 08:35; Admin Dose 4 PUFF; Start 11/29/18 at 08:00 Ciprofloxacin/ Dextrose 200 ml @ 200 mls/hr Q12 IVPB Last administered on 12/07/18 09:13; Admin Dose 200 MLS/HR; Start 11/29/18 at 09:00 Oxycodone/ Acetaminophen (Endocet (10/ 325)) 1 tab Q4H PRN PO MODERATE PAIN LEVEL 4-6 Last administered on 12/06/18 03:29; Admin Dose 1 TAB; Start 12/02/18 at 09:00 Lorazepam (Ativan) 1 mg Q6 PRN IV AGITATION Last administered on 12/07/18 11:59; Admin Dose 1 MG; Start 11/30/18 at 18:00 Calcium Carbonate (Tums) 500 mg Q4 PRN PO HEARTBURN Last administered on 12/05/18 17:48; Admin Dose 500 MG; Start 12/03/18 at 21:30 Al Hydrox/Mg Hydrox/Simethicone (Mag-Al Plus) 30 ml Q6H PRN PO GASTROINTESTINAL UPSET Last administered on 12/06/18 12:36; Admin Dose 30 ML; Start 12/03/18 at 21:30 Lactulose (Enulose) 20 gm BID PRN JT CONSTIPATION; Start 12/04/18 at 15:00 Lansoprazole (Prevacid) 30 mg BID@0600,1800 GTB ; Start 12/04/18 at 18:00 LLOYD VELASQUEZ MD Dec 07, 2018 15:40
[2018-12-07] MEDS ORDERED: BISACODYL 10 MG SUPP PR PRN (16:00)
[2018-12-07] MEDS: METOCLOPRAMIDE 10 MG INJ IV SCH (16:55)
[2018-12-07] MEDS: D5W-0.45 NACL + KCL 20 MEQ 1,000 ML IV SCH (18:29)
[2018-12-07] MEDS: ESTRADIOL 0.1 MG/24 HR PATCH TRANSDERM SCH (20:55)
[2018-12-07] MEDS: FAMOTIDINE 20 MG INJ IV SCH (20:56)
[2018-12-08] VITALS (18 sets, daily range): BP systolic 119–144; BP diastolic 59–76; PULSE 81–108; RESP 18–27
[2018-12-08] MEDS: METOCLOPRAMIDE 10 MG INJ IV SCH ×4 (00:34→17:37)
[2018-12-08] MEDS: LEVALBUTEROL (HFA) 15 GM INHALER INH PRN (08:48)
[2018-12-08] MEDS: IPRATROPIUM (HFA) 12.9 GM INHALER INH SCH ×2 (08:48→16:08)
[2018-12-08] MEDS: DOCUSATE SODIUM 10 MG/ML (10ML CUP) GTB SCH (09:00)
[2018-12-08] MEDS: D5W-0.45 NACL + KCL 20 MEQ 1,000 ML IV SCH ×2 (09:05→23:56)
[2018-12-08] MEDS: FAMOTIDINE 20 MG INJ IV SCH ×2 (09:06→21:20)
[2018-12-08] MEDS: CIPROFLOXACIN 400MG/D5W 200 ML IVPB SCH ×3 (09:08→21:20)
[2018-12-08] MEDS: ENOXAPARIN 40 MG/0.4 ML SYG SC SCH (09:09)
[2018-12-08] MEDS: BALSAM PERU/CASTOR OIL 60 GM TUBE TOP SCH (09:10)
--- NOTE | 2018-12-08 10:53 | CONS ---
Consultation Date/Type/Reason Admit Date/Time Nov 19, 2018 at 18:05 Initial Consult Date 11/29/18 Type of Consult Pulmonary Patient's condition is stable. Remains completely awake and alert. Denies any chest pain, shortness of breath any coughing. General exam; elderly female, on ventilator via tracheostomy, awake and alert. Currently in no distress. Able to talk. HEENT exam; supple neck, no JVD. No lymphadenopathy. Midline trachea. No thyromegaly. Patient has good dentition. Tracheostomy in place. Chest exam; diminished but clear breath sounds. S1-S2 audible, no murmurs. Regular rhythm. Abdomen exam; soft, nontender. No organomegaly. G-tube in place. Bowel sounds are audible. Extremity exam; no peripheral edema clubbing. Pulses 2+. PROTECTIVE SIGNAL REPAIRER exam; patient is awake alert able to talk. Exhibiting generalized weakness. Ventilator setting; AC of 16, tidal volume 500, PEEP of 5, 30% FiO2. Assessment and recommendations; 1. Patient with history of muscular dystrophy and VDRF admitted for pneumonia. 2. Mild increase in leukocytosis. 3. Anemia and UTI. Continue current supportive care. Patient to undergo weaning trials from ventilator. Because of increasing leukocytosis chest x-ray has been ordered. Further recommendations after chest x-ray is performed. I did have a detailed discussion with the patient's at bedside and answered all his questions. Date/Time of Note DATE: 12/08/18 TIME: 10:52 24 HR Interval Summary Free Text/Dictation Patient's condition is stable. Remains completely awake and alert. Has remained hemodynamically stable. General exam; elderly lady, on ventilator via tracheostomy, currently no distress. H ENT exam; supple neck, no JVD. No lymphadenopathy. Midline trachea. No thyromegaly. Tracheostomy in place. Patient has good dentition. Chest exam; diminished but clear breath sounds. S1-S2 audible, no murmurs. Regular rhythm. Abdomen exam; soft, no organomegaly. Nontender. Nondistended. Bowel sounds audible. Extremity exam; no peripheral edema. PROTECTIVE SIGNAL REPAIRER exam; no focal motor deficit. Patient though exhibiting generalized weakness. Ventilator setting; AC of 16, tidal volume 500, PEEP of 5, 30% FiO2. Assessment and recommendations; 1. Patient with history of VDRF and muscular dystrophy admitted with bilateral pneumonia with interval clinical improvement. 2. Likely underlying chronic interstitial lung disease. 3. Enterobacter UTI as well as Enterobacter cultured from sputum. Continue current supportive care. Patient to undergo Passy-Elana valve trial as tolerated. Exam/Review of Systems Exam Vitals Vital Signs Date Temp Pulse Resp B/P (MAP) Pulse Ox O2 O2 Flow FiO2 Time Delivery Rate 12/08/18 90 20 100 30 08:42 12/08/18 98.9 140/76 Mechanical 08:01 (97) Ventilator Trach Collar Intake and Output 12/07/18 12/07/18 12/08/18 1515:00 23:00 07:00 IntakeIntake Total 1090 ml BalanceBalance 1090 ml Results Result Diagram: 12/08/18 0649 12/08/18 0649 Results 24hrs Laboratory Tests Test 12/08/18 06:49 12/08/18 07:00 White Blood Count 15.0 H Red Blood Count 3.42 L Hemoglobin 9.4 L Hematocrit 30.3 L Mean Corpuscular Volume 88.6 Mean Corpuscular Hemoglobin 27.5 L Mean Corpuscular Hemoglobin Concent 31.0 L Red Cell Distribution Width 14.0 Platelet Count 611 H Mean Platelet Volume 9.7 Immature Granulocytes % 1.100 H Neutrophils % 59.2 Lymphocytes % 26.3 Monocytes % 7.7 Eosinophils % 4.8 Basophils % 0.9 Nucleated Red Blood Cells % 0.0 Immature Granulocytes # 0.170 H Neutrophils # 8.9 H Lymphocytes # 3.9 H Monocytes # 1.2 H Eosinophils # 0.7 H Basophils # 0.1 Nucleated Red Blood Cells # 0.0 Prothrombin Time 14.2 Prothrombin Time Ratio 1.1 INR International Normalized Ratio 1.09 Sodium Level 138 Potassium Level 4.1 Chloride Level 99 Carbon Dioxide Level 30 Anion Gap 9 Blood Urea Nitrogen 8 Creatinine 0.53 Est Glomerular Filtrat Rate mL/min > 60 Glucose Level 122 Calcium Level 10.0 Total Bilirubin 0.4 Direct Bilirubin 0.00 Indirect Bilirubin 0.4 Aspartate Amino Transf (AST/SGOT) 26 Alanine Aminotransferase (ALT/SGPT) 22 Alkaline Phosphatase 87 Total Protein 7.7 Albumin 3.5 Globulin 4.20 H Albumin/Globulin Ratio 0.83 Prealbumin 13.2 L Blood Gas Specimen Source Blood arterial Arterial Blood Date Drawn 12/08/2018 7:21:14 AM Arterial Blood pH (Temp corrected) 7.447 Arterial Blood pCO2 (Temp correct) 42.6 Arterial Blood pO2 (Temp corrected) 66.4 L Arterial Blood HCO3 28.7 H Arterial Blood Base Excess 4.3 H Arterial Blood Oxygen Saturation 93.6 L Jose D Test ACCEPTAB Arterial Blood Gas Puncture Site Right Radial Arterial Blood Carboxyhemoglobin 0.3 Arterial Blood Methemoglobin 0.4 Blood Gas A-a O2 Differential 97.4 H Oxyhemoglobin Percent 92.9 L Blood Gas Temperature 37.0 Blood Gas Respiration Rate 10.0 Blood Gas Actual Respiration Rate 36 Blood Gas Modality VENT - SIMV FiO2 30.0 Blood Gas Tidal Volume 500.0 Blood Gas Low PEEP Setting 5.0 Blood Gas Notified Whom TM Blood Gas Notified Time 12/08/2018 7:42:17 AM Medications Medication Current Medications IV Flush (NS 3 ml) 3 ml PER PROTOCOL IV ; Start 11/19/18 at 19:00 Enoxaparin Sodium (Lovenox) 40 mg DAILY SC Last administered on 12/08/18 09:09; Admin Dose 40 MG; Start 11/20/18 at 09:00 Levalbuterol (Xopenex Hfa) 4 puff Q3H RESP THERAPY PRN INH SHORTNESS OF BREATH Last administered on 12/08/18 08:48; Admin Dose 4 PUFF; Start 11/21/18 at 03:30 Ipratropium Tatum (Atrovent Hfa) 4 puff Q3H RESP THERAPY PRN INH SHORTNESS OF BREATH Last administered on 12/04/18 13:20; Admin Dose 4 PUFF; Start 11/21/18 at 03:30 Zolpidem Tartrate (Ambien) 5 mg HS MAY REPEAT X 1 PRN PO INSOMNIA Last administered on 12/06/18 21:37; Admin Dose 5 MG; Start 11/21/18 at 05:30 Ondansetron HCl (Zofran Inj) 4 mg Q4 PRN IV NAUSEA/VOMITING Last administered on 12/07/18 13:20; Admin Dose 4 MG; Start 11/24/18 at 06:00 Guaifenesin/ Dextromethorphan (Robitussin Dm Liquid Cup) 5 ml Q4H PRN PO COUGH Last administered on 12/04/18 04:31; Admin Dose 5 ML; Start 11/26/18 at 02:00 Estradiol (Estraderm 0.1 Mg/24 Hr Patch) 1 patch [id number]@2000 TRANSDERM Last administered on 12/07/18 20:55; Admin Dose 1 PATCH; Start 11/27/18 at 20:00 Docusate Sodium (Colace Liquid Cup) 200 mg DAILY GTB Last administered on 12/07/18 09:13; Admin Dose 200 MG; Start 11/28/18 at 09:00 Ibuprofen (Motrin Liquid (Ped)) 200 mg Q6 PRN GTB MILD PAIN LEVEL 1-3 Last administered on 12/03/18 12:12; Admin Dose 200 MG; Start 11/27/18 at 18:00 Bisacodyl (Dulcolax Supp) 10 mg Q48H PRN [place] CONSTIPATION; Start 11/27/18 at 18:00 Hydromorphone HCl (Dilaudid) 1 mg Q3H PRN IV SEVERE PAIN LEVEL 7-10 Last administered on 12/07/18 16:55; Admin Dose 1 MG; Start 11/28/18 at 14:30 Metoclopramide HCl (Reglan) 5 mg Q6H PRN IV nausea and vomitting Last administered on 12/05/18 06:21; Admin Dose 5 MG; Start 11/28/18 at 15:00 Ipratropium Tatum (Atrovent Hfa) 4 puff Q8H RESP THERAPY INH Last administered on 12/08/18 08:48; Admin Dose 4 PUFF; Start 11/29/18 at 08:00 Ciprofloxacin/ Dextrose 200 ml @ 200 mls/hr Q12 IVPB Last administered on 12/08/18 09:08; Admin Dose 200 MLS/HR; Start 11/29/18 at 09:00 Oxycodone/ Acetaminophen (Endocet (10/ 325)) 1 tab Q4H PRN PO MODERATE PAIN LEVEL 4-6 Last administered on 12/06/18 03:29; Admin Dose 1 TAB; Start 12/02/18 at 09:00 Lorazepam (Ativan) 1 mg Q6 PRN IV AGITATION Last administered on 12/07/18 20:01; Admin Dose 1 MG; Start 11/30/18 at 18:00 Calcium Carbonate (Tums) 500 mg Q4 PRN PO HEARTBURN Last administered on 17:48; Admin Dose 500 MG; Start 12/03/18 at 21:30 Al Hydrox/Mg Hydrox/Simethicone (Mag-Al Plus) 30 ml Q6H PRN PO GASTROINTESTINAL UPSET Last administered on 12/06/18at 12:36; Admin Dose 30 ML; Start 12/03/18 at 21:30 Lactulose (Enulose) 20 gm BID PRN JT CONSTIPATION; Start 12/04/18 at 15:00 Metoclopramide HCl (Reglan) 5 mg Q6 IV Last administered on 12/08/18at 06:39; Admin Dose 5 MG; Start 12/07/18 at 18:00 Famotidine (Pepcid Iv) 20 mg BID IV Last administered on 12/08/18at 09:06; Admin Dose 20 MG; Start 12/07/18 at 21:00 Potassium Chloride/Dextrose/ Sod Cl 1,000 ml @ 70 mls/hr [id number] IV Last administered on 12/08/18at 09:05; Admin Dose 70 MLS/HR; Start 12/07/18 at 16:00 CONNOR NEVAREZ Dec 08, 2018 10:53
[2018-12-08] MEDS: LORAZEPAM 2 MG INJ IV PRN ×2 (11:04→17:36)
[2018-12-08] MEDS: HYDROmorphONE 1 MG/ML SYG IV PRN ×2 (13:20→16:38)
[2018-12-08] MEDS: ONDANSETRON 4 MG INJ IV PRN ×2 (13:20→16:37)
--- NOTE | 2018-12-08 17:25 | PN ---
Date/Time of Note Date/Time of Note DATE: 12/08/18 TIME: 17:22 Assessment/Plan VTE Prophylaxis Risk score (from Nsg)>0 risk: 7 SCD applied (from Ns): No SCD contraindicated: low risk/ambulating Pharmacological prophylaxis: LMWH Lines/Catheters IV Catheter Type (from [facility]): Peripheral IV Urinary Cath still in place: No Assessment/Plan Hospital Course A/P 1. Ac on chr respiratory failure, stable cont vent. started Weaning trials 3. VDRF, transfer to subacute when bed available and tolerating tube feeds 3. Recent bowel obstruction [sp ex lap surgery 10/15 at [place]], [place] of adhesions. follow-up with surgeon 4. Morbid obesity sp surgery twice 5. Malnutrition cont PEG feeds; reconsulted GI. 6. Debility, continue restorative PT/ OT 7. Sinus tachycardia 8. Leukocytosis/Sirs, no fever observe, watch for HCAP. Treated UTI for 3 days. consider line infection; cx sent 9. Anemia 10. Past tobacco 11. COPD? 12. Recent bowel obstruction associated aspiration pneumonia/ARDS, appears to be resolving 13. Chr muscular dystrophy/CMT, continue supportive care 14. PEG malfunction? reconsulted GI; old records from [facility] requested but incomplete [11/06 sp rizzo to g-tube site? 11/18 sp IR declogging]. 15. Ac cystitis; sp 3-day treatment. avoiding Rizzo. 16. Enterobacter c sputum, colonized? 17. Dysphagia; Video when stable Subjective: 11/27 Tolerating feeds no fever. Left leg tender 11/28 peg clogged? tolerating vent 11/29: Positive flatus no dyspnea fever. Recommended she try to avoid Rizzo and spouse agrees; Discomfort with turning. 12/07: started weaning from vent. tolerated slow ng feeds for 3 days, now clogged again. 12/08: events noted O: Vss; sr PE No pallor/ JVD. trach cdi Regular no mrg Diminished mechanical Bs+ nt nd no rrg; PEG c/d/i No edema. rt picc c/d/i Result Diagram: 12/08/18 0649 12/08/18 0649 Results 24hrs Laboratory Tests Test 12/08/18 06:49 12/08/18 07:00 White Blood Count 15.0 H Red Blood Count 3.42 L Hemoglobin 9.4 L Hematocrit 30.3 L Mean Corpuscular Volume 88.6 Mean Corpuscular Hemoglobin 27.5 L Mean Corpuscular Hemoglobin Concent 31.0 L Red Cell Distribution Width 14.0 Platelet Count 611 H Mean Platelet Volume 9.7 Immature Granulocytes % 1.100 H Neutrophils % 59.2 Lymphocytes % 26.3 Monocytes % 7.7 Eosinophils % 4.8 Basophils % 0.9 Nucleated Red Blood Cells % 0.0 Immature Granulocytes # 0.170 H Neutrophils # 8.9 H Lymphocytes # 3.9 H Monocytes # 1.2 H Eosinophils # 0.7 H Basophils # 0.1 Nucleated Red Blood Cells # 0.0 Prothrombin Time 14.2 Prothrombin Time Ratio 1.1 INR International Normalized Ratio 1.09 Sodium Level 138 Potassium Level 4.1 Chloride Level 99 Carbon Dioxide Level 30 Anion Gap 9 Blood Urea Nitrogen 8 Creatinine 0.53 Est Glomerular Filtrat Rate mL/min > 60 Glucose Level 122 Calcium Level 10.0 Total Bilirubin 0.4 Direct Bilirubin 0.00 Indirect Bilirubin 0.4 Aspartate Amino Transf (AST/SGOT) 26 Alanine Aminotransferase (ALT/SGPT) 22 Alkaline Phosphatase 87 Total Protein 7.7 Albumin 3.5 Globulin 4.20 H Albumin/Globulin Ratio 0.83 Prealbumin 13.2 L Procalcitonin 0.06 Blood Gas Specimen Source Blood arterial Arterial Blood Date Drawn 12/08/2018 7:21:14 AM Arterial Blood pH (Temp corrected) 7.447 Arterial Blood pCO2 (Temp correct) 42.6 Arterial Blood pO2 (Temp corrected) 66.4 L Arterial Blood HCO3 28.7 H Arterial Blood Base Excess 4.3 H Arterial Blood Oxygen Saturation 93.6 L Jose D Test ACCEPTAB Arterial Blood Gas Puncture Site Right Radial Arterial Blood Carboxyhemoglobin 0.3 Arterial Blood Methemoglobin 0.4 Blood Gas A-a O2 Differential 97.4 H Oxyhemoglobin Percent 92.9 L Blood Gas Temperature 37.0 Blood Gas Respiration Rate 10.0 Blood Gas Actual Respiration Rate 36 Blood Gas Modality VENT - SIMV FiO2 30.0 Blood Gas Tidal Volume 500.0 Blood Gas Low PEEP Setting 5.0 Blood Gas Notified Whom TM Blood Gas Notified Time 12/08/2018 7:42:17 AM Exam/Review of Systems Exam Vitals Vital Signs Date Temp Pulse Resp B/P (MAP) Pulse Ox O2 O2 Flow FiO2 Time Delivery Rate 12/08/18 96 25 98 30 15:49 12/08/18 98.5 119/59 Mechanical 15:33 (79) Ventilator Trach Collar Intake and Output 12/07/18 12/07/18 12/08/18 1515:00 23:00 07:00 IntakeIntake Total 1090 ml BalanceBalance 1090 ml Results Results 24hrs Laboratory Tests Test 12/08/18 06:49 12/08/18 07:00 White Blood Count 15.0 H Red Blood Count 3.42 L Hemoglobin 9.4 L Hematocrit 30.3 L Mean Corpuscular Volume 88.6 Mean Corpuscular Hemoglobin 27.5 L Mean Corpuscular Hemoglobin Concent 31.0 L Red Cell Distribution Width 14.0 Platelet Count 611 H Mean Platelet Volume 9.7 Immature Granulocytes % 1.100 H Neutrophils % 59.2 Lymphocytes % 26.3 Monocytes % 7.7 Eosinophils % 4.8 Basophils % 0.9 Nucleated Red Blood Cells % 0.0 Immature Granulocytes # 0.170 H Neutrophils # 8.9 H Lymphocytes # 3.9 H Monocytes # 1.2 H Eosinophils # 0.7 H Basophils # 0.1 Nucleated Red Blood Cells # 0.0 Prothrombin Time 14.2 Prothrombin Time Ratio 1.1 INR International Normalized Ratio 1.09 Sodium Level 138 Potassium Level 4.1 Chloride Level 99 Carbon Dioxide Level 30 Anion Gap 9 Blood Urea Nitrogen 8 Creatinine 0.53 Est Glomerular Filtrat Rate mL/min > 60 Glucose Level 122 Calcium Level 10.0 Total Bilirubin 0.4 Direct Bilirubin 0.00 Indirect Bilirubin 0.4 Aspartate Amino Transf (AST/SGOT) 26 Alanine Aminotransferase (ALT/SGPT) 22 Alkaline Phosphatase 87 Total Protein 7.7 Albumin 3.5 Globulin 4.20 H Albumin/Globulin Ratio 0.83 Prealbumin 13.2 L Procalcitonin 0.06 Blood Gas Specimen Source Blood arterial Arterial Blood Date Drawn 12/08/2018 7:21:14 AM Arterial Blood pH (Temp corrected) 7.447 Arterial Blood pCO2 (Temp correct) 42.6 Arterial Blood pO2 (Temp corrected) 66.4 L Arterial Blood HCO3 28.7 H Arterial Blood Base Excess 4.3 H Arterial Blood Oxygen Saturation 93.6 L Jose D Test ACCEPTAB Arterial Blood Gas Puncture Site Right Radial Arterial Blood Carboxyhemoglobin 0.3 Arterial Blood Methemoglobin 0.4 Blood Gas A-a O2 Differential 97.4 H Oxyhemoglobin Percent 92.9 L Blood Gas Temperature 37.0 Blood Gas Respiration Rate 10.0 Blood Gas Actual Respiration Rate 36 Blood Gas Modality VENT - SIMV FiO2 30.0 Blood Gas Tidal Volume 500.0 Blood Gas Low PEEP Setting 5.0 Blood Gas Notified Whom TM Blood Gas Notified Time 12/08/2018 7:42:17 AM Medications Medication Current Medications IV Flush (NS 3 ml) 3 ml PER PROTOCOL IV ; Start 11/19/18 at 19:00 Enoxaparin Sodium (Lovenox) 40 mg DAILY SC Last administered on 12/08/18 09:09; Admin Dose 40 MG; Start 11/20/18 at 09:00 Levalbuterol (Xopenex Hfa) 4 puff Q3H RESP THERAPY PRN INH SHORTNESS OF BREATH Last administered on 12/08/18 08:48; Admin Dose 4 PUFF; Start 11/21/18 at 03:30 Ipratropium [place] (Atrovent Hfa) 4 puff Q3H RESP THERAPY PRN INH SHORTNESS OF BREATH Last administered on 12/04/18 13:20; Admin Dose 4 PUFF; Start 11/21/18 at 03:30 Zolpidem Tartrate (Ambien) 5 mg HS MAY REPEAT X 1 PRN PO INSOMNIA Last administered on 12/06/18 21:37; Admin Dose 5 MG; Start 11/21/18 at 05:30 Ondansetron HCl (Zofran Inj) 4 mg Q4 PRN IV NAUSEA/VOMITING Last administered on 12/08/18 16:37; Admin Dose 4 MG; Start 11/24/18 at 06:00 Guaifenesin/ Dextromethorphan (Robitussin Dm Liquid Cup) 5 ml Q4H PRN PO COUGH Last administered on 12/04/18 04:31; Admin Dose 5 ML; Start 11/26/18 at 02:00 Estradiol (Estraderm 0.1 Mg/24 Hr Patch) 1 patch [id number]@2000 TRANSDERM Last administered on 12/07/18 20:55; Admin Dose 1 PATCH; Start 11/27/18 at 20:00 Docusate Sodium (Colace Liquid Cup) 200 mg DAILY GTB Last administered on 12/07/18 09:13; Admin Dose 200 MG; Start 11/28/18 at 09:00 Ibuprofen (Motrin Liquid (Ped)) 200 mg Q6 PRN GTB MILD PAIN LEVEL 1-3 Last administered on 12/03/18 12:12; Admin Dose 200 MG; Start 11/27/18 at 18:00 Bisacodyl (Dulcolax Supp) 10 mg Q48H PRN [place] CONSTIPATION; Start 11/27/18 at 18:00 Hydromorphone HCl (Dilaudid) 1 mg Q3H PRN IV SEVERE PAIN LEVEL 7-10 Last administered on 12/08/18 16:38; Admin Dose 1 MG; Start 11/28/18 at 14:30 Metoclopramide HCl (Reglan) 5 mg Q6H PRN IV nausea and vomitting Last administered on 12/05/18 06:21; Admin Dose 5 MG; Start 11/28/18 at 15:00 Ipratropium [place] (Atrovent Hfa) 4 puff Q8H RESP THERAPY INH Last administered on 12/08/18 16:08; Admin Dose 4 PUFF; Start 11/29/18 at 08:00 Ciprofloxacin/ Dextrose 200 ml @ 200 mls/hr Q12 IVPB Last administered on 12/08/18 09:08; Admin Dose 200 MLS/HR; Start 11/29/18 at 09:00 Oxycodone/ Acetaminophen (Endocet (10/ 325)) 1 tab Q4H PRN PO MODERATE PAIN LEVEL 4-6 Last administered on 12/06/18 03:29; Admin Dose 1 TAB; Start 12/02/18 at 09:00 Lorazepam (Ativan) 1 mg Q6 PRN IV AGITATION Last administered on 12/08/18 11:04; Admin Dose 1 MG; Start 11/30/18 at 18:00 Calcium Carbonate (Tums) 500 mg Q4 PRN PO HEARTBURN Last administered on 12/05/18 17:48; Admin Dose 500 MG; Start 12/03/18 at 21:30 Al Hydrox/Mg Hydrox/Simethicone (Mag-Al Plus) 30 ml Q6H PRN PO GASTROINTESTINAL UPSET Last administered on 12/06/18 12:36; Admin Dose 30 ML; Start 12/03/18 at 21:30 Lactulose (Enulose) 20 gm BID PRN JT CONSTIPATION; Start 12/04/18 at 15:00 Metoclopramide HCl (Reglan) 5 mg Q6 IV Last administered on 12/08/18at 11:48; Admin Dose 5 MG; Start 12/07/18 at 18:00 Famotidine (Pepcid Iv) 20 mg BID IV Last administered on 12/08/18at 09:06; Admin Dose 20 MG; Start 12/07/18 at 21:00 Potassium Chloride/Dextrose/ Sod Cl 1,000 ml @ 70 mls/hr [id number] IV Last admi nistered on 12/08/18at 09:05; Admin Dose 70 MLS/HR; Start 12/07/18 at 16:00 LLOYD VELASQUEZ MD Dec 08, 2018 17:25
[2018-12-08] MEDS ORDERED: TPN 1,000 ML IV SCH (17:26)
[2018-12-09] VITALS (18 sets, daily range): BP systolic 101–136; BP diastolic 40–85; PULSE 86–104; RESP 18–32
[2018-12-09] MEDS: METOCLOPRAMIDE 10 MG INJ IV SCH ×4 (00:09→18:04)
[2018-12-09] MEDS: IPRATROPIUM (HFA) 12.9 GM INHALER INH SCH ×3 (01:04→16:52)
[2018-12-09] MEDS: LORAZEPAM 2 MG INJ IV PRN ×3 (04:41→21:38)
[2018-12-09] MEDS: LEVALBUTEROL (HFA) 15 GM INHALER INH PRN ×2 (08:00→16:52)
[2018-12-09] MEDS ORDERED: FAT EMULSION 20% 250 ML IV SCH (09:00)
[2018-12-09] MEDS: CIPROFLOXACIN 400MG/D5W 200 ML IVPB SCH (09:00)
[2018-12-09] MEDS: FAMOTIDINE 20 MG INJ IV SCH ×2 (09:25→21:38)
[2018-12-09] MEDS: HYDROmorphONE 1 MG/ML SYG IV PRN (09:26)
[2018-12-09] MEDS: D5W-0.45 NACL + KCL 20 MEQ 1,000 ML IV SCH (09:26)
[2018-12-09] MEDS: BALSAM PERU/CASTOR OIL 60 GM TUBE TOP SCH (09:27)
[2018-12-09] MEDS: ENOXAPARIN 40 MG/0.4 ML SYG SC SCH (09:29)
[2018-12-09] MEDS: ONDANSETRON 4 MG INJ IV PRN (09:31)
--- NOTE | 2018-12-09 09:50 | PN ---
Date/Time of Note Date/Time of Note DATE: 12/09/18 TIME: 09:49 Assessment/Plan VTE Prophylaxis Risk score (from Nsg)>0 risk: 8 SCD applied (from Ns): Yes SCD contraindicated: low risk/ambulating Pharmacological prophylaxis: LMWH [facility] Urinary Cath still in place: No Assessment/Plan Hospital Course A/P 1. Ac on chr respiratory failure, stable cont vent. started Weaning trials 3. VDRF, transfer to subacute when bed available and tolerating tube feeds 3. Recent bowel obstruction [sp ex lap surgery 10/15 at [place]], [place] of adhesions. follow-up with surgeon 4. Morbid obesity sp surgery twice 5. Malnutrition cont PEG feeds; reconsulted GI. 6. Debility, continue restorative PT/ OT 7. Sinus tachycardia 8. Leukocytosis/Sirs, no fever observe, watch for HCAP. Treated UTI for 3 days. consider line infection; cx sent 9. Anemia 10. Past tobacco 11. COPD? 12. Recent bowel obstruction associated aspiration pneumonia/ARDS, appears to be resolving 13. Chr muscular dystrophy/CMT, continue supportive care 14. PEG malfunction? old records from [facility] requested but incomplete [11/06 sp 18 rizzo to g-tube site? 11/18 sp IR declogging]. 15. Ac cystitis; sp 3-day treatment. avoiding Rizzo. 16. Enterobacter c sputum, colonized? 17. Dysphagia; Video when stable Subjective: 11/27 Tolerating feeds no fever. Left leg tender 11/28 peg clogged? tolerating vent 11/29: Positive flatus no dyspnea fever. Recommended she try to avoid Rizzo and spouse agrees; Discomfort with turning. 12/07: started weaning from vent. tolerated slow ng feeds for 3 days, now clogged again. 12/08: events noted 12/09: occ cough. IR consulted for declogging. O: Vss; sr PE No pallor/ JVD. trach cdi Regular no mrg Diminished mechanical Bs+ nt nd no rrg; PEG c/d/i No edema. rt picc c/d/i Result Diagram: 12/08/18 0649 12/09/18 0548 Results 24hrs Laboratory Tests Test 12/09/18 05:48 Sodium Level 139 Potassium Level 3.8 Chloride Level 102 Carbon Dioxide Level 30 Anion Gap 7 Blood Urea Nitrogen 6 L Creatinine 0.50 Est Glomerular Filtrat Rate mL/min > 60 Glucose Level 122 Calcium Level 9.5 Phosphorus Level 5.3 H Magnesium Level 1.7 Exam/Review of Systems Exam Vitals Vital Signs Date Temp Pulse Resp B/P (MAP) Pulse Ox O2 O2 Flow FiO2 Time Delivery Rate 12/09/18 97.8 99 18 136/85 100 Mechanical 08:37 (102) Ventilator 12/09/18 30 08:08 Intake and Output 12/08/18 12/08/18 12/09/18 1515:00 23:00 07:00 IntakeIntake Total 200 ml 770 ml 655 ml BalanceBalance 200 ml 770 ml 655 ml Results Results 24hrs Laboratory Tests Test 12/09/18 05:48 Sodium Level 139 Potassium Level 3.8 Chloride Level 102 Carbon Dioxide Level 30 Anion Gap 7 Blood Urea Nitrogen 6 L Creatinine 0.50 Est Glomerular Filtrat Rate mL/min > 60 Glucose Level 122 Calcium Level 9.5 Phosphorus Level 5.3 H Magnesium Level 1.7 Medications Medication Current Medications IV Flush (NS 3 ml) 3 ml PER PROTOCOL IV ; Start 11/19/18 at 19:00 Enoxaparin Sodium (Lovenox) 40 mg DAILY SC Last administered on 12/09/18 09:29; Admin Dose 40 MG; Start 11/20/18 at 09:00 Levalbuterol (Xopenex Hfa) 4 puff Q3H RESP THERAPY PRN INH SHORTNESS OF BREATH Last administered on 12/09/18 08:00; Admin Dose 4 PUFF; Start 11/21/18 at 03:30 Ipratropium [place] (Atrovent Hfa) 4 puff Q3H RESP THERAPY PRN INH SHORTNESS OF BREATH Last administered on 12/04/18 13:20; Admin Dose 4 PUFF; Start 11/21/18 at 03:30 Zolpidem Tartrate (Ambien) 5 mg HS MAY REPEAT X 1 PRN PO INSOMNIA Last administered on 12/06/18 21:37; Admin Dose 5 MG; Start 11/21/18 at 05:30 Ondansetron HCl (Zofran Inj) 4 mg Q4 PRN IV NAUSEA/VOMITING Last administered on 12/09/18 09:31; Admin Dose 4 MG; Start 11/24/18 at 06:00 Guaifenesin/ Dextromethorphan (Robitussin Dm Liquid Cup) 5 ml Q4H PRN PO COUGH Last administered on 12/04/18 04:31; Admin Dose 5 ML; Start 11/26/18 at 02:00 Estradiol (Estraderm 0.1 Mg/24 Hr Patch) 1 patch [id number]@2000 TRANSDERM Last administered on 12/07/18 20:55; Admin Dose 1 PATCH; Start 11/27/18 at 20:00 Ibuprofen (Motrin Liquid (Ped)) 200 mg Q6 PRN GTB MILD PAIN LEVEL 1-3 Last administered on 12/03/18 12:12; Admin Dose 200 MG; Start 11/27/18 at 18:00 Bisacodyl (Dulcolax Supp) 10 mg Q48H PRN [place] CONSTIPATION; Start 11/27/18 at 18:00 Hydromorphone HCl (Dilaudid) 1 mg Q3H PRN IV SEVERE PAIN LEVEL 7-10 Last administered on 12/09/18 09:26; Admin Dose 1 MG; Start 11/28/18 at 14:30 Metoclopramide HCl (Reglan) 5 mg Q6H PRN IV nausea and vomitting Last administered on 12/05/18 06:21; Admin Dose 5 MG; Start 11/28/18 at 15:00 Ipratropium [place] (Atrovent Hfa) 4 puff Q8H RESP THERAPY INH Last administer ed on 12/09/18 08:00; Admin Dose 4 PUFF; Start 11/29/18 at 08:00 Ciprofloxacin/ Dextrose 200 ml @ 200 mls/hr Q12 IVPB Last administered on 12/08/18 09:08; Admin Dose 200 MLS/HR; Start 11/29/18 at 09:00 Oxycodone/ Acetaminophen (Endocet (10/ 325)) 1 tab Q4H PRN PO MODERATE PAIN LEVEL 4-6 Last administered on 12/06/18 03:29; Admin Dose 1 TAB; Start 12/02/18 at 09:00 Lorazepam (Ativan) 1 mg Q6 PRN IV AGITATION Last administered on 12/09/18 04:41; Admin Dose 1 MG; Start 11/30/18 at 18:00 Calcium Carbonate (Tums) 500 mg Q4 PRN PO HEARTBURN Last administered on 12/05/18at 17:48; Admin Dose 500 MG; Start 12/03/18 at 21:30 Al Hydrox/Mg Hydrox/Simethicone (Mag-Al Plus) 30 ml Q6H PRN PO GASTROINTESTINAL UPSET Last administered on 12/06/18at 12:36; Admin Dose 30 ML; Start 12/03/18 at 21:30 Lactulose (Enulose) 20 gm BID PRN JT CONSTIPATION; Start 12/04/18 at 15:00 Metoclopramide HCl (Reglan) 5 mg Q6 IV Last administered on 12/09/18at 06:46; Admin Dose 5 MG; Start 12/07/18 at 18:00 Famotidine (Pepcid Iv) 20 mg BID IV Last administered on 12/09/18 09:25; Admin Dose 20 MG; Start 12/07/18 at 21:00 Potassium Chloride/Dextrose/ Sod Cl 1,000 ml @ 70 mls/hr [id number] IV Last administered on 12/09/18 09:26; Admin Dose 70 MLS/HR; Start 12/07/18 at 16:00 Total Parenteral Nutrition 1,000 ml @ 0 mls/hr Q0M IV ; Start 12/08/18 at 17:26; Status UNV Fat Emulsion Intravenous 250 ml @ 10.4 mls/hr DAILY IV ; Start 12/09/18 at 09:00; Status UNV LLOYD VELASQUEZ MD Dec 09, 2018 09:50
--- NOTE | 2018-12-09 11:15 | CONS ---
Consultation Date/Type/Reason Admit Date/Time Nov 19, 2018 at 18:05 Initial Consult Date 11/29/18 Type of Consult Pulmonary Patient's condition is stable. Remains completely awake and alert. Denies any chest pain, shortness of breath any coughing. General exam; elderly female, on ventilator via tracheostomy, awake and alert. Currently in no distress. Able to talk. HEENT exam; supple neck, no JVD. No lymphadenopathy. Midline trachea. No thyromegaly. Patient has good dentition. Tracheostomy in place. Chest exam; diminished but clear breath sounds. S1-S2 audible, no murmurs. Regular rhythm. Abdomen exam; soft, nontender. No organomegaly. G-tube in place. Bowel sounds are audible. Extremity exam; no peripheral edema clubbing. Pulses 2+. [employer] exam; patient is awake alert able to talk. Exhibiting generalized weakness. Ventilator setting; AC of 16, tidal volume 500, PEEP of 5, 30% FiO2. Assessment and recommendations; 1. Patient with history of muscular dystrophy and VDRF admitted for pneumonia. 2. Mild increase in leukocytosis. 3. Anemia and UTI. Continue current supportive care. Patient to undergo weaning trials from ventilator. Because of increasing leukocytosis chest x-ray has been ordered. Further recommendations after chest x-ray is performed. I did have a detailed discussion with the patient's at bedside and answered all his questions. Date/Time of Note DATE: 12/09/18 TIME: 11:12 24 HR Interval Summary Free Text/Dictation Patient's condition is stable. Did have episode of shortness of breath last evening with interval improvement. General exam; elderly lady, awake alert, on ventilator via tracheostomy, curren tly no distress. Able to talk. H ENT exam; supple neck, no JVD. No lymphadenopathy. Midline trachea. No thyromegaly. Tracheostomy in place. Patient has good dentition. Chest exam; diminished but clear breath sounds. S1-S2 audible, no murmurs. Regular rhythm. Abdomen exam; soft, no organomegaly. Nontender. Nondistended. J-tube in place. Extremity exam; no peripheral edema clubbing. [employer] exam; patient is awake alert able to talk. No focal motor deficit. Ventilator setting; SIMV of 8, pressure support of 10, tidal volume 500, PEEP of 5, 30% FiO2. Assessment and recommendations; 1. Patient with history of muscular dystrophy and VDRF admitted for UTI and possibly some element of pneumonia. Chest x-ray showing interstitial changes most likely are chronic. CT abdomen pelvis including lower cuts of the lung are showing areas of cystic bronchiectasis. 2. Patient awaiting J-tube declogging. Continue current supportive care. Agree with stopping ciprofloxacin. Patient can be discharged to retirement after feeding tube is declogged. I did have a detailed discussion with the patient's as well as the patient herself at bedside and answered all their questions. Exam/Review of Systems Exam Vitals Vital Signs Date Temp Pulse Resp B/P (MAP) Pulse Ox O2 O2 Flow FiO2 Time Delivery Rate 12/09/18 113 28 99 30 10:58 12/09/18 97.8 136/85 Mechanical 08:37 (102) Ventilator Intake and Output 12/08/18 12/08/18 12/09/18 1515:00 23:00 07:00 IntakeIntake Total 200 ml 770 ml 655 ml BalanceBalance 200 ml 770 ml 655 ml Results Result Diagram: 12/08/18 0649 12/09/18 0548 Results 24hrs Laboratory Tests Test 12/09/18 05:48 Sodium Level 139 Potassium Level 3.8 Chloride Level 102 Carbon Dioxide Level 30 Anion Gap 7 Blood Urea Nitrogen 6 L Creatinine 0.50 Est Glomerular Filtrat Rate mL/min > 60 Glucose Level 122 Calcium Level 9.5 Phosphorus Level 5.3 H Magnesium Level 1.7 Medications Medication Current Medications IV Flush (NS 3 ml) 3 ml PER PROTOCOL IV ; Start 11/19/18 at 19:00 Enoxaparin Sodium (Lovenox) 40 mg DAILY SC Last administered on 12/09/18at 09:29; Admin Dose 40 MG; Start 11/20/18 at 09:00 Levalbuterol (Xopenex Hfa) 4 puff Q3H RESP THERAPY PRN INH SHORTNESS OF BREATH Last administered on 12/09/18at 08:00; Admin Dose 4 PUFF; Start 11/21/18 at 03:30 Ipratropium [place] (Atrovent Hfa) 4 puff Q3H RESP THERAPY PRN INH SHORTNESS OF BREATH Last administered on 12/04/18at 13:20; Admin Dose 4 PUFF; Start 11/21/18 at 03:30 Zolpidem Tartrate (Ambien) 5 mg HS MAY REPEAT X 1 PRN PO INSOMNIA Last admin istered on 12/06/18 21:37; Admin Dose 5 MG; Start 11/21/18 at 05:30 Ondansetron HCl (Zofran Inj) 4 mg Q4 PRN IV NAUSEA/VOMITING Last administered on 12/09/18 09:31; Admin Dose 4 MG; Start 11/24/18 at 06:00 Guaifenesin/ Dextromethorphan (Robitussin Dm Liquid Cup) 5 ml Q4H PRN PO COUGH Last administered on 12/04/18 04:31; Admin Dose 5 ML; Start 11/26/18 at 02:00 Estradiol (Estraderm 0.1 Mg/24 Hr Patch) 1 patch [id number]@2000 TRANSDERM Last administered on 12/07/18 20:55; Admin Dose 1 PATCH; Start 11/27/18 at 20:00 Ibuprofen (Motrin Liquid (Ped)) 200 mg Q6 PRN GTB MILD PAIN LEVEL 1-3 Last administered on 12/03/18 12:12; Admin Dose 200 MG; Start 11/27/18 at 18:00 Bisacodyl (Dulcolax Supp) 10 mg Q48H PRN [place] CONSTIPATION; Start 11/27/18 at 18:00 Hydromorphone HCl (Dilaudid) 1 mg Q3H PRN IV SEVERE PAIN LEVEL 7-10 Last administered on 12/09/18 09:26; Admin Dose 1 MG; Start 11/28/18 at 14:30 Metoclopramide HCl (Reglan) 5 mg Q6H PRN IV nausea and vomitting Last administered on 12/05/18 06:21; Admin Dose 5 MG; Start 11/28/18 at 15:00 Ipratropium [place] (Atrovent Hfa) 4 puff Q8H RESP THERAPY INH Last administered on 12/09/18 08:00; Admin Dose 4 PUFF; Start 11/29/18 at 08:00 Oxycodone/ Acetaminophen (Endocet (10/ 325)) 1 tab Q4H PRN PO MODERATE PAIN LEVEL 4-6 Last administered on 12/06/18 03:29; Admin Dose 1 TAB; Start 12/02/18 at 09:00 Lorazepam (Ativan) 1 mg Q6 PRN IV AGITATION Last administered on 12/09/18 04:41; Admin Dose 1 MG; Start 11/30/18 at 18:00 Calcium Carbonate (Tums) 500 mg Q4 PRN PO HEARTBURN Last administered on 12/05/18at 17:48; Admin Dose 500 MG; Start 12/03/18 at 21:30 Al Hydrox/Mg Hydrox/Simethicone (Mag-Al Plus) 30 ml Q6H PRN PO GASTROINTESTINAL UPSET Last administered on 12/06/18at 12:36; Admin Dose 30 ML; Start 12/03/18 at 21:30 Lactulose (Enulose) 20 gm BID PRN JT CONSTIPATION; Start 12/04/18 at 15:00 Metoclopramide HCl (Reglan) 5 mg Q6 IV Last administered on 12/09/18at 06:46; Admin Dose 5 MG; Start 12/07/18 at 18:00 Famotidine (Pepcid Iv) 20 mg BID IV Last administered on 12/09/18at 09:25; Admin Dose 20 MG; Start 12/07/18 at 21:00 Potassium Chloride/Dextrose/ Sod Cl 1,000 ml @ 70 mls/hr [id number] IV Last administered on 12/09/18 09:26; Admin Dose 70 MLS/HR; Start 12/07/18 at 16:00 Total Parenteral Nutrition 1,000 ml @ 0 mls/hr Q0M IV ; Start 12/08/18 at 17:26; Status UNV Fat Emulsion Intravenous 250 ml @ 10.4 mls/hr DAILY IV ; Start 12/09/18 at 0 9:00; Status UNV Magnesium Sulfate 3 gm/Dextrose 106 ml @ 35.333 mls/ hr ONCE ONCE IVPB ; Start 12/09/18 at 11:30; Stop 12/09/18 at 14:29 CONNOR NEVAREZ Dec 09, 2018 11:15
[2018-12-09] MEDS ORDERED: MAGNESIUM SULFATE 3 GM in DEXTROSE 5% 100 ML IVPB ONE (11:30)
[2018-12-09] MEDS ORDERED: FENTAnyl 50 MCG/ML VIAL ONE ×2 (13:22→14:49)
[2018-12-09] MEDS ORDERED: MIDAZOLAM 1 MG/ML 2 ML INJ ONE ×2 (13:22→14:41)
[2018-12-09] MEDS ORDERED: IOHEXOL 300MG/ML 30 ML BTL ONE (13:23)
[2018-12-09] MEDS ORDERED: LIDOCAINE 1% (MDV) 20 ML INJ ONE (14:34)
[2018-12-10] VITALS (19 sets, daily range): BP systolic 107–152; BP diastolic 56–77; PULSE 89–109; RESP 17–33
[2018-12-10] MEDS: IPRATROPIUM (HFA) 12.9 GM INHALER INH SCH ×3 (00:34→15:47)
[2018-12-10] MEDS: D5W-0.45 NACL + KCL 20 MEQ 1,000 ML IV SCH ×2 (02:56→15:39)
[2018-12-10] MEDS: LEVALBUTEROL (HFA) 15 GM INHALER INH PRN (04:11)
[2018-12-10] MEDS: IPRATROPIUM (HFA) 12.9 GM INHALER INH PRN (04:11)
[2018-12-10] MEDS: OXYCODONE/ACETAMINOPHEN (10/325) TAB PO PRN (04:59)
[2018-12-10] MEDS: METOCLOPRAMIDE 10 MG INJ IV SCH ×4 (05:02→18:29)
[2018-12-10] MEDS: BALSAM PERU/CASTOR OIL 60 GM TUBE TOP SCH (09:00)
--- NOTE | 2018-12-10 09:17 | CONS ---
Consultation Date/Type/Reason Admit Date/Time Nov 19, 2018 at 18:05 Initial Consult Date 11/29/18 Type of Consult Pulmonary Patient's condition is stable. Remains completely awake and alert. Denies any chest pain, shortness of breath any coughing. General exam; elderly female, on ventilator via tracheostomy, awake and alert. Currently in no distress. Able to talk. HEENT exam; supple neck, no JVD. No lymphadenopathy. Midline trachea. No thyromegaly. Patient has good dentition. Tracheostomy in place. Chest exam; diminished but clear breath sounds. S1-S2 audible, no murmurs. Regular rhythm. Abdomen exam; soft, nontender. No organomegaly. G-tube in place. Bowel sounds are audible. Extremity exam; no peripheral edema clubbing. Pulses 2+. MEDICAL LABORATORY TECHNOLOGIST exam; patient is awake alert able to talk. Exhibiting generalized weakness. Ventilator setting; AC of 16, tidal volume 500, PEEP of 5, 30% FiO2. Assessment and recommendations; 1. Patient with history of muscular dystrophy and VDRF admitted for pneumonia. 2. Mild increase in leukocytosis. 3. Anemia and UTI. Continue current supportive care. Patient to undergo weaning trials from ventilator. Because of increasing leukocytosis chest x-ray has been ordered. Further recommendations after chest x-ray is performed. I did have a detailed discussion with the patient's at bedside and answered all his questions. Date/Time of Note DATE: 12/10/18 TIME: 09:03 24 HR Interval Summary Free Text/Dictation Patient's condition is stable. Remains awake and alert. General exam; elderly lady, on ventilator via tracheostomy, currently no distress. H EENT exam; supple neck, no JVD. No lymphadenopathy. Midline trachea. No thyromegaly. Tracheostomy in place. Patient has good dentition. No neck masses. Chest exam; clear to auscultation. S1-S2 audible, no murmurs. Regular rhythm. Abdomen exam; soft, nontender. J-tube in place. Bowel sounds audible. Extremity exam; no peripheral edema clubbing. MEDICAL LABORATORY TECHNOLOGIST exam; no focal motor deficit. Patient though exhibiting generalized weakness. Ventilator setting; SIMV of 8, pressure support of 10, PEEP of 5, 30% FiO2. Assessment and recommendations; 1. Patient with a history of muscular dystrophy admitted for UTI due to Acinetobacter. Off antibiotics now. 2. Interstitial lung disease with bibasilar cystic bronchiectasis. 3. Patient's J-tube has clogged. Currently awaiting declogging procedure. Continue current supportive care. Patient can be transferred to senior living after J-tube can be used again. PMV trials as tolerated. Exam/Review of Systems Exam Vitals Vital Signs Date Temp Pulse Resp B/P (MAP) Pulse Ox O2 O2 Flow FiO2 Time Delivery Rate 12/10/18 97.7 93 20 139/65 98 Mechanical 07:50 (89) Ventilator 12/10/18 30 05:20 Intake and Output 12/09/18 12/09/18 12/10/18 1515:00 23:00 07:00 IntakeIntake Total 420 ml BalanceBalance 420 ml Results Result Diagram: 12/08/18 0649 12/10/18 0549 Results 24hrs Laboratory Tests Test 12/10/18 05:49 Sodium Level 135 Potassium Level 4.1 Chloride Level 99 Carbon Dioxide Level 32 H Anion Gap 4 L Blood Urea Nitrogen 8 Creatinine 0.48 Est Glomerular Filtrat Rate mL/min > 60 Glucose Level 125 Calcium Level 9.1 Phosphorus Level 4.8 Magnesium Level 2.2 Medications Medication Current Medications IV Flush (NS 3 ml) 3 ml PER PROTOCOL IV ; Start 11/19/18 at 19:00 Enoxaparin Sodium (Lovenox) 40 mg DAILY SC Last administered on 12/09/18at 09:29; Admin Dose 40 MG; Start 11/20/18 at 09:00 Levalbuterol (Xopenex Hfa) 4 puff Q3H RESP THERAPY PRN INH SHORTNESS OF BREATH Last administered on 12/10/18 04:11; Admin Dose 4 PUFF; Start 11/21/18 at 03:30 Ipratropium [place] (Atrovent Hfa) 4 puff Q3H RESP THERAPY PRN INH SHORTNESS OF BREATH Last administered on 12/10/18 04:11; Admin Dose 4 PUFF; Start 11/21/18 at 03:30 Zolpidem Tartrate (Ambien) 5 mg HS MAY REPEAT X 1 PRN PO INSOMNIA Last administered on 12/06/18 21:37; Admin Dose 5 MG; Start 11/21/18 at 05:30 Ondansetron HCl (Zofran Inj) 4 mg Q4 PRN IV NAUSEA/VOMITING Last administered on 12/09/18 09:31; Admin Dose 4 MG; Start 11/24/18 at 06:00 Guaifenesin/ Dextromethorphan (Robitussin Dm Liquid Cup) 5 ml Q4H PRN PO COUGH Last administered on 12/04/18 04:31; Admin Dose 5 ML; Start 11/26/18 at 02:00 Estradiol (Estraderm 0.1 Mg/24 Hr Patch) 1 patch MoFr@2000 TRANSDERM Last administered on 12/07/18 20:55; Admin Dose 1 PATCH; Start 11/27/18 at 20:00 Ibuprofen (Motrin Liquid (Ped)) 200 mg Q6 PRN GTB MILD PAIN LEVEL 1-3 Last administered on 12/03/18 12:12; Admin Dose 200 MG; Start 11/27/18 at 18:00 Bisacodyl (Dulcolax Supp) 10 mg Q48H PRN [place] CONSTIPATION; Start 11/27/18 at 18:00 Hydromorphone HCl (Dilaudid) 1 mg Q3H PRN IV SEVERE PAIN LEVEL 7-10 Last administered on 12/09/18 09:26; Admin Dose 1 MG; Start 11/28/18 at 14:30 Metoclopramide HCl (Reglan) 5 mg Q6H PRN IV nausea and vomitting Last administered on 12/05/18 06:21; Admin Dose 5 MG; Start 11/28/18 at 15:00 Ipratropium [place] (Atrovent Hfa) 4 puff Q8H RESP THERAPY INH Last administered on 12/10/18 00:34; Admin Dose 4 PUFF; Start 11/29/18 at 08:00 Oxycodone/ Acetaminophen (Endocet (10/ 325)) 1 tab Q4H PRN PO MODERATE PAIN LEVEL 4-6 Last administered on 12/10/18 04:59; Admin Dose 1 TAB; Start 12/02/18 at 09:00 Lorazepam (Ativan) 1 mg Q6 PRN IV AGITATION Last administered on 12/09/18 21:3 8; Admin Dose 1 MG; Start 11/30/18 at 18:00 Calcium Carbonate (Tums) 500 mg Q4 PRN PO HEARTBURN Last administered on 12/05/18 17:48; Admin Dose 500 MG; Start 12/03/18 at 21:30 Al Hydrox/Mg Hydrox/Simethicone (Mag-Al Plus) 30 ml Q6H PRN PO GASTROINTESTINAL UPSET Last administered on 12/06/18at 12:36; Admin Dose 30 ML; Start 12/03/18 at 21:30 Lactulose (Enulose) 20 gm BID PRN JT CONSTIPATION; Start 12/04/18 at 15:00 Metoclopramide HCl (Reglan) 5 mg Q6 IV Last administered on 12/10/18at 05:02; Admin Dose 5 MG; Start 12/07/18 at 18:00 Famotidine (Pepcid Iv) 20 mg BID IV Last administered on 12/09/18at 21:38; Admin Dose 20 MG; Start 12/07/18 at 21:00 Potassium Chloride/Dextrose/ Sod Cl 1,000 ml @ 70 mls/hr [id number] IV Last administered on 12/10/18at 02:56; Admin Dose 70 MLS/HR; Start 12/07/18 at 16:00 Total Parenteral Nutrition 1,000 ml @ 0 mls/hr Q0M IV ; Start 12/08/18 at 17:26; Status UNV Fat Emulsion Intravenous 250 ml @ 10.4 mls/hr DAILY IV ; Start 12/09/18 at 09:00; Status UNV CONNOR NEVAREZ Dec 10, 2018 09:17
[2018-12-10] MEDS: LORAZEPAM 2 MG INJ IV PRN ×2 (09:27→15:40)
[2018-12-10] MEDS: FAMOTIDINE 20 MG INJ IV SCH ×2 (09:58→20:28)
[2018-12-10] MEDS: ENOXAPARIN 40 MG/0.4 ML SYG SC SCH (10:11)
[2018-12-10] MEDS: ONDANSETRON 4 MG INJ IV PRN ×2 (11:01→18:45)
[2018-12-10] MEDS: HYDROmorphONE 1 MG/ML SYG IV PRN ×2 (11:08→18:46)
--- NOTE | 2018-12-10 13:42 | PN ---
Date/Time of Note Date/Time of Note DATE: 12/10/18 TIME: 13:39 Assessment/Plan VTE Prophylaxis Risk score (from Nsg)>0 risk: 8 SCD applied (from Nsg): Yes SCD contraindicated: low risk/ambulating Pharmacological prophylaxis: LMWH Lines/Catheters IV Catheter Type (from Nrsg): Mid Line Urinary Cath still in place: No Assessment/Plan Hospital Course A/P 1. Ac on chr respiratory failure, stable cont vent. started Weaning trials 3. VDRF, transfer to subacute when bed available and if tolerating tube feeds 3. Recent bowel obstruction [sp ex lap surgery 10/15 at [place]], [place] of adhesions. follow-up with surgeon 4. Morbid obesity sp surgery twice 5. Malnutrition cont/restart PEG feeds 6. Debility, continue restorative PT/ OT 7. Sinus tachycardia 8. Leukocytosis/Sirs, no fever observe, watch for HCAP. Treated UTI for 3 days. consider line infection; cx sent 9. Anemia 10. Past tobacco 11. COPD? 12. Recent bowel obstruction associated aspiration pneumonia/ARDS, appears to be resolving 13. Chr muscular dystrophy/CMT, continue supportive care 14. PEG malfunction. old records from [facility] requested but incomplete [11/06 sp 18 rizzo to g-tube site? 11/18 sp IR declogging]. sp exchange feeding tube here by IR 12/09. 15. Ac cystitis; sp 3-day treatment. avoiding Rizzo. 16. Enterobacter c sputum, colonized? 17. Dysphagia; Video when stable Subjective: 11/27 Tolerating feeds no fever. Left leg tender 11/28 peg clogged? tolerating vent 11/29: Positive flatus no dyspnea fever. Recommended she try to avoid Rizzo and spouse agrees; Discomfort with turning. 12/07: started weaning from vent. tolerated slow ng feeds for 3 days, now clogged again. 12/08: events noted 12/09: occ cough. IR consulted for declogging. 12/10: Stable, restartedd feeds. possible discharge to subacute Friday O: Vss; sr PE No pallor/ JVD. trach cdi Regular no mrg Diminished mechanical Bs+ nt nd no rrg; PEG c/d/i No edema. rt picc c/d/i Result Diagram: 12/08/18 0649 12/10/18 0549 Results 24hrs Laboratory Tests Test 12/10/18 05:49 Sodium Level 135 Potassium Level 4.1 Chloride Level 99 Carbon Dioxide Level 32 H Anion Gap 4 L Blood Urea Nitrogen 8 Creatinine 0.48 Est Glomerular Filtrat Rate mL/min > 60 Glucose Level 125 Calcium Level 9.1 Phosphorus Level 4.8 Magnesium Level 2.2 Exam/Review of Systems Exam Vitals Vital Signs Date Temp Pulse Resp B/P (MAP) Pulse Ox O2 O2 Flow FiO2 Time Delivery Rate 12/10/18 102 26 100 30 13:26 12/10/18 97.5 148/63 Mechanical 12:06 (91) Ventilator Intake and Output 12/09/18 12/09/18 12/10/18 1515:00 23:00 07:00 IntakeIntake Total 420 ml BalanceBalance 420 ml Results Results 24hrs Laboratory Tests Test 12/10/18 05:49 Sodium Level 135 Potassium Level 4.1 Chloride Level 99 Carbon Dioxide Level 32 H Anion Gap 4 L Blood Urea Nitrogen 8 Creatinine 0.48 Est Glomerular Filtrat Rate mL/min > 60 Glucose Level 125 Calcium Level 9.1 Phosphorus Level 4.8 Magnesium Level 2.2 Medications Medication Current Medications IV Flush (NS 3 ml) 3 ml PER PROTOCOL IV ; Start 11/19/18 at 19:00 Enoxaparin Sodium (Lovenox) 40 mg DAILY SC Last administered on 12/10/18 10:11; Admin Dose 40 MG; Start 11/20/18 at 09:00 Levalbuterol (Xopenex Hfa) 4 puff Q3H RESP THERAPY PRN INH SHORTNESS OF BREATH Last administered on 12/10/18 04:11; Admin Dose 4 PUFF; Start 11/21/18 at 03:30 Ipratropium [place] (Atrovent Hfa) 4 puff Q3H RESP THERAPY PRN INH SHORTNESS OF BREATH Last administered on 12/10/18 04:11; Admin Dose 4 PUFF; Start 11/21/18 at 03:30 Zolpidem Tartrate (Ambien) 5 mg HS MAY REPEAT X 1 PRN PO INSOMNIA Last administered on 12/06/18 21:37; Admin Dose 5 MG; Start 11/21/18 at 05:30 Ondansetron HCl (Zofran Inj) 4 mg Q4 PRN IV NAUSEA/VOMITING Last administered on 12/10/18 11:01; Admin Dose 4 MG; Start 11/24/18 at 06:00 Guaifenesin/ Dextromethorphan (Robitussin Dm Liquid Cup) 5 ml Q4H PRN PO COUGH Last administered on 12/04/18 04:31; Admin Dose 5 ML; Start 11/26/18 at 02:00 Estradiol (Estraderm 0.1 Mg/24 Hr Patch) 1 patch MoFr@2000 TRANSDERM Last a dministered on 12/07/18 20:55; Admin Dose 1 PATCH; Start 11/27/18 at 20:00 Ibuprofen (Motrin Liquid (Ped)) 200 mg Q6 PRN GTB MILD PAIN LEVEL 1-3 Last administered on 12/03/18 12:12; Admin Dose 200 MG; Start 11/27/18 at 18:00 Bisacodyl (Dulcolax Supp) 10 mg Q48H PRN [place] CONSTIPATION; Start 11/27/18 at 18:00 Hydromorphone HCl (Dilaudid) 1 mg Q3H PRN IV SEVERE PAIN LEVEL 7-10 Last administered on 12/10/18 11:08; Admin Dose 1 MG; Start 11/28/18 at 14:30 Metoclopramide HCl (Reglan) 5 mg Q6H PRN IV nausea and vomitting Last administered on 12/05/18 06:21; Admin Dose 5 MG; Start 11/28/18 at 15:00 Ipratropium [place] (Atrovent Hfa) 4 puff Q8H RESP THERAPY INH Last administered on 12/10/18 00:34; Admin Dose 4 PUFF; Start 11/29/18 at 08:00 Oxycodone/ Acetaminophen (Endocet (10/ 325)) 1 tab Q4H PRN PO MODERATE PAIN LEVEL 4-6 Last administered on 12/10/18 04:59; Admin Dose 1 TAB; Start 12/02/18 at 09:00 Lorazepam (Ativan) 1 mg Q6 PRN IV AGITATION Last administered on 12/10/18 09:27; Admin Dose 1 MG; Start 11/30/18 at 18:00 Calcium Carbonate (Tums) 500 mg Q4 PRN PO HEARTBURN Last administered on 12/05/18 17:48; Admin Dose 500 MG; Start 12/03/18 at 21:30 Al Hydrox/Mg Hydrox/Simethicone (Mag-Al Plus) 30 ml Q6H PRN PO GASTROINTESTINAL UPSET Last administered on 12/06/18at 12:36; Admin Dose 30 ML; Start 12/03/18 at 21:30 Lactulose (Enulose) 20 gm BID PRN JT CONSTIPATION; Start 12/04/18 at 15:00 Metoclopramide HCl (Reglan) 5 mg Q6 IV Last administered on 12/10/18at 05:02; Admin Dose 5 MG; Start 12/07/18 at 18:00 Famotidine (Pepcid Iv) 20 mg BID IV Last administered on 12/10/18at 09:58; Admin Dose 20 MG; Start 12/07/18 at 21:00 Potassium Chloride/Dextrose/ Sod Cl 1,000 ml @ 70 mls/hr [id number] IV Last administered on 12/10/18at 02:56; Admin Dose 70 MLS/HR; Start 12/07/18 at 16:00 Total Parenteral Nutrition 1,000 ml @ 0 mls/hr Q0M IV ; Start 12/08/18 at 17:26; Status UNV Fat Emulsion Intravenous 250 ml @ 10.4 mls/hr DAILY IV ; Start 12/09/18 at 09:00; Status UNV LLOYD VELASQUEZ MD Dec 10, 2018 13:42
[2018-12-10] MEDS ORDERED: IOHEXOL 300MG/ML 30 ML BTL ONE (14:45)
[2018-12-10] MEDS ORDERED: LACTULOSE 30ML CUP GTB ONE (23:00)
[2018-12-11] VITALS (19 sets, daily range): BP systolic 128–157; BP diastolic 60–85; PULSE 91–115; RESP 15–28
[2018-12-11] MEDS: METOCLOPRAMIDE 10 MG INJ IV SCH ×4 (00:18→17:54)
[2018-12-11] MEDS: IPRATROPIUM (HFA) 12.9 GM INHALER INH SCH ×4 (00:23→23:26)
[2018-12-11] MEDS: HYDROmorphONE 1 MG/ML SYG IV PRN ×4 (05:54→22:17)
[2018-12-11] MEDS: ONDANSETRON 4 MG INJ IV PRN ×4 (05:54→22:17)
[2018-12-11] MEDS: IPRATROPIUM (HFA) 12.9 GM INHALER INH PRN (06:04)
[2018-12-11] MEDS: LORAZEPAM 2 MG INJ IV PRN ×3 (08:20→18:26)
[2018-12-11] MEDS: FAMOTIDINE 20 MG INJ IV SCH (08:21)
[2018-12-11] MEDS: BALSAM PERU/CASTOR OIL 60 GM TUBE TOP SCH (08:21)
[2018-12-11] MEDS: ENOXAPARIN 40 MG/0.4 ML SYG SC SCH (08:35)
--- NOTE | 2018-12-11 12:11 | PN ---
Date/Time of Note Date/Time of Note DATE: 12/11/18 TIME: 12:06 Assessment/Plan VTE Prophylaxis Risk score (from Nsg)>0 risk: 2 SCD applied (from Ns): Yes SCD contraindicated: low risk/ambulating Pharmacological prophylaxis: LMWH Lines/Catheters IV Catheter Type (from Nrsg): Mid Line Urinary Cath still in place: No Assessment/Plan Hospital Course A/P 1. Ac on chr respiratory failure, stable cont vent. started Weaning trials 3. VDRF, transfer to subacute when bed available 3. Recent bowel obstruction [sp ex lap surgery 10/15 at [place]], [place] of adhesions. follow-up with surgeon 4. Morbid obesity sp surgery twice 5. Malnutrition cont PEG feeds 6. Debility, cont restorative PT/ OT 7. ST 8. Leukocytosis/Sirs, no fever observe, watch for HCAP. Treated UTI for 3 days. consider line infection; cx sent 9. Anemia 10. Past tobacco 11. COPD? 12. Recent bowel obstruction associated aspiration pneumonia/ARDS, appears to be resolving 13. Chr muscular dystrophy/CMT, continue supportive care 14. PEG malfunction. old records from [facility] requested but incomplete [11/06 sp 18 rizzo to g-tube site? 11/18 sp IR declogging]. sp exchange feeding tube here by IR 12/09. 15. Ac cystitis; sp 3-day treatment. avoiding Rizzo. 16. Enterobacter c sputum, colonized? 17. Dysphagia; Video when stable Subjective: 11/27: Tolerating feeds no fever. Left leg tender 11/28: peg clogged? tolerating vent 11/29: Positive flatus no dyspnea fever. Recommended she try to avoid Rizzo and spouse agrees; Discomfort with turning. 12/07: started weaning from vent. tolerated slow ng feeds for 3 days, now clogged again. 12/08: events noted 12/09: occ cough. IR consulted for declogging. 12/10: Stable, restartedd feeds. possible discharge to subacute Monday 12/11: no events. restarted/ tolerating feeds. aware of subacute transfer O: Vss; sr PE No pallor/ JVD. trach cdi Regular no mrg Diminished mechanical Bs+ nt nd no rrg; PEG c/d/i No edema. rt picc c/d/i Result Diagram: 12/11/18 0726 8/9/19 0726 Results 24hrs Laboratory Tests Test 12/11/18 07:26 White Blood Count 14.1 H Red Blood Count 3.79 L Hemoglobin 10.3 L Hematocrit 34.0 L Mean Corpuscular Volume 89.7 Mean Corpuscular Hemoglobin 27.2 L Mean Corpuscular Hemoglobin Concent 30.3 L Red Cell Distribution Width 14.0 Platelet Count 608 H Mean Platelet Volume 9.1 Immature Granulocytes % 0.800 H Neutrophils % 66.2 Lymphocytes % 18.3 Monocytes % 7.1 Eosinophils % 6.7 Basophils % 0.9 Nucleated Red Blood Cells % 0.0 Immature Granulocytes # 0.110 H Neutrophils # 9.4 H Lymphocytes # 2.6 Monocytes # 1.0 H Eosinophils # 1.0 H Basophils # 0.1 Nucleated Red Blood Cells # 0.0 Prothrombin Time 13.6 Prothrombin Time Ratio 1.1 INR International Normalized Ratio 1.03 Sodium Level 137 Potassium Level 4.1 Chloride Level 99 Carbon Dioxide Level 33 H Anion Gap 5 Blood Urea Nitrogen 8 Creatinine 0.54 Est Glomerular Filtrat Rate mL/min > 60 Glucose Level 151 Calcium Level 10.0 Phosphorus Level 4.9 Magnesium Level 1.9 Total Bilirubin 0.4 Direct Bilirubin 0.00 Indirect Bilirubin 0.4 Aspartate Amino Transf (AST/SGOT) 22 Alanine Aminotransferase (ALT/SGPT) 16 Alkaline Phosphatase 86 Total Protein 7.6 Albumin 3.6 Globulin 4.00 H Albumin/Globulin Ratio 0.90 Exam/Review of Systems Exam Vitals Vital Signs Date Temp Pulse Resp B/P (MAP) Pulse Ox O2 O2 Flow FiO2 Time Delivery Rate 12/11/18 98.8 107 20 134/62 97 Mechanical 11:26 (86) Ventilator Trach Collar 12/11/18 30 09:20 Intake and Output 12/10/18 12/10/18 12/11/18 1515:00 23:00 07:00 IntakeIntake Total 0 ml BalanceBalance 0 ml Results Results 24hrs Laboratory Tests Test 12/11/18 07:26 White Blood Count 14.1 H Red Blood Count 3.79 L Hemoglobin 10.3 L Hematocrit 34.0 L Mean Corpuscular Volume 89.7 Mean Corpuscular Hemoglobin 27.2 L Mean Corpuscular Hemoglobin Concent 30.3 L Red Cell Distribution Width 14.0 Platelet Count 608 H Mean Platelet Volume 9.1 Immature Granulocytes % 0.800 H Neutrophils % 66.2 Lymphocytes % 18.3 Monocytes % 7.1 Eosinophils % 6.7 Basophils % 0.9 Nucleated Red Blood Cells % 0.0 Immature Granulocytes # 0.110 H Neutrophils # 9.4 H Lymphocytes # 2.6 Monocytes # 1.0 H Eosinophils # 1.0 H Basophils # 0.1 Nucleated Red Blood Cells # 0.0 Prothrombin Time 13.6 Prothrombin Time Ratio 1.1 INR International Normalized Ratio 1.03 Sodium Level 137 Potassium Level 4.1 Chloride Level 99 Carbon Dioxide Level 33 H Anion Gap 5 Blood Urea Nitrogen 8 Creatinine 0.54 Est Glomerular Filtrat Rate mL/min > 60 Glucose Level 151 Calcium Level 10.0 Phosphorus Level 4.9 Magnesium Level 1.9 Total Bilirubin 0.4 Direct Bilirubin 0.00 Indirect Bilirubin 0.4 Aspartate Amino Transf (AST/SGOT) 22 Alanine Aminotransferase (ALT/SGPT) 16 Alkaline Phosphatase 86 Total Protein 7.6 Albumin 3.6 Globulin 4.00 H Albumin/Globulin Ratio 0.90 Medications Medication Current Medications IV Flush (NS 3 ml) 3 ml PER PROTOCOL IV ; Start 11/19/18 at 19:00 Enoxaparin Sodium (Lovenox) 40 mg DAILY SC Last administered on 12/11/18 08:35; Admin Dose 40 MG; Start 11/20/18 at 09:00 Levalbuterol (Xopenex Hfa) 4 puff Q3H RESP THERAPY PRN INH SHORTNESS OF BREATH Last administered on 12/10/18 04:11; Admin Dose 4 PUFF; Start 11/21/18 at 03:30 Ipratropium [place] (Atrovent Hfa) 4 puff Q3H RESP THERAPY PRN INH SHORTNESS OF BREATH Last administered on 12/11/18 06:04; Admin Dose 4 PUFF; Start 11/21/18 at 03:30 Zolpidem Tartrate (Ambien) 5 mg HS MAY REPEAT X 1 PRN PO INSOMNIA Last administered on 12/06/18 21:37; Admin Dose 5 MG; Start 11/21/18 at 05:30 Ondansetron HCl (Zofran Inj) 4 mg Q4 PRN IV NAUSEA/VOMITING Last administered on 12/11/18 11:00; Admin Dose 4 MG; Start 11/24/18 at 06:00 Guaifenesin/ Dextromethorphan (Robitussin Dm Liquid Cup) 5 ml Q4H PRN PO COUGH Last administered on 12/04/18 04:31; Admin Dose 5 ML; Start 11/26/18 at 02:00 Estradiol (Estraderm 0.1 Mg/24 Hr Patch) 1 patch MoFr@2000 TRANSDERM Last administered on 12/07/18 20:55; Admin Dose 1 PATCH; Start 11/27/18 at 20:00 Ibuprofen (Motrin Liquid (Ped)) 200 mg Q6 PRN GTB MILD PAIN LEVEL 1-3 Last administered on 12/03/18 12:12; Admin Dose 200 MG; Start 11/27/18 at 18:00 Bisacodyl (Dulcolax Supp) 10 mg Q48H PRN [place] CONSTIPATION; Start 11/27/18 at 18:00 Hydromorphone HCl (Dilaudid) 1 mg Q3H PRN IV SEVERE PAIN LEVEL 7-10 Last administered on 12/11/18 11:01; Admin Dose 1 MG; Start 11/28/18 at 14:30 Metoclopramide HCl (Reglan) 5 mg Q6H PRN IV nausea and vomitting Last administered on 12/05/18 06:21; Admin Dose 5 MG; Start 11/28/18 at 15:00 Ipratropium [place] (Atrovent Hfa) 4 puff Q8H RESP THERAPY INH Last admin istered on 12/11/18 07:45; Admin Dose 4 PUFF; Start 11/29/18 at 08:00 Oxycodone/ Acetaminophen (Endocet (10/ 325)) 1 tab Q4H PRN PO MODERATE PAIN LEVEL 4-6 Last administered on 12/10/18 04:59; Admin Dose 1 TAB; Start 12/02/18 at 09:00 Lorazepam (Ativan) 1 mg Q6 PRN IV AGITATION Last administered on 12/11/18 08:20; Admin Dose 1 MG; Start 11/30/18 at 18:00 Calcium Carbonate (Tums) 500 mg Q4 PRN PO HEARTBURN Last administered on 12/05/18 17:48; Admin Dose 500 MG; Start 12/03/18 at 21:30 Al Hydrox/Mg Hydrox/Simethicone (Mag-Al Plus) 30 ml Q6H PRN PO GASTROINTESTINAL UPSET Last administered on 12/06/18at 12:36; Admin Dose 30 ML; Start 12/03/18 at 21:30 Lactulose (Enulose) 20 gm BID PRN JT CONSTIPATION; Start 12/04/18 at 15:00 Metoclopramide HCl (Reglan) 5 mg Q6 IV Last administered on 12/11/18at 11:01; Admin Dose 5 MG; Start 12/07/18 at 18:00 Famotidine (Pepcid Iv) 20 mg BID IV Last administered on 12/11/18at 08:21; Admin Dose 20 MG; Start 12/07/18 at 21:00 LLOYD VELASQUEZ MD Dec 11, 2018 12:11
[2018-12-11] MEDS ORDERED: METOCLOPRAMIDE (1 MG/ML) 10 ML CUP GTB PRN (12:30)
--- NOTE | 2018-12-11 12:40 | CONS ---
Consult Date/Type/Reason Admit Date/Time Nov 19, 2018 at 18:05 Initial Consult Date Type of Consult Pulmonary Date/Time of Note DATE: 12/11/18 TIME: 12:40 Subjective Appears comfortable no new events. Objective Vital Signs Date Temp Pulse Resp B/P (MAP) Pulse Ox O2 O2 Flow FiO2 Time Delivery Rate 12/11/18 98.8 107 20 134/62 97 Mechanical 11:26 (86) Ventilator Trach Collar 12/11/18 30 09:20 Intake and Output 12/10/18 12/10/18 12/11/18 1515:00 23:00 07:00 IntakeIntake Total 0 ml BalanceBalance 0 ml Exam GENERAL: Well-nourished well-developed lady on mechanical ventilation VITAL SIGNS: per chart NECK: Supple. No JVD or lymphadenopathy. CARDIAC EXAM: S1, S2. No added sounds or murmurs. CHEST: clear bilaterally, No added sounds, rales or wheezes ABDOMEN: Soft, nontender. No guarding or rebound. EXTREMITIES: No cyanosis, clubbing or edema. NEUROLOGIC: Generalized weakness. No focal deficits. Vent Setting Ventilator Support Mode: PS Fraction of Inspired Oxygen pe: 30 Positive End Expiratory Pressu: 0.0 Results/Medications Result Diagram: 12/11/18 0712/11/18 07 Results 24 hrs Laboratory Tests Test 12/11/18 07:26 White Blood Count 14.1 H Red Blood Count 3.79 L Hemoglobin 10.3 L Hematocrit 34.0 L Mean Corpuscular Volume 89.7 Mean Corpuscular Hemoglobin 27.2 L Mean Corpuscular Hemoglobin Concent 30.3 L Red Cell Distribution Width 14.0 Platelet Count 608 H Mean Platelet Volume 9.1 Immature Granulocytes % 0.800 H Neutrophils % 66.2 Lymphocytes % 18.3 Monocytes % 7.1 Eosinophils % 6.7 Basophils % 0.9 Nucleated Red Blood Cells % 0.0 Immature Granulocytes # 0.110 H Neutrophils # 9.4 H Lymphocytes # 2.6 Monocytes # 1.0 H Eosinophils # 1.0 H Basophils # 0.1 Nucleated Red Blood Cells # 0.0 Prothrombin Time 13.6 Prothrombin Time Ratio 1.1 INR International Normalized Ratio 1.03 Sodium Level 137 Potassium Level 4.1 Chloride Level 99 Carbon Dioxide Level 33 H Anion Gap 5 Blood Urea Nitrogen 8 Creatinine 0.54 Est Glomerular Filtrat Rate mL/min > 60 Glucose Level 151 Calcium Level 10.0 Phosphorus Level 4.9 Magnesium Level 1.9 Total Bilirubin 0.4 Direct Bilirubin 0.00 Indirect Bilirubin 0.4 Aspartate Amino Transf (AST/SGOT) 22 Alanine Aminotransferase (ALT/SGPT) 16 Alkaline Phosphatase 86 Total Protein 7.6 Albumin 3.6 Globulin 4.00 H Albumin/Globulin Ratio 0.90 Medications Current Medications IV Flush (NS 3 ml) 3 ml PER PROTOCOL IV ; Start 11/19/18 at 19:00 Enoxaparin Sodium (Lovenox) 40 mg DAILY SC Last administered on 12/11/18 08:35; Admin Dose 40 MG; Start 11/20/18 at 09:00 Levalbuterol (Xopenex Hfa) 4 puff Q3H RESP THERAPY PRN INH SHORTNESS OF BREATH Last administered on 12/10/18 04:11; Admin Dose 4 PUFF; Start 11/21/18 at 03:30 Ipratropium [place] (Atrovent Hfa) 4 puff Q3H RESP THERAPY PRN INH SHORTNESS OF BREATH Last administered on 12/11/18 06:04; Admin Dose 4 PUFF; Start 11/21/18 at 03:30 Zolpidem Tartrate (Ambien) 5 mg HS MAY REPEAT X 1 PRN PO INSOMNIA Last administered on 12/06/18 21:37; Admin Dose 5 MG; Start 11/21/18 at 05:30 Ondansetron HCl (Zofran Inj) 4 mg Q4 PRN IV NAUSEA/VOMITING Last administered on 12/11/18 11:00; Admin Dose 4 MG; Start 11/24/18 at 06:00 Guaifenesin/ Dextromethorphan (Robitussin Dm Liquid Cup) 5 ml Q4H PRN PO COUGH Last administered on 12/04/18 04:31; Admin Dose 5 ML; Start 11/26/18 at 02:00 Estradiol (Estraderm 0.1 Mg/24 Hr Patch) 1 patch MoFr@2000 TRANSDERM Last administered on 12/07/18 20:55; Admin Dose 1 PATCH; Start 11/27/18 at 20:00 Ibuprofen (Motrin Liquid (Ped)) 200 mg Q6 PRN GTB MILD PAIN LEVEL 1-3 Last administered on 12/03/18 12:12; Admin Dose 200 MG; Start 11/27/18 at 18:00 Bisacodyl (Dulcolax Supp) 10 mg Q48H PRN [place] CONSTIPATION; Start 11/27/18 at 18:00 Hydromorphone HCl (Dilaudid) 1 mg Q3H PRN IV SEVERE PAIN LEVEL 7-10 Last administered on 12/11/18 11:01; Admin Dose 1 MG; Start 11/28/18 at 14:30 Ipratropium [place] (Atrovent Hfa) 4 puff Q8H RESP THERAPY INH Last administered on 12/11/18 07:45; Admin Dose 4 PUFF; Start 11/29/18 at 08:00 Oxycodone/ Acetaminophen (Endocet (10/ 325)) 1 tab Q4H PRN PO MODERATE PAIN LEVEL 4-6 Last administered on 12/10/18 04:59; Admin Dose 1 TAB; Start 12/02/18 at 09:00 Lorazepam (Ativan) 1 mg Q6 PRN IV AGITATION Last administered on 12/11/18 08:20; Admin Dose 1 MG; Start 11/30/18 at 18:00 Calcium Carbonate (Tums) 500 mg Q4 PRN PO HEARTBURN Last administered on 12/05/18 17:48; Admin Dose 500 MG; Start 12/03/18 at 21:30 Al Hydrox/Mg Hydrox/Simethicone (Mag-Al Plus) 30 ml Q6H PRN PO GASTROINTESTINAL UPSET Last administered on 12/06/18at 12:36; Admin Dose 30 ML; Start 12/03/18 at 21:30 Lactulose (Enulose) 20 gm BID PRN JT CONSTIPATION; Start 12/04/18 at 15:00 Metoclopramide HCl (Reglan) 5 mg Q6 IV Last administered on 12/11/18 11:01; Admin Dose 5 MG; Start 12/07/18 at 18:00 Metoclopramide HCl (Reglan Liq) 5 mg Q6H PRN GTB NAUSEA AND/OR VOMITING; Start 12/11/18 at 12:30; Stop 12/14/18 at 23:00 Famotidine (Pepcid) 20 mg BID GTB ; Start 12/11/18 at 21:00 Assessment/Plan Hospital Course (Demo Recall) IMP 1. Acute on chronic hypoxemic/hypercapnic respiratory failure 2. Possible healthcare-associated pneumonia 3. History of muscular dystrophy 4. Dysphagia with G-tube G-tube issues RECS: 1. Continue antibiotics. 2. TF/Free H20 3. Weaning as tolerated 4. GI recommendations DIL[facility] DOWNS MD, [facility] Dec 11, 2018 12:40
[2018-12-11] MEDS ORDERED: IBUPROFEN LIQUID (PED) 20 MG/ML CUP GTB PRN (18:30)
[2018-12-11] MEDS: FAMOTIDINE 20 MG TAB GTB SCH (20:15)
[2018-12-11] MEDS: ESTRADIOL 0.1 MG/24 HR PATCH TRANSDERM SCH (21:38)
[2018-12-12] VITALS (13 sets, daily range): BP systolic 116–133; BP diastolic 51–77; PULSE 95–115; RESP 10–28
[2018-12-12] MEDS: METOCLOPRAMIDE 10 MG INJ IV SCH ×4 (00:40→18:36)
[2018-12-12] MEDS: LORAZEPAM 2 MG INJ IV PRN ×3 (05:47→18:58)
[2018-12-12] MEDS: HYDROmorphONE 1 MG/ML SYG IV PRN ×3 (07:01→16:17)
[2018-12-12] MEDS: FAMOTIDINE 20 MG TAB GTB SCH (08:12)
[2018-12-12] MEDS: ONDANSETRON 4 MG INJ IV PRN ×2 (08:12→16:17)
[2018-12-12] MEDS: IPRATROPIUM (HFA) 12.9 GM INHALER INH SCH ×2 (08:23→16:15)
[2018-12-12] MEDS: ENOXAPARIN 40 MG/0.4 ML SYG SC SCH (08:37)
[2018-12-12] MEDS: BALSAM PERU/CASTOR OIL 60 GM TUBE TOP SCH (09:00)
--- NOTE | 2018-12-12 12:10 | CONS ---
Consult Date/Type/Reason Admit Date/Time Nov 19, 2018 at 18:05 Initial Consult Date Type of Consult Pulmonary Date/Time of Note DATE: 12/12/18 TIME: 12:09 Subjective Scheduled for discharge today. Tolerating SIMV. Objective Vital Signs Date Temp Pulse Resp B/P (MAP) Pulse Ox O2 O2 Flow FiO2 Time Delivery Rate 12/12/18 98.0 115 28 133/51 100 Mechanical 11:01 (78) Ventilator 12/12/18 30 08:23 Intake and Output 12/11/18 12/11/18 12/12/18 1515:00 23:00 07:00 IntakeIntake Total 60 ml 850 ml BalanceBalance 60 ml 850 ml Exam GENERAL: Well-nourished well-developed lady on mechanical ventilation VITAL SIGNS: per chart NECK: Supple. No JVD or lymphadenopathy. CARDIAC EXAM: S1, S2. No added sounds or murmurs. CHEST: clear bilaterally, No added sounds, rales or wheezes ABDOMEN: Soft, nontender. No guarding or rebound. EXTREMITIES: No cyanosis, clubbing or edema. NEUROLOGIC: Generalized weakness. No focal deficits. Vent Setting Ventilator Support Mode: PS, SIMV Fraction of Inspired Oxygen pe: 30 Positive End Expiratory Pressu: 5.0 Results/Medications Result Diagram: 12/11/1872512/11/18725 Medications Current Medications IV Flush (NS 3 ml) 3 ml PER PROTOCOL IV ; Start 11/19/18 at 19:00 Enoxaparin Sodium (Lovenox) 40 mg DAILY SC Last administered on 12/12/18 08:37; Admin Dose 40 MG; Start 11/20/18 at 09:00 Levalbuterol (Xopenex Hfa) 4 puff Q3H RESP THERAPY PRN INH SHORTNESS OF BREATH Last administered on 12/10/18 04:11; Admin Dose 4 PUFF; Start 11/21/18 at 03:30 Ipratropium [place] (Atrovent Hfa) 4 puff Q3H RESP THERAPY PRN INH SHORTNESS OF BREATH Last administered on 12/11/18 06:04; Admin Dose 4 PUFF; Start 11/21/18 at 03:30 Zolpidem Tartrate (Ambien) 5 mg HS MAY REPEAT X 1 PRN PO INSOMNIA Last adminis tered on 12/06/18at 21:37; Admin Dose 5 MG; Start 11/21/18 at 05:30 Ondansetron HCl (Zofran Inj) 4 mg Q4 PRN IV NAUSEA/VOMITING Last administered on 12/12/18 08:12; Admin Dose 4 MG; Start 11/24/18 at 06:00 Guaifenesin/ Dextromethorphan (Robitussin Dm Liquid Cup) 5 ml Q4H PRN PO COUGH Last administered on 12/04/18 04:31; Admin Dose 5 ML; Start 11/26/18 at 02:00 Estradiol (Estraderm 0.1 Mg/24 Hr Patch) 1 patch MoFr@2000 TRANSDERM Last administered on 12/11/18 21:38; Admin Dose 1 PATCH; Start 11/27/18 at 20:00 Bisacodyl (Dulcolax Supp) 10 mg Q48H PRN [place] CONSTIPATION; Start 11/27/18 at 18:00 Hydromorphone HCl (Dilaudid) 1 mg Q3H PRN IV SEVERE PAIN LEVEL 7-10 Last administered on 12/12/18 11:50; Admin Dose 1 MG; Start 11/28/18 at 14:30 Ipratropium [place] (Atrovent Hfa) 4 puff Q8H RESP THERAPY INH Last administered on 12/12/18 08:23; Admin Dose 4 PUFF; Start 11/29/18 at 08:00 Oxycodone/ Acetaminophen (Endocet (10/ 325)) 1 tab Q4H PRN PO MODERATE PAIN LEVEL 4-6 Last administered on 12/10/18 04:59; Admin Dose 1 TAB; Start 12/02/18 at 09:00 Lorazepam (Ativan) 1 mg Q6 PRN IV AGITATION Last administered on 12/12/18 05:47; Admin Dose 1 MG; Start 11/30/18 at 18:00 Calcium Carbonate (Tums) 500 mg Q4 PRN PO HEARTBURN Last administered on 12/05/18 17:48; Admin Dose 500 MG; Start 12/03/18 at 21:30 Al Hydrox/Mg Hydrox/Simethicone (Mag-Al Plus) 30 ml Q6H PRN PO GASTROINTESTINAL UPSET Last administered on 12/06/18 12:36; Admin Dose 30 ML; Start 12/03/18 at 21:30 Lactulose (Enulose) 20 gm BID PRN JT CONSTIPATION; Start 12/04/18 at 15:00 Metoclopramide HCl (Reglan) 5 mg Q6 IV Last administered on 12/12/18at 11:51; Admin Dose 5 MG; Start 12/07/18 at 18:00 Metoclopramide HCl (Reglan Liq) 5 mg Q6H PRN GTB NAUSEA AND/OR VOMITING; Start 12/11/18 at 12:30; Stop 12/14/18 at 23:00 Famotidine (Pepcid) 20 mg BID GTB Last administered on 12/12/18at 08:12; Admin Dose 20 MG; Start 12/11/18 at 21:00 Ibuprofen (Motrin Liquid (Ped)) 600 mg Q6H PRN GTB MILD PAIN LEVEL 1-3; Start 12/11/18 at 18:30 Assessment/Plan Hospital Course (Demo Recall) IMP 1. Acute on chronic hypoxemic/hypercapnic respiratory failure 2. Possible healthcare-associated pneumonia 3. History of muscular dystrophy 4. Dysphagia with G-tube G-tube issues now functioning adequately RECS: 1. Continue antibiotics. 2. TF/Free H20 3. Weaning as tolerated, decrease SIMV rate from 8-6 4. GI recommendations Agree with DC planning. DILAN DOWNS MD, [facility] Dec 12, 2018 12:10
[2018-12-12] MEDS: IPRATROPIUM (HFA) 12.9 GM INHALER INH PRN (12:11)
--- NOTE | 2018-12-12 18:08 | PDOCDIS ---
Discharge Instructions CONDITION [id number] Patient Condition: [id number] Stable HOME CARE INSTRUCTIONS: [id number] Special Diet: [id number] Fibersource to goal of 55. 40 cc free water every 4 hours ACTIVITY: [id number] Activity Restrictions: [id number] Slowly Increase Activity Rest between Activity Do not Drive FOLLOW UP/APPOINTMENTS Follow-up Plan Appointment primary 1 week. Pulmonary to follow. Dr. Norton 2 weeks [place] surgeon 1 week LLOYD VELASQUEZ MD Dec 12, 2018 18:08
--- NOTE | 2018-12-13 15:19 | DS ---
Date/Time of Note Date/Time of Note DATE: 12/13/18 TIME: 15:14 Discharge Summary Admission/Discharge Info Admit Date/Time Nov 19, 2018 at 18:05 Discharge Date/Time Dec 12, 2018 at 19:20 Patient Condition: Stable Consults [facility] Procedures Chest x-ray KUB Venous ultrasound Interventional radiology guided feeding tube exchange Hx of Present Illness Admitted and evaluated for respiratory distress Hospital Course Entry for 8/10 H Course evaluated for respiratory distress. Patient underwent slow respiratory weaning from her vent. Sp trach prior to arrival. Once her comorbidities stabilized we attempted weaning. In terms of the respiratory arrest we did not find any new pneumonia. Patient is still recuperating from her ARDS from her recent hospitalization at [place]. Another issue was feeding. Her G-tube/Rizzo was blocked again and therefore IR guided exchange was required and was successful. Patient is tolerating feeds and therefore we continued weaning. Stabilized & discharge to SNF/subacute A/P 1. Ac on chr respiratory failure, stable cont vent. started Weaning trials 3. VDRF, transfer to subacute when bed available 3. Recent bowel obstruction [sp ex lap surgery 10/15 at [place]], [place] of adhesions. follow-up with surgeon 4. Morbid obesity sp surgery twice 5. Malnutrition cont PEG feeds 6. Debility, cont restorative PT/ OT 7. ST 8. Leukocytosis/Sirs, no fever observe, watch for HCAP. Treated UTI for 3 days. consider line infection; cx sent 9. Anemia 10. Past tobacco 11. COPD? 12. Recent bowel obstruction associated aspiration pneumonia/ARDS, appears to be resolving 13. Chr muscular dystrophy/CMT, continue supportive care 14. PEG malfunction. old records [facility] requested but incomplete [11/06 sp 18 rizzo to g-tube site? 11/18 sp IR declogging]. sp exchange feeding tube here by IR 12/09. 15. Ac cystitis; sp 3-day treatment. avoiding Rizzo. 16. Enterobacter c sputum, colonized? 17. Dysphagia; Video when stable Subjective: 11/27: Tolerating feeds no fever. Left leg tender 11/28: peg clogged? tolerating vent 11/29: Positive flatus no dyspnea fever. Recommended she try to avoid Rizzo and spouse agrees; Discomfort with turning. 12/07: started weaning from vent. tolerated slow ng feeds for 3 days, now clogged again. 12/08: events noted 12/09: occ cough. IR consulted for declogging. 12/10: Stable, restartedd feeds. possible discharge to subacute Monday 12/11: no events. restarted/ tolerating feeds. aware of subacute transfer 12/12: Tolerating tube feeds O: Vss; sr PE No pallor/ JVD. trach cdi Regular no mrg Diminished mechanical Bs+ nt nd no rrg; PEG c/d/i No edema. rt picc c/d/i Home Meds Reported Medications Fluticasone Propionate* (Flovent* HFA 220) 12 Gm Inha, 2 PUFF INHALATION BID, #1 INHALER 11/20/18 Cyanocobalamin* (Vitamin B12*) 500 Mcg Tab, 5000 MCG PO DAILY, TAB 11/20/18 Cholecalciferol* (Vitamin D3*) 1,000 Unit Tablet, 1000 UNIT PO DAILY, TAB 11/20/18 Calcium Citrate* (Citracal*) 950 Mg Tab, 250 MG PO DAILY, TAB 11/20/18 Biotin (Biotin) 10 Mg Tablet, 10 MG PO DAILY, TAB 11/20/18 Ascorbic Acid (Vitamin C) 500 Mg Tab, 500 MG PO BID, TAB 11/20/18 Amitriptyline Hcl* (Amitriptyline Hcl*) 100 Mg Tablet, 100 MG PO QHS, #30 TAB 11/20/18 Discontinued Reported Medications Acetaminophen* (Tylophen*) 500 Mg Capsule, 500 MG PO Q6H PRN for MILD PAIN LEVEL 1-3, TAB 11/20/18 Tramadol HCl (Tramadol HCl) 50 Mg Tablet, 50 MG PO Q6H PRN for PAIN, #120 TAB 11/20/18 Diclofenac Sodium (Pennsaid) 2 Gm Soln.pk.g., 2 GM TP TID 11/20/18 Oxycodone Hcl-Acetaminophen* (Oxycodone Hcl-Acetaminophen*) 2.5-325 Mg Tablet, 1 TAB PO Q6, TAB 11/20/18 Follow-up Plan Appointment primary 1 week. Pulmonary to follow. Dr. Norton 2 weeks [place] surgeon 1 week Primary Care Provider Not On Staff Doctor Time spent on discharge: > 30 minutes LLOYD VELASQUEZ MD Dec 13, 2018 15:19
== END 2018-12-12 19:20 | DRG 870 ==
LOC: E/R 23:10 → EDBD 23:10 → TEL 11-19 18:05 → EDBEDREQ 11-19 18:11 → TEL 11-22 23:08
PROVIDERS: ADMIT Internal Medicine; ATTEND Internal Medicine
PROC: 5A1955Z Respiratory Ventilation, Greater than 96 Consecutive Hours (ICD-10-PCS; principal; 2018-11-19)
PROC: 0D20XUZ Change Feeding Device in Upper Intestinal Tract, External Approach (ICD-10-PCS; 2018-12-09)
DX: A41.9 Sepsis, unspecified organism (principal); J96.21 Acute and chronic respiratory failure with hypoxia; J18.9 Pneumonia, unspecified organism; Z99.11 Dependence on respirator [ventilator] status; E46 Unspecified protein-calorie malnutrition; N30.00 Acute cystitis without hematuria; K94.23 Gastrostomy malfunction; E66.01 Morbid (severe) obesity due to excess calories; J44.9 Chronic obstructive pulmonary disease, unspecified; R13.10 Dysphagia, unspecified; D63.8 Anemia in other chronic diseases classified elsewhere; G71.09 Other specified muscular dystrophies; G60.0 Hereditary motor and sensory neuropathy; G89.29 Other chronic pain; K59.00 Constipation, unspecified; R53.81 Other malaise; Y95 Nosocomial condition; Z68.39 Body mass index [BMI] 39.0-39.9, adult; Z87.891 Personal history of nicotine dependence; Z98.84 Bariatric surgery status; Z93.0 Tracheostomy status; Z74.01 Bed confinement status; Z79.891 Long term (current) use of opiate analgesic
CPT/HCPCS: 36415; 36600; 49465; 71045; 73120; 74018; 74176; 80048; 80053; 80202; 81001; 82803; 83036; 83605; 83735; 83880; 84100; 84134; 84145; 84443; 84484; 85025; 85610; 85730; 87070; 87081; 87086; 92507; 92523; 92526; 92610; 93005; 93970; 94002; 94003; 94640; 96374; 97110; 97163; 97167; 97530; 97535; C9113; J0744; J1170; J1650; J2060; J2250; J2405; J2543; J2765; J3010; J3370; J3475; J3480; J7040; J7042; Q9967

== ENCOUNTER 2018-12-13 10:53 | Inpatient (IN) | payer BC, MEDICAID ==
[~2018-12-13] VITALS: Ht 152.4 cm; Wt 71.1 kg
[~2018-12-13 10:53] MED LIST changes: -ACET500C5 PO; -DICL2SOL TP; -OXYC1TAB6 PO; -TRAM50TA2 PO
[2018-12-13] MEDS ORDERED: LORAZEPAM 2 MG INJ IV ONE (11:30)
[2018-12-13] MEDS ORDERED: VANCOMYCIN 1 GM (PMX) 250 ML IVPB ONE (12:30)
[2018-12-13] MEDS ORDERED: SOD CHLORIDE 0.9% 1,000 ML IV ONE (12:30)
[2018-12-13] MEDS ORDERED: PIPER-TAZO 3.375 GM IV (PMX) 100 ML IVPB ONE (12:30)
[2018-12-13] MEDS ORDERED: ACETAMINOPHEN 325 MG TAB PO PRN (14:00)
[2018-12-13] MEDS ORDERED: BISACODYL (EC) 5 MG TAB PO PRN (14:30)
[2018-12-13] MEDS ORDERED: ZOLPIDEM 5 MG TAB PO PRN (14:30)
[2018-12-13] MEDS ORDERED: ACETAMINOPHEN 650 MG SUPP PR PRN (14:30)
[2018-12-13] MEDS ORDERED: DOCUSATE SODIUM 100 MG CAP PO PRN (14:30)
[2018-12-13] MEDS ORDERED: morphine 2 MG INJ IV PRN (14:30)
[2018-12-13] MEDS ORDERED: NACL 0.9% 3 ML SYG IV SCH (14:30)
[2018-12-13] MEDS: ONDANSETRON 4 MG INJ IV PRN (15:29)
[2018-12-13] MEDS: HYDROmorphONE 2 MG/ML SYG IV PRN (15:30)
[2018-12-13 18:08] VITALS: RESP 20
[2018-12-13 18:40] VITALS: Ht 152.4 cm; Wt 71.1 kg
[2018-12-13 19:22] VITALS: RESP 16
[2018-12-13 20:00] VITALS: BP 125/71; PULSE 99; RESP 20
[2018-12-13] MEDS: AMITRIPTYLINE 50 MG TAB PO SCH (20:08)
[2018-12-13] MEDS: HYDROCODONE/APAP (5/325) TAB PO PRN (20:08)
[2018-12-13] MEDS: FAMOTIDINE 20 MG TAB PO SCH (20:08)
[2018-12-13] MEDS: ASCORBIC ACID 500 MG TAB PO SCH (20:08)
[2018-12-13] MEDS: MOMETASONE 0.24 GM INHALER INH SCH (21:00)
[2018-12-13 21:37] VITALS: RESP 15
[2018-12-13 23:48] VITALS: RESP 16
[2018-12-14] VITALS (19 sets, daily range): BP systolic 98–141; BP diastolic 6–74; PULSE 87–116; RESP 12–24
[2018-12-14] MEDS: HYDROmorphONE 2 MG/ML SYG IV PRN ×3 (01:07→20:01)
[2018-12-14] MEDS ORDERED: BIOTIN 10 MG PO SCH (09:00)
[2018-12-14] MEDS: FAMOTIDINE 20 MG TAB PO SCH ×2 (09:02→20:53)
[2018-12-14] MEDS: ONDANSETRON 4 MG INJ IV PRN ×2 (09:02→20:01)
[2018-12-14] MEDS: CHOLECALCIFEROL 1,000 UNIT TAB PO SCH (09:02)
[2018-12-14] MEDS: ASCORBIC ACID 500 MG TAB PO SCH ×2 (09:02→20:54)
[2018-12-14] MEDS: CALCIUM CARBONATE 500 MG CHEW TAB PO SCH (09:02)
[2018-12-14] MEDS: MOMETASONE 0.24 GM INHALER INH SCH ×2 (09:13→20:54)
[2018-12-14] MEDS: ENOXAPARIN 40 MG/0.4 ML SYG SC SCH (09:20)
[2018-12-14] MEDS: LORAZEPAM 1 MG TAB PEG PRN ×2 (11:44→17:46)
[2018-12-14] MEDS: CYANOCOBALAMIN 500 MCG TAB PO SCH (13:21)
[2018-12-14] MEDS ORDERED: ALBUTEROL/IPRATROPIUM (NEB) 3 ML AMP HHN PRN (16:00)
[2018-12-14] MEDS: ALBUTEROL/IPRATROPIUM (NEB) 3 ML AMP HHN SCH ×2 (16:28→19:34)
[2018-12-14] MEDS ORDERED: MECLIZINE 12.5 MG TAB PO PRN (16:30)
[2018-12-14] MEDS: AMITRIPTYLINE 50 MG TAB PO SCH (20:53)
[2018-12-15] VITALS (17 sets, daily range): BP systolic 104–129; BP diastolic 52–71; PULSE 88–95; RESP 13–24
[2018-12-15] MEDS: IPRATROPIUM (HFA) 12.9 GM INHALER INH SCH ×4 (01:59→19:23)
[2018-12-15] MEDS: ALBUTEROL HFA 8 GM INHALER INH SCH ×4 (01:59→19:23)
[2018-12-15] MEDS: FAMOTIDINE 20 MG TAB PO SCH ×2 (08:21→20:56)
[2018-12-15] MEDS: ASCORBIC ACID 500 MG TAB PO SCH ×2 (08:21→20:56)
[2018-12-15] MEDS: CALCIUM CARBONATE 500 MG CHEW TAB PO SCH (08:21)
[2018-12-15] MEDS: CHOLECALCIFEROL 1,000 UNIT TAB PO SCH (08:21)
[2018-12-15] MEDS: CYANOCOBALAMIN 500 MCG TAB PO SCH (08:22)
[2018-12-15] MEDS: ENOXAPARIN 40 MG/0.4 ML SYG SC SCH (08:30)
[2018-12-15] MEDS: ONDANSETRON 4 MG INJ IV PRN ×3 (08:40→20:55)
[2018-12-15] MEDS: HYDROmorphONE 2 MG/ML SYG IV PRN ×3 (08:40→20:56)
[2018-12-15] MEDS: MOMETASONE 0.24 GM INHALER INH SCH ×2 (09:00→20:55)
[2018-12-15] MEDS: IBUPROFEN 400 MG TAB PO SCH ×3 (10:52→22:30)
[2018-12-15] MEDS: ESTRADIOL 0.1 MG/24 HR PATCH TRANSDERM SCH (10:57)
[2018-12-15] MEDS: LORAZEPAM 1 MG TAB PEG PRN (11:26)
[2018-12-15] MEDS: HYDROCODONE/APAP (5/325) TAB PO PRN (17:45)
[2018-12-15] MEDS: AMITRIPTYLINE 50 MG TAB PO SCH (20:56)
[2018-12-16] VITALS (18 sets, daily range): BP systolic 93–137; BP diastolic 47–72; PULSE 82–99; RESP 15–23
[2018-12-16] MEDS: ALBUTEROL HFA 8 GM INHALER INH SCH ×4 (01:15→19:36)
[2018-12-16] MEDS: IPRATROPIUM (HFA) 12.9 GM INHALER INH SCH ×4 (01:15→19:36)
[2018-12-16] MEDS: IBUPROFEN 400 MG TAB PO SCH ×4 (04:32→21:31)
[2018-12-16] MEDS: ASCORBIC ACID 500 MG TAB PO SCH ×2 (09:02→21:31)
[2018-12-16] MEDS: FAMOTIDINE 20 MG TAB PO SCH ×2 (09:02→21:31)
[2018-12-16] MEDS: HYDROCODONE/APAP (5/325) TAB PO PRN (09:02)
[2018-12-16] MEDS: CALCIUM CARBONATE 500 MG CHEW TAB PO SCH (09:02)
[2018-12-16] MEDS: CYANOCOBALAMIN 500 MCG TAB PO SCH (09:02)
[2018-12-16] MEDS: CHOLECALCIFEROL 1,000 UNIT TAB PO SCH (09:03)
[2018-12-16] MEDS: ENOXAPARIN 40 MG/0.4 ML SYG SC SCH (09:05)
[2018-12-16] MEDS: MOMETASONE 0.24 GM INHALER INH SCH ×2 (09:05→21:00)
[2018-12-16] MEDS: LORAZEPAM 1 MG TAB PEG PRN ×2 (09:13→21:31)
[2018-12-16] MEDS: ONDANSETRON 4 MG INJ IV PRN ×2 (13:10→19:53)
[2018-12-16] MEDS: HYDROmorphONE 2 MG/ML SYG IV PRN ×2 (13:10→19:54)
[2018-12-16] MEDS: KETOROLAC 15 MG INJ IV PRN (16:48)
[2018-12-16] MEDS: AMITRIPTYLINE 50 MG TAB PO SCH (21:30)
[2018-12-16] MEDS: MAGNESIUM OXIDE 400 MG TAB GTB SCH (21:31)
[2018-12-17] VITALS (18 sets, daily range): BP systolic 101–131; BP diastolic 54–80; PULSE 84–102; RESP 16–27
[2018-12-17] MEDS: ALBUTEROL HFA 8 GM INHALER INH SCH ×4 (01:21→19:15)
[2018-12-17] MEDS: IPRATROPIUM (HFA) 12.9 GM INHALER INH SCH ×4 (01:21→19:16)
[2018-12-17] MEDS: IBUPROFEN 400 MG TAB PO SCH ×2 (04:28→10:46)
[2018-12-17] MEDS: KETOROLAC 15 MG INJ IV PRN ×2 (04:31→21:48)
[2018-12-17] MEDS: MOMETASONE 0.24 GM INHALER INH SCH ×2 (09:00→21:00)
[2018-12-17] MEDS ORDERED: BARIUM SULFATE 135 ML (E-Z HD) PO ONE (10:04)
[2018-12-17] MEDS: ASCORBIC ACID 500 MG TAB PO SCH ×2 (10:34→21:00)
[2018-12-17] MEDS: MAGNESIUM OXIDE 400 MG TAB GTB SCH ×2 (10:34→21:49)
[2018-12-17] MEDS: CALCIUM CARBONATE 500 MG CHEW TAB PO SCH (10:34)
[2018-12-17] MEDS: FAMOTIDINE 20 MG TAB PO SCH ×2 (10:35→21:49)
[2018-12-17] MEDS: CHOLECALCIFEROL 1,000 UNIT TAB PO SCH (10:35)
[2018-12-17] MEDS: ENOXAPARIN 40 MG/0.4 ML SYG SC SCH (10:58)
[2018-12-17] MEDS: LORAZEPAM 1 MG TAB PEG PRN ×2 (11:31→21:49)
[2018-12-17] MEDS: HYDROmorphONE 2 MG/ML SYG IV PRN ×2 (12:20→18:12)
[2018-12-17] MEDS: ONDANSETRON 4 MG INJ IV PRN ×2 (12:20→18:18)
[2018-12-17] MEDS ORDERED: IBUPROFEN 400 MG TAB PO PRN (16:30)
[2018-12-17] MEDS: METOCLOPRAMIDE 5 MG TAB PO SCH ×2 (18:13→21:49)
[2018-12-17] MEDS: AMITRIPTYLINE 50 MG TAB PO SCH (21:00)
[2018-12-17] MEDS: LACTOBACILLUS RHAMNOSUS CAP PO SCH (21:49)
[2018-12-18] VITALS (18 sets, daily range): BP systolic 112–141; BP diastolic 55–72; PULSE 89–109; RESP 12–27
[2018-12-18] MEDS: IPRATROPIUM (HFA) 12.9 GM INHALER INH SCH ×4 (01:43→19:58)
[2018-12-18] MEDS: ALBUTEROL HFA 8 GM INHALER INH SCH ×4 (01:43→19:58)
[2018-12-18] MEDS: ONDANSETRON 4 MG INJ IV PRN ×2 (06:17→17:57)
[2018-12-18] MEDS: HYDROmorphONE 2 MG/ML SYG IV PRN ×3 (06:18→21:00)
[2018-12-18] MEDS: CHOLECALCIFEROL 1,000 UNIT TAB PO SCH (08:04)
[2018-12-18] MEDS: MAGNESIUM OXIDE 400 MG TAB GTB SCH ×2 (08:04→20:59)
[2018-12-18] MEDS: ASCORBIC ACID 500 MG TAB PO SCH ×2 (08:05→20:59)
[2018-12-18] MEDS: CALCIUM CARBONATE 500 MG CHEW TAB PO SCH (08:05)
[2018-12-18] MEDS: METOCLOPRAMIDE 5 MG TAB PO SCH ×3 (08:05→20:59)
[2018-12-18] MEDS: LACTOBACILLUS RHAMNOSUS CAP PO SCH ×2 (08:05→20:58)
[2018-12-18] MEDS: FAMOTIDINE 20 MG TAB PO SCH ×2 (08:05→20:59)
[2018-12-18] MEDS: KETOROLAC 15 MG INJ IV PRN (08:05)
[2018-12-18] MEDS: MOMETASONE 0.24 GM INHALER INH SCH ×2 (08:06→21:00)
[2018-12-18] MEDS: ENOXAPARIN 40 MG/0.4 ML SYG SC SCH (08:33)
[2018-12-18] MEDS: LORAZEPAM 1 MG TAB PEG PRN (09:41)
[2018-12-18] MEDS: DOCUSATE SODIUM 10 MG/ML (10ML CUP) GTB SCH (20:58)
[2018-12-18] MEDS: AMITRIPTYLINE 50 MG TAB PO SCH (20:59)
[2018-12-18] MEDS: SENNA TAB PO SCH (20:59)
[2018-12-19] VITALS (17 sets, daily range): BP systolic 121–145; BP diastolic 56–70; PULSE 91–107; RESP 13–31
[2018-12-19] MEDS: ALBUTEROL HFA 8 GM INHALER INH SCH ×3 (01:59→19:46)
[2018-12-19] MEDS: IPRATROPIUM (HFA) 12.9 GM INHALER INH SCH ×3 (01:59→19:46)
[2018-12-19] MEDS: ONDANSETRON 4 MG INJ IV PRN ×3 (06:59→19:52)
[2018-12-19] MEDS: HYDROmorphONE 2 MG/ML SYG IV PRN ×3 (06:59→19:52)
[2018-12-19] MEDS: DOCUSATE SODIUM 10 MG/ML (10ML CUP) GTB SCH ×2 (08:55→19:58)
[2018-12-19] MEDS: CALCIUM CARBONATE 500 MG CHEW TAB PO SCH (08:55)
[2018-12-19] MEDS: LACTOBACILLUS RHAMNOSUS CAP PO SCH ×2 (08:56→20:05)
[2018-12-19] MEDS: ASCORBIC ACID 500 MG TAB PO SCH ×2 (08:56→19:59)
[2018-12-19] MEDS: METOCLOPRAMIDE 5 MG TAB PO SCH ×2 (08:56→11:19)
[2018-12-19] MEDS: MAGNESIUM OXIDE 400 MG TAB GTB SCH ×2 (08:56→19:59)
[2018-12-19] MEDS: SENNA TAB PO SCH ×2 (08:56→19:59)
[2018-12-19] MEDS: CHOLECALCIFEROL 1,000 UNIT TAB PO SCH (08:56)
[2018-12-19] MEDS: FAMOTIDINE 20 MG TAB PO SCH ×2 (08:58→19:59)
[2018-12-19] MEDS: MOMETASONE 0.24 GM INHALER INH SCH ×3 (08:59→20:48)
[2018-12-19] MEDS: ENOXAPARIN 40 MG/0.4 ML SYG SC SCH (09:06)
[2018-12-19] MEDS: ACETAMINOPHEN 325 MG TAB PO PRN (11:24)
[2018-12-19] MEDS: LORAZEPAM 1 MG TAB PEG PRN (15:52)
[2018-12-19] MEDS: AMITRIPTYLINE 50 MG TAB PO SCH (20:00)
[2018-12-20] VITALS (11 sets, daily range): BP systolic 117–144; BP diastolic 58–78; PULSE 101–116; RESP 17–36
[2018-12-20] MEDS: ALBUTEROL HFA 8 GM INHALER INH SCH ×3 (01:03→14:00)
[2018-12-20] MEDS: IPRATROPIUM (HFA) 12.9 GM INHALER INH SCH ×3 (01:03→14:00)
[2018-12-20] MEDS: ONDANSETRON 4 MG INJ IV PRN ×2 (05:06→16:57)
[2018-12-20] MEDS: HYDROmorphONE 2 MG/ML SYG IV PRN ×2 (05:07→16:56)
[2018-12-20] MEDS: MOMETASONE 0.24 GM INHALER INH SCH ×2 (08:57→20:31)
[2018-12-20] MEDS: DOCUSATE SODIUM 10 MG/ML (10ML CUP) GTB SCH ×2 (09:03→20:30)
[2018-12-20] MEDS: CHOLECALCIFEROL 1,000 UNIT TAB PO SCH (09:03)
[2018-12-20] MEDS: FAMOTIDINE 20 MG TAB PO SCH ×2 (09:03→20:30)
[2018-12-20] MEDS: SENNA TAB PO SCH (09:04)
[2018-12-20] MEDS: LACTOBACILLUS RHAMNOSUS CAP PO SCH ×2 (09:04→20:30)
[2018-12-20] MEDS: CALCIUM CARBONATE 500 MG CHEW TAB PO SCH (09:04)
[2018-12-20] MEDS: ASCORBIC ACID 500 MG TAB PO SCH ×2 (09:04→20:30)
[2018-12-20] MEDS: MAGNESIUM OXIDE 400 MG TAB GTB SCH ×2 (09:04→20:30)
[2018-12-20] MEDS: ENOXAPARIN 40 MG/0.4 ML SYG SC SCH (09:05)
[2018-12-20] MEDS: ACETAMINOPHEN 325 MG TAB PO PRN (09:07)
[2018-12-20] MEDS: LORAZEPAM 1 MG TAB PEG PRN (14:18)
[2018-12-20] MEDS ORDERED: ASA/ACETAMINOPHEN/CAFF TAB GTB PRN (16:00)
[2018-12-20] MEDS: ALBUTEROL/IPRATROPIUM (NEB) 3 ML AMP HHN SCH (20:17)
[2018-12-20] MEDS: ACET/BUTAL/CAFF TAB GTB PRN (20:30)
[2018-12-20] MEDS: DICLOFENAC SODIUM 1% GEL 100 GM TUBE TP SCH (20:31)
[2018-12-20] MEDS: AMITRIPTYLINE 50 MG TAB PO SCH (20:31)
[2018-12-21] VITALS: BP 129/65; PULSE 104; RESP 27
[2018-12-21] MEDS: ALBUTEROL/IPRATROPIUM (NEB) 3 ML AMP HHN SCH ×4 (01:14→20:09)
[2018-12-21] MEDS: HYDROmorphONE 2 MG/ML SYG IV PRN ×3 (02:07→20:35)
[2018-12-21] MEDS: ONDANSETRON 4 MG INJ IV PRN ×3 (02:07→20:35)
[2018-12-21 03:52] VITALS: BP 116/68; PULSE 94; RESP 16
[2018-12-21 08:04] VITALS: BP 119/62; PULSE 97; RESP 20
[2018-12-21] MEDS: LACTOBACILLUS RHAMNOSUS CAP PO SCH ×2 (08:32→21:18)
[2018-12-21] MEDS: ASCORBIC ACID 500 MG TAB PO SCH ×2 (08:32→21:18)
[2018-12-21] MEDS: DICLOFENAC SODIUM 1% GEL 100 GM TUBE TP SCH ×3 (08:32→21:19)
[2018-12-21] MEDS: FAMOTIDINE 20 MG TAB PO SCH ×2 (08:32→21:19)
[2018-12-21] MEDS: CALCIUM CARBONATE 500 MG CHEW TAB PO SCH (08:32)
[2018-12-21] MEDS: CHOLECALCIFEROL 1,000 UNIT TAB PO SCH (08:32)
[2018-12-21] MEDS: DOCUSATE SODIUM 10 MG/ML (10ML CUP) GTB SCH ×2 (08:33→21:18)
[2018-12-21] MEDS: ACET/BUTAL/CAFF TAB GTB PRN (08:33)
[2018-12-21] MEDS: MAGNESIUM OXIDE 400 MG TAB GTB SCH ×2 (08:33→21:19)
[2018-12-21] MEDS: MOMETASONE 0.24 GM INHALER INH SCH ×2 (08:47→21:18)
[2018-12-21] MEDS: ENOXAPARIN 40 MG/0.4 ML SYG SC SCH (08:48)
[2018-12-21] MEDS: HYDROCODONE/APAP (5/325) TAB PO PRN (09:59)
[2018-12-21] MEDS: LORAZEPAM 1 MG TAB PEG PRN (16:07)
[2018-12-21] MEDS: MAGNESIUM HYDROXIDE 30ML CUP PO SCH (21:18)
[2018-12-21] MEDS: AMITRIPTYLINE 50 MG TAB PO SCH (21:18)
[2018-12-22 00:05] VITALS: BP 113/70; PULSE 104; RESP 19
[2018-12-22] MEDS: ALBUTEROL/IPRATROPIUM (NEB) 3 ML AMP HHN SCH ×4 (01:30→19:28)
[2018-12-22 04:16] VITALS: BP 130/61; PULSE 107; RESP 20
[2018-12-22 07:54] VITALS: BP 118/57; PULSE 101; RESP 17
[2018-12-22] MEDS: MOMETASONE 0.24 GM INHALER INH SCH ×3 (09:00→21:35)
[2018-12-22] MEDS: HYDROmorphONE 1 MG/ML SYG IV PRN (09:03)
[2018-12-22] MEDS: DOCUSATE SODIUM 10 MG/ML (10ML CUP) GTB SCH ×2 (09:04→21:34)
[2018-12-22] MEDS: CALCIUM CARBONATE 500 MG CHEW TAB PO SCH (09:04)
[2018-12-22] MEDS: ONDANSETRON 4 MG INJ IV PRN (09:04)
[2018-12-22] MEDS: LACTOBACILLUS RHAMNOSUS CAP PO SCH ×2 (09:04→21:34)
[2018-12-22] MEDS: CHOLECALCIFEROL 1,000 UNIT TAB PO SCH (09:04)
[2018-12-22] MEDS: FAMOTIDINE 20 MG TAB PO SCH ×2 (09:04→21:34)
[2018-12-22] MEDS: ASCORBIC ACID 500 MG TAB PO SCH ×2 (09:04→21:34)
[2018-12-22] MEDS: MAGNESIUM HYDROXIDE 30ML CUP PO SCH ×2 (09:04→21:34)
[2018-12-22] MEDS: MAGNESIUM OXIDE 400 MG TAB GTB SCH ×2 (09:04→21:57)
[2018-12-22] MEDS: DICLOFENAC SODIUM 1% GEL 100 GM TUBE TP SCH ×3 (09:05→21:35)
[2018-12-22] MEDS: ENOXAPARIN 40 MG/0.4 ML SYG SC SCH (09:15)
[2018-12-22] MEDS: HYDROCODONE/APAP (10/325) TAB PO PRN ×4 (10:24→21:34)
[2018-12-22 11:40] VITALS: BP 113/59; PULSE 111; RESP 19
[2018-12-22] MEDS: ESTRADIOL 0.1 MG/24 HR PATCH TRANSDERM SCH (11:46)
[2018-12-22 15:08] VITALS: BP 137/63; PULSE 101; RESP 17
[2018-12-22] MEDS: LORAZEPAM 1 MG TAB PEG PRN (16:26)
[2018-12-22 20:00] VITALS: BP 120/59; PULSE 82; RESP 20
[2018-12-22] MEDS: AMITRIPTYLINE 50 MG TAB PO SCH (21:34)
[2018-12-23] VITALS: BP 102/55; PULSE 106; RESP 20
[2018-12-23] MEDS: ALBUTEROL/IPRATROPIUM (NEB) 3 ML AMP HHN SCH ×4 (01:47→20:00)
[2018-12-23 05:00] VITALS: BP 116/57; PULSE 99; RESP 20
[2018-12-23] MEDS: ONDANSETRON 4 MG INJ IV PRN ×3 (06:41→17:19)
[2018-12-23] MEDS: HYDROCODONE/APAP (10/325) TAB PO PRN (06:41)
[2018-12-23 08:04] VITALS: BP 115/59; PULSE 99; RESP 18
[2018-12-23] MEDS: DICLOFENAC SODIUM 1% GEL 100 GM TUBE TP SCH ×2 (08:39→13:00)
[2018-12-23] MEDS: FAMOTIDINE 20 MG TAB PO SCH (08:40)
[2018-12-23] MEDS: CHOLECALCIFEROL 1,000 UNIT TAB PO SCH (08:40)
[2018-12-23] MEDS: DOCUSATE SODIUM 10 MG/ML (10ML CUP) GTB SCH (08:40)
[2018-12-23] MEDS: MAGNESIUM OXIDE 400 MG TAB GTB SCH (08:40)
[2018-12-23] MEDS: LACTOBACILLUS RHAMNOSUS CAP PO SCH (08:40)
[2018-12-23] MEDS: CALCIUM CARBONATE 500 MG CHEW TAB PO SCH (08:40)
[2018-12-23] MEDS: MOMETASONE 0.24 GM INHALER INH SCH (08:40)
[2018-12-23] MEDS: ASCORBIC ACID 500 MG TAB PO SCH (08:40)
[2018-12-23] MEDS: ENOXAPARIN 40 MG/0.4 ML SYG SC SCH (09:23)
[2018-12-23] MEDS: HYDROmorphONE 1 MG/ML SYG IV PRN ×3 (11:18→20:54)
[2018-12-23 11:26] VITALS: BP 108/55; PULSE 106; RESP 18
[2018-12-23 15:35] VITALS: BP 136/63; PULSE 108; RESP 18
== END 2018-12-23 20:56 | DRG 951 ==
LOC: E/R 10:53 → TEL 13:56
PROVIDERS: ADMIT Internal Medicine; ATTEND Internal Medicine
PROC: 5A1955Z Respiratory Ventilation, Greater than 96 Consecutive Hours (ICD-10-PCS; principal; 2018-12-13)
DX: Z87.891 Personal history of nicotine dependence (principal); J96.22 Acute and chronic respiratory failure with hypercapnia; J96.21 Acute and chronic respiratory failure with hypoxia; Z99.11 Dependence on respirator [ventilator] status; E46 Unspecified protein-calorie malnutrition; R65.10 Systemic inflammatory response syndrome (SIRS) of non-infectious origin without acute organ dysfunction; G71.00 Muscular dystrophy, unspecified; Z93.0 Tracheostomy status; Z98.84 Bariatric surgery status; Z93.1 Gastrostomy status; R13.10 Dysphagia, unspecified; M12.841 Other specific arthropathies, not elsewhere classified, right hand; J47.9 Bronchiectasis, uncomplicated; K31.84 Gastroparesis; K59.00 Constipation, unspecified; M79.7 Fibromyalgia; J44.9 Chronic obstructive pulmonary disease, unspecified; Z87.01 Personal history of pneumonia (recurrent)
CPT/HCPCS: 36415; 71045; 72040; 74018; 74230; 80048; 80053; 83036; 83735; 84100; 84145; 84484; 85025; 85610; 87081; 92507; 92523; 92526; 92611; 93005; 94002; 94003; 94640; 94664; 96374; 96375; 97110; 97162; 97165; 97530; J1170; J1650; J1885; J2060; J2405; J2543; J3370; J7030